=== PATIENT | female | born 1940 | race Caucasian/White ===

== ENCOUNTER → 2016-05-08 | Outpatient (REF) | payer MEDICARE ==
[~2016-05-08] MED LIST: /ESCI20TA PO; /WARF25TA PO; AGGR1CAP PO; AGGRENOX PO; ALBU83IN INH; ALDA50TA2 PO; AMLO5TAB2 PO; ASPI81TA85 PO; ATEN25TA PO; AZEL0.1S3; BENA20TA2 PO; CITA20TA4 PO; CLON-412 PO; EXCETAB80 PO; FISH1000 PO; FISHOIL OR; GEMF600T PO; HYDR-3716 PO; HYDR-4266 PO; HYDR-4267 PO; HYDR25TA PO; INVA1INJ IV; IPRASOL4 INH; LASI20TA PO; LOVA40TA PO; MECL-68 PO; MELA3TAB PO; METO12TA PO; METO25TAB PO; MUCI600T34 PO; PERCOCET PO; POTA10CA PO; PRED10TA PO; SIMV20TA2 PO; SPIR25TA2 PO; TRIPOIN TOP; TUMS500C PO; TYLE325T5 PO; ULTR50TA PO; VITA100066 PO; VITA400C2 PO; VITACAP33 PO; Vitamin D OR; [UNRECOGNIZED DRUG - CODE] PO; aggrenox OR; vitamin B12 OR; vitamin E OR
== END ==
LOC: M LAB REF 13:08
PROVIDERS: ATTEND Internal Medicine Nephrology
DX: N18.5 Chronic kidney disease, stage 5 (principal)

== ENCOUNTER → 2016-07-04 | Day surgery (SDC) | payer MEDICARE ==
[~2016-07-04] VITALS: Ht 156.2 cm; Wt 70.3 kg
[~2016-07-04] MED LIST changes: +ACETAMINOPHEN TAB 650MG DOSE (2X325MG) PO PRN; +D5W/0.2% SODIUM CHLORIDE 1,000 ML IV SCH; +HEPARIN SOD (PORCINE) 5000 UNITS/ML VIAL As Ordered ONE; +LIDOCAINE 1% SDV INJ 30 ML VIAL As Ordered ONE; +LIDOCAINE 2% INJ 100 MG/5 ML SDV (FOR ANES.) As Ordered ONE; +MIDAZOLAM INJ 2 MG/2 ML VIAL (J2250) As Ordered ONE; +NORCO, ANEXSIA 5/325MG TABLET (HYDROcodone/ACETAMINOPHEN) PO PRN; +NS 1,000 ML IV SCH; +ONDANSETRON 4MG/2ML VIAL (J2405) As Ordered ONE; +POTA1TAB14 PO; +PROPOFOL 200 MG/20 ML VIAL As Ordered ONE; +SEVOFLURANE INHAL SOLN 250 ML BTL As Ordered ONE; +fentaNYL 100 MCG/2 ML INJECTION (J3010) As Ordered ONE
[2016-07-04 10:00] VITALS: BP 178/82
--- NOTE | 2016-07-04 12:14 | RO ---
DATE OF PROCEDURE: 07/04/2016 PREOPERATIVE DIAGNOSIS: End stage renal disease. POSTOPERATIVE DIAGNOSIS: End stage renal disease. PROCEDURE PERFORMED: Implantation of permanent continuous ambulatory peritoneal dialysis catheter. SURGEON: Dr. Amol Lopez SHINE WORKER: BUTCH Mora ANESTHESIA: Monitored anesthesia care with local of 1% Xylocaine. INDICATIONS FOR PROCEDURE: Patient is a 75-year-old woman with progressive renal failure at end-stage. She is now for placement of a continuous ambulatory peritoneal dialysis (CAPD) catheter to begin dialysis. OPERATIVE PROCEDURE: The patient was placed supine on the operating table. She received sedation from anesthesia. The abdomen was prepped and draped in a sterile fashion. The site for the catheter placement was marked with a skin marker in the left lower quadrant. Local anesthesia was achieved with 1% Xylocaine. An approximately 3-4 cm longitudinal paramedian incision was made in the left lower quadrant slightly below the level of the umbilicus. The incision was deepened through the subcutaneous tissues. The anterior aspect of the rectus sheath was exposed. A longitudinal incision was made. The muscle fibers were spread. The peritoneum was exposed. A small opening was created through the posterior sheath and the peritoneum. A pursestring suture of #2-0 Vicryl was placed. The double pledgeted Joshua peritoneal dialysis catheter was placed over a stylet and then advanced through the small opening into the abdomen. The patient was placed in a Trendelenburg position for the catheter placement. The catheter was advanced along the anterior aspect of the abdominal wall toward the pelvis and then the catheter was slipped off the insertion stylet. The first pledget was placed just outside the peritoneum and the pursestring suture was tied down and was then tied about the pledget to keep the catheter from pulling back. The rectus muscle fibers were allowed to fall back together about the catheter. The anterior rectus sheath was then closed with a running suture of #0 Vicryl, leaving the catheter exiting superiorly. The catheter was then tunneled through the subcutaneous tissues to exit through a small stab wound in the left lower quadrant. The infusion adapter was attached to the catheter. A liter of normal saline was then infused with the patient in a slight reverse Trendelenburg position. Approximately 900 mL were allowed to infuse before the bag was then dropped and the fluid was allowed to return by gravity siphon. Approximately 700 mL returned. The catheter was then filled with 1 mL of 5000 units/mL heparin and approximately 1.2 mL of sterile injectable saline. While the fluid was infusing and returning, the skin incision was approximated with multiple buried sutures of #3-0 chromic and a running subcuticular suture of #4-0 Vicryl. Steri-Strips were applied. A chlorhexidine gluconate (CHG) OpSite was applied at the catheter exit site. The catheter was then coiled beneath gauze pads and an occlusive bandage of large OpSites was applied. The patient tolerated the procedure well without apparent complication. She was awakened and transported to advanced recovery in stable condition.
== END | disposition home or self-care (01) ==
LOC: M SDC 05:59
PROVIDERS: ATTEND Surgery
DX: N18.6 End stage renal disease (principal); I13.2 Hypertensive heart and chronic kidney disease with heart failure and with stage 5 chronic kidney disease, or end stage renal disease; I50.32 Chronic diastolic (congestive) heart failure; N25.81 Secondary hyperparathyroidism of renal origin; R55 Syncope and collapse; H69.90 Unspecified Eustachian tube disorder, unspecified ear; H65.20 Chronic serous otitis media, unspecified ear; H93.19 Tinnitus, unspecified ear; H90.5 Unspecified sensorineural hearing loss; H61.20 Impacted cerumen, unspecified ear; E78.00 Pure hypercholesterolemia, unspecified; F41.9 Anxiety disorder, unspecified; F32.9 Major depressive disorder, single episode, unspecified; I25.2 Old myocardial infarction; F17.210 Nicotine dependence, cigarettes, uncomplicated; R06.02 Shortness of breath; R06.83 Snoring; Z79.899 Other long term (current) drug therapy; Z85.858 Personal history of malignant neoplasm of other endocrine glands; Z96.1 Presence of intraocular lens; Z90.710 Acquired absence of both cervix and uterus; Z96.653 Presence of artificial knee joint, bilateral; Z91.040 Latex allergy status; Z88.6 Allergy status to analgesic agent; Z91.048 Other nonmedicinal substance allergy status; Z88.8 Allergy status to other drugs, medicaments and biological substances
CPT/HCPCS: 36415; 49421; 84132; J0690; J2250; J2405; J3010

== ENCOUNTER → 2016-09-13 | Outpatient (REF) | payer MEDICARE ==
[~2016-09-13] MED LIST changes: -ACETAMINOPHEN TAB 650MG DOSE (2X325MG) PO PRN; -D5W/0.2% SODIUM CHLORIDE 1,000 ML IV SCH; -HEPARIN SOD (PORCINE) 5000 UNITS/ML VIAL As Ordered ONE; -LIDOCAINE 1% SDV INJ 30 ML VIAL As Ordered ONE; -LIDOCAINE 2% INJ 100 MG/5 ML SDV (FOR ANES.) As Ordered ONE; -MIDAZOLAM INJ 2 MG/2 ML VIAL (J2250) As Ordered ONE; -NORCO, ANEXSIA 5/325MG TABLET (HYDROcodone/ACETAMINOPHEN) PO PRN; -NS 1,000 ML IV SCH; -ONDANSETRON 4MG/2ML VIAL (J2405) As Ordered ONE; -PROPOFOL 200 MG/20 ML VIAL As Ordered ONE; -SEVOFLURANE INHAL SOLN 250 ML BTL As Ordered ONE; -fentaNYL 100 MCG/2 ML INJECTION (J3010) As Ordered ONE
== END ==
LOC: M LAB REF 17:30
PROVIDERS: ATTEND Internal Medicine Nephrology
DX: N39.0 Urinary tract infection, site not specified (principal)

== ENCOUNTER 2016-11-14 14:22 | Inpatient (IN) | payer MEDICARE ==
[~2016-11-14] VITALS: Ht 154.9 cm; Wt 73.6 kg
[~2016-11-14 14:22] MED LIST changes: +HYDR-3910 PO; +HYDR-3911 PO; -HYDR-4266 PO; -HYDR-4267 PO; -METO12TA PO; +METO1TAB87 PO; -MUCI600T34 PO; +MUCI600T37 PO; -PRED10TA PO; +PRED10TA2 PO; -VITA400C2 PO; +VITA400C7 PO
[2016-11-14 18:10] VITALS: BP 168/82
[2016-11-14] MEDS ORDERED: ACETAMINOPHEN TAB 650MG DOSE (2X325MG) PO PRN (18:15)
[2016-11-14] MEDS ORDERED: ONDANSETRON 4MG/2ML VIAL (J2405) IV PRN (18:15)
[2016-11-14] MEDS ORDERED: MORPHINE 2 MG/ML 1ML SYRINGE IV PRN (18:15)
[2016-11-14 18:48] LABS: BASO % 0.2 % (0.0-1.0); EOS # 0.1 K/mm3 (0.0-0.50); EOS % 1.4 % (0.0-3.0); LARGE UNSTAINED CELL # 0.1 K/mm3 (0.0-0.4); LARGE UNSTAINED CELL % 1.8 % (0.0-4.0); LYMPH # 1.5 K/mm3 (1.5-4.5); LYMPH % 23.6 % (24.0-44.0); MEAN CORPUSCULAR HEMOGLOBIN 32.2 pg (27.0-33.0); MEAN CORPUSCULAR HGB CONC 34.7 g/dl (32.0-36.5); MEAN CORPUSCULAR VOLUME 92.7 fl (80.0-96.0); MONO # 0.3 K/mm3 (0.0-0.8); MONO % 5.1 % (0.0-5.0); NEUTROPHILS % 67.9 % (36.0-66.0); PLATELET COUNT, AUTOMATED 229 k/mm3 (150-450); RED CELL DISTRIBUTION WIDTH 13.6 % (11.5-14.5); WHITE BLOOD COUNT 5.8 K/mm3 (4.0-10.0)
[2016-11-14] MEDS: PANTOPRAZOLE 40MG TAB (PROTONIX) PO SCH (19:01)
[2016-11-14 19:29] LABS: ALBUMIN 2.4 GM/DL (3.2-5.2); ALBUMIN/GLOBULIN RATIO 0.75 (1.00-1.93); BILIRUBIN,TOTAL 0.4 MG/DL (0.2-1.0); CALCIUM LEVEL 8.6 MG/DL (8.8-10.2); CREATININE FOR GFR 3.49 MG/DL (0.55-1.02); GLOMERULAR FILTRATION RATE 13.5 (>39); POTASSIUM SERUM 3.3 MEQ/L (3.5-5.1); TOTAL PROTEIN 5.6 GM/DL (6.4-8.2)
[2016-11-14] MEDS ORDERED: ADV250INH INH (20:48)
[2016-11-14] MEDS ORDERED: FURO40TA2 PO (20:48)
[2016-11-14] MEDS ORDERED: LOSA100T36 PO (20:48)
[2016-11-14] MEDS ORDERED: VITA100067 PO (20:48)
[2016-11-14] MEDS ORDERED: CITA20TA4 PO (20:48)
[2016-11-14] MEDS ORDERED: RENATAB5 PO (20:48)
[2016-11-14] MEDS ORDERED: HYDR-3911 PO (20:48)
[2016-11-14] MEDS ORDERED: ZOCO40TA PO (20:48)
[2016-11-14] MEDS ORDERED: CETI10TA PO (20:48)
[2016-11-14] MEDS ORDERED: POTASSIUM CHLORIDE 10 MEQ SR TABLET PO ONE (21:45)
[2016-11-14] MEDS ORDERED: VANCOMYCIN 1000 MG/20 ML VIAL (J3370) IP ONE (21:45)
[2016-11-14] MEDS ORDERED: GENTAMICIN SULF INJ 80MG/2ML VIAL (J1580) IP ONE (21:45)
[2016-11-14] MEDS: cloNIDine 0.1 MG TAB PO SCH (22:23)
[2016-11-14] MEDS: METOPROLOL TART 25 MG TABLET PO SCH (22:24)
[2016-11-14] MEDS: GEMFIBROZIL 600 MG TAB PO SCH (22:24)
[2016-11-14] MEDS: CitaloPRAM (CeleXA) 20 MG TAB PO SCH (22:24)
[2016-11-14 22:59] LABS: RBC PERITONEAL DIALYSATE 69 (<10mm3 cells/uL); TNC PERITONEAL DIALYSATE 8067 cells/uL (0-20)
[2016-11-14 23:00] LABS: BF DIFF IF INDICATED? YES (NO)
[2016-11-15] MEDS ORDERED: COMBIVENT RESPIMAT 100-20MCG INHALER 4GM INH PRN (00:15)
[2016-11-15 00:52] LABS: CC BF DIFF EXAM CYTOCENTRIFUGE
[2016-11-15 02:00] VITALS: BP 128/75
[2016-11-15] MEDS: PERCOCET 5MG/325MG TAB PO PRN ×3 (03:12→17:51)
[2016-11-15 06:00] VITALS: BP 118/69
[2016-11-15 06:39] LABS: MEAN CORPUSCULAR HEMOGLOBIN 32.7 pg (27.0-33.0); MEAN CORPUSCULAR HGB CONC 34.6 g/dl (32.0-36.5); MEAN CORPUSCULAR VOLUME 94.6 fl (80.0-96.0); RED CELL DISTRIBUTION WIDTH 13.3 % (11.5-14.5); WHITE BLOOD COUNT 5.6 K/mm3 (4.0-10.0)
[2016-11-15 06:58] LABS: ALBUMIN 1.9 GM/DL (3.2-5.2); CALCIUM LEVEL 7.7 MG/DL (8.8-10.2); CREATININE FOR GFR 3.47 MG/DL (0.55-1.02); GLOMERULAR FILTRATION RATE 13.6 (>39); PHOSPHORUS LEVEL 3.4 MG/DL (2.5-4.9); POTASSIUM SERUM 3.4 MEQ/L (3.5-5.1)
[2016-11-15] MEDS: OMEGA-3 1050MG CAPSULE PO SCH (10:08)
[2016-11-15] MEDS: POTASSIUM CHLORIDE 10 MEQ SR TABLET PO SCH ×2 (10:08→21:38)
[2016-11-15] MEDS: METOPROLOL TART 25 MG TABLET PO SCH ×2 (10:09→21:40)
[2016-11-15] MEDS: NEPHRO-VIT TAB (NEPHROCAPS) PO SCH (10:09)
[2016-11-15] MEDS: LOSARTAN 50 MG TAB PO SCH (10:10)
[2016-11-15] MEDS: GEMFIBROZIL 600 MG TAB PO SCH ×2 (10:10→21:39)
[2016-11-15] MEDS: PANTOPRAZOLE 40MG TAB (PROTONIX) PO SCH (10:10)
[2016-11-15] MEDS: ENOXAPARIN 30 MG/0.3 ML SYR (J1650) SC SCH (10:11)
[2016-11-15] MEDS: cloNIDine 0.1 MG TAB PO SCH ×3 (10:11→21:39)
[2016-11-15] MEDS: VITAMIN D 1,000 INTERNATIONAL UNITS TABLET PO SCH (10:11)
[2016-11-15] MEDS: ALBUTEROL SULFATE 2.5 MG/0.5 ML INH NEB SOLN NEB PRN (10:34)
[2016-11-15] MEDS ORDERED: HEPARIN SOD (PORCINE) 5000 UNITS/ML VIAL IP ONE (11:30)
--- NOTE | 2016-11-15 12:47 | REP ---
CT of the abdomen and pelvis without IV or bowel contrast: Comparison is 02/04/2016. The previous bilateral pleural effusions have resolved. The visualized lung hollingsworth are unremarkable. There is a large volume of peritoneal fluid surrounding the liver and spleen extending into the colic gutters and pelvis. There is a peritoneal catheter, likely a peritoneal dialysis catheter. This was not present previously. There is no mesenteric adenopathy. There are no loculated mesenteric fluid collections to suggest abscess or hematoma. The unenhanced liver is unremarkable except for occasional calcified granulomas. The gallbladder is distended. This is unchanged. There is no cholelithiasis. The pancreas and spleen are unremarkable except for splenic calcified granulomas. This is unchanged. There is pneumoperitoneum anterior to the transverse colon. The adrenals are unremarkable. The unenhanced kidneys are unremarkable. There is no hydronephrosis. There is an infrarenal abdominal aortic aneurysm measuring up to 3.7 cm, unchanged. Just inferior to the aneurysm there is an unusual calcification pattern in the aorta, as a result of aortic tortuosity, seen to best advantage on the coronal images. This is unchanged. Pelvis: There is sigmoid colon diverticulosis without diverticulitis. This is unchanged. The there is a air in the bladder, likely from catheterization, however fistulization with bowel is also possible. There is a hysterectomy. The vaginal cuff and adnexa are unremarkable. Impression: There is pneumoperitoneum anterior to the transverse colon. Peritoneal catheter and large volume of intraperitoneal fluid. No inflammatory changes in the mesentery. No loculated mesenteric fluid collections to suggest abscess or hematoma. No bowel distension. Sigmoid colon diverticulosis without diverticulitis. Air in the bladder, likely from catheterization although fistulization with bowel cannot be entirely discounted. Infrarenal abdominal aortic aneurysm and tortuosity of the infrarenal abdominal aorta. Results are discussed by phone with the patient's physician, Dr. Evans. Signed by Dejuan Galindo MD 11/15/2016 12:39 P
[2016-11-15] MEDS: KCL 20MEQ IN D5/NS 1000ML 1,000 ML IV SCH (13:04)
--- NOTE | 2016-11-15 18:23 | HPE ---
DATE OF ADMISSION: 11/14/2016 Note: The patient is transferred from [facility] for admission due to severe abdominal pain the last four days in the setting of end-stage renal disease and peritoneal dialysis. CHIEF COMPLAINT: Severe abdominal pain since Sunday. HISTORY OF PRESENT ILLNESS: The patient is a 75-year-old female with known history of hypertension, hyperlipidemia, COPD, end-stage renal disease requiring peritoneal dialysis. She developed abdominal pain on Sunday, however did not call us at all. Today she presented to the emergency room at [facility]. She was seen by a physician's talent acquisition assistant who did not have any experience in the care of peritoneal dialysis patient. The patient did have a CT scan of abdomen and pelvis done which showed free air and ascites. I was called by the physician talent acquisition assistant and case was discussed. I felt that the patient probably has peritonitis, ischemic bowel or diverticulitis. CT scan did not show any significant evidence for diverticulitis. It was decided to transfer the patient to [facility] due to need for dialysis and further workup for diagnosis of her abdominal pain. PAST MEDICAL AND SURGICAL HISTORY: Significant for 1. Hypertension. 2. Hyperlipidemia. 3. Chronic obstructive pulmonary disease (COPD). 4. Depression. 5. End-stage renal disease requiring peritoneal dialysis. 6. History of cerebrovascular accident (CVA) and transient ischemic attack (TIA). 7. History of gastroesophageal reflux disease. 8. Anemia of chronic kidney disease. 9. Vitamin D deficiency. 10. Secondary hyperparathyroidism. PAST SURGICAL HISTORY: Significant for 1. Tonsillectomy. 2. Bilateral knee replacement. 3. Bilateral cataract removal. 4. Partial hysterectomy. 5, Lymph node dissection in left arm. 6. Melanoma removal from left ankle. 7. Peritoneal dialysis catheter placement. MEDICATIONS: Her home medications include - Aggrenox 25/200 mg 1 tablet twice a day. - citalopram 20 mg daily - fish oil 1000 mg daily - gemfibrozil 600 mg twice a day - losartan 100 mg daily - metoprolol 25 mg twice a day - Pastora-Olga 1 tablet daily - simvastatin 40 mg daily - vitamin D 1000 units daily - Zyrtec 10 mg daily - clonidine 0.1 mg three times a day - hydralazine 50 mg three times a day ALLERGIES: The patient has allergy to IBUPROFEN, LATEX, PSEUDOEPHEDRINE AND CARBAMIDE PEROXIDE. REVIEW OF SYSTEMS: The patient denies any fever or chills. She reports abdominal pain for last 4 days. She has been nauseated and not eating well, but denies any vomiting or diarrhea. There is no history of rectal bleeding or black colored stools. Cardiovascular system is negative for dyspnea or chest pain. Respiratory system negative for cough, hemoptysis or pleuritic type of chest pain. Ears, nose and throat are unremarkable. GI system is significant for abdominal pain, which has persisted since Sunday. She denies any rectal bleeding or black colored stools. system is significant for cloudy urine, but denies any dysuria or hematuria. She has history of end-stage renal disease and has been on peritoneal dialysis. Musculoskeletal system is significant for chronic degenerative arthritis. She denies use of NSAID. Psychosocial system is significant for depression. There is no significant anxiety. Neurological system is significant for prior stroke and TIA. She does not have any significant neurological deficit. Endocrine system is negative for diabetes or thyroid problems. She has secondary hyperparathyroidism and vitamin D deficiency. PHYSICAL EXAMINATION: Temperature 98.8 degrees Fahrenheit, heart rate 88 per minute and respiratory rate 18 per minute. Blood pressure 119/69 mmHg and oxygen saturation 90% on room air. Head: Is atraumatic. Neck is supple and without jugular venous distention (JVD) or thyroid enlargement. Pupils are equal and reactive to light and sclera is anicteric. Heart exam reveals a regular S1-S2. There is no pericardial friction rub. Lungs: Sound clear to auscultation bilaterally. Abdomen has generalized tenderness, which is moderate to severe. Ascites is present and peritoneal dialysis catheter is intact. Extremities have no cyanosis or clubbing. Neurologically she is awake, alert and oriented times three. Skin has no rash or ulcers. DIAGNOSTIC STUDIES: The patient had a CT scan of abdomen and pelvis done in [facility], which showed free air and ascites. There was no evidence for any other significant intra-abdominal pathology. Her labs from [facility] were also reviewed. Here she has a white cell count of 5.8, hemoglobin 10.2 and hematocrit 29.2. Platelets 229. Sodium 140 and potassium 3.3. BUN is 39 and creatinine 3.49. AST 10, ALT also 10 and alkaline phosphatase 63. Total protein 5.6 and albumin 2.4. PROBLEM LIST: 1. Severe abdominal pain. The patient has been in pain for last 4 days. However, she kept thinking that she has some kind of stomach bug. She never sought medical care or notified any providers. She came to the emergency room today. Had a strong suspicion for peritonitis. The patient has been transferred to [facility] and we will check her peritoneal fluid for cell count, growing Gram stain and cultures. I have very strong suspicion for peritonitis. In case of cloudy fluid, we will go ahead and treat her with intraperitoneal vancomycin 2 grams and gentamicin 80 mg tonight. She is hemodynamically stable and afebrile at present. We will wait for cell count on her peritoneal dialysis solution and culture results. 2. End-stage renal disease. The patient has been on peritoneal dialysis at home. We will resume and perform four exchanges daily. Tonight, we will perform one exchange and let the fluid with antibiotics dwell for 8 hours. Tomorrow morning will start four exchanges per day. 3. Hypokalemia. This is nutritional and probably caused by poor oral intake. Will replace her potassium with 40 mEq potassium chloride one dose and recheck her electrolytes tomorrow morning. 4. Hypertension. Her blood pressure is stable so far and will need to monitor as she is at risk for hypotension due to ongoing peritonitis. I will hold off on her hydralazine and continue with her losartan 100 mg daily, metoprolol 25 mg twice a day and clonidine 0.1 mg three times a day. I will put hold parameters on clonidine and losartan. We will completely stop her hydralazine for now. 5. Anemia. Her anemia is stable at this point and does not need any intervention. 6. Depression. We will continue her chronic antidepressant medications. 7. Deep venous thrombosis (DVT) prophylaxis. The patient will be started on Lovenox 30 mg subcu daily. 8. DNR status. The patient requested a DNR status. She filled the paperwork and we issued DO NOT RESUSCITATE (DNR) orders.
[2016-11-15 19:25] LABS: PERITONEAL FL COLOR COLORLESS (COLORLESS); RBC PERITONEAL FLUID < 10 (<10mm3 cells/uL); TNC PERITONEAL FLUID 3167 cells/uL (0-20)
[2016-11-15 19:26] LABS: BF DIFF IF INDICATED? YES (NO)
[2016-11-15] MEDS: CitaloPRAM (CeleXA) 20 MG TAB PO SCH (21:00)
[2016-11-15 21:48] LABS: CC BF DIFF EXAM CYTOCENTRIFUGE
[2016-11-15 22:00] VITALS: BP 115/63
[2016-11-15] MEDS ORDERED: GENTAMICIN SULF INJ 80MG/2ML VIAL (J1580) IP ONE (22:00)
[2016-11-16 02:00] VITALS: BP 120/67
[2016-11-16] MEDS: KCL 20MEQ IN D5/NS 1000ML 1,000 ML IV SCH ×2 (03:12→16:49)
[2016-11-16] MEDS: PERCOCET 5MG/325MG TAB PO PRN ×2 (03:36→08:34)
[2016-11-16 06:00] VITALS: BP 105/65
[2016-11-16] MEDS: cefTAZidime 1 GM in D5W MINI-BAG PLUS 100 ML IV SCH ×2 (08:29→20:36)
[2016-11-16] MEDS: GEMFIBROZIL 600 MG TAB PO SCH ×2 (08:33→20:37)
[2016-11-16] MEDS: VITAMIN D 1,000 INTERNATIONAL UNITS TABLET PO SCH (08:33)
[2016-11-16] MEDS: POTASSIUM CHLORIDE 10 MEQ SR TABLET PO SCH ×2 (08:33→20:37)
[2016-11-16] MEDS: NEPHRO-VIT TAB (NEPHROCAPS) PO SCH (08:33)
[2016-11-16] MEDS: ENOXAPARIN 30 MG/0.3 ML SYR (J1650) SC SCH (08:33)
[2016-11-16] MEDS: OMEGA-3 1050MG CAPSULE PO SCH (08:34)
[2016-11-16] MEDS: PANTOPRAZOLE 40MG TAB (PROTONIX) PO SCH (08:34)
[2016-11-16] MEDS: cloNIDine 0.1 MG TAB PO SCH ×3 (08:35→20:38)
[2016-11-16] MEDS: LOSARTAN 50 MG TAB PO SCH (08:35)
[2016-11-16 09:04] LABS: BF DIFF IF INDICATED? YES (NO); PERITONEAL DIALYSATE FL COLOR COLORLESS (COLORLESS); RBC PERITONEAL DIALYSATE < 10 (<10mm3 cells/uL); TNC PERITONEAL DIALYSATE 4048 cells/uL (0-20)
[2016-11-16 09:55] LABS: ALBUMIN 1.8 GM/DL (3.2-5.2); CALCIUM LEVEL 7.5 MG/DL (8.8-10.2); CREATININE FOR GFR 2.98 MG/DL (0.55-1.02); GLOMERULAR FILTRATION RATE 16.2 (>39); PHOSPHORUS LEVEL 2.8 MG/DL (2.5-4.9); POTASSIUM SERUM 3.4 MEQ/L (3.5-5.1)
[2016-11-16 10:00] VITALS: BP 102/59
[2016-11-16 10:01] LABS: MEAN CORPUSCULAR HEMOGLOBIN 32.2 pg (27.0-33.0); MEAN CORPUSCULAR HGB CONC 33.8 g/dl (32.0-36.5); MEAN CORPUSCULAR VOLUME 95.4 fl (80.0-96.0); RED CELL DISTRIBUTION WIDTH 13.3 % (11.5-14.5); WHITE BLOOD COUNT 5.6 K/mm3 (4.0-10.0)
[2016-11-16 10:03] LABS: CC BF DIFF EXAM CYTOCENTRIFUGE
[2016-11-16] MEDS: METOPROLOL TART 25 MG TABLET PO SCH ×2 (10:40→20:38)
[2016-11-16] MEDS ORDERED: HEPARIN SOD (PORCINE) 5000 UNITS/ML VIAL IP ONE (11:00)
[2016-11-16] MEDS: ALBUTEROL SULFATE 2.5 MG/0.5 ML INH NEB SOLN NEB PRN ×2 (11:01→20:34)
[2016-11-16 14:00] VITALS: BP 118/70
[2016-11-16 18:00] VITALS: BP 134/72
[2016-11-16] MEDS: CitaloPRAM (CeleXA) 20 MG TAB PO SCH (20:38)
--- NOTE | 2016-11-16 21:58 | IPN ---
DATE: 11/15/2016 Mrs. Lange is seen this morning on her bedside. She was admitted last evening via transfer from [facility] due to abdominal pain for the last 4-5 days. She was diagnosed with peritonitis related to peritoneal dialysis. Her peritoneal dialysis solution last evening showed more than 8000 total nucleated cells with 91% neutrophils. She was treated with intraperitoneal vancomycin 2 grams, gentamicin 80 mg and one dose of oral Levaquin 500 mg. This morning, the patient feels slightly better. However, abdominal pain and distension persist. Nursing staff reports that peritoneal dialysis solution is still cloudy and she drained less than 1 liter this morning. PHYSICAL EXAMINATION; Temperature is 97.9 degrees Fahrenheit, heart rate 66 per minute and respiratory rate 18 per minute. Blood pressure 118/69 mmHg and oxygen saturation 90% on room air. Her head is atraumatic. Neck is supple and jugular venous distention (JVD) is only mildly elevated. There is no oral thrush or ulcers. Heart: Sounds are regular and lungs clear to auscultation. Abdomen is slightly more distended than last evening and tender. Bowel sounds are hypoactive. Peritoneal dialysis catheter is intact. Extremities have no cyanosis or clubbing. LABORATORY DATA: Her lab data from last evening included peritoneal dialysis fluid cell count, which showed more than 8000 nucleated WBCs with 91% neutrophils. This morning her sodium is 141 and potassium 3.4. BUN is 37 and creatinine 3.47. Albumin is 1.9. Her urinalysis showed too numerous to count WBCs and 47 RBCs with 3+ leukocyte esterase. PROBLEMS: 1. Severe abdominal pain. This is related to peritonitis. I am concerned about worsening abdominal distension and pain. I am going to repeat CT scan of abdomen and pelvis. We will continue with peritoneal dialysis at this point and try to drain her for longer period of time. We will also add heparin 1000 units in order to ensure that there is no fibrin buildup to prevent fluid drainage. 2. Peritonitis. The patient was given 2 grams of vancomycin and 80 mg of gentamicin last evening. We will give her another dose of gentamicin 40 mg tonight. 3. Hypokalemia. This is related to decreased oral intake. The patient will be given potassium chloride 20 mEq twice a day we will monitor her electrolytes. 4. Anemia. Her anemia is slightly worse today and this is most likely related to acute infection and end-stage renal disease. She has no blood loss. I will continue to monitor and recheck her CBC tomorrow. 5. Hypertension. Her blood pressure is reasonably well-controlled. I have cut down her antihypertensive medications slightly. She is doing well. 6. Abdominal distension and pain. I am going to make her n.p.o. for now and we will continue to monitor for next 24 hours. Should her condition not improve then we will consider a surgical consultation. If her abdominal distension is all related to peritonitis then it is likely to improve over next 24 hours.
[2016-11-16 22:00] VITALS: BP 156/72
[2016-11-17] MEDS: PERCOCET 5MG/325MG TAB PO PRN ×2 (01:54→18:12)
[2016-11-17 02:00] VITALS: BP 138/76
[2016-11-17] MEDS: KCL 20MEQ IN D5/NS 1000ML 1,000 ML IV SCH (03:06)
[2016-11-17 06:00] VITALS: BP 134/64
[2016-11-17 06:29] LABS: MEAN CORPUSCULAR HEMOGLOBIN 31.8 pg (27.0-33.0); MEAN CORPUSCULAR HGB CONC 32.8 g/dl (32.0-36.5); RED CELL DISTRIBUTION WIDTH 13.1 % (11.5-14.5); WHITE BLOOD COUNT 6.3 K/mm3 (4.0-10.0)
[2016-11-17 06:44] LABS: ALBUMIN 1.8 GM/DL (3.2-5.2); CALCIUM LEVEL 7.7 MG/DL (8.8-10.2); CREATININE FOR GFR 2.97 MG/DL (0.55-1.02); GLOMERULAR FILTRATION RATE 16.3 (>39); MAGNESIUM LEVEL 1.6 MG/DL (1.8-2.4); PHOSPHORUS LEVEL 2.7 MG/DL (2.5-4.9); POTASSIUM SERUM 4.4 MEQ/L (3.5-5.1)
[2016-11-17 08:06] LABS: RBC PERITONEAL DIALYSATE < 10 (<10mm3 cells/uL); TNC PERITONEAL DIALYSATE 793 cells/uL (0-20)
[2016-11-17 08:07] LABS: PERITONEAL DIALYSATE FL COLOR COLORLESS (COLORLESS)
[2016-11-17 08:08] LABS: BF DIFF IF INDICATED? YES (NO); CC BF DIFF EXAM CYTOCENTRIFUGE
[2016-11-17] MEDS: cefTAZidime 1 GM in D5W MINI-BAG PLUS 100 ML IV SCH ×2 (08:18→21:10)
[2016-11-17] MEDS: cloNIDine 0.1 MG TAB PO SCH ×3 (08:22→21:11)
[2016-11-17] MEDS: GEMFIBROZIL 600 MG TAB PO SCH ×2 (08:22→21:10)
[2016-11-17] MEDS: OMEGA-3 1050MG CAPSULE PO SCH (08:22)
[2016-11-17] MEDS: LOSARTAN 50 MG TAB PO SCH (08:22)
[2016-11-17] MEDS: POTASSIUM CHLORIDE 10 MEQ SR TABLET PO SCH ×2 (08:22→21:11)
[2016-11-17] MEDS: VITAMIN D 1,000 INTERNATIONAL UNITS TABLET PO SCH (08:22)
[2016-11-17] MEDS: METOPROLOL TART 25 MG TABLET PO SCH ×2 (08:23→21:11)
[2016-11-17] MEDS: NEPHRO-VIT TAB (NEPHROCAPS) PO SCH (08:23)
[2016-11-17] MEDS: ENOXAPARIN 30 MG/0.3 ML SYR (J1650) SC SCH (08:23)
[2016-11-17] MEDS: PANTOPRAZOLE 40MG TAB (PROTONIX) PO SCH (08:23)
[2016-11-17 10:00] VITALS: BP 114/59
[2016-11-17] MEDS: ALBUTEROL SULFATE 2.5 MG/0.5 ML INH NEB SOLN NEB PRN ×2 (11:22→18:09)
[2016-11-17 17:00] VITALS: BP 136/78
[2016-11-17 18:20] VITALS: O2SAT 92
[2016-11-17] MEDS: CitaloPRAM (CeleXA) 20 MG TAB PO SCH (21:10)
[2016-11-17 22:00] VITALS: BP 145/70
[2016-11-17] MEDS: GENTAMICIN SULF INJ 80MG/2ML VIAL (J1580) IP ONE ×2 (22:00→22:04)
[2016-11-17] MEDS ORDERED: HEPARIN 1,000 UNITS/ML 10ML VIAL (FOR RADIOLOGY& DIALYSIS ONLY) XX ONE (23:30)
[2016-11-18 02:00] VITALS: BP 141/69
--- NOTE | 2016-11-18 04:44 | IPN ---
DATE OF SERVICE: 11/16/2016 Mrs. Lange is seen this morning on her bedside. She reports feeling better. However, still has some abdominal pain. She denies any vomiting, chest pain, fever or chills. She reports that she did have a loose stool last night. Her peritoneal dialysis has been functioning reasonably well. However, fluid remains cloudy. PHYSICAL EXAMINATION: Temperature 98 degrees Fahrenheit, heart rate 60 per minute and respiratory rate 18 per minute. Blood pressure is down to 102/59 mmHg. Earlier her heart rate was reported at 107 per minute. Her blood pressure has been relatively low since this morning. Her head is atraumatic. Neck is supple and without jugular venous distention (JVD) or thyroid enlargement. There is no oral thrush or ulcers. Pupils equal and reactive to light and sclera is anicteric. Heart sounds are regular and lungs clear to auscultation. Abdomen is still quite tender, distended and bowel sounds are hypoactive now. Extremities have no cyanosis or clubbing. Neurologically, she is awake, alert and oriented times three. Today's labs show a peritoneal dialysis cell count which is up to 4048 while yesterday it was 3167. Her initial cell count on day of admission was 8067. Peritoneal dialysis fluid culture has come back positive Enterobacter. Today's chemistry showed sodium level 143, potassium 3.4, chloride 105, CO2 28, BUN 30, creatinine 2.98, glucose 144, calcium 7.5 and phosphorus 2.8. Serum albumin is 1.8. PROBLEMS: 1. Peritonitis. The patient has Enterobacter peritonitis. She has been treated with intraperitoneal vancomycin and gentamicin so far. I will start her on intravenous ceftazidime 1 gram every 12 hours. We will redose gentamicin 40 mg tonight in last peritoneal dialysis exchange. She was given vancomycin on the day of admission and will be good for at least another 48 hours. At this point, her blood pressure has dropped down to 102 mmHg while yesterday she was in 140s and 160s. All her antihypertensives are being put on hold. I am increasing the intravenous (IV) fluid to 100 mL/h. I am concerned about possibility of a perforated viscus. A surgical consultation is being requested from Dr. Garrido. 2. End-stage renal disease. Peritoneal dialysis has been functioning reasonably well. We will continue with peritoneal dialysis until a decision for surgery is made. 3. Hypokalemia. This is related to dialysis and nutrition. We will make her nothing by mouth at this point. We have added potassium chloride 20 mEq in each liter of IV fluid and will continue with the same. 4. Anemia. This is related to end-stage renal disease and ongoing acute peritonitis. At this point, there is no indication for transfusion and we will continue to monitor closely. 5. Hypotension. Blood pressure is low and most likely this is related to ongoing peritonitis. Antihypertensives are being put on hold and IV fluid D5 normal saline with potassium chloride is being increased to 100 mL/h. 6. Deep venous thrombosis (DVT) prophylaxis. The patient remains on Lovenox 30 mg daily. 7. DO NOT RESUSCITATE status. The patient has signed the DNR as she had a DNR status as an outpatient. DNR orders have been issued.
[2016-11-18 06:00] VITALS: BP 141/69
[2016-11-18 06:38] LABS: MEAN CORPUSCULAR HEMOGLOBIN 32.2 pg (27.0-33.0); MEAN CORPUSCULAR HGB CONC 33.3 g/dl (32.0-36.5); MEAN CORPUSCULAR VOLUME 96.7 fl (80.0-96.0); RED CELL DISTRIBUTION WIDTH 13.1 % (11.5-14.5); WHITE BLOOD COUNT 6.8 K/mm3 (4.0-10.0)
[2016-11-18 06:46] LABS: ALBUMIN 1.9 GM/DL (3.2-5.2); CALCIUM LEVEL 8.2 MG/DL (8.8-10.2); CREATININE FOR GFR 2.64 MG/DL (0.55-1.02); GLOMERULAR FILTRATION RATE 18.7 (>39); MAGNESIUM LEVEL 1.6 MG/DL (1.8-2.4); PHOSPHORUS LEVEL 2.1 MG/DL (2.5-4.9); POTASSIUM SERUM 4.1 MEQ/L (3.5-5.1)
[2016-11-18] MEDS: GEMFIBROZIL 600 MG TAB PO SCH ×2 (09:07→20:26)
[2016-11-18] MEDS: PANTOPRAZOLE 40MG TAB (PROTONIX) PO SCH (09:07)
[2016-11-18] MEDS: OMEGA-3 1050MG CAPSULE PO SCH (09:07)
[2016-11-18] MEDS: NEPHRO-VIT TAB (NEPHROCAPS) PO SCH (09:07)
[2016-11-18] MEDS: cefTAZidime 1 GM in D5W MINI-BAG PLUS 100 ML IV SCH (09:07)
[2016-11-18] MEDS: LOSARTAN 50 MG TAB PO SCH (09:08)
[2016-11-18] MEDS: cloNIDine 0.1 MG TAB PO SCH ×3 (09:08→20:25)
[2016-11-18] MEDS: VITAMIN D 1,000 INTERNATIONAL UNITS TABLET PO SCH (09:09)
[2016-11-18] MEDS: ENOXAPARIN 30 MG/0.3 ML SYR (J1650) SC SCH (09:09)
[2016-11-18] MEDS: METOPROLOL TART 25 MG TABLET PO SCH ×2 (09:09→20:26)
[2016-11-18] MEDS: POTASSIUM CHLORIDE 10 MEQ SR TABLET PO SCH ×2 (09:09→20:26)
[2016-11-18] MEDS: DARBEPOETIN 300 MCG/0.6 ML *NON-DIALYSIS* SYRINGE (J0881) SC SCH (10:27)
[2016-11-18] MEDS: PIPERACILLIN/TAZOBACTAM SOD 2.25 GM in D5W MINI-BAG PLUS 50 ML IV SCH ×2 (10:36→23:29)
[2016-11-18 11:12] LABS: RBC PERITONEAL DIALYSATE < 10 (<10mm3 cells/uL); TNC PERITONEAL DIALYSATE 789 cells/uL (0-20)
[2016-11-18 11:13] LABS: BF DIFF IF INDICATED? YES (NO); PERITONEAL DIALYSATE FL COLOR COLORLESS (COLORLESS)
[2016-11-18 12:07] LABS: GENTAMICIN LEVEL RANDOM 2.2 MCG/ML
[2016-11-18 12:59] LABS: CC BF DIFF EXAM CYTOCENTRIFUGE
--- NOTE | 2016-11-18 13:28 | IPN ---
DATE: 11/18/2016 SUBJECTIVE: Patient was seen and examined at the bedside today morning. Last 24 hour events were noted. The patient was having a lot of fibrin and peritoneal dialysate. Heparin 1000 units were given in the bag. Gentamicin was not given last night. Patient is otherwise hemodynamically stable at this time. She is afebrile. REVIEW OF SYSTEMS: Patient denies any fevers, chills, rigors, headache, nausea, vomiting or chest pain. She reports her pain in the abdomen is significantly getting better. The rest of review of systems is negative. OBJECTIVE: VITAL SIGNS: Temperature is 98.1 degrees Fahrenheit, blood pressure is 178/88, pulse 74, respiratory rate of 16, saturating 98% on room air. INTAKE AND OUTPUT: Patient is 2 liters negative according to peritoneal dialysate intake and output and she is 2.5 liters positive so far. Weight on the bed scale is not available at this time. PHYSICAL EXAMINATION: GENERAL: Patient is awake, alert and oriented times three. Laying in bed. No apparent distress. HEAD/NECK: Extraocular muscles intact. Pupils equally round and reactive to light. Mucous membranes are moist. Neck is supple. There is no jugular venous distention (JVD). CARDIOVASCULAR: S1, S2, regular rate. No murmur, rub or gallop. RESPIRATORY: Chest is clear to auscultation bilaterally. Bilateral equal air entry. No rales or rhonchi. ABDOMEN: Soft. Mildly distended. Very mild tenderness in the left lower quadrant. No rebound tenderness. Positive bowel sounds. Patient has a left lower quadrant peritoneal dialysis catheter with clean exit site, which is covered with a dressing. MUSCULOSKELETAL: No clubbing or cyanosis. Pulses are 2+. DIRECT MARKETING MANAGER: No focal neurological deficit. Power is 5/5 in all extremities. SKIN: No rashes or ulcers. PSYCH: Normal mood and affect. LAB REVIEW: CBC showed a WBC of 6.8, hemoglobin 9.4, platelets 274. Peritoneal fluid total nucleated cell count was 789 today. It was 793 yesterday. BMP today morning showed sodium 141, potassium 4.1, chloride 107, bicarb 27, BUN 20, creatinine 2.6, calcium 8.2, phosphorous 2.1, magnesium 1.6, albumin is 1.9. Random gentamicin level is 2.2. Microbiology: Urine culture is growing ESBL E. Coli, which is resistant to ceftazidime and peritoneal fluid is growing enterobacter cloacae complex, which is sensitive to ceftazidime that the patient is on. CURRENT MEDICATIONS: The patient's medications were all reviewed by me. I have stopped the ceftazidime at this time. I have started the patient on Zosyn 2.25 grams IV every 12 hours to cover the peritonitis and ESBL E. coli UTI at the same time. The patient was also started on daily gentamicin 40 mg intraperitoneal daily. There is no other change in the medications today as compared with yesterday. ASSESSMENT: 75-year-old female with past medical history of end stage renal disease on peritoneal dialysis. This admission with bacterial peritonitis and ESBL E. coli UTI. PLAN: 1. Acute peritonitis. Patient has enterobacter cloacae peritonitis. She is getting intraperitoneal gentamicin. She was getting ceftazidime, however, to cover both peritonitis and E. coli UTI, I have switched the antibiotics to Zosyn 2.25 grams IV every 12 hourly, which is the dose of peritoneal dialysis. Continue the daily cell count, peritoneal fluid cell is slowly coming down. 2. End stage renal disease on peritoneal dialysis. Patient was having a lot of fibrin and there was difficulty with draining the fluid, so 1000 units of heparin were added to the peritoneal fluid yesterday. Continue the current PD regimen four exchanges daily, 2 liters each, all 1.5%. 3. ESBL E. coli UTI. E. coli was not sensitive to ceftazidime. It is sensitive to Zosyn so antibiotic has been changed to Zosyn. First dose was given today morning. This antibiotic should cover both UTI and peritonitis. 4. Hypophosphatemia. Patient was given two packets of Neutra-Phos one dose today. 5. Hypokalemia. Potassium is stable at this time. Continue current dose of potassium chloride 20 mEq by mouth twice a day. 6. Hypertension. Blood pressure is coming up now with improvement of sepsis. Continue current dose of clonidine 0.1 mg by mouth three times a day, losartan 100 mg daily, metoprolol 25 mg by mouth twice a day. 7. Anemia and end stage renal disease. The patient's hemoglobin if 9.4, which is optimal at this time. She was given a dose of Aranesp 300 mcg subcu today morning. DISCHARGE PLANNING: Patient is not ready to be discharged at this time. She still needs IV antibiotics as an inpatient.
--- NOTE | 2016-11-18 13:42 | CR ---
DATE OF CONSULTATION: 11/16/2016 REASON FOR CONSULTATION: Peritonitis. HISTORY OF PRESENT ILLNESS: The patient is a 75-year-old female patient of Dr. Evans's who presents from [facility] with likely peritonitis with bacteria inside of her peritoneal fluid. She is a peritoneal dialysis patient who presented originally [facility] due to severe abdominal pain. This all started last Sunday. It got progressively worse. She went into the hospital this Sunday. After evaluation there she was transferred over here on Sunday for further care with Dr. Evans. Her neutrophil counts have failed to decrease as rapidly as expected for a simple bacterial peritonitis infection. Therefore, Dr. Evans was concerned about other sources, possible perforated viscus. Therefore, he has asked for me to evaluate. She does have no fevers, no leukocytosis and CT scan does not show any signs of inflammation or swelling in any portion of the intestine. She did have severe abdominal pains when she came in. However, she says she feels much improved. She was having some cloudy color to her peritoneal fluid upon drainage Sunday and Sunday this week, but as of yesterday and today it is back to clear. She denies any pain in her abdominal wall currently and most of the pain occurs with drainage of her catheter. When the fluid is placed, she does not have that pain. She also denies any fevers or chills. No nausea or vomiting. No change in bowel movements. No recent travel or trauma to the abdomen. She had a normal colonoscopy about 3 years ago and said she will never have another one again. She did have polyps then and diverticulosis, but she has never had any episodes of diverticulitis previously. She also denies any problems with acid reflux, heartburn or usage of many [id number] medications. PAST MEDICAL HISTORY: 1. Hypertension. 2. Hyperlipidemia. 3. Chronic obstructive pulmonary disease (COPD). 4. Depression. 5. End-stage renal disease, on peritoneal dialysis. 6. History of CVA. 7. Transient ischemic attack (TIA). 8. Gastroesophageal reflux disease (GERD). 9. Anemia of chronic kidney disease. 10. Vitamin D deficiency. 11. Secondary hyperparathyroidism. PAST SURGICAL HISTORY: 1. CAPD catheter placement. 2. Tonsillectomy. 3. Bilateral knee replacement. 4. Bilateral cataracts. 5. Partial hysterectomy. 6. Lymph node dissection. 7. 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 8. Peritoneal dialysis catheter placement. MEDICATIONS: Please see med rec. ALLERGIES: IBUPROFEN, LATEX, SUDAFED, and CARBAMIDE PEROXIDE. FAMILY HISTORY: Noncontributory. REVIEW OF SYSTEMS: Pertinent positives and negatives as stated in history of present illness (HPI). PHYSICAL EXAMINATION: General: Patient alert and oriented times three. No acute distress. Vital signs: Temperature 98.1, pulse 60, respirations 70, blood pressure 102/59, pulse oximetry 91% on room air. HEENT: Pupils equal, round and react to light and accommodation. Heart: S1, S2, regular rate. Lungs: Clear to auscultation bilaterally. Abdomen: Soft. Tender palpation left upper and left lower quadrant. No signs of inflammation or erythema of the abdominal wall. No signs of rebound or guarding or diffuse peritonitis. Extremities: No clubbing, cyanosis or edema. LABORATORY DATA: White count 5.6. Hemoglobin 9.4. Potassium 3.4. Creatinine 2.98. Nucleated cells in her peritoneal dialysate was 4048. IMAGING: CT abdomen and pelvis shows slight pneumoperitoneum anterior to the transverse colon. Peritoneal catheter with large volume of intraperitoneal fluid. No signs of inflammatory changes of the mesentery. No loculated mesentery fluid collections to suggest abscess or hematoma. No signs of bowel distension. There is sigmoid colon diverticulosis without signs of any diverticulitis. ASSESSMENT AND PLAN: The patient is a 75-year-old female with likely bacterial peritonitis from peritoneal dialysis catheter, less likely from perforated viscus. At this time, her abdomen is soft without any signs of peritonitis, no signs of systemic infection. Recommend to continue with current treatment with antibiotics placed intraperitoneally daily. I will continue to follow patient with you during this hospital stay and will continue to monitor to make sure that she does get any worse. If there are signs of peritonitis increasing, then she may benefit from either catheter removal versus diagnostic laparoscopy to evaluate for any signs of perforated viscus. Thank you for the consult. I will continue to follow with you.
[2016-11-18 14:00] VITALS: BP 162/90
[2016-11-18] MEDS ORDERED: NEUTRA-PHOS 1.25 GM PACKET PO ONE (14:00)
[2016-11-18 20:24] VITALS: BP 146/93
[2016-11-18] MEDS: CitaloPRAM (CeleXA) 20 MG TAB PO SCH (20:25)
[2016-11-18] MEDS: GENTAMICIN SULF INJ 80MG/2ML VIAL (J1580) IP SCH (22:27)
[2016-11-18] MEDS: ALBUTEROL SULFATE 2.5 MG/0.5 ML INH NEB SOLN NEB PRN (23:19)
--- NOTE | 2016-11-19 02:59 | IPNPDOC ---
Text Note Date of Service The patient was seen on 11/19/16. NOTE Evening resident and hospitalist were called regarding patient having irregular heart beat and it was not in patient's history. Reviewing patient's previous EKG she did have a previous atrial fibrillation in 2016, unclear reason she doesn't have anticoagulation. EKG was done and showed SR with frequent PVC with none specific ST T wave abnormalities. Cardiac markers has been added for am. Patient has been discussed with Dr. Carney. VS,Anay, I+O VS, Anay, I+O Laboratory Tests 11/18/16 06:15 Red Blood Count 2.90 L, Mean Corpuscular Volume 96.7 H, Mean Corpuscular Hemoglobin 32.2, Mean Corpuscular Hemoglobin Concent 33.3, Red Cell Distribution Width 13.1, Anion Gap 7 L Vital Signs Date Time Temp Pulse Resp B/P (MAP) Pulse Ox O2 Delivery O2 Flow Rate FiO2 11/18/16 20:34 Nasal Cannula 2.0 11/18/16 20:26 100 146/93 11/18/16 20:24 98.6 21 97 I&O- Last 24 Hours up to 6 AM 11/19/16 05:59 Intake Total 6680 ml Output Total 6500 ml Balance 180 ml GME ATTESTATION GME ATTESTATION My preceptor for this patient encounter was physically present in the building during the encounter and was fully available. As needed, all aspects of the patient interview, examination, medical decision making process, and medical care plan development were reviewed and approved by the preceptor. Preceptor is aware and concurs with the plan as stated in the body of this note and will attest to such by his/her cosignature. HUGO SAINZ DO Nov 19, 2016 02:59
[2016-11-19 03:48] VITALS: BP 132/86
[2016-11-19 06:22] LABS: MEAN CORPUSCULAR HEMOGLOBIN 32.5 pg (27.0-33.0); MEAN CORPUSCULAR HGB CONC 33.4 g/dl (32.0-36.5); MEAN CORPUSCULAR VOLUME 97.1 fl (80.0-96.0); RED CELL DISTRIBUTION WIDTH 13.4 % (11.5-14.5); WHITE BLOOD COUNT 7.9 K/mm3 (4.0-10.0)
[2016-11-19] MEDS: ALBUTEROL SULFATE 2.5 MG/0.5 ML INH NEB SOLN NEB PRN (06:29)
[2016-11-19 06:33] LABS: ALBUMIN 1.8 GM/DL (3.2-5.2); CREATININE FOR GFR 2.43 MG/DL (0.55-1.02); GLOMERULAR FILTRATION RATE 20.5 (>39); MAGNESIUM LEVEL 1.7 MG/DL (1.8-2.4); PHOSPHORUS LEVEL 2.7 MG/DL (2.5-4.9); POTASSIUM SERUM 4.5 MEQ/L (3.5-5.1)
[2016-11-19 06:58] VITALS: BP 152/80
[2016-11-19 08:01] LABS: RBC PERITONEAL FLUID < 10 (<10mm3 cells/uL); TNC PERITONEAL FLUID 332 cells/uL (0-20)
[2016-11-19 08:05] LABS: PERITONEAL FL COLOR COLORLESS (COLORLESS)
[2016-11-19 08:06] LABS: BF DIFF IF INDICATED? YES (NO)
[2016-11-19 08:32] LABS: CC BF DIFF EXAM CYTOCENTRIFUGE
[2016-11-19] MEDS: ADVAIR HFA 230/21MCG INHALER INH SCH ×2 (09:00→20:22)
[2016-11-19] MEDS: VITAMIN D 1,000 INTERNATIONAL UNITS TABLET PO SCH (09:05)
[2016-11-19] MEDS: NEPHRO-VIT TAB (NEPHROCAPS) PO SCH (09:05)
[2016-11-19] MEDS: GEMFIBROZIL 600 MG TAB PO SCH ×2 (09:05→20:29)
[2016-11-19] MEDS: POTASSIUM CHLORIDE 10 MEQ SR TABLET PO SCH ×2 (09:05→20:28)
[2016-11-19] MEDS: PANTOPRAZOLE 40MG TAB (PROTONIX) PO SCH (09:05)
[2016-11-19] MEDS: OMEGA-3 1050MG CAPSULE PO SCH (09:05)
[2016-11-19] MEDS: LOSARTAN 50 MG TAB PO SCH (09:06)
[2016-11-19] MEDS: ENOXAPARIN 30 MG/0.3 ML SYR (J1650) SC SCH (09:06)
[2016-11-19] MEDS: cloNIDine 0.1 MG TAB PO SCH ×3 (09:07→20:28)
[2016-11-19] MEDS: METOPROLOL TART 25 MG TABLET PO SCH ×2 (09:07→20:29)
[2016-11-19 10:00] VITALS: BP 158/90
[2016-11-19] MEDS: PIPERACILLIN/TAZOBACTAM SOD 2.25 GM in D5W MINI-BAG PLUS 50 ML IV SCH ×2 (11:16→22:24)
[2016-11-19] MEDS: IPRATROPIUM 0.5MG/ALBUTEROL 2.5MG INH SOL UD 3ML (DUONEB)(J7620) NEB SCH ×3 (12:00→20:00)
[2016-11-19] MEDS ORDERED: MAG SULF 1GM/100ML (MAG RUN) 1 GM in APPROPRIATE DILUENT 1 EA IV ONE (12:00)
--- NOTE | 2016-11-19 12:47 | ECGEPIP ---
Stationary ECG Study [facility] Test Date: 2016-11-19 Pat Name: JHONNY NEELY Department: Room: [place] [address] Gender: F Sports Statistician: : 1940 Requested By: HUGO SAINZ Order Number: [id number] Reading MD: Bill Durand Measurements Intervals Sandy Rate: 81 P: -16 SC: 177 QRS: -4 QRSD: 81 T: 7 QT: 401 QTc: 466 Interpretive Statements SINUS RHYTHM WITH FREQUENT SUPRAVENTRICULAR PREMATURE COMPLEXES SEPTAL MYOCARDIAL INFARCTION, OF INDETERMINATE AGE SINCE 02/14/16 SINUS RHYTHM REPLACED ATRIAL FIBRILLATION AND SEPTAL Q WAVES ARE NEW Electronically Signed On 11-19-2016 12:46:48 EDT by Bill Durand
--- NOTE | 2016-11-19 13:18 | IPN ---
DATE: 11/17/2016 Mrs. Lange is seen this morning on her bedside. She is currently sitting in the chair. She reports improved abdominal pain. Her peritoneal dialysis is functioning. Fluid is still slightly cloudy. The patient was seen by Dr. Garrido from surgery yesterday and he did not feel that the patient is in need for any surgical intervention as her peritonitis is likely to improve with antibiotics. He did not feel that the patient had a perforated viscus. In the meantime, the patient denies any chest pain or dyspnea. She has no fever or chills. She is tolerating her diet reasonably well. PHYSICAL EXAMINATION: Temperature 98.4 degrees Fahrenheit, heart rate 64 per minute and respiratory rate 16 per minute. Blood pressure 114/59 mmHg and oxygen saturation 94% on room air. HEAD: Atraumatic. NECK: Supple and without jugular venous distension (JVD) or thyroid enlargement. There is no oral thrush or ulcers. LUNGS: Have slightly diminished breath sounds at bases. HEART: Sounds are regular. ABDOMEN: Distended with peritoneal dialysis solution. She still has tenderness on the left upper quadrant area. Bowel sounds are hypoactive. EXTREMITIES: Have no cyanosis or clubbing. NEUROLOGICAL: She is at her baseline mentation and without a focal deficit. Today's labs show white blood count (WBC) 6.3, hemoglobin 9.0, hematocrit 27.3. Platelets 252. Sodium 143 and potassium 4.4. BUN 24 and creatinine 2.97. Calcium level is 7.7 and phosphorus 2.7. Magnesium is 1.6. PROBLEMS: 1. End-stage renal disease. The patient remains on peritoneal dialysis and we are performing four exchanges per day. Will continue with the same. 2. Abdominal pain and peritonitis. The patient has Enterobacter positive culture in her peritoneal dialysis solution. She has been on ceftazidime and gentamicin. She gets gentamicin 40 mg every night in her peritoneal dialysis solution. She is getting ceftazidime 1 gram every 12 hours. She did receive vancomycin 2 grams on the . At this point, we will continue with antibiotics and monitor her peritoneal solution for cell count. Today, her cell count is down to 793. I am still concerned about slow improvement in her peritonitis. She will need to be monitored closely for next few days. 3. Anemia. Her anemia is getting worse, probably related to peritonitis in the setting of end-stage renal disease. We will give her a dose of Aranesp and continue to monitor closely. 4. Hypertension. Initially, her antihypertensives are cut down as her blood pressure was low. Now her blood pressure seems to be improved. We will continue with current antihypertensives with hold parameters. 5. Urinary tract infection (UTI). She did have a urinary tract infection also on admission. She will remain on ceftazidime for now. Urine culture is still pending. 6. Deep vein thrombosis (DVT) prophylaxis. The patient remains on Lovenox 30 mg daily. 7. DO NOT RESUSCITATE. The patient has a DO NOT RESUSCITATE status and DNR orders are in place.
[2016-11-19 14:00] VITALS: BP 118/60
--- NOTE | 2016-11-19 14:54 | IPN ---
DATE: 11/19/2016 SUBJECTIVE: Patient was seen and examined at the bedside today morning. Last 24 hour events were noted. Overnight, the resident service was called for irregular heart rate in the patient. EKG was done which showed premature ventricular contractions (PVCs). The patient reports that she usually gets her nebulization and Advair for her chronic obstructive pulmonary disease (COPD) and she is not receiving those medications. She as short of breath and wheezing and she is actually wheezing at this time as well. Otherwise, the patient is afebrile and hemodynamically stable at this time. Peritoneal fluid nucleated cell count is improving. REVIEW OF SYSTEMS: Patient denies any fevers, chills, rigors, headache, nausea, vomiting or chest pain. She is reporting shortness of breath and wheezing. She denies nay pain in the abdomen, constipation or diarrhea or dysuria at this time. The rest of review of systems is negative. OBJECTIVE: VITAL SIGNS: Temperature is 98.5 degrees Fahrenheit, blood pressure is 158/90, pulse 64, saturating 97% on nasal cannula. INTAKE AND OUTPUT: Bed scale weight is not available today. Patient is 770 mL positive so far according to her intake and output overnight. PHYSICAL EXAMINATION: GENERAL: Patient is awake, alert and oriented times three. Laying in bed. No apparent distress. HEAD/NECK EXAM: Extraocular muscles intact. Pupils equally round and reactive to light. Mucous membranes are moist. Neck is supple. There is no jugular venous distention (JVD). CARDIOVASCULAR: S1, S2, regular rate. No murmur, rub or gallop. RESPIRATORY: Patient has mild diffuse expiratory rhonchi all over the lungs. No crepitations. Otherwise, bilateral equal air entry. ABDOMEN: Soft. Mildly distended. No tenderness. Patient has a left lower quadrant peritoneal dialysis catheter with clean exit site. MUSCULOSKELETAL: No clubbing or cyanosis. Pulses are 2+. 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 Power is 5/5 in all extremities. SKIN: No rashes or ulcers. PSYCH: Normal mood and affect. LAB REVIEW: CBC showed a WBC of 7.9, hemoglobin 8.7, platelets 281. Peritoneal fluid total nucleated cell count was 332 this morning and 47% of them were neutrophils. BMP today morning showed sodium 146, potassium 4.5, chloride 111, bicarb 26, BUN 20, creatinine 2.4, GFR is 20.5, calcium 8, phosphorous 2.7, magnesium 1.7, Troponin is 0.02, albumin is 1.8. CURRENT INPATIENT MEDICATIONS: The patient's medications were all reviewed by me. She was given a dose of magnesium sulfate 1 gram IV today morning. She continues to be on IV Zosyn at this time. She has been started on DuoNebs four times a day, and she has been started Advair two puff inhalation twice a day as well. She continues to be on intraperitoneal gentamicin 40 mg daily as well. There is no other change in the medications today as compared with yesterday. ASSESSMENT: 75-year-old female with past medical history of end stage renal disease, COPD, on home peritoneal dialysis. This admission to the hospital with bacterial peritonitis and ESBL E. coli UTI. PLAN: 1. Acute peritonitis. Patient is significantly getting better. Nucleated cell count in the peritoneal fluid is improving. She is afebrile. Culture was growing enterobacter cloacae, which is sensitive to ceftazidime and Zosyn. She was initially on ceftazidime. Antibiotics was switched to Zosyn yesterday to cover E. coli as well. Continue the current dose of Zosyn. Continue intraperitoneal gentamicin 40 mg daily as well. Enterobacter is sensitive to gentamicin as well. Both of the antibiotics will act synergistically. 2. End stage renal disease on peritoneal dialysis. Patient is tolerating the peritoneal dialysis at this time. No acute issues. Continue current PD regimen of four exchanges daily, 2 liters each, all 1.5%. Labs are acceptable at this time. 3. ESBL E. coli UTI. It was sensitive to Zosyn. Current Zosyn dose should cover both the bacteria including ESBL UTI and the peritonitis. 4. Hypernatremia. Sodium is slightly high at 146. I would encourage the oral hydration. No change in the PD at this time. 5. COPD exacerbation. Patient was taking nebulizations at home and Advair at home as well. Somehow during this admission, Advair was stopped. I have restarted the patient's home dose of Advair and I have also ordered around the clock nebulizations for the next 24 hours. 6. Hypomagnesemia. Magnesium level if 1.7. Patient was given a dose of magnesium sulfate 1 gram IV today because she was having arrhythmias last night. 7. Cardiac arrhythmia on the EKG. The patient was having irregular heartbeat overnight. Patient was found to have sinus rhythm with frequent PVCs. No ST/T wave abnormalities were seen. Troponins were ordered, which were negative. Most likely etiology of PVCs at this time is COPD exacerbation. Improvement of her COPD and wheezing should help improve PVCs at this time. 8. Hypertension. Blood pressure is acceptable at this time. Continue current dose of clonidine 0.1 mg by mouth three times a day, losartan 100 mg by mouth daily and metoprolol 25 mg by mouth twice a day. 9. Anemia and end stage renal disease. The patient's hemoglobin is 8.7, which is slightly suboptimal; however, she was already given a dose of Aranesp 300 mcg subcu yesterday. Continue to monitor for improvement of hemoglobin. No need of blood transfusion at this time. DISCHARGE PLANNING: Patient is not ready to be discharged at this time. She still has elevated white cell count in the peritoneal fluid and she has ESBL E. coli urinary tract infection, which is sensitive only to IV antibiotics.
[2016-11-19 18:00] VITALS: BP 150/80
[2016-11-19] MEDS: CitaloPRAM (CeleXA) 20 MG TAB PO SCH (20:28)
[2016-11-19 20:40] VITALS: BP 178/82
[2016-11-19] MEDS: GENTAMICIN SULF INJ 80MG/2ML VIAL (J1580) IP SCH (22:16)
[2016-11-20] MEDS ORDERED: MAALOX 30 ML SUSP *UDC PO PRN (01:00)
[2016-11-20 02:00] VITALS: BP 188/58
[2016-11-20 02:35] VITALS: BP 152/74
[2016-11-20] MEDS: IPRATROPIUM 0.5MG/ALBUTEROL 2.5MG INH SOL UD 3ML (DUONEB)(J7620) NEB SCH ×3 (05:01→11:16)
[2016-11-20 06:00] VITALS: BP 142/78
[2016-11-20 06:29] LABS: MEAN CORPUSCULAR HGB CONC 32.8 g/dl (32.0-36.5); MEAN CORPUSCULAR VOLUME 97.4 fl (80.0-96.0); RED CELL DISTRIBUTION WIDTH 13.4 % (11.5-14.5); WHITE BLOOD COUNT 8.9 K/mm3 (4.0-10.0)
[2016-11-20 07:06] LABS: ALBUMIN 1.8 GM/DL (3.2-5.2); CALCIUM LEVEL 8.1 MG/DL (8.8-10.2); CREATININE FOR GFR 2.44 MG/DL (0.55-1.02); GLOMERULAR FILTRATION RATE 20.4 (>39); MAGNESIUM LEVEL 1.8 MG/DL (1.8-2.4); PHOSPHORUS LEVEL 2.2 MG/DL (2.5-4.9); POTASSIUM SERUM 4.5 MEQ/L (3.5-5.1)
[2016-11-20 07:09] LABS: GENTAMICIN LEVEL RANDOM 1.9 MCG/ML
[2016-11-20 07:32] LABS: PERITONEAL FL COLOR COLORLESS (COLORLESS); RBC PERITONEAL FLUID < 10 (<10mm3 cells/uL); TNC PERITONEAL FLUID 220 cells/uL (0-20)
[2016-11-20 07:33] LABS: BF DIFF IF INDICATED? YES (NO)
[2016-11-20 08:22] LABS: CC BF DIFF EXAM CYTOCENTRIFUGE
[2016-11-20] MEDS: ADVAIR HFA 230/21MCG INHALER INH SCH ×2 (08:40→20:23)
[2016-11-20] MEDS: PANTOPRAZOLE 40MG TAB (PROTONIX) PO SCH (09:11)
[2016-11-20] MEDS: LOSARTAN 50 MG TAB PO SCH (09:11)
[2016-11-20] MEDS: OMEGA-3 1050MG CAPSULE PO SCH (09:11)
[2016-11-20] MEDS: NEPHRO-VIT TAB (NEPHROCAPS) PO SCH (09:11)
[2016-11-20] MEDS: VITAMIN D 1,000 INTERNATIONAL UNITS TABLET PO SCH (09:12)
[2016-11-20] MEDS: METOPROLOL TART 25 MG TABLET PO SCH ×2 (09:12→20:31)
[2016-11-20] MEDS: cloNIDine 0.1 MG TAB PO SCH ×3 (09:12→20:31)
[2016-11-20] MEDS: POTASSIUM CHLORIDE 10 MEQ SR TABLET PO SCH ×2 (09:13→20:31)
[2016-11-20] MEDS: PIPERACILLIN/TAZOBACTAM SOD 2.25 GM in D5W MINI-BAG PLUS 50 ML IV SCH ×2 (10:55→23:28)
[2016-11-20] MEDS: GEMFIBROZIL 600 MG TAB PO SCH (10:56)
[2016-11-20] MEDS: ALBUTEROL SULFATE 2.5 MG/0.5 ML INH NEB SOLN NEB PRN (15:42)
[2016-11-20] MEDS ORDERED: ENOXAPARIN 30 MG/0.3 ML SYR (J1650) SC SCH (18:00)
[2016-11-20] MEDS: CitaloPRAM (CeleXA) 20 MG TAB PO SCH (20:30)
[2016-11-20] MEDS: GENTAMICIN SULF INJ 80MG/2ML VIAL (J1580) IP SCH (20:32)
[2016-11-20 22:00] VITALS: BP 142/64
[2016-11-21] MEDS: ALBUTEROL SULFATE 2.5 MG/0.5 ML INH NEB SOLN NEB PRN ×5 (01:17→23:52)
[2016-11-21 02:00] VITALS: BP 152/58
[2016-11-21] MEDS ORDERED: ALBUTEROL SULFATE 2.5 MG/0.5 ML INH NEB SOLN NEB ONE (02:45)
--- NOTE | 2016-11-21 02:50 | REPUSA ---
CLINICAL HISTORY: Cough. COMMENTS: AP view of chest reveals no evidence of active pleural or pulmonary parenchymal abnormality. The cardiac silhouette is enlarged. The mediastinum and pulmonary vessels appear normal. Aorta is tor tuous. Degenerative changes are noted in the thoracic spine. IMPRESSION: No evidence of acute pulmonary pathology. Enlarged cardiac silhouette. Tortuous aorta. Thank you for your kind referral of this patient.
[2016-11-21 02:55] LABS: ABG BASE EXCESS 2.4 (-2.0-2.0); ABG HCO3 26.9 MEQ/L (22.0-26.0); ABG PARTIAL PRESSURE CO2 41.1 mmHg (35.0-45.0); ABG PARTIAL PRESSURE O2 104.4 mmHg (75.0-100.0); ABG STANDARD HCO3 26.6 MEQ/L (22.0-26.0); ABG TOTAL CO2 28.1 MEQ/L (23.0-31.0); ABG pH (ARTERIAL) 7.433 UNITS (7.350-7.450)
[2016-11-21 06:00] VITALS: BP 132/64
[2016-11-21 07:17] LABS: MEAN CORPUSCULAR HEMOGLOBIN 32.6 pg (27.0-33.0); MEAN CORPUSCULAR HGB CONC 33.4 g/dl (32.0-36.5); MEAN CORPUSCULAR VOLUME 97.5 fl (80.0-96.0); RED CELL DISTRIBUTION WIDTH 13.4 % (11.5-14.5); WHITE BLOOD COUNT 9.2 K/mm3 (4.0-10.0)
[2016-11-21] MEDS: ADVAIR HFA 230/21MCG INHALER INH SCH ×2 (07:36→21:07)
[2016-11-21 07:39] LABS: ALBUMIN 1.8 GM/DL (3.2-5.2); CALCIUM LEVEL 7.7 MG/DL (8.8-10.2); CREATININE FOR GFR 2.61 MG/DL (0.55-1.02); GLOMERULAR FILTRATION RATE 18.9 (>39); MAGNESIUM LEVEL 1.7 MG/DL (1.8-2.4); PHOSPHORUS LEVEL 2.5 MG/DL (2.5-4.9); POTASSIUM SERUM 4.2 MEQ/L (3.5-5.1)
[2016-11-21 07:46] LABS: PERITONEAL FL COLOR COLORLESS (COLORLESS)
[2016-11-21 07:47] LABS: BF DIFF IF INDICATED? YES (NO); RBC PERITONEAL FLUID < 10 (<10mm3 cells/uL); TNC PERITONEAL FLUID 81 cells/uL (0-20)
[2016-11-21 09:41] LABS: CC BF DIFF EXAM CYTOCENTRIFUGE
[2016-11-21] MEDS: OMEGA-3 1050MG CAPSULE PO SCH (09:55)
[2016-11-21] MEDS: POTASSIUM CHLORIDE 10 MEQ SR TABLET PO SCH ×2 (09:55→22:22)
[2016-11-21] MEDS: GEMFIBROZIL 600 MG TAB PO SCH (09:56)
[2016-11-21] MEDS: METOPROLOL TART 25 MG TABLET PO SCH ×2 (09:56→22:23)
[2016-11-21] MEDS: LOSARTAN 50 MG TAB PO SCH (09:56)
[2016-11-21] MEDS: cloNIDine 0.1 MG TAB PO SCH ×3 (09:56→22:22)
[2016-11-21] MEDS: VITAMIN D 1,000 INTERNATIONAL UNITS TABLET PO SCH (09:57)
[2016-11-21] MEDS: NEPHRO-VIT TAB (NEPHROCAPS) PO SCH (09:57)
[2016-11-21] MEDS: PANTOPRAZOLE 40MG TAB (PROTONIX) PO SCH (09:57)
[2016-11-21 10:00] VITALS: BP 144/79
[2016-11-21] MEDS: PIPERACILLIN/TAZOBACTAM SOD 2.25 GM in D5W MINI-BAG PLUS 50 ML IV SCH ×2 (11:57→22:24)
[2016-11-21] MEDS ORDERED: FUROSEMIDE 100 MG/10 ML VIAL (J1940) IV ONE (13:00)
--- NOTE | 2016-11-21 13:39 | IPN ---
DATE OF SERVICE: 11/20/2016 SUBJECTIVE: The patient is seen today at the bedside. She has no complaints. She had an uneventful course overnight. She continues to receive gentamicin 40 mg intraperitoneally and Zosyn intravenous (IV) every 12 hours. She states she is tolerating her diet well and has no complaints with her peritoneal dialysis prescription, fluid dwell, or drainage of fluid. REVIEW OF SYSTEMS: The patient denies headache, chest pain, shortness of breath. Denies nausea, vomiting, diarrhea, abdominal pain, constipation. Denies any issues with her peritoneal dialysis (PD) catheter exit site. She continues to make urine and has no complaints of dysuria. Remainder review of systems is negative VITAL SIGNS: Afebrile, temperature 99.4, pulse 72, blood pressure 142/78, saturating 94% on 1 liter nasal cannula. INTAKE AND OUTPUT: Intake: Her oral intake is 900 mL. She is in positive balance from her peritoneal dialysate with a retention of 475 mL. Her urine output was 1125 mL. She has been in net positive fluid balance. PHYSICAL EXAMINATION: GENERAL: The patient is awake, alert, oriented times three, lying in bed with one pillow, no apparent distress. HEAD AND NECK: Extraocular muscles are intact. Mucous membranes are moist. The neck is supple. There is no jugular venous distention. CARDIOVASCULAR: S1, S2. Regular rate with no murmur, rub, or gallop. RESPIRATORY: Her expiratory wheezes are much improved since yesterday. No crepitations. Bilateral equal and symmetric air entry. ABDOMEN: Soft. Nontender. Fluid in place. The patient has a left lower quadrant PD catheter with a clean exit site. MUSCULOSKELETAL: No clubbing or cyanosis. 1+ edema is present in the lower extremities. CENTRAL NERVOUS SYSTEM (ORACLE DATABASE ADMINISTRATOR): No focal neurologic deficits. Power is 5/5 in all extremities. SKIN: No rashes or ulcers. PSYCHIATRIC: Normal mood and affect. LABORATORY REVIEW: Her white count is 8.9, hemoglobin 8.9, platelet count 308. The total nucleated cell count in the peritoneal dialysate fluid continues to decrease now 220 cells. Sodium 142, potassium 4.5, bicarbonate 27, corrected calcium 9.7, phosphorus 2.2 , magnesium 1.8. MICROBIOLOGY: A repeat fluid culture of the dialysis fluid is pending. ASSESSMENT AND PLAN: A 76-year-old female with past medical history of end- stage renal disease with residual renal function on home peritoneal dialysis since August 2016. Also, with a history of chronic obstructive pulmonary disease (COPD), hypertension, and anemia of end-stage renal disease. Admitted to the hospital with bacterial peritonitis and extended-spectrum beta-lactamase (ESBL) Escherichia (E.) coli urinary tract infection (UTI). 1. Acute peritonitis. Clinically, the patient continues to improve. She has no more abdominal complaints. Her nucleated cell count in the peritoneal fluid continues to decrease. This morning 220 cells. She remains afebrile. We have sent off repeat cultures of the peritoneal dialysate fluid. She remains on intraperitoneal gentamicin 40 mg daily. This is her first episode of peritonitis. She will continue with antibiotic course for 2 weeks of total therapy. 2. Extended-spectrum beta-lactamase Escherichia coli urinary tract infection. The patient remains on Zosyn 2.25 grams every 12 hours. The gentamicin and the Zosyn are both working synergistically for her Enterobacter peritonitis, as well. 3. End-stage renal disease, on peritoneal dialysis. The patient is tolerating her peritoneal dialysis prescription at this time. Her current PD regimen is four exchanges daily, 2 liters each, all .5%. I will alternate her 1.5% with 2.5% for better ultrafiltration - that is her home regimen. Her laboratories are acceptable at this time on K supplementation. 4. Hypernatremia, improved with oral hydration. Serum sodium now 142. 5. Chronic obstructive pulmonary disease (COPD) exacerbation. The patient was resumed on her home Advair and nebulization treatments. Her wheezing has improved. She remains on nasal cannula. 6. Hypertension. Her systolic has been elevated overnight. I see readings of 150s and 188. We will increase her ultrafiltration with 1.5% alternating with 2.5% Dianeal exchanges. She also remains on clonidine 0.1 three times a day, losartan 100 mg daily, metoprolol 25 mg twice a day. 7. Anemia of end-stage renal disease. Hemoglobin remains low but stable, 8.9 today. She is receiving once-a-week Aranesp subcutaneously. DISCHARGE PLANNING: The patient was started on gentamicin on 11/18/2016 and has received two doses intraperitoneally thus far. She was also started on Zosyn on 11/18/2016. She will need to complete 2 weeks of treatment for her peritonitis, and I would like to see her total nucleated cell count fall below 100 in the peritoneal fluid. For her ESBL E. coli UTI, she should complete 1 week of IV Zosyn. After that, she can be switched to oral antibiotics for discharge planning. MTDD
[2016-11-21] MEDS: HEPARIN SOD (PORCINE) 5000 UNITS/ML VIAL SQ SCH ×2 (13:50→22:23)
[2016-11-21 14:00] VITALS: BP 166/80
[2016-11-21] MEDS ORDERED: HEPARIN SOD (PORCINE) 5000 UNITS/ML VIAL IP SCH (16:00)
[2016-11-21 18:00] VITALS: BP 158/72
[2016-11-21 22:00] VITALS: BP 130/70
[2016-11-21] MEDS: GENTAMICIN SULF INJ 80MG/2ML VIAL (J1580) IP SCH (22:21)
[2016-11-21] MEDS: CitaloPRAM (CeleXA) 20 MG TAB PO SCH (22:23)
--- NOTE | 2016-11-21 23:41 | IPN ---
DATE: 11/21/2016 SUBJECTIVE: The patient is seen today at the bedside. She is out of bed to the chair. She had an eventful night last night and I was called for her - the patient had significant shortness of breath and wheezing. She received multiple DuoNeb treatments. She had a chest x-ray done overnight, which did not show any acute pulmonary pathology, but did have some increased interstitial markings. She also had an arterial blood gas (ABG) done as well, with a pO2 of 104. She feels more comfortable this morning, but remains on 2 liters nasal cannula and continues to note dyspnea on exertion. INTAKE AND OUTPUT: The patient remains on four exchanges of PD 2000 mL with each dwell and she is noted to have poor ultrafiltration with a net retention of fluid. Her urine output was 1150 and she is in positive fluid balance of 1670 mL. Her daily weights in the bed scale fluctuate by quite a bit and are likely not reliable. VITAL SIGNS: Afebrile, temperature 98.2, pulse 71, respiratory rate 20, blood pressure 144/79, saturating 95% on 2 liters nasal cannula. PHYSICAL EXAMINATION: The patient is awake, alert and oriented times three. She is out of bed and sitting upright in the chair. She is in no apparent distress. HEAD: Extraocular muscles are intact. Mucous membranes are moist. NECK: The neck is supple. There are no prominent neck veins. CARDIOVASCULAR: S1, S2. Regular rate. No murmur. RESPIRATORY: The patient continues to have mild, diffuse expiratory wheeze bilaterally. There are no crepitations, no rales at the bases. ABDOMEN: Soft. It is distended. She has fluid in place. Patient has a left lower quadrant peritoneal dialysis catheter with a clean exit site. MUSCULOSKELETAL: No clubbing or cyanosis. She has 1-2+ edema in the lower extremities. CENTRAL NERVOUS SYSTEM: No focal deficits. Power is 5/5 in all extremities. SKIN: No rashes or ulcers. PSYCHIATRIC: Normal mood and affect. REVIEW OF SYSTEMS: Patient denies any fevers, chills, headache, nausea, vomiting, or chest pain. She continues to report shortness of breath with exertion and wheeze. She denies any pain in the abdomen. No constipation. No diarrhea. No dysuria. The remainder of the review of systems is negative. LABORATORY REVIEW: Hemoglobin 9.4, white count 9.2, platelets 333. Total nucleated cell count continues to drop. Today 81. Her ABG overnight: pH 7.4, pCO2 41, pO2 104. Sodium 144, potassium 4.2, bicarbonate 26, magnesium 1.7, phosphorus 2.5. MICROBIOLOGY: A repeat culture of her peritoneal dialysis (PD) fluid is received and pending. IMAGING: Chest x-ray from overnight shows increased interstitial markings. INPATIENT MEDICATIONS: The patient remains on: - IV Zosyn - intraperitoneal gentamicin; this is day four of both antibiotics. - She remains on Aranesp once a week, 300 mcg subcutaneously. - She is on Advair and albuterol. - She remains on a potassium supplement. - losartan 100 mg by mouth daily - metoprolol 25 mg by mouth twice a day - Her Lovenox was stopped today by myself, as it accumulates in dialysis and renal failure. ASSESSMENT AND PLAN: A 76-year-old female with a past medical history of end-stage renal disease, chronic obstructive pulmonary disease (COPD), on home peritoneal dialysis, this admission to the hospital with Enterobacter bacterial peritonitis and extended-spectrum beta-lactamases (ESBL) Escherichia (E) coli urinary tract infection (UTI), now with chronic obstructive pulmonary disease (COPD) exacerbation and volume overload. 1. Acute peritonitis. The patient's nucleated cell count continues to drop today. It is less than 100. She remains afebrile and her abdominal symptoms have resolved. She remains on IV Zosyn and intraperitoneal gentamicin, which are working synergistically for her Enterobacter cloacae peritonitis. I would like her to complete one week of the IV Zosyn, at which point she can then be switched over to oral antibiotics to complete a total two week course of therapy. Her ultrafiltration via peritoneal dialysis does seem to be affected by the active peritonitis. She is having significant retention of fluid, with the 1.5% Dianeal. 2. End-stage renal disease on peritoneal dialysis. Decreased ultrafiltration in the setting of peritonitis. On her 6:00 a.m. drain today the dwell was 2000 mL and the patient drained only 1700, which was a 2.5% exchange. She has new lower extremity edema and also increased interstitial markings on chest x-ray and complaint of shortness of breath. I will continue her on four exchanges daily, 2 liters each, but we will make them all 2.5% in an effort to help with ultrafiltration. 3. Shortness of breath. The patient has a known history of chronic obstructive pulmonary disease (COPD). She was off of Advair for some time when admitted and it was resumed on Sunday. She has had increased wheezing for the past few days and there is also a component of volume overload. We will continue the Advair and the albuterol. She also has residual renal function and I will treat her with Lasix for diuresis. We will change her Dianeal exchanges from 1.5 to 2.5% in an attempt to help with ultrafiltration; however, she is likely having some failure of ultrafiltration due to the active peritonitis. She remains on oxygen via nasal cannula. Her ABG did not show significant retention of CO2. 4. Hypokalemia. The patient remains on a potassium supplement. She is also on an angiotensin receptor andre (ARB). We will watch her potassium closely, as she will also be receiving IV Lasix. 5. Hypertension. Blood pressure is acceptable at this time. The patient continues on clonidine 0.1 mg by mouth three times a day and losartan 100 mg daily and metoprolol 25 mg by mouth twice a day. 6. Anemia of end-stage renal disease. The patient remains on Aranesp 300 mcg subcutaneously weekly. 7. Deep venous thrombosis (DVT) prophylaxis. I will stop her Lovenox and place her on heparin subcutaneously instead. The plan of care was discussed with the patient and with the nurse at the bedside. SHERRELL
[2016-11-22 02:00] VITALS: BP 140/72
[2016-11-22] MEDS: ALBUTEROL SULFATE 2.5 MG/0.5 ML INH NEB SOLN NEB PRN ×5 (02:49→23:41)
[2016-11-22 06:00] VITALS: BP 135/70
[2016-11-22 06:05] LABS: MEAN CORPUSCULAR HEMOGLOBIN 32.5 pg (27.0-33.0); MEAN CORPUSCULAR HGB CONC 33.5 g/dl (32.0-36.5); RED CELL DISTRIBUTION WIDTH 13.8 % (11.5-14.5); WHITE BLOOD COUNT 8.2 K/mm3 (4.0-10.0)
[2016-11-22 06:14] LABS: ALBUMIN 1.9 GM/DL (3.2-5.2); CALCIUM LEVEL 8.1 MG/DL (8.8-10.2); CREATININE FOR GFR 2.56 MG/DL (0.55-1.02); GLOMERULAR FILTRATION RATE 19.3 (>39); MAGNESIUM LEVEL 1.7 MG/DL (1.8-2.4); PHOSPHORUS LEVEL 2.5 MG/DL (2.5-4.9); POTASSIUM SERUM 4.5 MEQ/L (3.5-5.1)
[2016-11-22] MEDS: HEPARIN SOD (PORCINE) 5000 UNITS/ML VIAL SQ SCH ×3 (06:23→22:13)
[2016-11-22] MEDS: ADVAIR HFA 230/21MCG INHALER INH SCH ×2 (06:27→20:22)
[2016-11-22] MEDS: OMEGA-3 1050MG CAPSULE PO SCH (09:08)
[2016-11-22] MEDS: NEPHRO-VIT TAB (NEPHROCAPS) PO SCH (09:08)
[2016-11-22] MEDS: PANTOPRAZOLE 40MG TAB (PROTONIX) PO SCH (09:08)
[2016-11-22] MEDS: GEMFIBROZIL 600 MG TAB PO SCH (09:08)
[2016-11-22] MEDS: LOSARTAN 50 MG TAB PO SCH (09:09)
[2016-11-22] MEDS: POTASSIUM CHLORIDE 10 MEQ SR TABLET PO SCH ×2 (09:09→22:15)
[2016-11-22] MEDS: VITAMIN D 1,000 INTERNATIONAL UNITS TABLET PO SCH (09:09)
[2016-11-22] MEDS: cloNIDine 0.1 MG TAB PO SCH ×3 (09:10→22:14)
[2016-11-22] MEDS: METOPROLOL TART 25 MG TABLET PO SCH ×2 (09:10→22:14)
[2016-11-22 10:00] VITALS: BP 152/76
[2016-11-22] MEDS: PIPERACILLIN/TAZOBACTAM SOD 2.25 GM in D5W MINI-BAG PLUS 50 ML IV SCH ×2 (11:44→22:15)
[2016-11-22] MEDS ORDERED: FUROSEMIDE 100 MG/10 ML VIAL (J1940) IV ONE (12:00)
[2016-11-22 12:09] LABS: PERITONEAL FL COLOR COLORLESS (COLORLESS); TNC PERITONEAL FLUID 72 cells/uL (0-20)
[2016-11-22 12:10] LABS: BF DIFF IF INDICATED? YES (NO); RBC PERITONEAL FLUID < 10 (<10mm3 cells/uL)
[2016-11-22 12:14] LABS: CC BF DIFF EXAM CYTOCENTRIFUGE
[2016-11-22] MEDS: predniSONE 20 MG TAB PO SCH (12:32)
[2016-11-22 14:00] VITALS: BP 130/70
[2016-11-22 18:00] VITALS: BP 160/80
[2016-11-22 22:00] VITALS: BP 162/70
[2016-11-22] MEDS: GENTAMICIN SULF INJ 80MG/2ML VIAL (J1580) IP SCH (22:13)
[2016-11-22] MEDS: CitaloPRAM (CeleXA) 20 MG TAB PO SCH (22:15)
[2016-11-23 02:00] VITALS: BP 158/80
[2016-11-23] MEDS: ALBUTEROL SULFATE 2.5 MG/0.5 ML INH NEB SOLN NEB PRN ×2 (02:56→15:10)
[2016-11-23 06:00] VITALS: BP 160/72
--- NOTE | 2016-11-23 06:33 | IPN ---
DATE: 11/22/2016 SUBJECTIVE: The patient is seen today at the bedside. She is out of bed to the chair. She states her breathing was much better last night. She is receiving a DuoNeb treatment currently. She continues to have wheezing. REVIEW OF SYSTEMS: Negative for headache, lightheadedness, chest pain, palpitations. Positive for dyspnea on exertion and wheeze. Negative for nausea, vomiting, diarrhea, abdominal pain. Positive for improving edema in the lower extremities. Remainder of review of systems is negative. VITAL SIGNS: Temperature 97.8, pulse 79, respiratory rate 18, blood pressure 152/76, pulse oximetry 99% on two liters nasal cannula. INTAKE AND OUTPUT: The patient's Dianeal exchanges were all increased to 2.5%, and she now has improved ultrafiltration on peritoneal dialysis. Net negative 700 mL from peritoneal dialysis (PD), plus additional urine output of 1700 mL after receiving a one-time dose of Lasix. She is in net-negative fluid balance 1570 mL. Her daily weight today in the bed scale is 76 kg, which is improved from yesterday. PHYSICAL EXAMINATION: GENERAL: Awake, alert, and oriented times three, out of bed to the chair. In no acute distress. HEENT: Moist mucous membranes. Extraocular muscles intact. No conjunctival pallor. NECK: Supple. No jugular venous distention. LUNGS: Bilateral diffuse expiratory wheeze. No tachypnea. Remains on nasal cannula. No crackle at base. CHEST: S1, S2. Regular rate. ABDOMEN: Soft, distended with fluid in place. Left lower quadrant PD catheter exit site clean and intact. EXTREMITIES: Lower extremities with decreased edema as compared to yesterday, trace to 1+. Psychiatric: appropriate mood and affect Neurologic: no focal deficit LABORATORY DATA: Her total nucleated cell count from the PD fluid is pending for today. White count is 8.2, hemoglobin 9.2, platelets 326. Sodium 145, potassium 4.5, bicarbonate 27, corrected calcium 9.7, magnesium 1.7. MICROBIOLOGY: Repeat peritoneal dialysis fluid culture from 11/20 shows no growth. INPATIENT MEDICATIONS: The patient remains on IV Zosyn. Today is day five. She remains on intraperitoneal gentamicin. She has received four doses thus far. She continues on: - clonidine 0.1 three times a day - losartan 100 mg daily - metoprolol 25 mg by mouth twice a day - yesterday she received a one-time dose Lasix 60 mg IV - she remains on Aranesp 300 mcg once weekly - she remains on Advair and albuterol treatments Remainder of medications are unchanged compared to yesterday. ASSESSMENT AND PLAN: A 76-year-old female with past medical history of end-stage renal disease on home peritoneal dialysis and chronic obstructive pulmonary disease (COPD), this admission with enterobacter peritonitis and extended-spectrum beta-lactamase (ESBL) Escherichia (E.) coli urinary tract infection (UTI), now with COPD exacerbation and volume overload secondary to failure of ultrafiltration. 1. Acute peritonitis. The patient's nucleated cell count from today is pending; however, it has been below 100. Her repeat peritoneal dialysis cultures from 11/20 now show no growth. She remains afebrile with resolution of her abdominal symptoms. She is on day five of IV Zosyn and has received four doses of intraperitoneal gentamicin. I would like her to complete one week of IV Zosyn, at which point she can be switched to oral Levaquin to complete a total two-week course of therapy. This is her first episode of peritonitis. At this time, there is no need to remove her PD catheter. 2. End-stage renal disease on peritoneal dialysis. Her ultrafiltration has significantly improved with 2.5% Dianeal exchanges. I will maintain her on that for another day. She likely has a change in transport across her peritoneal membrane due to the peritonitis, which was previously resulting in net fluid retention while she was on the 1.5% exchanges. 3. Shortness of breath secondary to chronic obstructive pulmonary disease (COPD) exacerbation and volume overload. The patient's volume status has improved with the 2.5% exchanges. She also had significant residual renal function and received a one-time dose of Lasix with increased urine output. Her lower extremity edema is improved, and she has no crackles on auscultation of her lungs. She does have diffuse expiratory wheeze. I will start her on prednisone. She continues on Advair and DuoNeb. She is currently requiring two liters nasal cannula and has dyspnea on exertion. 4. Hypertension. Blood pressure is well controlled at this time on her home regimen. 5. Anemia of end-stage renal disease. The patient remains on Aranesp 300 mcg subcutaneously weekly. Her hemoglobin is stable at 9.2. DISCHARGE PLANNING: Likely discharge by Sunday or Sunday, at which point she will have received one week of IV antibiotics. She will require close followup in the peritoneal dialysis clinic to monitor for any refractory or relapsing peritonitis. Plan of care was discussed with the patient and the nurse. SHERRELL
[2016-11-23] MEDS: HEPARIN SOD (PORCINE) 5000 UNITS/ML VIAL SQ SCH ×3 (06:48→22:50)
[2016-11-23 06:55] LABS: MEAN CORPUSCULAR HEMOGLOBIN 32.2 pg (27.0-33.0); MEAN CORPUSCULAR HGB CONC 33.3 g/dl (32.0-36.5); MEAN CORPUSCULAR VOLUME 96.6 fl (80.0-96.0); RED CELL DISTRIBUTION WIDTH 14.2 % (11.5-14.5); WHITE BLOOD COUNT 13.4 K/mm3 (4.0-10.0)
[2016-11-23] MEDS: ADVAIR HFA 230/21MCG INHALER INH SCH ×2 (07:10→22:16)
[2016-11-23 07:21] LABS: CREATININE FOR GFR 2.89 MG/DL (0.55-1.02); GLOMERULAR FILTRATION RATE 16.8 (>39); MAGNESIUM LEVEL 1.7 MG/DL (1.8-2.4); PHOSPHORUS LEVEL 2.1 MG/DL (2.5-4.9); POTASSIUM SERUM 4.6 MEQ/L (3.5-5.1)
[2016-11-23 07:52] LABS: PERITONEAL FL COLOR COLORLESS (COLORLESS); RBC PERITONEAL FLUID < 10 (<10mm3 cells/uL); TNC PERITONEAL FLUID 26 cells/uL (0-20)
[2016-11-23 07:54] LABS: BF DIFF IF INDICATED? YES (NO)
[2016-11-23 08:40] LABS: CC BF DIFF EXAM CYTOCENTRIFUGE
[2016-11-23] MEDS: OMEGA-3 1050MG CAPSULE PO SCH (09:23)
[2016-11-23] MEDS: VITAMIN D 1,000 INTERNATIONAL UNITS TABLET PO SCH (09:23)
[2016-11-23] MEDS: PANTOPRAZOLE 40MG TAB (PROTONIX) PO SCH (09:23)
[2016-11-23] MEDS: GEMFIBROZIL 600 MG TAB PO SCH (09:23)
[2016-11-23] MEDS: LOSARTAN 50 MG TAB PO SCH (09:24)
[2016-11-23] MEDS: POTASSIUM CHLORIDE 10 MEQ SR TABLET PO SCH ×2 (09:24→22:49)
[2016-11-23] MEDS: predniSONE 20 MG TAB PO SCH (09:24)
[2016-11-23] MEDS: METOPROLOL TART 25 MG TABLET PO SCH ×2 (09:25→22:50)
[2016-11-23] MEDS: cloNIDine 0.1 MG TAB PO SCH ×3 (09:29→22:49)
[2016-11-23 10:00] VITALS: BP 135/70
[2016-11-23] MEDS: PIPERACILLIN/TAZOBACTAM SOD 2.25 GM in D5W MINI-BAG PLUS 50 ML IV SCH ×2 (11:21→22:50)
[2016-11-23] MEDS: NEPHRO-VIT TAB (NEPHROCAPS) PO SCH (14:11)
[2016-11-23] MEDS: MAGNESIUM OXIDE 400 MG TAB (MAG-OX) PO SCH (14:13)
[2016-11-23 22:00] VITALS: BP 156/82
[2016-11-23] MEDS: CitaloPRAM (CeleXA) 20 MG TAB PO SCH (22:50)
[2016-11-23] MEDS: GENTAMICIN SULF INJ 80MG/2ML VIAL (J1580) IP SCH (22:50)
[2016-11-24 02:00] VITALS: BP 162/84
[2016-11-24 06:00] VITALS: BP 164/80
[2016-11-24] MEDS: HEPARIN SOD (PORCINE) 5000 UNITS/ML VIAL SQ SCH ×3 (06:18→20:57)
[2016-11-24 06:23] LABS: GENTAMICIN LEVEL RANDOM 2.4 MCG/ML
[2016-11-24] MEDS: ADVAIR HFA 230/21MCG INHALER INH SCH ×2 (07:33→21:03)
[2016-11-24 07:43] LABS: BF DIFF IF INDICATED? YES (NO); PERITONEAL FL COLOR COLORLESS (COLORLESS); RBC PERITONEAL FLUID < 10 (<10mm3 cells/uL); TNC PERITONEAL FLUID 40 cells/uL (0-20)
[2016-11-24 08:56] LABS: CC BF DIFF EXAM CYTOCENTRIFUGE
[2016-11-24] MEDS: NEPHRO-VIT TAB (NEPHROCAPS) PO SCH (09:00)
[2016-11-24] MEDS: POTASSIUM CHLORIDE 10 MEQ SR TABLET PO SCH ×2 (09:27→20:53)
[2016-11-24] MEDS: LOSARTAN 50 MG TAB PO SCH (09:27)
[2016-11-24] MEDS: predniSONE 20 MG TAB PO SCH (09:28)
[2016-11-24] MEDS: METOPROLOL TART 25 MG TABLET PO SCH ×2 (09:28→20:52)
[2016-11-24] MEDS: VITAMIN D 1,000 INTERNATIONAL UNITS TABLET PO SCH (09:28)
[2016-11-24] MEDS: PANTOPRAZOLE 40MG TAB (PROTONIX) PO SCH (09:28)
[2016-11-24] MEDS: GEMFIBROZIL 600 MG TAB PO SCH (09:28)
[2016-11-24] MEDS: MAGNESIUM OXIDE 400 MG TAB (MAG-OX) PO SCH (09:28)
[2016-11-24] MEDS: OMEGA-3 1050MG CAPSULE PO SCH (09:28)
[2016-11-24] MEDS: cloNIDine 0.1 MG TAB PO SCH ×3 (09:28→20:52)
[2016-11-24 09:32] LABS: ALBUMIN 2.1 GM/DL (3.2-5.2); ALBUMIN/GLOBULIN RATIO 0.66 (1.00-1.93); BILIRUBIN,TOTAL 0.2 MG/DL (0.2-1.0); CREATININE FOR GFR 3.02 MG/DL (0.55-1.02); GLOMERULAR FILTRATION RATE 15.9 (>39); POTASSIUM SERUM 4.8 MEQ/L (3.5-5.1); TOTAL PROTEIN 5.3 GM/DL (6.4-8.2)
[2016-11-24 10:00] VITALS: BP 158/80
--- NOTE | 2016-11-24 10:51 | IPN ---
DATE OF SERVICE: 11/23/2016 SUBJECTIVE: The patient is seen today at the bedside. She reports she feels well with no active complaints. Her wheezing has improved with oral prednisone. She does still have dyspnea on exertion when she ambulates to the bathroom. REVIEW OF SYSTEMS: Negative for headache, dizziness, chest pain. Positive for dyspnea on exertion. Negative for shortness of breath at rest. Negative for palpitations. Negative for nausea, vomiting, diarrhea. Negative for decreased drainage from peritoneal dialysis (PD) catheter. Patient reports improving lower extremity edema. Remainder of review of systems is negative. VITAL SIGNS: Temperature afebrile, 97.0, pulse 87, respiratory rate 18, blood pressure 135/70, saturating 98% on 2-liter nasal cannula. INTAKE AND OUTPUT: Intake 9070 mL, output 9450 mL of which 1350 was urine and she had a net ultrafiltration of just 100 mL from PD. Net negative fluid balance 380 mL. Weight on the bed scale 75.7 kg, decreased from 76 kg yesterday and 78.9 kg the day prior. PHYSICAL EXAMINATION: GENERAL: The patient is awake, alert, oriented times three sitting upright in bed in no acute distress. HEENT: Moist mucous membranes. Extraocular muscles intact. No conjunctival pallor. NECK: Supple. No prominent neck veins. LUNGS: Improvement in end expiratory wheeze as compared to yesterday. No tachypnea. Remains on nasal cannula. No crackles or rhonchi. CHEST: S1, S2, regular rate, 2+ radial pulse, improved edema on lower extremities on serial exam, today trace. ABDOMEN: Soft, distended with fluid, left lower quadrant PD catheter exit site clean and intact. EXTREMITIES: Lower extremities with decreased edema as compared to yesterday. NEUROLOGIC: no focal deficits Psychiatric: appropriate mood and affect LABORATORY DATA: White count 13.4 increased from 8.2 yesterday, however, the patient was started on oral prednisone, hemoglobin 9.6, platelet count 350. Peritoneal total nucleated cell count 26. Sodium 143, potassium 4.6, bicarbonate 26, BUN 28, glucose 110, corrected calcium 9.6, magnesium 1.7. Random gentamicin pending. Microbiology: PD dialysis fluid culture on 11/20 with no growth. INPATIENT MEDICATIONS: Patient remains on Zosyn 2.25 every 12. Today is day six. She is also on intraperitoneal gentamicin. She has received five doses so far. She was started on magnesium oxide 400 mg by mouth daily today by myself for hypomagnesemia. The rest of her medications are unchanged in the previous 24 hours. ASSESSMENT AND PLAN: 1. Enterobacter peritonitis. The patient's nucleated cell count has responded nicely to synergistic Zosyn and intraperitoneal gentamicin and is well below 100. Her repeat blood cultures from 11/20 are without growth. On discharge, she will be switched to oral Levaquin 250 mg by mouth every 48 hours for three doses. She would followup in the peritoneal dialysis clinic within 1 week to repeat a cell count. 2. End-stage renal disease on peritoneal dialysis. Patient had been ultrafiltrating very poorly with net retention of fluid on 1.5% Dianeal exchanges. This has improved somewhat with 2.5% Dianeal exchanges. I will increase her from four to five exchanges a day for further ultrafiltration. She likely has had a change in transport across her peritoneal membrane due to the peritonitis and further prescription changes in her peritoneal dialysis (PD) regimen will be based upon adequacy and net ultrafiltration as an outpatient. 3. Shortness of breath secondary to chronic obstructive pulmonary disease (COPD ) exacerbation and volume overload. The patient's volume status continues to improve. She received Lasix 60 mg intravenous (IV) one time dose on the and on the 22 of November. I will hold off on further Lasix. She will receive five exchanges of 2.5% to aid with further ultrafiltration. Her peripheral edema has improved. She remains on Advair and DuoNeb for her COPD exacerbation. Her expiratory wheeze has improved in the previous 24 hours with oral prednisone. She remains on 2-liter nasal cannula and is saturating well; however, does note dyspnea on exertion. 4. Hypomagnesemia. Will start oral magnesium supplement. 5. Anemia of chronic disease. Patient remains on Aranesp 300 mcg weekly. MTDD
[2016-11-24] MEDS: PIPERACILLIN/TAZOBACTAM SOD 2.25 GM in D5W MINI-BAG PLUS 50 ML IV SCH ×2 (11:00→22:46)
[2016-11-24 14:00] VITALS: BP 148/72
[2016-11-24 18:00] VITALS: BP 130/70
[2016-11-24] MEDS: CitaloPRAM (CeleXA) 20 MG TAB PO SCH (20:51)
[2016-11-24] MEDS: GENTAMICIN SULF INJ 80MG/2ML VIAL (J1580) IP SCH (21:23)
[2016-11-24 22:00] VITALS: BP 152/80
[2016-11-25] VITALS (7 sets, daily range): BP systolic 119–190; BP diastolic 57–102
--- NOTE | 2016-11-25 01:03 | IPN ---
DATE OF SERVICE: 11/24/2016 SUBJECTIVE: The patient is seen today at the bedside. She is off of nasal cannula. She states that she ambulated in the room without nasal cannula and denied any shortness of breath or dyspnea on exertion. REVIEW OF SYSTEMS: Negative for headache, lightheadedness, chest pain, palpitations, shortness of breath at rest. Negative for nausea, vomiting, diarrhea. Negative for cloudy peritoneal dialysis (PD) fluid. Other review of systems negative. VITAL SIGNS: Afebrile, 96.1, pulse 74, respiratory rate 18, blood pressure 158/80, 94% on room air. INTAKE AND OUTPUT: Her net ultrafiltration on five exchanges of 2.5% Dianeal was 500. Her urine output was 900. Her oral intake was 710. The patient is a net negative fluid balance of 690 mL. She has been a net negative fluid balance the past 3 days. Her weight on the bed scale continues to downtrend, today 74.5 kg, decreased from yesterday 75.7 kg. PHYSICAL EXAMINATION: GENERAL: Awake, alert, oriented in bed in no acute distress. HEENT: EOMI, MMM NECK: Supple, no jvd CHEST: S1, S2, regular rate, 2+ radial pulse, trace pitting edema in the lower extremities. RESPIRATORY: Appreciable end expiratory wheeze. Otherwise, no rhonchi. Patient seen on room air. ABDOMEN: Soft, distended with fluid in place, left quadrant PD catheter exit site clean, dry and intact. GENITOURINARY: No Rodríguez catheter present. NEUROLOGICAL: Alert, oriented, appropriately interactive, conversational. No focal deficit. PSYCHIATRIC: Appropriate mood and affect. LABORATORIES: Sodium 143, potassium 4.8, bicarbonate 28, BUN 33, creatinine 3.0. Corrected calcium 9.7. Peritoneal total nucleated cells 40. Microbiology: PD fluid 11/14/2016: Enterobacter cloacae. PD fluid 11/20/2016: No growth. Urine 11/14/2016: Escherichia (E) coli extended-spectrum beta-lactamase (ESBL). INPATIENT MEDICATIONS: Reviewed by myself. Patient remains on intravenous (IV) Zosyn. Today is day six. She remains on intraperitoneal gentamicin and has received six doses. She was started yesterday on magnesium oxide for hypomagnesemia. The remainder of her medications are unchanged from prior. ASSESSMENT AND PLAN: 1. Enterobacter peritonitis. The patient's total nucleated cell count remains below 100; however, did dip up slightly from 22 to 40 today. Repeat cultures on the are without growth. Tonight she will receive her seventh dose of intraperitoneal gentamicin with concomitant IV synergistic Zosyn. On discharge, she will be switched to oral Levaquin 250 mg by mouth every 48 hours for three doses. I have discussed with the patient that she needs to be seen in PD clinic one week after discharge to repeat a cell count. 2. End-stage renal disease on peritoneal dialysis. The patient had a failure of ultrafiltration on 1.5% Dianeal in the setting of active peritonitis. She was fairly fluid equivalent on 2.5% Dianeal exchanges. She is currently on 2.5% with five exchanges. She does have residual renal function and received two doses of Lasix with increased urine output. She has been net negative daily for the past 3 days with improvement in volume status, shortness of breath and lower extremity edema. She will be discharged to continue on 2.5% Dianeal exchanges for the following week and further prescription changes in her PD regimen will be based upon her next outpatient visit. 3. Shortness of breath secondary to chronic obstructive pulmonary disease (COPD ) exacerbation and volume overload. Patient's volume status continues to improve. She has been daily net negative for the past 3 days. Her PD prescription has been adjusted to five exchanges of 2.5%. She remains on Advair and DuoNeb for her COPD exacerbation and oral prednisone as well for 5 days. Today she is comfortable on room air. 4. Hypomagnesemia on oral magnesium supplement. 5. Anemia of chronic renal disease. Patient remains on Aranesp 300 mcg weekly. Target hemoglobin is 10-11. DISCHARGE PLANNING: The patient will complete a 7-day course of IV Zosyn tomorrow along with 7 days of intraperitoneal gentamicin. She will then be discharged on oral Levaquin 250 mg by mouth every 48 hours for three doses. She is for likely discharge tomorrow, 11/25. I would like to see one more downtrending total nucleated cell count on her. MTDD
[2016-11-25] MEDS: cloNIDine 0.1 MG TAB PO SCH (02:42)
[2016-11-25] MEDS ORDERED: amLODIPine 5 MG TAB PO ONE (04:15)
[2016-11-25] MEDS: HEPARIN SOD (PORCINE) 5000 UNITS/ML VIAL SQ SCH ×2 (07:06→14:00)
[2016-11-25] MEDS ORDERED: LABETALOL 200 MG TAB PO ONE (07:15)
[2016-11-25] MEDS: ADVAIR HFA 230/21MCG INHALER INH SCH (08:33)
[2016-11-25] MEDS ORDERED: FUROSEMIDE 100 MG/10 ML VIAL (J1940) IV ONE (09:30)
[2016-11-25] MEDS: NEPHRO-VIT TAB (NEPHROCAPS) PO SCH (10:15)
[2016-11-25] MEDS: predniSONE 20 MG TAB PO SCH (10:15)
[2016-11-25] MEDS: PANTOPRAZOLE 40MG TAB (PROTONIX) PO SCH (10:15)
[2016-11-25] MEDS: GEMFIBROZIL 600 MG TAB PO SCH (10:15)
[2016-11-25] MEDS: OMEGA-3 1050MG CAPSULE PO SCH (10:15)
[2016-11-25] MEDS: MAGNESIUM OXIDE 400 MG TAB (MAG-OX) PO SCH (10:15)
[2016-11-25] MEDS: POTASSIUM CHLORIDE 10 MEQ SR TABLET PO SCH (10:16)
[2016-11-25] MEDS: VITAMIN D 1,000 INTERNATIONAL UNITS TABLET PO SCH (10:16)
[2016-11-25] MEDS: METOPROLOL TART 25 MG TABLET PO SCH (10:17)
[2016-11-25] MEDS: LOSARTAN 50 MG TAB PO SCH (10:18)
[2016-11-25 10:40] LABS: ALBUMIN 2.1 GM/DL (3.2-5.2); CALCIUM LEVEL 8.1 MG/DL (8.8-10.2); CREATININE FOR GFR 3.14 MG/DL (0.55-1.02); GLOMERULAR FILTRATION RATE 15.2 (>39); PHOSPHORUS LEVEL 1.9 MG/DL (2.5-4.9); POTASSIUM SERUM 4.1 MEQ/L (3.5-5.1)
[2016-11-25 10:48] LABS: BASO # 0.1 K/mm3 (0.0-0.2); BASO % 0.8 % (0.0-1.0); EOS % 0.2 % (0.0-3.0); LARGE UNSTAINED CELL # 0.1 K/mm3 (0.0-0.4); LYMPH # 2.6 K/mm3 (1.5-4.5); LYMPH % 19.4 % (24.0-44.0); MEAN CORPUSCULAR HEMOGLOBIN 32.6 pg (27.0-33.0); MEAN CORPUSCULAR HGB CONC 33.3 g/dl (32.0-36.5); MEAN CORPUSCULAR VOLUME 97.7 fl (80.0-96.0); MONO # 0.5 K/mm3 (0.0-0.8); MONO % 3.5 % (0.0-5.0); NEUTROPHILS # 10.2 K/mm3 (1.8-7.7); PLATELET COUNT, AUTOMATED 422 k/mm3 (150-450); RED CELL DISTRIBUTION WIDTH 15.1 % (11.5-14.5); WHITE BLOOD COUNT 13.6 K/mm3 (4.0-10.0)
[2016-11-25] MEDS ORDERED: LEVA1TAB PO (12:04)
[2016-11-25] MEDS ORDERED: POTA10CA PO ×2 (12:04→12:12)
[2016-11-25 12:06] LABS: RBC PERITONEAL FLUID < 10 (<10mm3 cells/uL); TNC PERITONEAL FLUID 32 cells/uL (0-20)
[2016-11-25 12:07] LABS: BF DIFF IF INDICATED? YES (NO); PERITONEAL FL COLOR COLORLESS (COLORLESS)
[2016-11-25 13:57] LABS: CC BF DIFF EXAM CYTOCENTRIFUGE
[2016-11-25] MEDS: DARBEPOETIN 300 MCG/0.6 ML *NON-DIALYSIS* SYRINGE (J0881) SC SCH (14:38)
--- NOTE | 2016-11-26 05:41 | DSES ---
DATE OF ADMISSION: 11/15/2016 DATE OF DISCHARGE: 11/25/2016 ATTENDING PHYSICIAN: Nephrology service, Dr. Jennifer Evans. DICTATING PHYSICIAN: Dr. Mcguire. FINAL DIAGNOSES: 1. Acute peritonitis secondary to Enterobacter cloacae complex. 2. Extended-spectrum beta-lactamase (ESBL) Escherichia (E) coli urinary tract infection. 3. Chronic obstructive pulmonary disease (COPD) exacerbation. 4. End-stage renal disease on peritoneal dialysis. 5. Anemia in end-stage renal disease. 6. Hypertension. PROCEDURES PERFORMED DURING THIS HOSPITALIZATION: Patient got daily manual peritoneal dialysis done throughout the admission. IMAGING DONE DURING THIS ADMISSION: CAT scan of the abdomen and pelvis on 11/15/2016 and chest x-ray on 11/21/2016. HISTORY OF PRESENT ILLNESS: Yuki Lange is a 76-year-old female with past medical history of end-stage renal disease on peritoneal dialysis, history of hypertension, hyperlipidemia, COPD. She initially presented to [facility] with pain abdomen and cloudy fluid in the peritoneal dialysate. The case was discussed with the [facility] and she was transferred to [facility] on 11/14/2016. Initial evaluation showed that she had 8000 nucleated cells in the peritoneal fluid. She was empirically started on intravenous (IV) antibiotics. Later on cultures also showed that she had ESBL E. coli urinary tract infection (UTI) as well, so patient was admitted to medicine/surgery for further treatment of acute peritonitis and urinary tract infection. LABORATORY DATA: The pertinent labs include a peritoneal fluid culture which showed Enterobacter cloacae complex on 11/14/2016. Repeat culture on 11/20/2016 is negative. There was a urine culture done on 11/14/2016 which grew ESBL E. coli, which was sensitive only to Zosyn, ertapenem and tigecycline. HOSPITAL COURSE: Patient was admitted on 11/14/2016. 1. For acute peritonitis, patient initially got ceftazidime and intraperitoneal gentamicin, but later on because of the culture sensitivity report, antibiotic was changed to intravenous (IV) Zosyn which covered both peritonitis and UTI. Patient's white cell count continued to improve and on the morning of 11/25/2016, her total nucleated cells in the peritoneal dialysate were 32. Her pain has improved and she is tolerating the peritoneal dialysis at this time. 2. For ESBL E. coli UTI, patient was given IV Zosyn, which was started on 11/18/2016 and she completed a 7-day course on 11/25/2016. 3. End-stage renal disease, peritoneal dialysis. Patient was initially getting manual exchanges 1.5%, but she was retaining fluid and was getting edema, so peritoneal exchanges were all changed to 2.5% five exchanges and patient was asked to continue with 2.5 exchanges when she goes home as well. 4. Hypertension. Patient was hypertensive this morning. She needed an additional dose of labetalol 200 mg by mouth. She would continue the home dose of losartan 100 mg daily, metoprolol 25 mg by mouth twice a day, clonidine 0.1 mg by mouth three times a day. Blood pressure is acceptable at this time. 5. COPD exacerbation. Patient had COPD exacerbation during this admission. She was wheezing. She was not initially able to take her home medications for COPD; however, later on she was started on nebulizations and she was started on prednisone 40 mg by mouth daily, which she got for 4 days. Her wheezing is significantly better. She was asked to continue her home nebulizations when she goes home. 6. Edema and fluid overload. Patient was given IV Lasix 60 mg daily for about 3 days. She was asked to continue Lasix 80 mg by mouth twice a day when she goes home. 7. Anemia in end-stage renal disease. Patient was given a dose of Aranesp 300 mcg subcutaneously each Sunday. Hemoglobin is improved to 10.4, which is optimal for her age and end-stage renal disease (ESRD). 8. Hypokalemia. Patient was hypokalemic because of peritoneal dialysis. She was started on potassium chloride 20 mEq by mouth twice a day. She will continue this dose when she goes home. CONDITION ON DISCHARGE: Patient was sent home in stable and improved condition. PHYSICAL EXAMINATION: On the day of discharge: General: Patient was awake, alert, oriented times three sitting in sofa. Head and neck exam: Extraocular muscles intact. Pupils equally round and reactive to light. Mucous membranes are moist. Neck is supple. There is no jugular venous distention (JVD). Cardiovascular: S1, S2, regular rate. No murmur, rub or gallop. Respiratory: Patient has mild expiratory rhonchi at the bases. Bilateral equal air entry. Abdomen: Soft, positive bowel sounds, nontender. No ascites. Left lower quadrant abdominal peritoneal dialysis catheter. Musculoskeletal: Patient has 1+ edema of the bilateral lower extremities. No clubbing or cyanosis. Central nervous system: No focal neurological deficit. Power is 5/5 in all extremities. LABORATORY REVIEW: On the day of discharge: CBC showed a WBC of 13.6, hemoglobin 10.4, platelets are 422. BMP showed sodium 146, potassium 4.1, chloride 108, bicarbonate 26, BUN 38, creatinine 3.1, calcium 8.1, phosphorus 1.9, albumin 2.1. DISCHARGE MEDICATIONS: Patient was discharged home on: - albuterol as needed - Celexa 20 mg by mouth daily - clonidine 0.1 mg by mouth three times a day - Lasix 80 mg by mouth twice a day - gemfibrozil 600 mg by mouth daily - losartan 100 mg by mouth daily - magnesium oxide 400 mg by mouth daily - metoprolol 25 mg by mouth twice a day - Protonix 40 mg by mouth daily - potassium chloride 20 mEq by mouth twice a day - prednisone was discontinued - vitamin D 1000 units by mouth daily - Levaquin 500 mg on day one and 250 mg by mouth every 48 hours for 1 week - hydralazine 50 mg by mouth three times a day DISCHARGE INSTRUCTIONS: Diet: Renal diet. Fluid restriction 1500 mL by mouth daily. Activity as tolerated. Discharged to home with home health aide. Peritoneal dialysis: Continue the current volume and frequency of exchanges, but change fluid to 2.5% all exchanges. FOLLOWUP: Patient is supposed to followup with peritoneal dialysis (PD) clinic 1 week after discharge from the hospital. I spent more than 40 minutes in coordinating the discharge of this patient on the day of discharge.
== END 2016-11-25 16:10 | disposition home or self-care (01) | DRG 867 ==
LOC: M MSPAV 18:09 → PREINTOOBSV 18:23 → OBSVTOIN 11-15 11:04
PROVIDERS: ADMIT Internal Medicine Nephrology; ATTEND Internal Medicine Nephrology
PROC: 5A1D60Z (ICD-10-PCS; principal; 2016-11-15)
DX: T80.29XA Infection following other infusion, transfusion and therapeutic injection, initial encounter (principal); N18.6 End stage renal disease; K65.0 Generalized (acute) peritonitis; I12.0 Hypertensive chronic kidney disease with stage 5 chronic kidney disease or end stage renal disease; N25.81 Secondary hyperparathyroidism of renal origin; N39.0 Urinary tract infection, site not specified; J44.9 Chronic obstructive pulmonary disease, unspecified; Z66 Do not resuscitate; F32.9 Major depressive disorder, single episode, unspecified; K21.9 Gastro-esophageal reflux disease without esophagitis; D63.1 Anemia in chronic kidney disease; E55.9 Vitamin D deficiency, unspecified; B96.20 Unspecified Escherichia coli [E. coli] as the cause of diseases classified elsewhere; Y84.1 Kidney dialysis as the cause of abnormal reaction of the patient, or of later complication, without mention of misadventure at the time of the procedure; B96.89 Other specified bacterial agents as the cause of diseases classified elsewhere; Z96.653 Presence of artificial knee joint, bilateral; Z99.2 Dependence on renal dialysis; Z86.73 Personal history of transient ischemic attack (TIA), and cerebral infarction without residual deficits; Z79.899 Other long term (current) drug therapy; Z85.820 Personal history of malignant melanoma of skin; Z91.040 Latex allergy status; Z88.8 Allergy status to other drugs, medicaments and biological substances; Z88.6 Allergy status to analgesic agent

== ENCOUNTER 2016-11-27 17:32 | Inpatient (IN) | payer MEDICARE ==
[~2016-11-27 17:32] MED LIST changes: +ADV250INH INH; +CETI10TA PO; +FURO40TA2 PO; +LEVA1TAB PO; +LOSA100T36 PO; +RENATAB5 PO; +VITA100067 PO; +ZOCO40TA PO
[2016-11-27 21:45] VITALS: BP 170/74
[2016-11-27] MEDS ORDERED: CALCIUM CARBONATE 500 MG CHEW U/D PO STA (22:31)
[2016-11-27] MEDS ORDERED: LevoFLOXacin 250 MG TABLET PO ONE (22:45)
[2016-11-27 23:00] LABS: MEAN CORPUSCULAR HEMOGLOBIN 32.8 pg (27.0-33.0); MEAN CORPUSCULAR HGB CONC 32.5 g/dl (32.0-36.5); WHITE BLOOD COUNT 11.2 K/mm3 (4.0-10.0)
[2016-11-27 23:08] LABS: INR 1.03
[2016-11-27] MEDS: HEPARIN SOD (PORCINE) 5000 UNITS/ML VIAL SC SCH (23:12)
[2016-11-27 23:23] LABS: ALBUMIN 2.5 GM/DL (3.2-5.2); ALBUMIN/GLOBULIN RATIO 0.76 (1.00-1.93); ALKALINE PHOSPHATASE 63 U/L (45-117); ALT/SGPT 18 U/L (12-78); ANION GAP 12 MEQ/L (8-16); AST/SGOT 17 U/L (15-37); BILIRUBIN,TOTAL 0.4 MG/DL (0.2-1.0); BLOOD UREA NITROGEN 53 MG/DL (7-18); CALCIUM LEVEL 8.6 MG/DL (8.8-10.2); CARBON DIOXIDE LEVEL 27 MEQ/L (21-32); CHLORIDE LEVEL 105 MEQ/L (98-107); CREATININE FOR GFR 4.21 MG/DL (0.55-1.02); GLOMERULAR FILTRATION RATE 10.9 (>39); GLUCOSE, FASTING 100 MG/DL (83-110); POTASSIUM SERUM 4.5 MEQ/L (3.5-5.1); SODIUM LEVEL 144 MEQ/L (136-145); TOTAL PROTEIN 5.8 GM/DL (6.4-8.2)
[2016-11-27] MEDS ORDERED: POTA10CA PO (23:34)
[2016-11-27] MEDS ORDERED: LEVA1TAB PO (23:34)
[2016-11-27] MEDS ORDERED: AYR0.65S (23:34)
[2016-11-28] VITALS (9 sets, daily range): BP systolic 118–210; BP diastolic 63–100
[2016-11-28] MEDS ORDERED: ALBUTEROL SULFATE 2.5 MG/0.5 ML INH NEB SOLN INH PRN (03:00)
[2016-11-28] MEDS ORDERED: AZELASTINE 137MCG NASAL SPY 30 ML (ASTELIN) PRN (03:00)
[2016-11-28] MEDS ORDERED: IPRATROPIUM 0.5MG/ALBUTEROL 2.5MG INH SOL UD 3ML (DUONEB)(J7620) INH PRN (03:00)
[2016-11-28] MEDS ORDERED: SODIUM CHLORIDE NASAL 0.65% SPRAY BTL (OCEAN) PRN (03:00)
[2016-11-28] MEDS: ONDANSETRON 4MG/2ML VIAL (J2405) IV PRN (05:10)
[2016-11-28 05:14] LABS: WHITE BLOOD COUNT 9.3 K/mm3 (4.0-10.0)
[2016-11-28 05:15] LABS: MEAN CORPUSCULAR HEMOGLOBIN 32.3 pg (27.0-33.0); MEAN CORPUSCULAR HGB CONC 32.6 g/dl (32.0-36.5); RED CELL DISTRIBUTION WIDTH 17.4 % (11.5-14.5)
[2016-11-28 05:45] LABS: CALCIUM LEVEL 8.6 MG/DL (8.8-10.2); CREATININE FOR GFR 4.18 MG/DL (0.55-1.02); POTASSIUM SERUM 4.3 MEQ/L (3.5-5.1)
--- NOTE | 2016-11-28 07:11 | REP ---
Clinical: Dyspnea. Comparison: 02/19/2016. Findings: Mediastinum and cardiac silhouette are within normal limits and stable. Chronic interstitial changes remain stable. No obvious acute consolidation, effusion, or pneumothorax. Skeletal structures demonstrate age-related changes. Impression: Chronic stable changes. No obvious acute cardiopulmonary process. Signed by Yaya Garzon MD 11/28/2016 07:02 A
[2016-11-28 07:12] LABS: PERITONEAL DIALYSATE FL COLOR COLORLESS (COLORLESS)
[2016-11-28 07:13] LABS: BF DIFF IF INDICATED? NO (NO); RBC PERITONEAL DIALYSATE < 10 (<10mm3 cells/uL); TNC PERITONEAL DIALYSATE < 20 cells/uL (0-20)
--- NOTE | 2016-11-28 07:33 | HPE ---
DATE OF ADMISSION: 11/27/2016 PRIMARY CARE PHYSICIAN: Dr. Calderón BED BUG EXTERMINATOR: Dr. Evans QUANTITATIVE ASSOCIATE: Dr. Machuca CHIEF COMPLIANT: Patient was transferred from [facility] for shortness of breath. HISTORY OF PRESENT ILLNESS: The patient is an end-stage renal disease patient new to peritoneal dialysis. She was most recently admitted 11/14/2016 - 11/25/2016. She was on the nephrology service at that time. She was believed to have peritonitis as well as treated for an extended-spectrum beta-lactamases (ESBL) urinary tract infection (UTI). She completed a course of antibiotics while in the hospital. Symptoms resolved and she was discharged home. She has been completing peritoneal dialysis. She presented to [facility] hypertensive and short of breath. There was concern that she appeared to be quite fluid overloaded. Dr. Mcguire was contacted by [facility] and thought the patient would benefit from transfer to [facility] for inpatient peritoneal dialysis. At this time, patient tells me that she is not feeling short of breath while she is wearing the oxygen; however, she does feel as though her abdomen is distended and she informs me that she has put on weight in the last few days and noticed that her legs have been getting progressively swollen. She also tells me that she has developed some nausea while coming to the hospital. Denies lightheadedness, dizziness, fevers or chills. PAST MEDICAL HISTORY: 1. End-stage renal disease on peritoneal dialysis. 2. Extended-spectrum beta-lactamase (ESBL) urinary tract infection (UTI). 3. Diastolic congestive heart failure. 4. Atrial fibrillation. 5. Transient ischemic attack (TIA). 6. Hypertension. 7. Gastroesophageal reflux disease. 8. Chronic obstructive pulmonary disease (COPD). 9. Depression. 10. Abdominal aortic aneurysm (AAA). 11. Anemia of end-stage renal disease. HOME MEDICATIONS: - levofloxacin 250 mg every 48 hours. - albuterol nebulizers 2.5 mg every 6 hours as needed for shortness of breath - albuterol/ipratropium nebulizers every 6 hours as needed for shortness of breath - azelastine 127 mcg spray to the nares two sprays daily - calcium carbonate 500 mg every 4 hours as needed for heartburn or indigestion - cetirizine 10 mg daily - citalopram 20 mg at bedtime - clonidine 0.1 mg by mouth three times a day - Aggrenox 25/200 by mouth twice a day - fish oil 1 gram daily - Lasix 80 mg by mouth twice a day - gemfibrozil 600 mg by mouth twice a day - hydralazine 50 mg by mouth three times a day - losartan 100 mg daily - metoprolol tartrate 25 mg by mouth twice a day - potassium chloride 20 mEq twice a day - Advair Diskus 250/50 one puff twice a day - simvastatin 40 mg daily - vitamin D 1000 units daily - vitamin E 400 units as per the patient daily - Pastora-Olga one tablet daily ALLERGIES: CARBAMIDE, PEROXIDE, IBUPROFEN, PSEUDOEPHEDRINE. SOCIAL HISTORY: The patient is a current smoker. She is a DO NOT RESUSCITATE/ DO NOT INTUBATE. She denies alcohol or illicit drug use. SURGICAL HISTORY: 1. Tonsillectomy. 2. Lymph node biopsy. 3. Partial hysterectomy. 4. Bilateral cataract extraction. 5. Bilateral total knee replacement. 6. Melanoma of the left ankle excision. FAMILY HISTORY: Noncontributory. REVIEW OF SYSTEMS: A 10-point review of systems completed and was negative except what is indicated in the history of present illness (HPI). PHYSICAL EXAMINATION: Temperature 97, pulse 76, respiratory rate 22, blood pressure 170/74, oxygen saturation 96% on 3 liters. GENERAL: She is a pale, elderly female laying in bed at a 60 degree angle. She appears comfortable, in no acute distress. She is not using accessory muscles. She is able to speak in complete sentences. HEENT: She appears pale. She has moist mucous membranes. I do appreciate elevation of central venous pressure. CARDIOVASCULAR: S1, S2. Regular. No additional heart sounds appreciated. RESPIRATORY EXAM: She has bibasilar rales. ABDOMINAL EXAM: She does appear to be distended. EXTREMITIES: There is 1+ to 2+ edema bilaterally. LABORATORY STUDIES: Are from 11/25/2016. Repeat labs are currently pending. No current imaging available at our facility. ASSESSMENT AND PLAN: This is a 76-year-old female transferred for decompensated congestive heart failure related to initiation of new peritoneal dialysis. PROBLEMS: 1. Decompensated congestive heart failure. I have contacted Dr. Mcguire, who has graciously placed orders for continuous ambulatory peritoneal dialysis (CAPD ) exchange. She will continue her Lasix and antihypertensives. She does appear comfortable right now. Should she decompensate, will consider bilevel positive airway pressure (BiPAP); however, at this time, there is no need for it. Her symptoms seem to be controlled with 2 liters and keeping the head of her bed elevated. 2. End-stage renal disease on peritoneal dialysis. As outlined above. 3. Hypertension. Continue with clonidine, losartan, metoprolol, hydralazine. 4. Chronic obstructive pulmonary disease (COPD). Tobacco cessation and counseling are offered. Continue with albuterol, DuoNebs, Advair. 5. Dyslipidemia. Continue with gemfibrozil. 6. Atrial fibrillation. She is not on anticoagulation. She is rate-controlled with metoprolol. 7. Transient ischemic attack (TIA). She is on Aggrenox, gemfibrozil. She is not on a statin. Will defer to her outpatient provider. 8. Gastroesophageal reflux disease. Continue with Protonix and Tums. 9. Abdominal aortic aneurysm (AAA). Outpatient followup. 10. Depression. Continue with Celexa. 11. Anemia of end-stage renal disease. Aranesp as per nephrology. 12. Abdominal pain. Likely related to new peritoneal dialysis. Will check cell counts and continue with levofloxacin, which was on for peritonitis every 48 hours, renally dosed. She will receive a dose today. She cannot remember if she took one yesterday. Also, given that she is in dialysis, the patient is having shortness of breath. We will check an EKG, cardiac enzymes, a brain natriuretic peptide (BNP) and a chest x-ray. 13. Deep venous thrombosis (DVT) prophylaxis. Heparin twice a day. DISPOSITION: The patient is admitted to progressive care unit (PCU) to Dr. Suazo's service. He will be following the patient at 7:00 a.m. SHERRELL
[2016-11-28] MEDS: ADVAIR HFA 115/21MCG INHALER INH SCH ×2 (09:00→20:07)
[2016-11-28] MEDS: LOSARTAN 50 MG TAB PO SCH (09:36)
[2016-11-28] MEDS: GEMFIBROZIL 600 MG TAB PO SCH ×2 (09:36→20:43)
[2016-11-28] MEDS: OMEGA-3 1050MG CAPSULE PO SCH (09:36)
[2016-11-28] MEDS: VITAMIN E 400 INTERNATIONAL UNITS CAP PO SCH (09:36)
[2016-11-28] MEDS: CETIRIZINE (ZyrTEC) 10 MG TAB PO SCH (09:36)
[2016-11-28] MEDS: DIPYRIDAMOLE/ASA (AGGRENOX) 200MG/25MG CAPCR PO SCH ×2 (09:36→20:44)
[2016-11-28] MEDS: VITAMIN D 1,000 INTERNATIONAL UNITS TABLET PO SCH (09:36)
[2016-11-28] MEDS: POTASSIUM CHLORIDE 10 MEQ SR TABLET PO SCH ×2 (09:36→20:43)
[2016-11-28] MEDS: cloNIDine 0.1 MG TAB PO SCH ×3 (09:37→20:44)
[2016-11-28] MEDS: FUROSEMIDE 40 MG TAB PO SCH ×2 (09:37→16:02)
[2016-11-28] MEDS: **hydrALAZINE** 50 MG TAB PO SCH ×3 (09:37→20:44)
[2016-11-28] MEDS: HEPARIN SOD (PORCINE) 5000 UNITS/ML VIAL SC SCH ×2 (09:38→20:45)
--- NOTE | 2016-11-28 16:48 | IPNPDOC ---
Date Seen The patient was seen on 11/28/16. Progress Note Hospitalist Progress Note Subjective: Patient states that she feels better, and her breathing has improved Objective: Physical Exam: Vitals: Vital Sign - Last 24 Hours 11/27/16 11/28/16 11/28/16 11/28/16 21:45 00:00 03:08 05:00 Temp 97.0 97.3 Pulse 76 69 Resp 22 22 B/P (MAP) 170/74 (106) 160/70 (100) Pulse Ox 96 97 O2 Delivery Nasal Cannula Nasal Cannula Nasal Cannula Nasal Cannula O2 Flow Rate 3.0 2.0 2.0 2.0 11/28/16 11/28/16 11/28/16 11/28/16 05:04 05:15 05:20 07:48 Temp 98.0 Pulse 96 Resp 22 B/P (MAP) 210/100 (136) 170/88 (115) 160/86 (110) Pulse Ox 98 O2 Delivery Nasal Cannula Nasal Cannula O2 Flow Rate 2.0 2.0 11/28/16 11/28/16 11/28/16 11/28/16 07:55 09:36 09:37 11:46 Temp 97.2 97.0 Pulse 76 70 Resp 18 18 B/P (MAP) 162/72 (102) 162/72 162/72 172/82 (112) Pulse Ox 97 97 11/28/16 11/28/16 11/28/16 11/28/16 12:30 15:49 16:02 16:02 Temp 96.9 Pulse 87 Resp 18 B/P (MAP) 158/68 (98) 158/68 158/68 Pulse Ox 97 O2 Delivery Nasal Cannula Room Air O2 Flow Rate 2.0 General: Awake, alert, no acute distress HEENT: Moist mucous membranes CV: Regular rate and rhythm Lungs: Clear to auscultation bilaterally Abd: Soft, nontender, nondistended Extremities: No edema Neuro: Alert and oriented 3, normal speech Psych: And normal mood and affect Labs and Imaging: Laboratory Tests 11/27/16 22:46 Red Blood Count 3.46 L, Mean Corpuscular Volume 101.0 H, Mean Corpuscular Hemoglobin 32.8, Mean Corpuscular Hemoglobin Concent 32.5, Red Cell Distribution Width 18.0 H, Calcium Level 8.6 L, Aspartate Amino Transf (AST/SGOT ) 17, Alanine Aminotransferase (ALT/SGPT) 18, Total Creatine Kinase 30, Alkaline Phosphatase 63, Total Bilirubin 0.4, Total Protein 5.8 L, Albumin 2.5 L 11/28/16 05:02 Red Blood Count 3.49 L, Mean Corpuscular Volume 99.0 H, Mean Corpuscular Hemoglobin 32.3, Mean Corpuscular Hemoglobin Concent 32.6, Red Cell Distribution Width 17.4 H, Calcium Level 8.6 L, Total Creatine Kinase 37 Assessment and Plan: 76-year-old female with end-stage renal disease recently started on peritoneal dialysis, recent peritonitis and ESBL UTI, diastolic CHF, A. fib, history of TIA , hypertension, GERD, COPD, depression, abdominal aortic aneurysm, anemia of chronic disease who was transferred from [facility] for shortness of breath and admitted with acute on chronic diastolic CHF. 1. Acute on chronic diastolic CHF: Management with dialysis as per nephrology. Continue home Lasix. 2. End-stage renal disease recently started on PD: Management as per nephrology. 3. Recent peritonitis and ESBL UTI: Continue Levaquin. Currently afebrile. White count upon arrival was 11.2, but has now normalized. Blood culture, urine culture, and peritoneal fluid cultures are pending. 4. History of TIA: Continue blood pressure control. Continue omega-3 and Lopid. Continue home Aggrenox. 5. Hypertension: Continue home clonidine, hydralazine, ARB. 6. COPD: Continue home nebs and Advair and Zyrtec. 7. Depression: Continue home Celexa. 8. A. fib: Continue home beta andre. The patient is not on full anticoagulation. DVT prophylaxis: Heparin Dispo: pending clearance by nephrology VS, I&O, 24H, [facility] Vital Signs/I&O Vital Signs Date Time Temp Pulse Resp B/P (MAP) Pulse Ox O2 Delivery O2 Flow Rate FiO2 11/28/16 16:02 158/68 11/28/16 15:49 96.9 87 18 97 Room Air 11/28/16 12:30 2.0 I&O- Last 24 Hours up to 6 AM 11/28/16 05:59 Intake Total 4000 ml Output Total 5380 ml Balance -1380 ml Laboratory Data 24H LABS Laboratory Tests 2 11/27/16 22:46: Prothrombin Time 13.6, Prothromb Time International Ratio 1.03, Anion Gap 12, Glomerular Filtration Rate 10.9L, Lactic Acid Level 1.2, Blood Urea Nitrogen 53H , Creatinine 4.21H, Sodium Level 144, Potassium Level 4.5, Chloride Level 105, Carbon Dioxide Level 27, Calcium Level 8.6L, Aspartate Amino Transf (AST/SGOT) 17, Alanine Aminotransferase (ALT/SGPT) 18, Total Creatine Kinase 30, Alkaline Phosphatase 63, Total Bilirubin 0.4, Total Protein 5.8L, Albumin 2.5L, Creatine Kinase MB 1.0, Creatine Kinase MB Relative Index 3.33, Troponin I < 0.02, B- Type Natriuretic Peptide 749H, Albumin/Globulin Ratio 0.76L 11/28/16 00:53: Body Fluid Source PERITONEAL DIALYSATE, Peritoneal Fluid Color COLORLESS, Peritoneal Fluid Appearance CLEAR, Peritoneal Fluid RBC (Auto) < 10, Dialysate Total Nucleated Cells < 20 11/28/16 01:58: Urine Appearance HAZY, Urine Color YELLOW, Urine pH 7.0, Urine Specific [place] 1.009, Urine Protein 2+H, Urine Glucose (UA) 1+H, Urine Ketones NEGATIVE, Urine Urobilinogen 0.2, Urine Bilirubin NEGATIVE, Urine Leukocyte Esterase 1+H, Urine Blood NEGATIVE, Urine Nitrite NEGATIVE, Urine WBC (Auto) 6H, Urine RBC (Auto) 1 , Urine Hyaline Casts (Auto) 1, Urine Bacteria (Auto) NEGATIVE, Urine Squamous Epithelial Cells 2, Urine Sperm (Auto) 11/28/16 05:02: Anion Gap 11, Glomerular Filtration Rate 11.0L, Blood Urea Nitrogen 49H, Creatinine 4.18H, Sodium Level 143, Potassium Level 4.3, Chloride Level 107, Carbon Dioxide Level 25, Calcium Level 8.6L, Total Creatine Kinase 37, Creatine Kinase MB 1.0, Creatine Kinase MB Relative Index 2.70 CBC/BMP Laboratory Tests 11/27/16 22:46 Red Blood Count 3.46 L, Mean Corpuscular Volume 101.0 H, Mean Corpuscular Hemoglobin 32.8, Mean Corpuscular Hemoglobin Concent 32.5, Red Cell Distribution Width 18.0 H, Calcium Level 8.6 L, Aspartate Amino Transf (AST/SGOT ) 17, Alanine Aminotransferase (ALT/SGPT) 18, Total Creatine Kinase 30, Alkaline Phosphatase 63, Total Bilirubin 0.4, Total Protein 5.8 L, Albumin 2.5 L 11/28/16 05:02 Red Blood Count 3.49 L, Mean Corpuscular Volume 99.0 H, Mean Corpuscular Hemoglobin 32.3, Mean Corpuscular Hemoglobin Concent 32.6, Red Cell Distribution Width 17.4 H, Calcium Level 8.6 L, Total Creatine Kinase 37 Microbiology Microbiology 11/27/16 Blood Culture, Received Pending 11/27/16 Blood Culture, Received Pending 11/28/16 Gram Stain - Final, Resulted 11/28/16 Body Fluid Culture, Resulted Pending 11/28/16 Urine Culture, Received Pending VALERIANO COX Nov 28, 2016 16:48
[2016-11-28] MEDS: CitaloPRAM (CeleXA) 20 MG TAB PO SCH (20:43)
[2016-11-28] MEDS: SIMVASTATIN 40 MG TAB PO SCH (20:44)
[2016-11-29 06:16] LABS: MEAN CORPUSCULAR HEMOGLOBIN 33.5 pg (27.0-33.0); MEAN CORPUSCULAR HGB CONC 33.2 g/dl (32.0-36.5); MEAN CORPUSCULAR VOLUME 101.1 fl (80.0-96.0); WHITE BLOOD COUNT 6.2 K/mm3 (4.0-10.0)
[2016-11-29 06:33] VITALS: BP 128/61
[2016-11-29 07:18] LABS: CALCIUM LEVEL 8.3 MG/DL (8.8-10.2); CREATININE FOR GFR 5.01 MG/DL (0.55-1.02); GLOMERULAR FILTRATION RATE 8.9 (>39); MAGNESIUM LEVEL 1.9 MG/DL (1.8-2.4); POTASSIUM SERUM 4.3 MEQ/L (3.5-5.1)
[2016-11-29] MEDS: ADVAIR HFA 115/21MCG INHALER INH SCH ×2 (07:47→21:19)
[2016-11-29 08:18] LABS: PERITONEAL DIALYSATE FL COLOR COLORLESS (COLORLESS); TNC PERITONEAL DIALYSATE 23 cells/uL (0-20)
[2016-11-29 08:19] LABS: BF DIFF IF INDICATED? NO (NO); RBC PERITONEAL DIALYSATE < 10 (<10mm3 cells/uL)
[2016-11-29] MEDS: HEPARIN SOD (PORCINE) 5000 UNITS/ML VIAL SC SCH ×2 (08:31→20:16)
[2016-11-29] MEDS: CETIRIZINE (ZyrTEC) 10 MG TAB PO SCH (08:32)
[2016-11-29] MEDS: VITAMIN D 1,000 INTERNATIONAL UNITS TABLET PO SCH (08:32)
[2016-11-29] MEDS: VITAMIN E 400 INTERNATIONAL UNITS CAP PO SCH (08:32)
[2016-11-29] MEDS: DIPYRIDAMOLE/ASA (AGGRENOX) 200MG/25MG CAPCR PO SCH ×2 (08:32→20:16)
[2016-11-29] MEDS: OMEGA-3 1050MG CAPSULE PO SCH (08:32)
[2016-11-29] MEDS: FUROSEMIDE 40 MG TAB PO SCH ×2 (08:33→16:38)
[2016-11-29] MEDS: LOSARTAN 50 MG TAB PO SCH (08:33)
[2016-11-29] MEDS: GEMFIBROZIL 600 MG TAB PO SCH ×2 (08:33→20:17)
[2016-11-29] MEDS: POTASSIUM CHLORIDE 10 MEQ SR TABLET PO SCH ×2 (08:33→20:17)
[2016-11-29] MEDS: **hydrALAZINE** 50 MG TAB PO SCH ×3 (08:34→19:59)
[2016-11-29] MEDS: cloNIDine 0.1 MG TAB PO SCH ×3 (08:34→20:00)
[2016-11-29] MEDS ORDERED: PREVNAR 13 VACCINE SYRINGE (CPT CODE:90670) IM ONE (09:00)
--- NOTE | 2016-11-29 09:47 | CR ---
DATE OF CONSULTATION: 11/28/2016 REQUESTING PHYSICIAN: Dr. Radha Suazo CONSULTED PHYSICIAN: Dr. Mcguire REASON FOR CONSULTATION: Management of end-stage renal disease, peritoneal dialysis, and fluid overload. CHIEF COMPLAINT: Patient presented to the [facility] yesterday with lower extremity edema and shortness of breath. HISTORY OF PRESENT ILLNESS: Yuki Lange is a 76-year-old female with past medical history of end-stage renal disease, on peritoneal dialysis, who was recently admitted to [facility] from 11/14/2016 to 11/25/2016, and during that admission she was treated for Enterobacter peritonitis extended-spectrum beta lactamase (ESBL) Escherichia (E) coli urinary tract infection (UTI), chronic obstructive pulmonary disease (COPD), and edema. Patient was successfully treated initially with intravenous (IV) Zosyn, and she was sent home on by mouth Levaquin. On discharge day she was asymptomatic with no shortness of breath. She was sent home on November 25, in which she presented to [facility] on 11/27/2016 with worsening lower extremity edema, fluid overload, and shortness of breath. Patient was given IV Lasix while there at the hospital, and they got in touch with me, since that hospital is not equipped with nursing staff to do the peritoneal dialysis, so patient was transferred overnight so [facility] for further management. I started the patient on peritoneal dialysis with alternating concentration of 4.25% and 2.5%, and that has significantly helped the patient. She was also started on home dose of Lasix. When I saw the patient today morning, she reports that she is significantly getting better. Her shortness of breath is improving at this time. Repeat cell count sent on arrival yesterday shows no evidence of peritonitis. Rest of the cultures are pending. PAST MEDICAL HISTORY: 1. End-stage renal disease, on peritoneal dialysis. 2. Recent ESBL E. coli UTI. 3. Enterobacter peritonitis two weeks ago. 4. History of diastolic congestive heart failure. 5. Atrial flutter. 6. COPD. 7. Hypertension. 8. Transient ischemic attack (TIA) in the past. 9. Depression. 10. History of abdominal aortic aneurysm. 11. Anemia secondary to end-stage renal disease. PAST SURGICAL HISTORY: 1. Patient has history of tonsillectomy in the past. 2. History of partial hysterectomy. 3. Bilateral cataract surgery. 4. Bilateral total knee replacement. 5. Melanoma of the left ankle excision. 6. History of peritoneal dialysis catheter placement. ALLERGIES: Patient is allergic to CARBAMIDE , IBUPROFEN, LATEX. FAMILY HISTORY: No significant family history of end-stage renal disease requiring hemodialysis. SOCIAL HISTORY: Patient is an active smoker. She denies any illicit drug abuse or alcohol abuse. Patient has made herself DO NOT RESUSCITATE (DNR). CURRENT INPATIENT MEDICATIONS: Patient's medications were all reviewed by me. She is currently on: - albuterol as needed - Astelin two sprays for nasal congestion - Tums 500 mg one dose and 500 mg every 4 hours as needed for heartburn - Zyrtec 10 mg daily - Celexa 20 mg at bedtime - clonidine 0.1 mg by mouth three times a day - Aggrenox one tablet by mouth twice a day - Lasix 80 mg by mouth twice a day - gemfibrozil 600 mg by mouth twice a day - hydralazine 50 mg by mouth three times a day - Levaquin 250 mg by mouth every 48 hours - losartan 100 mg by mouth daily - fish oil one tablet daily - Zofran as needed - potassium chloride 20 mEq by mouth twice a day - Zocor 40 mg at bedtime - vitamin D 1000 units daily - vitamin E 400 units by mouth daily REVIEW OF SYSTEMS: CONSTITUTIONAL: She denies fever, chills, or rigors. EYES: She denies any blurry vision, double vision. ENT: She denies any dysphagia, odynophagia, ear discharge. CARDIOVASCULAR: She denies any chest pain or palpitations, but she does report lower extremity edema. RESPIRATORY: She reports shortness of breath and orthopnea, which is improving now. GASTROINTESTINAL: She denies any nausea, vomiting, or pain in abdomen. GENITOURINARY: She denies any dysuria or hematuria. MUSCULOSKELETAL: She denies any muscle aches or pains, but she does report lower extremity edema. CENTRAL NERVOUS SYSTEM: She denies any weakness. She does report history of TIA in the past. PSYCHIATRIC: She reports history of depression, but she is not depressed at this time. ENDOCRINE: Patient denies history of diabetes in the past. HEMATOLOGIC/ONCOLOGIC: Patient denies any easy bruising or bleeding tendency. Rest of review of systems is negative. OBJECTIVE: PHYSICAL EXAMINATION: GENERAL: Patient is awake, alert, oriented times three, sitting in bed. No apparent distress. VITAL SIGNS: Temperature is 96.9 degrees Fahrenheit, blood pressure is 158/68, pulse is 87, respiratory rate of 18, saturating 97% on room air. Intake and output: Urine output recorded is 350 mL so far today since overnight. She is 300 mL negative yesterday and 2.5 liters negative so far today since yesterday with the current peritoneal dialysis (PD) regimen. HEAD AND NECK: Extraocular muscles intact. Pupils equally round and reactive to light. Mucous membranes are moist. Neck is supple. There is no jugular venous distention (JVD). CARDIOVASCULAR: S1, S2, irregular rate. No murmur, rub, or gallop. RESPIRATORY: Patient has mild inspiratory crackles at the bases, otherwise no rales or rhonchi. Bilateral equal air entry. ABDOMEN: Abdomen is soft. Positive bowel sounds. Nontender. Left lower quadrant peritoneal dialysis catheter with no discharge. Clean exit site. MUSCULOSKELETAL: No clubbing or cyanosis. Pulses are 2+. She has 1+ edema on the bilateral lower extremities. PSYCHIATRIC: Normal mood and affect. CENTRAL NERVOUS SYSTEM: No focal neurological deficit. Power is 5/5 in all extremities. SKIN: No rashes or ulcers. LABORATORY REVIEW: CBC showed a WBC of 9.3, hemoglobin 11.3, platelets are 410. Urinalysis showed 2 + protein, negative nitrite, 1+ leukocyte esterase, 6 WBC. BMP showed sodium 143, potassium 4.3, chloride 107, bicarbonate 25, BUN 49, creatinine is 1.1, calcium is 8.6. Peritoneal fluid nucleated cell count is less than 20. Microbiology: Gram stain of the body fluid is negative. Culture including blood culture and urine culture are pending. IMAGING: Chest x-ray done last night showed chronic stable changes. No acute cardiopulmonary process. ASSESSMENT: A 76-year-old female with past medical history of end-stage renal disease, on peritoneal dialysis, chronic obstructive pulmonary disease (COPD), recently treated for peritonitis and urinary tract infection (UTI), history of rate-controlled atrial fibrillation, admitted at this time with decompensated congestive heart failure and fluid overload. PLAN: 1. Decompensated congestive heart failure and fluid overload. I already started the patient on peritoneal dialysis with five exchanges, alternating 4.25% and 2.5%. Patient is in negative fluid balance. Continue the home dose of Lasix 20 mg by mouth twice a day as well. Volume status is getting better, and she is oxygenating well. 2. End-stage renal disease, on peritoneal dialysis. Patient was getting peritoneal dialysis with 2.5% dialysate; at least that is what was advised to her; however, because of fluid overload, now I have changed the prescription to five exchange, or 2 liters, alternate with 4.25% and 2.5%. Final regimen on discharge will depend upon the patient's fluid status now. 3. Hypertension. Patient was hypertensive on arrival at [facility]; however, with further diuresis and ultrafiltration on peritoneal dialysis, blood pressure is getting better. Continue current dose of clonidine, losartan, metoprolol, hydralazine. 4. COPD. Patient is active smoker. Continue current nebulizers, DuoNeb and Advair. She was recently given steroids as well during previous hospitalization 1 week ago for COPD exacerbation. 5. Atrial fibrillation. It is rate controlled at this time. Continue metoprolol. Patient is not anticoagulated at this time. 6. Recent Enterobacter peritonitis. Continue the home dose of Levaquin 250 mg by mouth every 48 hours. Thank you for involving us in the care of this patient. We shall be happy to follow the patient along with you tomorrow morning. Plan of care was discussed with the patient and with the patient's RN at the bedside. Peritoneal orders were already placed by me last night. MTDD
[2016-11-29 14:00] VITALS: BP 116/58
--- NOTE | 2016-11-29 14:01 | IPNPDOC ---
Date Seen The patient was seen on 11/29/16. Progress Note Hospitalist Progress Note Subjective: Patient states that she feels better, and her breathing has improved but that she is very weak Objective: Physical Exam: Vitals: Vital Sign - Last 24 Hours 11/28/16 11/28/16 11/28/16 11/28/16 15:49 16:02 16:02 19:40 Temp 96.9 99.4 Pulse 87 84 Resp 18 20 B/P (MAP) 158/68 (98) 158/68 158/68 130/63 (85) Pulse Ox 97 96 O2 Delivery Room Air Nasal Cannula O2 Flow Rate 2.0 11/28/16 11/28/16 11/28/16 11/28/16 20:00 20:44 20:44 22:31 Temp 97.9 Pulse 77 Resp 19 B/P (MAP) 130/63 130/63 118/66 (83) Pulse Ox 96 O2 Delivery Nasal Cannula Nasal Cannula O2 Flow Rate 2.0 2.0 11/28/16 11/29/16 11/29/16 11/29/16 22:40 06:33 08:33 12:20 Temp 98.2 Pulse 89 Resp 19 B/P (MAP) 128/61 (83) 125/63 Pulse Ox 91 93 O2 Delivery Nasal Cannula Nasal Cannula Room Air O2 Flow Rate 2.0 2.0 0.0 11/29/16 12:44 O2 Delivery Room Air O2 Flow Rate 0.0 General: Awake, alert, no acute distress HEENT: Moist mucous membranes CV: Regular rate and rhythm Lungs: Clear to auscultation bilaterally Abd: Soft, nontender, nondistended Extremities: No edema Neuro: Alert and oriented 3, normal speech Psych: normal mood and affect Labs and Imaging: Laboratory Tests 11/29/16 05:38 Red Blood Count 3.64 L, Mean Corpuscular Volume 101.1 H, Mean Corpuscular Hemoglobin 33.5 H, Mean Corpuscular Hemoglobin Concent 33.2, Red Cell Distribution Width 19.0 H 11/29/16 06:15 Calcium Level 8.3 L Assessment and Plan: 76-year-old female with end-stage renal disease recently started on peritoneal dialysis, recent peritonitis and ESBL UTI, diastolic CHF, A. fib, history of TIA , hypertension, GERD, COPD, depression, abdominal aortic aneurysm, anemia of chronic disease who was transferred from [facility] for shortness of breath and admitted with acute on chronic diastolic CHF. 1. Acute on chronic diastolic CHF: Management with dialysis as per nephrology. Continue home Lasix. 2. End-stage renal disease recently started on PD: Management as per nephrology. 3. Recent peritonitis and ESBL UTI: Continue Levaquin. Currently afebrile. White count upon arrival was 11.2, but has now normalized. Blood culture, urine culture, and peritoneal fluid cultures are pending. 4. History of TIA: Continue blood pressure control. Continue omega-3 and Lopid. Continue home Aggrenox. 5. Hypertension: Continue home meds. 6. COPD: Continue home nebs and Advair and Zyrtec. 7. Depression: Continue home Celexa. 8. A. fib: Continue home beta andre. The patient is not on full anticoagulation. DVT prophylaxis: Heparin Dispo: patient was cleared by nephrology but needs to stop by the PD center on her way home; her ride today cannot come until 5:30pm, at which time the PD center will be closed; patient also endorses a lot of weakness, so will hold until tomorrow and get PT to evaluate VS, I&O, 24H, Fishbone Vital Signs/I&O Vital Signs Date Time Temp Pulse Resp B/P (MAP) Pulse Ox O2 Delivery O2 Flow Rate FiO2 11/29/16 12:44 Room Air 0.0 11/29/16 12:20 93 11/29/16 08:33 125/63 11/29/16 06:33 98.2 89 19 I&O- Last 24 Hours up to 6 AM 11/29/16 06:00 Intake Total 90917 ml Output Total 20246 ml Balance -1200 ml Laboratory Data 24H LABS Laboratory Tests 2 11/29/16 06:15: Anion Gap 11, Glomerular Filtration Rate 8.9L, Blood Urea Nitrogen 48H, Creatinine 5.01H, Sodium Level 144, Potassium Level 4.3, Chloride Level 106, Carbon Dioxide Level 27, Calcium Level 8.3L, Magnesium Level 1.9 11/29/16 06:40: Body Fluid Source PERITONEAL DIALYSATE, Peritoneal Fluid Color COLORLESS, Peritoneal Fluid Appearance CLEAR, Peritoneal Fluid RBC (Auto) < 10, Dialysate Total Nucleated Cells 23H CBC/BMP Laboratory Tests 11/29/16 05:38 Red Blood Count 3.64 L, Mean Corpuscular Volume 101.1 H, Mean Corpuscular Hemoglobin 33.5 H, Mean Corpuscular Hemoglobin Concent 33.2, Red Cell Distribution Width 19.0 H 11/29/16 06:15 Calcium Level 8.3 L Microbiology Microbiology 11/27/16 Blood Culture - Preliminary, Resulted No growth after 24 hours . All specim... 11/27/16 Blood Culture - Preliminary, Resulted No growth after 24 hours . All specim... 11/28/16 Gram Stain - Final, Resulted 11/28/16 Body Fluid Culture, Resulted Pending 11/28/16 Urine Culture, Received Pending VALERIANO COX Nov 29, 2016 14:01
[2016-11-29 17:50] LABS: PHOSPHORUS LEVEL 4.4 MG/DL (2.5-4.9)
[2016-11-29] MEDS ORDERED: LevoFLOXacin 250 MG TABLET PO SCH (18:00)
--- NOTE | 2016-11-29 18:14 | IPN ---
DATE: 11/28/2016 SUBJECTIVE: Patient was seen and examined at the bedside today morning. There are no issues with the peritoneal dialysis. She is in negative fluid balance with the current regimen of peritoneal dialysis (PD). Shortness of breath and edema has significantly improved; however, patient is reporting that she is feeling weak and tired. REVIEW OF SYSTEMS: Patient denies any fevers, chills, rigors, headache, nausea, vomiting, chest pain, shortness of breath, abdominal pain, constipation or diarrhea. She does report weakness and difficulty to ambulate. The rest of review of systems is negative. OBJECTIVE: VITAL SIGNS: Temperature is 97.1 degrees Fahrenheit, blood pressure 116/58, pulse 94, respiratory rate 18, saturating 94% on room air. INTAKE AND OUTPUT: Patient is 2300 mL negative yesterday. She is 170 mL negative so far today. Weight in the bed scale is 70.5 kg. PHYSICAL EXAMINATION: GENERAL: Patient is awake, alert, oriented times three. Sitting in the bed, no apparent distress. HEAD AND NECK EXAM: Extraocular muscles intact. Pupils equally round and reactive to light. Mucous membranes are moist. Neck is supple. There is no jugular venous distention (JVD). CARDIOVASCULAR: S1, S2. Regular heart rate. No murmurs, rubs or gallops. RESPIRATORY: Clear to auscultation bilaterally. Bilaterally clear air entry. No rales or rhonchi. ABDOMEN: Soft. Positive bowel sounds. Nontender. Left lower quadrant peritoneal dialysis catheter with no discharge. Clean exit site. MUSCULOSKELETAL: No clubbing or cyanosis. Pulses are 2+. There is no edema of the bilateral lower extremities. PSYCHIATRIC: Normal mood and affect. CENTRAL NERVOUS SYSTEM: No focal neurological deficits. Power is 5/5 in all extremities. LABORATORY REVIEW: Complete blood count (CBC) showed WBC 6.2, hemoglobin 12.2, platelets 275. Body fluid cell count was 23. Basic metabolic panel (BMP) done today showed sodium 144, potassium 4.3, chloride 106, bicarbonate 27, BUN 48, creatinine 5, calcium 8.3, magnesium 1.8. MICROBIOLOGY: Blood cultures are negative. Urine culture is pending. CURRENT INPATIENT MEDICATIONS: Patient's medications are all reviewed by me. There is no change in the medications today as compared with yesterday. ASSESSMENT: A 76-year-old female with past medical history of end-stage renal disease on peritoneal dialysis, chronic obstructive pulmonary disease (COPD), recently treated inpatient for peritonitis and urinary tract infection. She has history of rate-controlled atrial fibrillation. She was admitted this time because of decompensated congestive heart failure (CHF) and fluid overload. PLAN: 1. Decompensated congestive heart failure (CHF) and fluid overload. Patient's volume status has been optimized. She was being treated with peritoneal dialysis (PD) exchanges alternating with 4.25% and 2.5%. I do not see any evidence of edema or fluid overload at this time. Peritoneal dialysis (PD) prescription has been changed to all exchanges of 2.5%. Continue current dose of Lasix 80 mg by mouth twice a day. 2. End-stage renal disease on peritoneal dialysis. Continue five exchanges of 2.5 liters each, but I am changing all the fluids to 2.5% and I will see how she responds to all 2.5% exchanges. 3. Hypertension. Blood pressure is acceptable at this time. Volume status is optimized. Continue current dose of clonidine 0.1 mg by mouth three times a day, hydralazine 50 mg by mouth three times a day, losartan 100 mg by mouth daily. 4. Recent Enterobacter peritonitis. Patient continues to be on home dose of Levaquin 250 mg by mouth every 48 hours. She has to finish a one week course of antibiotics. 5. Complaint of weakness. I will check patient's phosphorous level to make sure she did not become hypophosphatemic because of extensive peritoneal dialysis, and I am also decreasing the peritoneal dialysis (PD) prescription today, because of possibility of volume depletion with aggressive peritoneal dialysis regimen. DISCHARGE PLANNING: It is okay to discharge the patient from a nephrology standpoint whenever she is cleared by physical therapy. The plan of care was discussed with the hospitalist, Dr. Radha Suazo.
[2016-11-29] MEDS: CALCIUM CARBONATE 500 MG CHEW U/D PO PRN ×2 (18:56→23:09)
[2016-11-29] MEDS: CitaloPRAM (CeleXA) 20 MG TAB PO SCH (20:17)
[2016-11-29] MEDS: SIMVASTATIN 40 MG TAB PO SCH (20:17)
[2016-11-29 22:00] VITALS: BP 107/54
[2016-11-30 06:00] VITALS: BP 142/81
[2016-11-30 06:00] LABS: MEAN CORPUSCULAR HGB CONC 33.1 g/dl (32.0-36.5); MEAN CORPUSCULAR VOLUME 99.6 fl (80.0-96.0); RED CELL DISTRIBUTION WIDTH 19.9 % (11.5-14.5); WHITE BLOOD COUNT 11.6 K/mm3 (4.0-10.0)
[2016-11-30 06:20] LABS: CALCIUM LEVEL 8.8 MG/DL (8.8-10.2); CREATININE FOR GFR 5.31 MG/DL (0.55-1.02); GLOMERULAR FILTRATION RATE 8.3 (>39); MAGNESIUM LEVEL 1.7 MG/DL (1.8-2.4); POTASSIUM SERUM 4.1 MEQ/L (3.5-5.1)
[2016-11-30] MEDS: ADVAIR HFA 115/21MCG INHALER INH SCH ×2 (08:17→20:06)
--- NOTE | 2016-11-30 08:17 | REP ---
KUB: Single view. HISTORY: Abdominal pain and diarrhea. FINDINGS: A peritoneal dialysis catheter is seen overlying and within the pelvis. There is a levoconvex curve in the lumbar spine with degenerative disc disease. Vascular calcification is observed and there appears to be aneurysmal dilation of the abdominal aorta at the level of the L3 vertebral body. This is seen on recent CT study of the abdomen November 15, 2016 and was measured at 3.7 cm. The bowel gas pattern is unremarkable. There are phleboliths in the pelvis. No other significant finding. IMPRESSION: Normal bowel gas pattern. Peritoneal dialysis catheter in place. Known abdominal aortic aneurysm seen. Signed by Leon Payton MD 11/30/2016 02:30 P
[2016-11-30] MEDS: CETIRIZINE (ZyrTEC) 10 MG TAB PO SCH (09:31)
[2016-11-30] MEDS: FUROSEMIDE 40 MG TAB PO SCH ×2 (09:31→17:00)
[2016-11-30] MEDS: GEMFIBROZIL 600 MG TAB PO SCH ×2 (09:32→21:25)
[2016-11-30] MEDS: DIPYRIDAMOLE/ASA (AGGRENOX) 200MG/25MG CAPCR PO SCH ×2 (09:32→21:25)
[2016-11-30] MEDS: **hydrALAZINE** 50 MG TAB PO SCH ×3 (09:33→21:25)
[2016-11-30] MEDS: cloNIDine 0.1 MG TAB PO SCH ×3 (09:33→21:26)
[2016-11-30] MEDS: POTASSIUM CHLORIDE 10 MEQ SR TABLET PO SCH ×2 (09:33→21:26)
[2016-11-30] MEDS: VITAMIN D 1,000 INTERNATIONAL UNITS TABLET PO SCH (09:33)
[2016-11-30] MEDS: OMEGA-3 1050MG CAPSULE PO SCH (09:33)
[2016-11-30] MEDS: VITAMIN E 400 INTERNATIONAL UNITS CAP PO SCH (09:33)
[2016-11-30] MEDS: HEPARIN SOD (PORCINE) 5000 UNITS/ML VIAL SC SCH ×2 (09:34→21:26)
[2016-11-30] MEDS: LOSARTAN 50 MG TAB PO SCH (09:34)
[2016-11-30] MEDS ORDERED: GENTAMICIN SULF INJ 80MG/2ML VIAL (J1580) IP ONE (12:00)
[2016-11-30 12:26] LABS: RBC PERITONEAL DIALYSATE < 10 (<10mm3 cells/uL); TNC PERITONEAL DIALYSATE 238 cells/uL (0-20)
[2016-11-30 12:31] LABS: PERITONEAL DIALYSATE FL COLOR COLORLESS (COLORLESS)
[2016-11-30 12:32] LABS: BF DIFF IF INDICATED? YES (NO)
[2016-11-30 14:00] VITALS: BP 139/66
[2016-11-30] MEDS: FLUCONAZOLE 200 MG in APPROPRIATE DILUENT 1 EA IV SCH (15:30)
--- NOTE | 2016-11-30 19:20 | IPNPDOC ---
Date Seen The patient was seen on 11/30/16. Progress Note Hospitalist Progress Note Subjective: Patient had diarrhea overnight, states she feels a little better this morning though Objective: Physical Exam: Vitals: Vital Sign - Last 24 Hours 11/29/16 11/29/16 11/30/16 11/30/16 22:00 22:00 06:00 09:33 Temp 97.3 97.7 Pulse 88 101 Resp 20 20 B/P (MAP) 107/54 (71) 142/81 (101) 140/84 Pulse Ox 93 95 O2 Delivery Room Air Nasal Cannula O2 Flow Rate 1.0 11/30/16 11/30/16 11/30/16 11/30/16 09:33 13:16 14:00 15:34 Temp 98.2 Pulse 96 Resp 19 B/P (MAP) 140/84 139/66 (90) 122/64 Pulse Ox 93 O2 Delivery Room Air Nasal Cannula O2 Flow Rate 1.0 General: Awake, alert, no acute distress HEENT: Moist mucous membranes CV: Regular rate and rhythm Lungs: Clear to auscultation bilaterally Abd: Soft, TTP in left quadrants, nondistended Extremities: No edema Neuro: Alert and oriented 3, normal speech Psych: normal mood and affect Labs and Imaging: Laboratory Tests 11/30/16 05:39 Red Blood Count 3.65 L, Mean Corpuscular Volume 99.6 H, Mean Corpuscular Hemoglobin 33.0, Mean Corpuscular Hemoglobin Concent 33.1, Red Cell Distribution Width 19.9 H, Calcium Level 8.8 Assessment and Plan: 76-year-old female with end-stage renal disease recently started on peritoneal dialysis, recent peritonitis and ESBL UTI, diastolic CHF, A. fib, history of TIA , hypertension, GERD, COPD, depression, abdominal aortic aneurysm, anemia of chronic disease who was transferred from [facility] for shortness of breath and admitted with acute on chronic diastolic CHF. 1. Acute on chronic diastolic CHF: Management with dialysis as per nephrology. Continue home Lasix. 2. End-stage renal disease recently started on PD: Management as per nephrology. 3. Recent peritonitis and ESBL UTI, now with concern for recurrent peritonitis: Currently afebrile. White count upon arrival was 11.2, normalized, but is now back up again. Peritoneal fluid today with elevated WBC; antibiotics as per nephrology. Blood culture, urine culture, and peritoneal fluid cultures are pending. 4. History of TIA: Continue blood pressure control. Continue omega-3 and Lopid. Continue home Aggrenox. 5. Hypertension: Continue home meds. 6. COPD: Continue home nebs and Advair and Zyrtec. 7. Depression: Continue home Celexa. 8. A. fib: Continue home beta andre. The patient is not on full anticoagulation. DVT prophylaxis: Heparin Dispo: pending resolution of recurrent peritonitis VS, I&O, 24H, Fishbone Vital Signs/I&O Vital Signs Date Time Temp Pulse Resp B/P (MAP) Pulse Ox O2 Delivery O2 Flow Rate FiO2 11/30/16 15:34 122/64 11/30/16 14:00 98.2 96 19 93 Nasal Cannula 1.0 I&O- Last 24 Hours up to 6 AM 11/30/16 06:00 Intake Total 81049 ml Output Total 9200 ml Balance 1340 ml Laboratory Data 24H LABS Laboratory Tests 2 11/29/16 19:20: Total Creatine Kinase 24L, Creatine Kinase MB 1.0, Creatine Kinase MB Relative Index 4.16H, Troponin I 0.02 11/30/16 05:39: Anion Gap 13, Glomerular Filtration Rate 8.3L, Blood Urea Nitrogen 43H, Creatinine 5.31H, Sodium Level 141, Potassium Level 4.1, Chloride Level 103, Carbon Dioxide Level 25, Calcium Level 8.8, Magnesium Level 1.7L 11/30/16 11:02: Body Fluid Source PERITONEAL DIALYSATE, Peritoneal Fluid Color COLORLESS, Peritoneal Fluid Appearance CLEAR, Peritoneal Fluid RBC (Auto) < 10, Dialysate Total Nucleated Cells 238H CBC/BMP Laboratory Tests 11/30/16 05:39 Red Blood Count 3.65 L, Mean Corpuscular Volume 99.6 H, Mean Corpuscular Hemoglobin 33.0, Mean Corpuscular Hemoglobin Concent 33.1, Red Cell Distribution Width 19.9 H, Calcium Level 8.8 Microbiology Microbiology 11/27/16 Blood Culture - Preliminary, Resulted No Growth after 48 hours. All Specime... 11/27/16 Blood Culture - Preliminary, Resulted No Growth after 48 hours. All Specime... 11/30/16 Body Fluid Culture, Received Pending 11/28/16 Fungal Smear, Received Pending 11/28/16 Fungal Culture, Received Pending 11/28/16 Gram Stain - Final, Complete 11/28/16 Body Fluid Culture - Final, Complete 11/30/16 Gastrointestinal Tract Panel (PCR) - Final, Complete 11/28/16 Urine Culture, Received Pending VALERIANO COX Nov 30, 2016 19:20
[2016-11-30 20:10] VITALS: O2SAT 91
--- NOTE | 2016-11-30 20:49 | ECGEPIP ---
Stationary ECG Study [facility] Test Date: 2016-11-29 Pat Name: JHONNY NEELY Department: Room: [place] [address] Gender: F Train Dispatcher: JL BLOOM : 1940 Requested By: VALERIANO Copeland Order Number: [id number] Reading MD: Sarath Carranza Measurements Intervals [place] Rate: 84 P: 68 NM: 145 QRS: 35 QRSD: 93 T: 46 QT: 411 QTc: 488 Interpretive Statements SINUS RHYTHM WITH ONE VENTRICULAR PREMATURE COMPLEX NONSPECIFIC ST & T-WAVE ABNORMALITY Electronically Signed On 11-30-2016 20:48:34 EDT by Sarath Carranza
[2016-11-30 21:08] LABS: CC BF DIFF EXAM CYTOCENTRIFUGE
[2016-11-30] MEDS: CitaloPRAM (CeleXA) 20 MG TAB PO SCH (21:25)
[2016-11-30] MEDS: SIMVASTATIN 40 MG TAB PO SCH (21:25)
[2016-11-30 22:00] VITALS: BP 140/57
[2016-12-01] MEDS: ACETAMINOPHEN TAB 650MG DOSE (2X325MG) PO PRN ×2 (01:01→23:05)
[2016-12-01 06:00] VITALS: BP 107/56
[2016-12-01] MEDS: ADVAIR HFA 115/21MCG INHALER INH SCH ×2 (08:04→21:48)
[2016-12-01 08:08] LABS: MEAN CORPUSCULAR HEMOGLOBIN 34.4 pg (27.0-33.0); MEAN CORPUSCULAR HGB CONC 33.9 g/dl (32.0-36.5); MEAN CORPUSCULAR VOLUME 101.7 fl (80.0-96.0); RED CELL DISTRIBUTION WIDTH 20.8 % (11.5-14.5); WHITE BLOOD COUNT 8.3 K/mm3 (4.0-10.0)
[2016-12-01 08:20] LABS: PERITONEAL DIALYSATE FL COLOR COLORLESS (COLORLESS); RBC PERITONEAL DIALYSATE < 10 (<10mm3 cells/uL); TNC PERITONEAL DIALYSATE 155 cells/uL (0-20)
[2016-12-01 08:21] LABS: BF DIFF IF INDICATED? YES (NO)
[2016-12-01 08:25] LABS: CALCIUM LEVEL 7.9 MG/DL (8.8-10.2); CREATININE FOR GFR 5.76 MG/DL (0.55-1.02); GLOMERULAR FILTRATION RATE 7.6 (>39); MAGNESIUM LEVEL 1.6 MG/DL (1.8-2.4); POTASSIUM SERUM 4.2 MEQ/L (3.5-5.1)
[2016-12-01] MEDS: VITAMIN D 1,000 INTERNATIONAL UNITS TABLET PO SCH (08:56)
[2016-12-01] MEDS: VITAMIN E 400 INTERNATIONAL UNITS CAP PO SCH (08:56)
[2016-12-01] MEDS: LOSARTAN 50 MG TAB PO SCH (08:57)
[2016-12-01] MEDS: **hydrALAZINE** 50 MG TAB PO SCH ×3 (08:57→20:31)
[2016-12-01] MEDS: POTASSIUM CHLORIDE 10 MEQ SR TABLET PO SCH ×2 (08:57→20:31)
[2016-12-01] MEDS: DIPYRIDAMOLE/ASA (AGGRENOX) 200MG/25MG CAPCR PO SCH ×2 (08:57→20:42)
[2016-12-01] MEDS: CETIRIZINE (ZyrTEC) 10 MG TAB PO SCH (08:58)
[2016-12-01] MEDS: GEMFIBROZIL 600 MG TAB PO SCH ×2 (08:58→20:31)
[2016-12-01] MEDS: HEPARIN SOD (PORCINE) 5000 UNITS/ML VIAL SC SCH ×2 (08:58→20:30)
[2016-12-01] MEDS: cloNIDine 0.1 MG TAB PO SCH ×3 (08:58→20:33)
[2016-12-01] MEDS: OMEGA-3 1050MG CAPSULE PO SCH (08:58)
[2016-12-01] MEDS: FUROSEMIDE 40 MG TAB PO SCH ×2 (08:58→16:51)
--- NOTE | 2016-12-01 11:03 | IPNPDOC ---
Subjective Date Seen The patient was seen on 12/01/16. Subjective Chief Complaint/HPI The patient is a 76-year-old female admitted with a reason for visit of Chf Exacerbation. Events since last encounter feeling better today , slept well, no fever or chills, mild abdominal pain but better , no chest pain , no sob , no cough . Objective Physical Examination General Exam: Positive: Alert, Cooperative, No Acute Distress Eye Exam: Positive: PERRLA, Conjunctiva & lids normal, EOMI, Negative: Sclera icteric ENT Exam: Positive: Atraumatic, Mucous membr. moist/pink, Pharynx Normal Neck Exam: Positive: Supple, Negative: JVD, thyromegaly Chest Exam: Positive: Clear to auscultation, Normal air movement Heart Exam: Positive: Rate Normal, Regular Rhythm, Normal S1, Normal S2, Negative: Murmurs, Rubs Abdomen Exam: Positive: Normal bowel sounds, Soft, Tenderness Extremity Exam: Positive: Normal pulses, Negative: Clubbing, Cyanosis, Edema Skin Exam: Positive: Nl turgor and temperature, Negative: Rash, Breakdown Assessment /Plan Problems (1) Peritonitis associated with peritoneal dialysis Problem Text: recurrent episode of PD peritonitis. WBC count in the PD fluid improving. on fluconazole iv and gentamycin IP (2) CHF exacerbation Status: Resolved Problem Text: acute on chronic exacerbation of diastolic chf. now improved with adjustment of PD exchanges (3) ESRD on peritoneal dialysis Status: Chronic Problem Text: nephrology following. (4) COPD (chronic obstructive pulmonary disease) Status: Chronic Problem Text: continue nebulizers and copd. (5) HTN (hypertension) Status: Chronic Problem Text: continue losartan hydralazine lasix clonidine (6) HLD (hyperlipidemia) Status: Chronic Problem Text: continue statin and gemfibrosil (7) Depression Status: Chronic Problem Text: continue citalopram (8) History of TIA (transient ischemic attack) Status: Chronic Problem Text: on Aggrenox. (9) A-fib Status: Chronic Problem Text: on Aggrenox (10) Abnormal urinalysis Status: Acute Problem Text: Does not make much urine has ESBL in urine with only 25 thousand colony count , possibly colonizer Plan/VTE VTE Prophylaxis Ordered?: Yes VS, I&O, 24H, Fishbone Vital Signs/I&O Vital Signs Date Time Temp Pulse Resp B/P (MAP) Pulse Ox O2 Delivery O2 Flow Rate FiO2 12/01/16 08:57 129/68 12/01/16 06:00 98.0 79 18 93 11/30/16 22:30 Room Air 11/30/16 14:00 1.0 I&O- Last 24 Hours up to 6 AM 12/01/16 06:00 Intake Total 8840 ml Output Total 7550 ml Balance 1290 ml Laboratory Data 24H LABS Laboratory Tests 2 11/30/16 11:02: Body Fluid Source PERITONEAL DIALYSATE, Body Fluid Neutrophils 87, Body Fluid Lymphocytes 2, Body Fluid Monocytes/Macrophages 11, Peritoneal Fluid Color COLORLESS, Peritoneal Fluid Appearance CLEAR, Peritoneal Fluid RBC (Auto) < 10, Dialysate Total Nucleated Cells 238H 12/01/16 06:27: Body Fluid Source PERITONEAL DIALYSATE, Body Fluid Neutrophils 20, Body Fluid Lymphocytes 13, Body Fluid Monocytes/Macrophages 67, Peritoneal Fluid Color COLORLESS, Peritoneal Fluid Appearance CLEAR, Peritoneal Fluid RBC (Auto) < 10, Dialysate Total Nucleated Cells 155H 12/01/16 07:54: Anion Gap 13, Glomerular Filtration Rate 7.6L, Blood Urea Nitrogen 38H, Creatinine 5.76H, Sodium Level 141, Potassium Level 4.2, Chloride Level 102, Carbon Dioxide Level 26, Calcium Level 7.9L, Magnesium Level 1.6L CBC/BMP Laboratory Tests 12/01/16 07:54 Red Blood Count 3.52 L, Mean Corpuscular Volume 101.7 H, Mean Corpuscular Hemoglobin 34.4 H, Mean Corpuscular Hemoglobin Concent 33.9, Red Cell Distribution Width 20.8 H, Calcium Level 7.9 L Microbiology Microbiology 11/27/16 Blood Culture - Preliminary, Resulted No Growth after 48 hours. All Specime... 11/27/16 Blood Culture - Preliminary, Resulted No Growth after 48 hours. All Specime... 11/30/16 Body Fluid Culture, Received Pending 11/28/16 Fungal Smear, Received Pending 11/28/16 Fungal Culture, Received Pending 11/28/16 Gram Stain - Final, Complete 11/28/16 Body Fluid Culture - Final, Complete 11/30/16 Gastrointestinal Tract Panel (PCR) - Final, Complete 11/28/16 Urine Culture - Final, Complete E.coli Esbl HERMAN WELCH MD Dec 01, 2016 11:03
[2016-12-01] MEDS: MAG SULF 1GM/100ML (MAG RUN) 1 GM in APPROPRIATE DILUENT 1 EA IV SCH ×2 (12:00→13:06)
[2016-12-01 14:00] VITALS: BP 108/58
[2016-12-01] MEDS: FLUCONAZOLE 200 MG in APPROPRIATE DILUENT 1 EA IV SCH (14:23)
[2016-12-01] MEDS: GENTAMICIN SULF INJ 80MG/2ML VIAL (J1580) IP SCH (14:23)
[2016-12-01] MEDS: LevoFLOXacin 250 MG TABLET PO SCH (18:00)
--- NOTE | 2016-12-01 19:23 | IPN ---
DATE: 12/01/2016 SUBJECTIVE: The patient was seen and examined at the bedside today, morning. The last 24-hour events were noted. The patient reported that her abdominal cramps were better, and she reports abdominal pain is getting better and she had a good night last night. Peritoneal fluid total nucleated cell count is also coming down. The patient was started on intraperitoneal gentamicin and intravenous (IV) fluconazole yesterday. REVIEW OF SYSTEMS: The patient denies any fever, chills, rigors, headache, nausea, vomiting, chest pain. She denies any abdominal cramps, but she reports that she still has a sore abdomen. She denies any dysuria or hematuria. The rest of the review of systems is negative. OBJECTIVE: VITAL SIGNS: Temperature is 97.3 degrees Fahrenheit, blood pressure is 108/58, pulse is 97, respiratory rate of 20, saturating 92% on room air. INTAKE/OUTPUT: Urine output since overnight is not recorded. She is 560 mL positive so far sine overnight with peritoneal dialysis. Weight on the bed scale is 70.3 kg. PHYSICAL EXAMINATION: GENERAL: The patient is awake, alert, oriented times three, laying in bed, in no apparent distress. HEAD AND NECK EXAM: Extraocular muscles intact. Pupils equally round and reactive to light. Mucous membranes are moist. Neck is supple. There is no jugular venous distention (JVD). CARDIOVASCULAR: S1, S2, regular rate. No murmur, rub or gallop. RESPIRATORY: Chest is clear to auscultation bilaterally. Bilateral equal air entry. No rales or rhonchi. ABDOMEN: Abdomen is soft. Positive bowel sounds. The patient has rebound tenderness all over the abdomen,. She has a left lower quadrant peritoneal dialysis catheter with no discharge. MUSCULOSKELETAL: No clubbing or cyanosis. Pulses are 2+. There is no edema of the extremities. PSYCHIATRIC: Normal mood and affect. CENTRAL NERVOUS SYSTEM: No focal deficit. Power is 5/5 in all extremities. LAB REVIEW: CBC showed a WBC of 8.3, hemoglobin is 12.1, platelets are 376. BMP showed sodium 141, potassium 4.2, chloride 102, bicarbonate 26, BUN 38, creatinine is 5.7, calcium 7.9, magnesium is 1.6. Peritoneal fluid cell count is 155 with 20% neutrophils. Microbiology: Urine culture is growing 25,000 ESBL E coli. Peritoneal fluid, fungal culture and microbial culture is pending so far. CURRENT INPATIENT MEDICATIONS: The patient's medications were all reviewed by me. She was given a dose of magnesium sulfate 1 gram IV times one dose. I have restarted the patient on Levaquin 250 mg by mouth every 48 hours, and she was started on gentamicin 40 mg intraperitoneally daily. There is no other change in the medications today as compared with yesterday. ASSESSMENT: A 76-year-old female with a past medical history of end-stage renal disease, on peritoneal dialysis, chronic obstructive pulmonary disease (COPD), recently treated inpatient for peritoneal catheter associated peritonitis and urinary tract infection secondary to extended-spectrum beta lactamase (ESBL) Escherichia (E) coli. She was readmitted this time because of decompensated congestive heart failure (CHF) and fluid overload and now the patient has developed peritonitis again. PLAN: 1. Congestive heart failure. The patient's volume status is optimized. Weight is stable. Continue Lasix 50 mg by mouth twice a day. Continue current prescription of peritoneal dialysis (PD) regimen of a mix of 4.25% and 2.5%. 2. Peritoneal dialysis catheter associated peritonitis. The patient was restarted on intraperitoneal gentamicin yesterday. She was also started on IV fluconazole for risk of fungal peritonitis. She does report symptomatic improvement. Peritoneal fluid cell count is coming down. Cultures are still pending. I will continue the empiric coverage with gentamicin and fluconazole, and I have restarted the patient on Levaquin 250 mg by mouth every 48 hours, last dose will be on 12/07/2016. 3. End-stage renal disease, on peritoneal dialysis. Continue current regimen of peritoneal dialysis, five exchanges of 2 liters each, three exchanges of 2.5% and two exchanges of 4.25%. 4. Positive urine cultures for ESBL E coli. Cultures only showed 25,000 colonies. She was recently treated with IV Zosyn inpatient about 2 weeks ago. The patient is probably colonized. She is asymptomatic. No need of treatment at this time. 5. Hypertension. Blood pressure is acceptable at this time. Continue current dose of clonidine 0.1 mg three times a day, hydralazine 50 mg every 8 hours and losartan 100 mg daily. 6. Hypomagnesemia. Primary team has already ordered a dose of magnesium sulfate 1 gram IV, which is adequate.
[2016-12-01] MEDS: CitaloPRAM (CeleXA) 20 MG TAB PO SCH (20:30)
[2016-12-01] MEDS: SIMVASTATIN 40 MG TAB PO SCH (20:31)
[2016-12-01] MEDS: CALCIUM CARBONATE 500 MG CHEW U/D PO PRN (20:46)
[2016-12-01 22:00] VITALS: BP 127/69
[2016-12-01 22:29] LABS: CC BF DIFF EXAM CYTOCENTRIFUGE
[2016-12-02] MEDS: CALCIUM CARBONATE 500 MG CHEW U/D PO PRN ×3 (02:00→20:28)
[2016-12-02] MEDS: ONDANSETRON 4MG/2ML VIAL (J2405) IV PRN ×3 (02:01→16:29)
[2016-12-02] MEDS: PREPARATION H OINTMENT (HEMORRHOID) TOP PRN ×2 (02:07→12:44)
[2016-12-02 06:00] VITALS: BP 119/71
[2016-12-02 06:19] LABS: MEAN CORPUSCULAR HEMOGLOBIN 33.5 pg (27.0-33.0); MEAN CORPUSCULAR HGB CONC 33.4 g/dl (32.0-36.5); MEAN CORPUSCULAR VOLUME 100.3 fl (80.0-96.0); RED CELL DISTRIBUTION WIDTH 21.2 % (11.5-14.5); WHITE BLOOD COUNT 10.9 K/mm3 (4.0-10.0)
[2016-12-02 06:50] LABS: CALCIUM LEVEL 9.1 MG/DL (8.8-10.2); CREATININE FOR GFR 5.81 MG/DL (0.55-1.02); GLOMERULAR FILTRATION RATE 7.5 (>39); MAGNESIUM LEVEL 2.2 MG/DL (1.8-2.4); POTASSIUM SERUM 4.7 MEQ/L (3.5-5.1)
[2016-12-02] MEDS: ADVAIR HFA 115/21MCG INHALER INH SCH ×2 (09:09→20:17)
[2016-12-02] MEDS: cloNIDine 0.1 MG TAB PO SCH ×3 (10:00→21:00)
[2016-12-02] MEDS: OMEGA-3 1050MG CAPSULE PO SCH (10:21)
[2016-12-02] MEDS: HEPARIN SOD (PORCINE) 5000 UNITS/ML VIAL SC SCH ×2 (10:21→20:28)
[2016-12-02] MEDS: VITAMIN D 1,000 INTERNATIONAL UNITS TABLET PO SCH (10:22)
[2016-12-02] MEDS: POTASSIUM CHLORIDE 10 MEQ SR TABLET PO SCH ×2 (10:22→20:29)
[2016-12-02] MEDS: VITAMIN E 400 INTERNATIONAL UNITS CAP PO SCH (10:22)
[2016-12-02] MEDS: CETIRIZINE (ZyrTEC) 10 MG TAB PO SCH (10:23)
[2016-12-02] MEDS: DIPYRIDAMOLE/ASA (AGGRENOX) 200MG/25MG CAPCR PO SCH ×2 (10:24→20:28)
[2016-12-02] MEDS: GEMFIBROZIL 600 MG TAB PO SCH ×2 (10:25→20:29)
[2016-12-02] MEDS: LOSARTAN 50 MG TAB PO SCH (10:27)
[2016-12-02] MEDS: FUROSEMIDE 40 MG TAB PO SCH ×2 (10:27→16:27)
[2016-12-02] MEDS: **hydrALAZINE** 50 MG TAB PO SCH ×3 (10:28→21:00)
[2016-12-02] MEDS ORDERED: NYSTATIN 100,000 UNITS/GM TOPICAL PWD 15 GM TOP PRN (11:00)
--- NOTE | 2016-12-02 12:38 | IPNPDOC ---
Subjective Date Seen The patient was seen on 12/02/16. Subjective Chief Complaint/HPI The patient is a 76-year-old female admitted with a reason for visit of Chf Exacerbation. Events since last encounter Had diarrhea 3 times yesterday , continues to have some abdominal discomfort. no fevers or chills, no chest pain or sob , no cough or phlegm. Objective Physical Examination General Exam: Positive: Alert, Cooperative, No Acute Distress Eye Exam: Positive: PERRLA, Conjunctiva & lids normal, EOMI, Negative: Sclera icteric ENT Exam: Positive: Atraumatic, Mucous membr. moist/pink, Pharynx Normal Neck Exam: Positive: Supple, Negative: JVD, thyromegaly Chest Exam: Positive: Clear to auscultation, Normal air movement Heart Exam: Positive: Rate Normal, Regular Rhythm, Normal S1, Normal S2, Negative: Murmurs, Rubs Abdomen Exam: Positive: Normal bowel sounds, Soft, Tenderness Extremity Exam: Positive: Normal pulses, Negative: Clubbing, Cyanosis, Edema Skin Exam: Positive: Nl turgor and temperature, Negative: Rash, Breakdown Assessment /Plan Problems (1) Peritonitis associated with peritoneal dialysis Problem Text: recurrent episode of PD peritonitis. WBC count in the PD fluid improving. on fluconazole iv and gentamycin IP and levofloxaxin. pd fluid fungal stain and culture pending , aerobic culture of pd fluid is negative. (2) CHF exacerbation Status: Resolved Problem Text: acute on chronic exacerbation of diastolic chf. now improved with adjustment of PD exchanges (3) ESRD on peritoneal dialysis Status: Chronic Problem Text: nephrology following. (4) COPD (chronic obstructive pulmonary disease) Status: Chronic Problem Text: continue nebulizers and copd. (5) HTN (hypertension) Status: Chronic Problem Text: continue losartan hydralazine lasix clonidine (6) HLD (hyperlipidemia) Status: Chronic Problem Text: continue statin and gemfibrosil (7) Depression Status: Chronic Problem Text: continue citalopram (8) History of TIA (transient ischemic attack) Status: Chronic Problem Text: on Aggrenox. (9) A-fib Status: Chronic Problem Text: on Aggrenox (10) Abnormal urinalysis Status: Acute Problem Text: Does not make much urine has ESBL in urine with only 25 thousand colony count , possibly colonizer Plan/VTE VTE Prophylaxis Ordered?: Yes VS, I&O, 24H, Fishbone Vital Signs/I&O Vital Signs Date Time Temp Pulse Resp B/P (MAP) Pulse Ox O2 Delivery O2 Flow Rate FiO2 12/02/16 10:28 150/77 12/02/16 06:00 98.0 98 19 93 Nasal Cannula 2.0 I&O- Last 24 Hours up to 6 AM 12/02/16 06:00 Intake Total 8700 ml Output Total 7600 ml Balance 1100 ml Laboratory Data 24H LABS Laboratory Tests 2 12/02/16 05:47: Anion Gap 13, Glomerular Filtration Rate 7.5L, Blood Urea Nitrogen 33H, Creatinine 5.81H, Sodium Level 138, Potassium Level 4.7, Chloride Level 101, Carbon Dioxide Level 24, Calcium Level 9.1#, Magnesium Level 2.2 12/02/16 11:53: CBC/BMP Laboratory Tests 12/02/16 05:47 Red Blood Count 3.58 L, Mean Corpuscular Volume 100.3 H, Mean Corpuscular Hemoglobin 33.5 H, Mean Corpuscular Hemoglobin Concent 33.4, Red Cell Distribution Width 21.2 H, Calcium Level 9.1 # Microbiology Microbiology 11/27/16 Blood Culture - Preliminary, Resulted No Growth after 48 hours. All Specime... 11/27/16 Blood Culture - Preliminary, Resulted No Growth after 48 hours. All Specime... 11/30/16 Body Fluid Culture - Final, Complete 11/28/16 Fungal Smear, Received Pending 11/28/16 Fungal Culture, Received Pending 11/28/16 Gram Stain - Final, Complete 11/28/16 Body Fluid Culture - Final, Complete 11/30/16 Gastrointestinal Tract Panel (PCR) - Final, Complete 11/28/16 Urine Culture - Final, Complete E.coli Esbl HERMAN WELCH MD Dec 02, 2016 12:38
[2016-12-02 12:59] LABS: RBC PERITONEAL DIALYSATE < 10 (<10mm3 cells/uL); TNC PERITONEAL DIALYSATE 43 cells/uL (0-20)
[2016-12-02 13:04] LABS: BF DIFF IF INDICATED? YES (NO); PERITONEAL DIALYSATE FL COLOR COLORLESS (COLORLESS)
[2016-12-02 13:09] LABS: CC BF DIFF EXAM CYTOCENTRIFUGE
[2016-12-02 14:00] VITALS: BP 110/53
[2016-12-02] MEDS: GENTAMICIN SULF INJ 80MG/2ML VIAL (J1580) IP SCH (14:57)
[2016-12-02] MEDS: FLUCONAZOLE 200 MG in APPROPRIATE DILUENT 1 EA IV SCH (14:58)
[2016-12-02] MEDS: MORPHINE 2 MG/ML 1ML SYRINGE IV PRN (16:29)
--- NOTE | 2016-12-02 19:50 | IPN ---
DATE: 12/02/2016 SUBJECTIVE: Patient was seen and examined at the bedside today morning. She reports that she is feeling okay. She still reports mild abdominal pain. Otherwise, she denies any abdominal cramps or nausea or vomiting. She denies any chills or rigors. Abdominal fluid cell count is going down now. REVIEW OF SYSTEMS: Patient denies any fever or chills, rigors, headache, nausea, vomiting, chest pain, shortness of breath. She does reports dull abdominal pain. The rest of the review of systems is negative. OBJECTIVE: VITAL SIGNS: Temperature 98 degrees Fahrenheit, blood pressure 110/53, pulse 88, respiratory rate of 20, saturating 92% on nasal cannula at 2 liters. INTAKE AND OUTPUT: Urine output is not recorded. According to intake and output (I and O), she was 1 liter positive yesterday, 135 mL positive so far today since overnight. Weight in the bed scale is 67.2 kg. PHYSICAL EXAMINATION: GENERAL: Patient is awake, alert, oriented times three. Sitting in the bed in no apparent distress. HEAD AND NECK EXAM: Extraocular muscles intact. Pupils equally round and reactive to light. Mucous membranes are moist. Neck is supple. There is no jugular venous distention (JVD). CARDIOVASCULAR: S1, S2. Regular rate. No murmurs, rubs or gallops. RESPIRATORY: Clear to auscultation bilaterally. Bilaterally equal air entry. No rales or rhonchi. ABDOMEN: Soft, positive bowel sounds. Patient has mild rebound tenderness all over the abdomen. She has a left lower quadrant peritoneal dialysis catheter with no discharge. MUSCULOSKELETAL: No clubbing or cyanosis. Pulses at 2+. There is no edema of the extremities. PSYCHIATRIC: Normal mood and affect. CENTRAL NERVOUS SYSTEM: No focal deficit. Power is 5/5 in all extremities. LABORATORY REVIEW: Complete blood count (CBC) showed WBC 10.9, hemoglobin 12, platelets 361. Peritoneal fluid cell count is 43 and 47% lymphocytes. Basic metabolic profile (BMP) showed sodium 138, potassium 12.7, chloride 101, bicarbonate 24, BUN 33, creatinine 5.8, calcium 9.1, magnesium 2.2. Microbiology: Peritoneal fluid culture is negative. State of polymerase chain reaction (PCR) done today morning is negative. Fungal culture is still pending. CURRENT INPATIENT MEDICATIONS: Patient's medications are all reviewed by me. She continues to be on intravenous (IV) fluconazole. She continues to be on IV intraperitoneal gentamicin and she is currently on Levaquin 250 mg by mouth every 48 hours. There is no other change in the medications today as compared with yesterday. ASSESSMENT: A 76-year-old female with past medical history of end-stage renal disease on peritoneal dialysis, chronic obstructive pulmonary disease (COPD), recently treated for peritoneal dialysis catheter-associated peritonitis secondary to Enterobacter and extended-spectrum beta-lactamases (ESBL) Escherichia (E) coli. Patient was re-admitted because of decompensated congestive heart failure and fluid overload. Now, during this hospitalization, she has developed peritonitis again. PLAN: 1. Peritoneal dialysis catheter-associated peritonitis. Patient was initially growing Enterobacter about two weeks ago. She is empirically getting by mouth Levaquin and intraperitoneal gentamicin; however, because of the rising cell count again, she was started on IV fluconazole. Cell count is going down now. Continue the current regimen. Repeat cultures are negative. Fungal cultures are still pending. If patient grows fungus in the peritoneal fluid culture, her antibiotics will be stopped. She will need to continue the antifungal and peritoneal dialysis catheter would need to be removed. 2. Congestive heart failure. Patient's volume status was optimized with 4.25% exchanges; however, with the current combination, she is retaining fluid again. I have changed the peritoneal dialysis (PD) prescription to three exchanges of 4.25% and two exchanges of 2.5%. 3. End-stage renal disease. Patient is currently on peritoneal dialysis. Continue current administration of five exchanges of 2 liters each. However, if peritoneal dialysate grows fungal culture, then patient will need to switch to hemodialysis and peritoneal dialysis catheter will be removed. 4. Hypertension. Blood pressure is acceptable at this time. He is currently on clonidine, hydralazine and losartan with holding parameters. Plan of care was discussed with the [facility] hospitalist team, Dr. Shaylee Bernardo.
[2016-12-02] MEDS: CitaloPRAM (CeleXA) 20 MG TAB PO SCH (20:28)
[2016-12-02] MEDS: SIMVASTATIN 40 MG TAB PO SCH (20:28)
[2016-12-02 22:00] VITALS: BP 110/60
[2016-12-03] MEDS: ACETAMINOPHEN TAB 650MG DOSE (2X325MG) PO PRN ×2 (01:01→03:53)
[2016-12-03] MEDS: MORPHINE 2 MG/ML 1ML SYRINGE IV PRN ×2 (01:05→13:31)
[2016-12-03 06:00] VITALS: BP 130/60
[2016-12-03 06:35] LABS: MEAN CORPUSCULAR HEMOGLOBIN 34.2 pg (27.0-33.0); MEAN CORPUSCULAR HGB CONC 33.1 g/dl (32.0-36.5); MEAN CORPUSCULAR VOLUME 103.4 fl (80.0-96.0); RED CELL DISTRIBUTION WIDTH 20.7 % (11.5-14.5); WHITE BLOOD COUNT 7.8 K/mm3 (4.0-10.0)
[2016-12-03 06:47] LABS: CALCIUM LEVEL 9.4 MG/DL (8.8-10.2); CREATININE FOR GFR 6.27 MG/DL (0.55-1.02); GLOMERULAR FILTRATION RATE 6.9 (>39); MAGNESIUM LEVEL 2.3 MG/DL (1.8-2.4); POTASSIUM SERUM 4.6 MEQ/L (3.5-5.1)
[2016-12-03 07:40] LABS: BF DIFF IF INDICATED? NO (NO); PERITONEAL DIALYSATE FL COLOR COLORLESS (COLORLESS); RBC PERITONEAL DIALYSATE < 10 (<10mm3 cells/uL); TNC PERITONEAL DIALYSATE < 20 cells/uL (0-20)
[2016-12-03] MEDS ORDERED: ACETAMINOPHEN 500 MG TAB PO PRN (08:00)
[2016-12-03] MEDS: ADVAIR HFA 115/21MCG INHALER INH SCH ×2 (08:04→19:52)
[2016-12-03] MEDS: OMEGA-3 1050MG CAPSULE PO SCH (08:28)
[2016-12-03] MEDS: HEPARIN SOD (PORCINE) 5000 UNITS/ML VIAL SC SCH ×2 (08:28→20:45)
[2016-12-03] MEDS: VITAMIN E 400 INTERNATIONAL UNITS CAP PO SCH (08:29)
[2016-12-03] MEDS: POTASSIUM CHLORIDE 10 MEQ SR TABLET PO SCH ×2 (08:29→20:44)
[2016-12-03] MEDS: CETIRIZINE (ZyrTEC) 10 MG TAB PO SCH (08:29)
[2016-12-03] MEDS: DIPYRIDAMOLE/ASA (AGGRENOX) 200MG/25MG CAPCR PO SCH ×2 (08:29→20:54)
[2016-12-03] MEDS: VITAMIN D 1,000 INTERNATIONAL UNITS TABLET PO SCH (08:29)
[2016-12-03] MEDS: GEMFIBROZIL 600 MG TAB PO SCH ×2 (08:29→20:44)
[2016-12-03] MEDS: FUROSEMIDE 40 MG TAB PO SCH (08:29)
[2016-12-03] MEDS: cloNIDine 0.1 MG TAB PO SCH ×3 (08:32→20:46)
[2016-12-03] MEDS: LOSARTAN 50 MG TAB PO SCH (08:32)
[2016-12-03] MEDS: **hydrALAZINE** 50 MG TAB PO SCH ×3 (08:32→20:46)
[2016-12-03] MEDS: ONDANSETRON 4MG/2ML VIAL (J2405) IV PRN (08:40)
--- NOTE | 2016-12-03 09:35 | IPNPDOC ---
Subjective Date Seen The patient was seen on 12/03/16. Subjective Chief Complaint/HPI The patient is a 76-year-old female admitted with a reason for visit of Chf Exacerbation. Events since last encounter patient complaining of left leg pain and cramp this morning after getting up. No further diarrhea overnight , denied any abdominal pain or cramps, no fever or chills, had good negative balance with new PD regimen. No cough or sob , no chest pain. Objective Physical Examination General Exam: Positive: Alert, Cooperative, No Acute Distress Eye Exam: Positive: PERRLA, Conjunctiva & lids normal, EOMI, Negative: Sclera icteric ENT Exam: Positive: Atraumatic, Mucous membr. moist/pink, Pharynx Normal Neck Exam: Positive: Supple, Negative: JVD, thyromegaly Chest Exam: Positive: Clear to auscultation, Normal air movement Heart Exam: Positive: Rate Normal, Regular Rhythm, Normal S1, Normal S2, Negative: Murmurs, Rubs Abdomen Exam: Positive: Normal bowel sounds, Soft, Tenderness Extremity Exam: Positive: Normal pulses, Negative: Clubbing, Cyanosis, Edema Skin Exam: Positive: Nl turgor and temperature, Negative: Rash, Breakdown Assessment /Plan Problems (1) Peritonitis associated with peritoneal dialysis Problem Text: recurrent episode of PD peritonitis Recent PD peritonitis with enterococcus on oral levofloxacin for that now again recurrent peritonitis so started on fluconazole and gentamicin WBC count in the PD fluid improving. on fluconazole iv and gentamycin IP and levofloxaxin. pd fluid fungal stain and culture pending , aerobic culture of pd fluid is negative. Appreciate nephrology input. (2) CHF exacerbation Status: Resolved Problem Text: acute on chronic exacerbation of diastolic chf. now improved with adjustment of PD exchanges (3) ESRD on peritoneal dialysis Status: Chronic Problem Text: nephrology following. (4) COPD (chronic obstructive pulmonary disease) Status: Chronic Problem Text: continue nebulizers and copd. (5) HTN (hypertension) Status: Chronic Problem Text: continue losartan hydralazine lasix clonidine (6) HLD (hyperlipidemia) Status: Chronic Problem Text: continue statin and gemfibrosil (7) Depression Status: Chronic Problem Text: continue citalopram (8) History of TIA (transient ischemic attack) Status: Chronic Problem Text: on Aggrenox. (9) A-fib Status: Chronic Problem Text: on Aggrenox (10) Abnormal urinalysis Status: Acute Problem Text: Does not make much urine has ESBL in urine with only 25 thousand colony count , possibly colonizer Plan/VTE VTE Prophylaxis Ordered?: Yes VS, I&O, 24H, Fishbone Vital Signs/I&O Vital Signs Date Time Temp Pulse Resp B/P (MAP) Pulse Ox O2 Delivery O2 Flow Rate FiO2 12/03/16 08:32 132/66 12/03/16 06:00 97.6 96 18 90 Nasal Cannula 2.0 I&O- Last 24 Hours up to 6 AM 12/03/16 06:00 Intake Total 52531 ml Output Total 62138 ml Balance -1090 ml Laboratory Data 24H LABS Laboratory Tests 2 12/02/16 11:53: Body Fluid Source PERITONEAL DIALYSATE, Body Fluid Lymphocytes 47, Body Fluid Monocytes/Macrophages 53, Peritoneal Fluid Color COLORLESS, Peritoneal Fluid Appearance CLEAR, Peritoneal Fluid RBC (Auto) < 10, Dialysate Total Nucleated Cells 43H 12/03/16 06:01: Body Fluid Source PERITONEAL DIALYSATE, Peritoneal Fluid Color COLORLESS, Peritoneal Fluid Appearance CLEAR, Peritoneal Fluid RBC (Auto) < 10, Dialysate Total Nucleated Cells < 20 12/03/16 06:13: Anion Gap 9, Glomerular Filtration Rate 6.9L, Blood Urea Nitrogen 30H, Creatinine 6.27H, Sodium Level 135L, Potassium Level 4.6, Chloride Level 99, Carbon Dioxide Level 27, Calcium Level 9.4, Magnesium Level 2.3 CBC/BMP Laboratory Tests 12/03/16 06:13 Red Blood Count 3.90 L, Mean Corpuscular Volume 103.4 H, Mean Corpuscular Hemoglobin 34.2 H, Mean Corpuscular Hemoglobin Concent 33.1, Red Cell Distribution Width 20.7 H, Calcium Level 9.4 Microbiology Microbiology 11/27/16 Blood Culture - Final, Complete NO GROWTH AFTER 5 DAYS 11/27/16 Blood Culture - Final, Complete NO GROWTH AFTER 5 DAYS 11/30/16 Body Fluid Culture - Final, Complete 11/28/16 Fungal Smear, Received Pending 11/28/16 Fungal Culture, Received Pending 11/28/16 Gram Stain - Final, Complete 11/28/16 Body Fluid Culture - Final, Complete 12/02/16 Clostridium difficile (PCR) - Final, Complete 11/30/16 Gastrointestinal Tract Panel (PCR) - Final, Complete 11/28/16 Urine Culture - Final, Complete E.coli Esbl HERMAN WELCH MD Dec 03, 2016 09:35
[2016-12-03] MEDS ORDERED: NS 250 ML IV ONE (13:00)
[2016-12-03] MEDS: PREPARATION H OINTMENT (HEMORRHOID) TOP PRN (13:24)
[2016-12-03] MEDS: FLUCONAZOLE 100 MG TAB PO SCH (13:31)
[2016-12-03 14:00] VITALS: BP 112/61
[2016-12-03] MEDS ORDERED: NS 500 ML IV ONE (14:00)
[2016-12-03] MEDS: GENTAMICIN SULF INJ 80MG/2ML VIAL (J1580) IP SCH (14:14)
[2016-12-03 15:36] VITALS: BP 98/60
[2016-12-03 16:03] LABS: PHOSPHORUS LEVEL 5.7 MG/DL (2.5-4.9)
[2016-12-03] MEDS ORDERED: SODIUM CHLORIDE 0.9% 1000 ML IV ONE (16:15)
[2016-12-03] MEDS: LevoFLOXacin 250 MG TABLET PO SCH (17:29)
--- NOTE | 2016-12-03 18:00 | IPN ---
DATE: 12/03/2016 SUBJECTIVE: The patient is seen and examined at the bedside today morning. The patient is afebrile and hemodynamically stable at this time. Peritoneal fluid cell count is down to normal; however, the patient reports she is feeling very weak and tired and fatigued, and she also complained of abdominal cramps and leg cramps. REVIEW OF SYSTEMS: The patient denies any fevers, chills, rigors, headaches, chest pain, shortness of breath. She does report abdominal cramps. She denies any dysuria. She reports leg cramps as well, and patient reports generalized weakness and fatigue. Rest of review of systems is negative. OBJECTIVE: VITAL SIGNS: Temperature is 97.4 degrees Fahrenheit, blood pressure is 112/61, pulse is 94, respiratory rate of 18, saturation 93% on nasal cannula. INTAKE AND OUTPUT: Urine output recorded as 225 mL yesterday. There is no urine output recorded today. The patient was 970 mL negative with peritoneal dialysis since yesterday. Weight in the bed scale is 65.7 kg. PHYSICAL EXAMINATION: GENERAL: The patient is awake, alert, and oriented times three, sitting in bed, feeling weak and tired. HEAD/NECK: Extraocular muscles intact. Pupils equal, round, and reactive to light. Mucous membranes are moist. Neck is supple. There is no jugular venous distention (JVD). CARDIOVASCULAR: S1, S2. Regular rate. No murmur, rub, or gallop. RESPIRATORY: Chest is clear to auscultation bilaterally, bilateral equal air entry. No rales or rhonchi. ABDOMEN: Soft. There is positive mild rebound tenderness all over the abdomen. The patient has a left lower quadrant peritoneal dialysis catheter. MUSCULOSKELETAL: No clubbing or cyanosis. Pulses are 2+. There is absolutely no edema of the bilateral lower extremities. PSYCHIATRIC: Normal mood and affect. CENTRAL NERVOUS SYSTEM (BOW STRING MAKER): No focal neurological deficit. Power is 5/5 in all extremities. LABORATORY DATA: CBC showed a WBC of 7.8, hemoglobin 13, platelets are 400. Peritoneal fluid cell count less than 20. BMP showed sodium 135, potassium 4.6, chloride 99, bicarbonate 27, BUN 30, creatinine 6.2, calcium 9.4, phosphorus 5.7, magnesium 2.3. MICROBIOLOGY: GI panel is negative, C. difficile is negative. CURRENT INPATIENT MEDICATIONS: The patient's medications are all reviewed by me. I changed the fluconazole to 200 mg by mouth daily. The patient was given normal saline boluses because of dehydration and leg cramps. Lasix dose has been decreased to 80 mg by mouth daily. ASSESSMENT: A 76-year-old female with past medical history of end-stage renal disease on peritoneal dialysis, chronic obstructive pulmonary disease (COPD), recently treated for peritoneal dialysis catheter-associated peritonitis secondary to Enterobacter and extended-spectrum beta-lactamase (ESBL) Escherichia (E.) coli urinary tract infection (UTI). The patient was readmitted because of decompensated congestive heart failure and fluid overload. The patient developed peritonitis again during this admission which is under control. PLAN: 1. Peritoneal dialysis catheter-associated peritonitis: The patient's white cell count is significantly better. Continue oral fluconazole, intraperitoneal gentamicin, and oral Levaquin. Last dose of Levaquin will be on 12/07/2016. Last dose of gentamicin will be 12/08/2016, and fluconazole last dose will be 12/10/2016. 2. Congestive heart failure: The patient's volume status is well optimized. The patient is actually dry today. She is having leg cramps. Lasix dose has been decreased to 80 mg daily. The patient needed one liter of intravenous (IV) fluid bolus because of leg cramps and abdominal cramps, and feeling weak and tired. 3. End-stage renal disease on peritoneal dialysis: The patient's peritoneal dialysis regimen is being changed. Three exchanges of 1.5% and two exchanges of 2.5% because patient is clinically volume depleted at this time. All exchanges volume will be two liters. 4. Hypertension. Blood pressure is acceptable at this time and some of the antihypertensive medications are being held according to the holding parameters. The patient is on clonidine, hydralazine, and losartan. The plan of care was discussed with the patient's RN at the bedside.
[2016-12-03] MEDS: CitaloPRAM (CeleXA) 20 MG TAB PO SCH (20:44)
[2016-12-03] MEDS: SIMVASTATIN 40 MG TAB PO SCH (20:45)
[2016-12-03 22:00] VITALS: BP 112/67
[2016-12-04] MEDS: MORPHINE 2 MG/ML 1ML SYRINGE IV PRN ×2 (00:31→11:22)
[2016-12-04 06:00] VITALS: BP 135/62
[2016-12-04] MEDS: ONDANSETRON 4MG/2ML VIAL (J2405) IV PRN (06:21)
[2016-12-04 06:28] LABS: MEAN CORPUSCULAR HEMOGLOBIN 33.9 pg (27.0-33.0); MEAN CORPUSCULAR VOLUME 102.9 fl (80.0-96.0); RED CELL DISTRIBUTION WIDTH 20.8 % (11.5-14.5); WHITE BLOOD COUNT 10.7 K/mm3 (4.0-10.0)
[2016-12-04 06:53] LABS: CALCIUM LEVEL 8.4 MG/DL (8.8-10.2); CREATININE FOR GFR 6.59 MG/DL (0.55-1.02); GLOMERULAR FILTRATION RATE 6.5 (>39)
[2016-12-04 06:54] LABS: POTASSIUM SERUM 5.6 MEQ/L (3.5-5.1)
[2016-12-04] MEDS: ADVAIR HFA 115/21MCG INHALER INH SCH ×2 (07:43→20:48)
[2016-12-04 07:55] LABS: RBC PERITONEAL DIALYSATE < 10 (<10mm3 cells/uL)
[2016-12-04 07:58] LABS: BF DIFF IF INDICATED? YES (NO); PERITONEAL DIALYSATE FL COLOR COLORLESS (COLORLESS); TNC PERITONEAL DIALYSATE 21 cells/uL (0-20)
[2016-12-04] MEDS: cloNIDine 0.1 MG TAB PO SCH ×3 (09:00→20:21)
[2016-12-04] MEDS ORDERED: FUROSEMIDE 80 MG TAB PO SCH (09:00)
[2016-12-04] MEDS: LOSARTAN 50 MG TAB PO SCH (09:00)
[2016-12-04] MEDS: **hydrALAZINE** 50 MG TAB PO SCH ×3 (09:00→20:21)
[2016-12-04] MEDS: POTASSIUM CHLORIDE 10 MEQ SR TABLET PO SCH (09:00)
[2016-12-04 09:24] LABS: CC BF DIFF EXAM CYTOCENTRIFUGE
[2016-12-04] MEDS: HEPARIN SOD (PORCINE) 5000 UNITS/ML VIAL SC SCH ×2 (09:26→20:21)
[2016-12-04] MEDS: OMEGA-3 1050MG CAPSULE PO SCH (09:26)
[2016-12-04] MEDS: VITAMIN D 1,000 INTERNATIONAL UNITS TABLET PO SCH (09:26)
[2016-12-04] MEDS: GEMFIBROZIL 600 MG TAB PO SCH ×2 (09:28→20:20)
[2016-12-04] MEDS: VITAMIN E 400 INTERNATIONAL UNITS CAP PO SCH (09:28)
[2016-12-04] MEDS: DIPYRIDAMOLE/ASA (AGGRENOX) 200MG/25MG CAPCR PO SCH ×2 (09:28→20:20)
[2016-12-04] MEDS: FLUCONAZOLE 100 MG TAB PO SCH (09:28)
[2016-12-04] MEDS: CETIRIZINE (ZyrTEC) 10 MG TAB PO SCH (09:29)
[2016-12-04] MEDS: CALCIUM CARBONATE 500 MG CHEW U/D PO PRN (11:21)
--- NOTE | 2016-12-04 13:14 | IPNPDOC ---
Subjective Date Seen The patient was seen on 12/04/16. Subjective Chief Complaint/HPI The patient is a 76-year-old female admitted with a reason for visit of Chf Exacerbation. Events since last encounter feeling tired this am , says has abdominal pain and cramps when PD fluid is being exchanged . no diarrhea, no nausea or vomiting , still on oxygen . will try to wean off oxygen. no chest pain or sob. Objective Physical Examination General Exam: Positive: Alert, Cooperative, No Acute Distress Eye Exam: Positive: PERRLA, Conjunctiva & lids normal, EOMI, Negative: Sclera icteric ENT Exam: Positive: Atraumatic, Mucous membr. moist/pink, Pharynx Normal Neck Exam: Positive: Supple, Negative: JVD, thyromegaly Chest Exam: Positive: Clear to auscultation, Normal air movement Heart Exam: Positive: Rate Normal, Regular Rhythm, Normal S1, Normal S2, Negative: Murmurs, Rubs Abdomen Exam: Positive: Normal bowel sounds, Soft, Tenderness Extremity Exam: Positive: Normal pulses, Negative: Clubbing, Cyanosis, Edema Skin Exam: Positive: Nl turgor and temperature, Negative: Rash, Breakdown Assessment /Plan Problems (1) Peritonitis associated with peritoneal dialysis Problem Text: recurrent episode of PD peritonitis Recent PD peritonitis with enterococcus on oral levofloxacin for that now again recurrent peritonitis so started on fluconazole and gentamicin WBC count in the PD fluid has improved. on fluconazole iv and gentamycin IP and levofloxaxin. pd fluid fungal stain and culture pending , aerobic culture of pd fluid is negative. Appreciate nephrology input. (2) CHF exacerbation Status: Resolved Problem Text: acute on chronic exacerbation of diastolic chf. now improved with adjustment of PD exchanges (3) ESRD on peritoneal dialysis Status: Chronic Problem Text: nephrology following. (4) COPD (chronic obstructive pulmonary disease) Status: Chronic Problem Text: continue nebulizers and copd. (5) HTN (hypertension) Status: Chronic Problem Text: continue losartan hydralazine lasix clonidine (6) HLD (hyperlipidemia) Status: Chronic Problem Text: continue statin and gemfibrosil (7) Depression Status: Chronic Problem Text: continue citalopram (8) History of TIA (transient ischemic attack) Status: Chronic Problem Text: on Aggrenox. (9) A-fib Status: Chronic Problem Text: on Aggrenox (10) Abnormal urinalysis Status: Acute Problem Text: Does not make much urine has ESBL in urine with only 25 thousand colony count , possibly colonizer Plan/VTE VTE Prophylaxis Ordered?: Yes VS, I&O, 24H, Fishbone Vital Signs/I&O Vital Signs Date Time Temp Pulse Resp B/P (MAP) Pulse Ox O2 Delivery O2 Flow Rate FiO2 12/04/16 11:32 20 Nasal Cannula 1.0 12/04/16 11:22 93 91 12/04/16 09:00 118/60 12/04/16 06:00 97.8 I&O- Last 24 Hours up to 6 AM 12/04/16 06:00 Intake Total 45773 ml Output Total 05175 ml Balance 1215 ml Laboratory Data 24H LABS Laboratory Tests 2 12/04/16 05:40: Anion Gap 12, Glomerular Filtration Rate 6.5L, Blood Urea Nitrogen 32H, Creatinine 6.59H, Sodium Level 139, Potassium Level 5.6H, Chloride Level 102, Carbon Dioxide Level 25, Calcium Level 8.4L, Magnesium Level 2.0 12/04/16 06:55: Body Fluid Source PERITONEAL DIALYSATE, Body Fluid Neutrophils 4, Body Fluid Lymphocytes 44, Body Fluid Eosinophils 1, Body Fluid Monocytes/Macrophages 51, Peritoneal Fluid Color COLORLESS, Peritoneal Fluid Appearance HAZY, Peritoneal Fluid RBC (Auto) < 10, Dialysate Total Nucleated Cells 21H CBC/BMP Laboratory Tests 12/04/16 05:40 Red Blood Count 3.60 L, Mean Corpuscular Volume 102.9 H, Mean Corpuscular Hemoglobin 33.9 H, Mean Corpuscular Hemoglobin Concent 33.0, Red Cell Distribution Width 20.8 H, Calcium Level 8.4 L Microbiology Microbiology 11/27/16 Blood Culture - Final, Complete NO GROWTH AFTER 5 DAYS 11/27/16 Blood Culture - Final, Complete NO GROWTH AFTER 5 DAYS 11/30/16 Body Fluid Culture - Final, Complete 11/28/16 Fungal Smear, Received Pending 11/28/16 Fungal Culture, Received Pending 11/28/16 Gram Stain - Final, Complete 11/28/16 Body Fluid Culture - Final, Complete 12/02/16 Clostridium difficile (PCR) - Final, Complete 12/02/16 Gastrointestinal Tract Panel (PCR) - Final, Complete 11/30/16 Gastrointestinal Tract Panel (PCR) - Final, Complete 11/28/16 Urine Culture - Final, Complete E.coli Esbl HERMAN WELCH MD Dec 04, 2016 13:14
[2016-12-04 14:00] VITALS: BP 117/71
[2016-12-04] MEDS: GENTAMICIN SULF INJ 80MG/2ML VIAL (J1580) IP SCH (14:08)
[2016-12-04] MEDS: CitaloPRAM (CeleXA) 20 MG TAB PO SCH (20:20)
[2016-12-04] MEDS: SIMVASTATIN 40 MG TAB PO SCH (20:20)
[2016-12-04 22:00] VITALS: BP 103/68
[2016-12-05 06:00] VITALS: BP 115/69
[2016-12-05 06:20] LABS: MEAN CORPUSCULAR HEMOGLOBIN 33.6 pg (27.0-33.0); RED CELL DISTRIBUTION WIDTH 20.3 % (11.5-14.5); WHITE BLOOD COUNT 11.5 K/mm3 (4.0-10.0)
[2016-12-05 06:36] LABS: CALCIUM LEVEL 8.9 MG/DL (8.8-10.2); CREATININE FOR GFR 6.99 MG/DL (0.55-1.02); GLOMERULAR FILTRATION RATE 6.1 (>39); MAGNESIUM LEVEL 2.1 MG/DL (1.8-2.4); POTASSIUM SERUM 5.1 MEQ/L (3.5-5.1)
--- NOTE | 2016-12-05 07:18 | IPN ---
DATE OF SERVICE: 12/04/2016 SUBJECTIVE: The patient is seen today at the bedside. She is sitting out of bed to chair. She complains of ongoing cramps in her legs and in the pelvic region. She continues on five exchanges with alternation of 1.5% and 2.5% Dianeal. She has been in positive fluid balance for the past two days. She notes poor appetite and nausea. She denies vomiting or diarrhea. The patient notes lessened urine output over the past two days as well. REVIEW OF SYSTEMS: Negative for fevers, chills, headaches, chest pain, palpitations. Positive for abdominal cramps localized to the lower quadrants and pelvic area and leg cramps. Positive for generalized weakness and fatigue. Positive for mild dyspnea on exertion. Positive for decreased urine output over the past two days. Remainder of review of systems is negative. VITAL SIGNS: Afebrile, 97.8, pulse 99, respiratory rate 18, blood pressure 118/60, saturating 92% on 2 liters nasal cannula. INTAKE AND OUTPUT: Her net ultrafiltration on PD recorded as 300 mL in the previous 24 hours. The patient yesterday did receive 1 liter of IV fluids. She is in positive fluid balance for 1025 mL. Two bowel movements recorded and no urinary voids recorded. Weight on the bed scale 65.5 kg, essentially unchanged from yesterday of 65.3 kg. PHYSICAL EXAMINATION: GENERAL: The patient is awake, alert, and oriented times three. She is sitting out of bed to a chair. She looks fatigued. HEAD/NECK: Extraocular muscles are intact. Her tongue is moist. The neck veins are not prominent. CARDIOVASCULAR: S1, S2, regular rate. There is no edema in the lower extremities or in the dependent area. 2+ radial pulse. RESPIRATORY: Chest is clear to auscultation with symmetric air entry. ABDOMEN: Distended with fluid in place, left quadrant PD catheter exit site clean, dry and intact. When asked where her abdominal cramping is, the patient points to the lower quadrants and pelvic area. MUSCULOSKELETAL: No clubbing or cyanosis. No edema in the lower extremities or dependent areas. PSYCHIATRIC: Normal mood and affect. NEUROLOGIC: No focal deficits. Appropriately interactive and conversational. LABORATORIES: White count 10.7, hemoglobin 12.2, platelets 353, sodium 139, potassium 5.6, bicarbonate 25, magnesium 2.0, total nucleated cell count in PD fluid 21. Microbiology: Fungal culture from 11/28 fungal smear pending. PD aerobic culture 11/30 with no growth. Urine culture 11/28 25,000 colonies of extended-spectrum beta-lactamase (ESBL) E. coli. INPATIENT MEDICATIONS: Reviewed by myself, notable for p.o. Diflucan 200 mg daily, Lasix 80 mg by mouth daily, intraperitoneal gentamicin four doses given thus far, 40 mg daily. Remainder of her medications are unchanged from prior. ASSESSMENT AND PLAN: 1. Recent PD peritonitis with Enterococcus cloacae. Patient completed two weeks of antibiotic course. She subsequently had recurrent peritonitis with elevated total nucleated cell count. She now continues on IV gentamicin, has received four doses thus far and was started on empiric fluconazole for concern of fungal peritonitis. The fungal culture continues to be pending. The WBC count in the PD fluid is appropriately low and improved from prior. We will continue oral fluconazole, oral Levaquin and intraperitoneal gentamicin for now. 2. Hyperkalemia. The patient's potassium supplement is discontinued and her losartan is held. She is on a renal diet. 3. Congestive heart failure (CHF). The patient was clinically volume depleted yesterday with cramping. She received a total of 1 liter of IV fluids. She continues on three exchanges of 1.5% alternating with two exchanges of 2.5%. She has made minimal urine for the past two days despite Lasix, presumably because of relative intravascular volume depletion, as well as she has been receiving aminoglycosides for about 2-3 weeks now. We will continue to titrate her PD prescription depending upon her volume status. 4. Reduced urine output. The patient does have residual renal function. She has been on peritoneal dialysis for about the past 2-3 months. At this time, her reduced urine output is likely due to intravascular volume contraction with concomitant, roughly 2-3 week history of gentamicin. Now I will get a bladder scan to rule out any retention as she does complain of pelvic cramps and we will hold Lasix for the time being. 5. Hypertension. Blood pressure is well controlled. Losartan is held due to hyperkalemia. She otherwise continues on clonidine and hydralazine. 6. Chronic obstructive pulmonary disease (COPD). Patient continues on Advair and DuoNebs. At this time, she is requiring nasal cannula. Plan of care discussed with the nurse and Dr. Klein.
[2016-12-05] MEDS: ADVAIR HFA 115/21MCG INHALER INH SCH ×2 (07:34→20:47)
[2016-12-05] MEDS: cloNIDine 0.1 MG TAB PO SCH ×3 (09:00→21:00)
[2016-12-05] MEDS: **hydrALAZINE** 50 MG TAB PO SCH ×3 (09:00→21:00)
[2016-12-05] MEDS: GEMFIBROZIL 600 MG TAB PO SCH ×2 (09:50→21:11)
[2016-12-05] MEDS: DIPYRIDAMOLE/ASA (AGGRENOX) 200MG/25MG CAPCR PO SCH ×2 (09:50→21:10)
[2016-12-05] MEDS: CETIRIZINE (ZyrTEC) 10 MG TAB PO SCH (09:51)
[2016-12-05] MEDS: FLUCONAZOLE 100 MG TAB PO SCH (09:51)
[2016-12-05] MEDS: LOSARTAN 50 MG TAB PO SCH (09:51)
[2016-12-05] MEDS: VITAMIN E 400 INTERNATIONAL UNITS CAP PO SCH (09:51)
[2016-12-05] MEDS: VITAMIN D 1,000 INTERNATIONAL UNITS TABLET PO SCH (09:51)
[2016-12-05] MEDS: OMEGA-3 1050MG CAPSULE PO SCH (09:52)
[2016-12-05] MEDS: HEPARIN SOD (PORCINE) 5000 UNITS/ML VIAL SC SCH ×2 (09:52→21:10)
--- NOTE | 2016-12-05 10:25 | IPNPDOC ---
Subjective Date Seen The patient was seen on 12/05/16. Subjective Chief Complaint/HPI The patient is a 76-year-old female admitted with a reason for visit of Chf Exacerbation. Events since last encounter feeling a little better compared to yesterday still very tired and weak , still complains of abdominal cramps especially during the exchanges, also some leg cramps. not much urine output last 2 to 3 days so lasix had been held since yesterday. Objective Physical Examination General Exam: Positive: Alert, Cooperative, No Acute Distress Eye Exam: Positive: PERRLA, Conjunctiva & lids normal, EOMI, Negative: Sclera icteric ENT Exam: Positive: Atraumatic, Mucous membr. moist/pink, Pharynx Normal Neck Exam: Positive: Supple, Negative: JVD, thyromegaly Chest Exam: Positive: Clear to auscultation, Normal air movement Heart Exam: Positive: Rate Normal, Regular Rhythm, Normal S1, Normal S2, Negative: Murmurs, Rubs Abdomen Exam: Positive: Normal bowel sounds, Soft, Tenderness Extremity Exam: Positive: Normal pulses, Negative: Clubbing, Cyanosis, Edema Skin Exam: Positive: Nl turgor and temperature, Negative: Rash, Breakdown Assessment /Plan Problems (1) Peritonitis associated with peritoneal dialysis Problem Text: recurrent episode of PD peritonitis Recent PD peritonitis with enterococcus on oral levofloxacin for that now again recurrent peritonitis so started on fluconazole and gentamicin WBC count in the PD fluid has improved. on fluconazole and gentamycin IP and levofloxaxin. pd fluid fungal stain and culture pending , aerobic culture of pd fluid is negative. Appreciate nephrology input. (2) CHF exacerbation Status: Resolved Problem Text: acute on chronic exacerbation of diastolic chf. now improved with adjustment of PD exchanges and lasix now seems a little dehydrated so lasix has been stopped. (3) ESRD on peritoneal dialysis Status: Chronic Problem Text: started on PD abouts 3 months ago. nephrology following. (4) COPD (chronic obstructive pulmonary disease) Status: Chronic Problem Text: continue nebulizers and copd. (5) HTN (hypertension) Status: Chronic Problem Text: continue losartan hydralazine clonidine (6) HLD (hyperlipidemia) Status: Chronic Problem Text: continue statin and gemfibrosil (7) Depression Status: Chronic Problem Text: continue citalopram (8) History of TIA (transient ischemic attack) Status: Chronic Problem Text: on Aggrenox. (9) A-fib Status: Chronic Problem Text: on Aggrenox (10) Abnormal urinalysis Status: Acute Problem Text: Does not make much urine has ESBL in urine with only 25 thousand colony count , possibly colonizer Plan/VTE VTE Prophylaxis Ordered?: Yes VS, I&O, 24H, Fishbone Vital Signs/I&O Vital Signs Date Time Temp Pulse Resp B/P (MAP) Pulse Ox O2 Delivery O2 Flow Rate FiO2 12/05/16 09:51 135/75 12/05/16 06:00 97.2 100 18 92 12/04/16 22:00 Room Air 12/04/16 21:15 1.0 I&O- Last 24 Hours up to 6 AM 12/05/16 05:59 Intake Total 9950 ml Output Total 8800 ml Balance 1150 ml Laboratory Data 24H LABS Laboratory Tests 2 12/05/16 05:45: Anion Gap 12, Glomerular Filtration Rate 6.1L, Blood Urea Nitrogen 33H, Creatinine 6.99H, Sodium Level 138, Potassium Level 5.1, Chloride Level 99, Carbon Dioxide Level 27, Calcium Level 8.9, Magnesium Level 2.1 CBC/BMP Laboratory Tests 12/05/16 05:45 Red Blood Count 3.83 L, Mean Corpuscular Volume 102.0 H, Mean Corpuscular Hemoglobin 33.6 H, Mean Corpuscular Hemoglobin Concent 33.0, Red Cell Distribution Width 20.3 H, Calcium Level 8.9 Microbiology Microbiology 11/27/16 Blood Culture - Final, Complete NO GROWTH AFTER 5 DAYS 11/27/16 Blood Culture - Final, Complete NO GROWTH AFTER 5 DAYS 11/30/16 Body Fluid Culture - Final, Complete 11/28/16 Fungal Smear, Received Pending 11/28/16 Fungal Culture, Received Pending 11/28/16 Gram Stain - Final, Complete 11/28/16 Body Fluid Culture - Final, Complete 12/02/16 Clostridium difficile (PCR) - Final, Complete 12/02/16 Gastrointestinal Tract Panel (PCR) - Final, Complete 11/30/16 Gastrointestinal Tract Panel (PCR) - Final, Complete 11/28/16 Urine Culture - Final, Complete E.coli Esbl HERMAN WELCH MD Dec 05, 2016 10:25
[2016-12-05 14:00] VITALS: BP 103/62
[2016-12-05] MEDS: GENTAMICIN SULF INJ 80MG/2ML VIAL (J1580) IP SCH (14:54)
--- NOTE | 2016-12-05 16:21 | REP ---
Clinical: Shortness of breath. Comparison: 11/27/2016. Findings: Mediastinum and cardiac silhouette are normal. Trace left basilar atelectasis cannot be excluded. No consolidation, obvious effusion or pneumothorax. Skeletal structures are intact. Impression: Cannot exclude trace left basilar atelectasis. Signed by Yaya Garzon MD 12/05/2016 04:13 P
--- NOTE | 2016-12-05 16:25 | IPN ---
DATE: 12/05/2016 The patient is seen today at the bedside. She states she is feeling improved today as compared to yesterday. She has been ambulating and walking to the bathroom. Her abdominal and lower extremity cramps have improved as well. She had a bladder scan done yesterday as she has not had much urine output for the past 3 days. The bladder scan was negative for significant retention. Her potassium has improved since her KCl supplement was held. She remains in positive fluid balance but without any signs of volume overload. REVIEW OF SYSTEMS: Positive for fatigue, abdominal cramping, lower extremity cramping, improved from prior. The patient states her appetite is so-so, notable for reduced urine output. Remainder of review of systems is negative. No fevers, no chills, no headache, no lightheadedness, no chest pain, no palpitations, no swelling in the legs. VITAL SIGNS: Afebrile. Temperature 97.2, pulse 100, respiratory rate 18, blood pressure 115/69, pulse oximetry 92% on 1 liter nasal cannula. INTAKE AND OUTPUT: She has a positive fluid balance of 1.1 liters in the past 24 hours. Her oral intake has not been recorded. She has a net retention from peritoneal dialysis. Her weight on the bed scale is decreased from prior, 65.3 kg today. PHYSICAL EXAMINATION: The patient is awake, alert, oriented times three. She is seen lying in bed, in no acute distress. HEAD AND NECK: Extraocular muscles are intact. Tongue is moist. Neck veins are not prominent. CARDIOVASCULAR: S1, S2. Regular rate. There is no edema in the lower extremities or presacral. 2+ radial pulse present. RESPIRATORY: Chest is clear to auscultation with bilateral air entry. ABDOMEN: Left quadrant peritoneal dialysis (PD) catheter exit site is clean, dry and intact. MUSCULOSKELETAL: Full range of motion in all four extremities. No edema in the legs. PSYCHIATRIC: Normal mood and affect. NEUROLOGIC: No focal deficits. Appropriately interactive and conversational. LABORATORY: White count 11.5, hemoglobin 12.9, platelets 354. Sodium 138, potassium 5.1, improved from 5.6 yesterday, bicarbonate 27, magnesium 2.1. PD fluid cell count pending. Microbiology: Fungal culture of PD fluid pending. Inpatient medications reviewed by myself. Her Lasix is on hold since yesterday. I have stopped her Levaquin by mouth. The remainder of her medications are unchanged from prior. PROBLEMS: 1. Peritonitis with recurrent episode. The patient's first positive PD fluid culture was on 11/14/2016, and she has been on antibiotics since that time, now at the 3-week kwadwo. She required extended therapy after her cell count, which had previously been less than 20, increased to 238 at the end of October. She continued on intraperitoneal gentamicin and on empiric oral fluconazole for concern of fungal peritonitis. The fungal culture continues to be pending. I will stop her oral Levaquin at this time. Her last dose of intraperitoneal gentamicin will be on 12/08/2016. We will plan for discharge likely in the next 24 hours with close followup in the outpatient PD clinic. 2. Heart failure. The patient was admitted with an exacerbation of diastolic heart failure. She had aggressive ultrafiltration with PD and with Lasix. She is now fairly euvolemic on exam. She is on her home regimen of PD with alternating 1.5 and 2.5% exchanges and will continue to hold her Lasix at this time. 3. Hyperkalemia. The patient's potassium improved after her potassium supplement was discontinued, and her losartan was held. She continues on a renal diet. 4. Reduced urine output. Lasix is currently on hold. The patient does have residual renal function. She has had reduced urine output for the past 3 days, likely due to intravascular volume contraction with roughly 2-3 week history of gentamicin. She had a bladder scan yesterday, which did not show any retention. 5. Hypertension. Blood pressure is well controlled at this time. 6. Chronic obstructive pulmonary disease (COPD). The patient continues on Advair and DuoNebs. As we have allowed her to be in positive fluid balance, especially due to the abdominal and lower extremity cramping she was experiencing, I will check a chest x-ray.
[2016-12-05 16:50] LABS: BF DIFF IF INDICATED? NO (NO); PERITONEAL FL COLOR COLORLESS (COLORLESS); RBC PERITONEAL FLUID < 10 (<10mm3 cells/uL); TNC PERITONEAL FLUID < 20 cells/uL (0-20)
[2016-12-05] MEDS: ONDANSETRON 4MG/2ML VIAL (J2405) IV PRN (18:42)
[2016-12-05] MEDS: CALCIUM CARBONATE 500 MG CHEW U/D PO PRN (19:03)
[2016-12-05] MEDS ORDERED: CLOTRIMAZOLE 1% VAG CR 45 GM PV SCH (21:00)
[2016-12-05] MEDS: SIMVASTATIN 40 MG TAB PO SCH (21:11)
[2016-12-05] MEDS: CitaloPRAM (CeleXA) 20 MG TAB PO SCH (21:12)
[2016-12-05 22:00] VITALS: BP 126/60
[2016-12-06 06:00] VITALS: BP 112/63
[2016-12-06] MEDS: ADVAIR HFA 115/21MCG INHALER INH SCH (07:25)
[2016-12-06 07:37] LABS: MEAN CORPUSCULAR HEMOGLOBIN 33.4 pg (27.0-33.0); MEAN CORPUSCULAR VOLUME 101.1 fl (80.0-96.0); RED CELL DISTRIBUTION WIDTH 19.2 % (11.5-14.5); WHITE BLOOD COUNT 12.4 K/mm3 (4.0-10.0)
[2016-12-06 08:00] LABS: CALCIUM LEVEL 9.2 MG/DL (8.8-10.2); CREATININE FOR GFR 7.28 MG/DL (0.55-1.02); GLOMERULAR FILTRATION RATE 5.8 (>39); POTASSIUM SERUM 4.6 MEQ/L (3.5-5.1)
[2016-12-06 08:50] VITALS: BP 124/72
[2016-12-06] MEDS: cloNIDine 0.1 MG TAB PO SCH ×2 (09:00→15:47)
[2016-12-06] MEDS: **hydrALAZINE** 50 MG TAB PO SCH ×2 (09:00→15:46)
[2016-12-06 09:06] LABS: RBC PERITONEAL FLUID < 10 (<10mm3 cells/uL); TNC PERITONEAL FLUID < 20 cells/uL (0-20)
[2016-12-06 09:07] LABS: BF DIFF IF INDICATED? NO (NO); PERITONEAL FL COLOR COLORLESS (COLORLESS)
[2016-12-06] MEDS: OMEGA-3 1050MG CAPSULE PO SCH (10:26)
[2016-12-06] MEDS: VITAMIN E 400 INTERNATIONAL UNITS CAP PO SCH (10:26)
[2016-12-06] MEDS: LOSARTAN 50 MG TAB PO SCH (10:26)
[2016-12-06] MEDS: VITAMIN D 1,000 INTERNATIONAL UNITS TABLET PO SCH (10:27)
[2016-12-06] MEDS: GEMFIBROZIL 600 MG TAB PO SCH (10:27)
[2016-12-06] MEDS: CETIRIZINE (ZyrTEC) 10 MG TAB PO SCH (10:27)
[2016-12-06] MEDS: FLUCONAZOLE 100 MG TAB PO SCH (10:27)
[2016-12-06] MEDS: HEPARIN SOD (PORCINE) 5000 UNITS/ML VIAL SC SCH (10:29)
[2016-12-06] MEDS: DIPYRIDAMOLE/ASA (AGGRENOX) 200MG/25MG CAPCR PO SCH (12:07)
[2016-12-06] MEDS ORDERED: FLUC10TA PO (12:29)
[2016-12-06] MEDS ORDERED: NYST10PW TOP (12:29)
[2016-12-06 14:10] VITALS: BP 118/76
[2016-12-06] MEDS: GENTAMICIN SULF INJ 80MG/2ML VIAL (J1580) IP SCH (14:56)
[2016-12-06 15:37] VITALS: BP 128/72
[2016-12-06 15:47] VITALS: BP 128/72
--- NOTE | 2016-12-06 16:58 | IPN ---
DATE: 12/06/2016 SUBJECTIVE: The patient is seen this morning at the bedside. She reports she is feeling much better today as compared to prior. Her lower extremity cramping and abdominal cramping have subsided. She has been ambulating without issue. She reports good oral intake. REVIEW OF SYSTEMS: Negative for fever, chills, headache, chest pain, palpitations, shortness of breath at rest, nausea, vomiting, diarrhea. Noted to be started on vaginal clotrimazole for reported yeast infection. Remainder of review of systems is negative. OBJECTIVE: Temperature 97.7, pulse 102, respiratory rate 18, blood pressure 126/60, saturating at 94% on one liter nasal cannula. Intake and output: In positive fluid balance, 1.8 liters, minimal recorded urine output. Weight in the bed scale today 61.8 kg, significantly decreased from prior despite positive fluid balance, likely inaccurate. PHYSICAL EXAMINATION: Patient is seen lying in bed, awake, alert, oriented times three, in no acute distress. HEENT: Extraocular muscles are intact. Mucous membranes are moist. CHEST: S1, S2, regular rate and rhythm. No edema in the lower extremities or dependent area. LUNGS: Bilateral symmetric air entry without rales or rhonchi. ABDOMEN: Soft, nontender. Left lower quadrant peritoneal catheter not examined today. No appreciable suprapubic fullness. NEUROLOGIC: Alert, oriented, no focal deficit, appropriately interactive and conversational. PSYCHIATRIC: Appropriate mood and affect. IMAGING: Chest x-ray 12/05/2016, no consolidation or effusion. Possible trace left basilar atelectasis. LABORATORY DATA: White count 12.4, increased from prior, hemoglobin 12.6, platelets 355. Peritoneal total nucleated cell count less than 20. Sodium 137, potassium 4.6, bicarbonate 27. Inpatient medications reviewed by myself, noted started on clotrimazole vaginally for reported vaginal yeast. Remainder of medications are unchanged from prior. ASSESSMENT AND PLAN: 1. Peritonitis with recurrent episode. The patient's peritoneal dialysis (PD) cell count remains less than 20. She has been on antibiotics for about 3 weeks now. She is receiving a prolonged course as her cell count did uptrend at the end of October. She is due to complete her course of intraperitoneal gentamicin on 12/08/2016. Her fungal cultures are still pending at this time and will be followed up outpatient. I will discuss with the primary team regarding discharge plan and outpatient followup. 2. Leukocytosis. The patient's white count has increased in the past 3 days from 7.8 to 12. She has been afebrile. She is not on any steroids or other medications that could cause leukocytosis. I do not see other sources of infection. She has had negative blood cultures. She did have extended-spectrum beta lactamase (ESBL) Escherichia (E) coli on a urine culture, however it was 25,000 colonies and possibly a colonizer. 3. Heart failure. The patient was admitted with exacerbation of heart failure. She had aggressive ultrafiltration with peritoneal dialysis (PD) and Lasix. She is now fairly euvolemic on exam. Chest x-ray did not show any fluid overload. She is on her home regimen of peritoneal dialysis (PD) with alternating 1.5% and 2.5% exchanges and she can continue with the same. 4. Chronic obstructive pulmonary disease (COPD). Patient continues on her Advair and DuoNeb treatments. 5. Hypertension. Well controlled at this time on clonidine 0.1 mg by mouth three times a day, hydralazine 50 mg by mouth three times a day, losartan 100 mg by mouth daily. 6. Discharge planning. The patient is amenable for discharge today. She was seen by the peritoneal dialysis nurse, Ajith, this morning. I will discuss the discharge plan with Dr. Klein. Patient will continue on intraperitoneal gentamicin until 12/08/2016. She does have the antibiotic at home. She will also continue on oral fluconazole and we will followup the fungal cultures as an outpatient. Would continue to hold Lasix at this time.
[2016-12-06] MEDS ORDERED: INFLUENZA VIRUS VACCINE HIGH DOSE 0.5 ML SYRINGE (90662) IM ONE (17:00)
--- NOTE | 2016-12-11 13:45 | IPN ---
DATE: 11/30/2016 SUBJECTIVE: The patient was seen and examined at the bedside today morning. Last 24-hour events were noted. Patient was having pain in abdomen during PD exchanges overnight, and patient is also in positive fluid balance. She was not draining well with 2.5% dialysate. Patient reports that she is feeling weak and tired, and today morning peritoneal fluid cell count is also high today. REVIEW OF SYSTEMS: Patient denies any fever, chills, rigors, headache, nausea, vomiting, chest pain, shortness of breath. She reports pain in abdomen with the PD exchanges overnight, and she reports feeling weak and tired. She denies any dysuria or hematuria. Rest of review of systems is negative. OBJECTIVE: Vital signs: Temperature is 98.2 degrees Fahrenheit, blood pressure is 140/57, pulse is 96, respirations rate of 19, saturating 93% on nasal cannula. Intake and output:: Patient is 430 mL positive yesterday, 1710 mL positive so far today, according to peritoneal dialysis intake and output. Weight in the bed scale is 69.5 kg. PHYSICAL EXAMINATION: GENERAL: Patient is awake, alert, oriented times three, sitting in bed in no apparent distress. HEAD AND NECK: Extraocular muscles intact. Pupils equally round and reactive to light. Mucous membranes are moist. Neck is supple. There is no jugular venous distention (JVD). CARDIOVASCULAR: S1, S2, regular rate. No murmur, rub, or gallop. RESPIRATORY: Chest is clear to auscultation bilaterally. Bilateral equal air entry. No rales or rhonchi. ABDOMEN: Soft, mildy tender to deep palpation, and she has rebound tenderness as well. Patient has left lower quadrant peritoneal dialysis catheter with no discharge. MUSCULOSKELETAL: No clubbing or cyanosis. Pulses are 2+. No edema of the bilateral lower extremities. PSYCHIATRIC: Normal mood and affect. CENTRAL NERVOUS SYSTEM: No focal neurologic deficit. Power is 5/5 in all extremities. LABORATORY REVIEW: CBC showed a WBC of 11.6, hemoglobin 12.1, platelets are 404. Peritoneal fluid cell count showed total nucleated cells were 238. 87% of them were neutrophils. BMP today morning showed sodium 141, potassium 4.1, chloride 103, bicarbonate is 25, BUN 43, creatinine is 5.3, magnesium is 1.7. Microbiology: Body fluid culture and fungal culture are pending. Gastrointestinal (GI) panel done today morning was negative. CURRENT INPATIENT MEDICATIONS: Patient's medications were all reviewed by me. She was started on Diflucan 200 mg IV daily, and I also gave her a dose of intraperitoneal gentamicin 80 mg times omeprazole dose today. Patient's last dose of Levaquin was yesterday. I have held the Levaquin at this time until we get the fungal cultures back. ASSESSMENT: A 76-year-old female with past medical history of end-stage renal disease, on peritoneal dialysis, chronic obstructive pulmonary disease (COPD), recently treated inpatient for peritonitis and urinary tract infection. She was sent home, but she came back because of fluid overload and shortness of breath. Hospital course is complicated now again with recurrence of peritonitis. RECOMMENDATIONS AND PLAN: 1. Recurrent peritonitis. Patient's total nucleated cells in the peritoneal fluid are 238 at this time. Patient was already on Levaquin coverage, and this recurrence of white cell count is worrisome for involvement of fungal peritonitis; however, since we do not have the cultures back yet, I have empirically covered her with intraperitoneal gentamicin 80 mg. I have stopped her Levaquin for now. Last dose was yesterday. She is not due until tomorrow anyway. I have started the patient on fluconazole 200 mg IV daily, and as soon as I have the culture report from the fluid today, I shall tailor the antibiotic or antifungal according to that. 2. Decompensated congestive heart failure (CHF) and fluid overload. Patient was being dialyzed with a mixture of 4.25%/2.5% initially. Volume status is optimized; however, yesterday she was changed to all 2.5%, but she did not respond well to that. She is retaining fluid with all 2.5%. I have restarted the patient on a mixture of three exchanges of 2.5% and two exchanges of 4.25%. Continue to monitor Intake and output and continue Lasix 80 mg by mouth twice a day as well. 3. End-stage renal disease, on peritoneal dialysis. Continue the current regimen of 2 liters fill volume, five exchanges, three exchanges of 2.5% and two exchanges of 4.25%. 4. Hypertension. Blood pressure is acceptable at this time. Continue current dose of clonidine 0.1 mg three times daily, hydralazine 50 three times daily, and losartan 100 mg daily. DISCHARGE PLANNING: Patient is not ready to be discharged at this time because of recurrence of peritonitis. The plan of care was discussed with the hospitalist, Dr. Radha Suazo. SHERRELL
--- NOTE | 2016-12-11 16:04 | DSES ---
DATE OF ADMISSION: 11/27/2016 DATE OF DISCHARGE: 12/06/2016 LACING CUTTER: Dr. Evans PRIMARY CARE PROVIDER: Dr. Calderón ELECTRICIAN THIRD: Dr. Machuca DISCHARGE DIAGNOSES: 1. Acute on chronic diastolic congestive heart failure. 2. Recurrent peritoneal dialysis (PD) peritonitis. 3. End-stage renal disease on peritoneal dialysis. 4. Chronic obstructive pulmonary disease (COPD). 5. Asymptomatic bacteruria or colonizer by extended-spectrum beta-lactamase (ESBL) in urine. 6. Hypertension. 7. Hyperlipidemia. 8. Depression. 9. Atrial fibrillation. 10. History of transient ischemic attack (TIA). 11. Hyperkalemia. 12. Reduced urine output. DISCHARGE MEDICATIONS: - fluconazole 200 mg by mouth daily - Nystatin powder topically twice a day - albuterol sulfate nebulizer solution every six hours as needed for shortness of breath - ipratropium nebulizer solution every six hours as needed for shortness of breath - azelastine nasal spray two sprays in both nostrils daily as needed for nasal congestion - calcium carbonate 500 mg by mouth every four hours as needed for heartburn or indigestion - cetirizine 10 mg by mouth daily - citalopram 20 mg at bedtime - clonidine 0.1 mg by mouth three times a day - Aggrenox one tablet by mouth twice a day - fish oil 1000 mg by mouth daily - gemfibrozil 600 mg by mouth twice a day - hydralazine 50 mg by mouth three times a day - losartan potassium 100 mg by mouth daily - metoprolol 25 mg by mouth twice a day - Pastora-Olga one tablet by mouth daily - salmeterol fluticasone 250/50 one puff inhalation twice a day - simvastatin 40 mg by mouth at bedtime - vitamin D 1000 units by mouth daily - vitamin E 400 units by mouth daily HOSPITAL COURSE: This is a 76-year-old female with end-stage renal disease, recently started on peritoneal dialysis in August of 2016, who was admitted in our hospital from 11/14/2016 to 11/25/2016 for peritoneal dialysis (PD) peritonitis with extended-spectrum beta-lactamase (ESBL) and ESBL urinary tract infection. The patient was treated and discharged home and the patient went back to the emergency room of [facility] on 11/27/2016 with shortness of breath which has been increasing since her discharge requiring oxygen. She also complained of increased weight and increased swelling which has been getting progressively for the past few days. The patient was diagnosed with congestive heart failure. The patient had an echocardiogram done which showed that the patient had diastolic dysfunction so it was felt that the patient had acute on chronic exacerbation of diastolic congestive heart failure. The patient was started on aggressive fluid removal by adjustment of her PD fluid solutions with adequate amount of negative balance and improvement in her shortness of breath and leg swelling. She felt well for two or three days. However, after that, she again started complaining of abdominal pain, weakness, tiredness, and overall feeling unwell. The patient's peritoneal fluid was again sent for evaluation and was found to have elevated cell counts of 238 and was diagnosed with recurrent peritonitis. The patient's antibiotic was changed from levofloxacin which she was taking for her previous peritonitis with ESBL and she was started on gentamicin intraperitoneally as well as started on fluconazole for possible fungal peritonitis. The patient responded well to treatment with resolution of her abdominal pain and normalization of her PD fluid cell count. However, the patient was noted to have decreased urine output and overall feeling very weak and tired. The patient, at that point, was felt to have volume depletion from her aggressive dialysis, so her Lasix was stopped and her PD fluid exchanges were again adjusted. Subsequently, the patient started feeling better. On the day of discharge, the patient did not have any complaints. Vital signs are stable and functionally she was close to her baseline. PHYSICAL EXAMINATION: VITAL SIGNS: Temperature 97.6, pulse 102, blood pressure 122/72, pulse oximetry 88% on room air. GENERAL: The patient is awake, alert and oriented times three, sitting up in chair, in no acute distress. HEENT: Normocephalic, atraumatic. Moist mucous membranes. Anicteric eyes. CHEST: Clear to auscultation. CARDIOVASCULAR: S1, S2, irregular, mild tachycardia. No rub or gallop. ABDOMEN: Soft, nontender. Bowel sounds present. EXTREMITIES: No edema. LABORATORY DATA: WBC 12.4, hemoglobin 12.6, platelets 355. Sodium 137, potassium 4.6, chloride 95, bicarbonate 27, BUN 37, creatinine 7.2, glucose 89, calcium 9.2. Clostridium difficile from PCR and gastrointestinal panel negative. Peritoneal fluid culture no growth aerobically. Peritoneal fluid fungal smear negative. Fungal culture is pending. Blood cultures negative. Urine culture: ESBL Escherichia coli, 25,000 colony-forming unit. DISPOSITION: The patient is discharged home in a stable condition. DISCHARGE INSTRUCTIONS: The patient is to followup with primary care provider in two weeks. The patient is to followup with nephrology in one week. Diet as tolerated. Activity as tolerated.
== END 2016-12-06 18:21 | disposition home or self-care (01) | DRG 919 ==
LOC: M PCU 17:32 → M MSPAV 11-28 22:32
PROVIDERS: ADMIT Hospitalist; ATTEND Internal Medicine Nephrology
DX: T85.71XA Infection and inflammatory reaction due to peritoneal dialysis catheter, initial encounter (principal); N18.6 End stage renal disease; K65.9 Peritonitis, unspecified; I50.33 Acute on chronic diastolic (congestive) heart failure; I13.2 Hypertensive heart and chronic kidney disease with heart failure and with stage 5 chronic kidney disease, or end stage renal disease; Z66 Do not resuscitate; E78.5 Hyperlipidemia, unspecified; F32.9 Major depressive disorder, single episode, unspecified; I48.91 Unspecified atrial fibrillation; E87.5 Hyperkalemia; K21.9 Gastro-esophageal reflux disease without esophagitis; D63.1 Anemia in chronic kidney disease; J44.9 Chronic obstructive pulmonary disease, unspecified; Z79.899 Other long term (current) drug therapy; Z99.2 Dependence on renal dialysis; Z86.73 Personal history of transient ischemic attack (TIA), and cerebral infarction without residual deficits; Z88.8 Allergy status to other drugs, medicaments and biological substances; Z88.6 Allergy status to analgesic agent; Z90.711 Acquired absence of uterus with remaining cervical stump; Z96.653 Presence of artificial knee joint, bilateral; Z98.41 Cataract extraction status, right eye; Z98.42 Cataract extraction status, left eye; Y82.9 Unspecified medical devices associated with adverse incidents

== ENCOUNTER 2017-08-24 08:19 | Day surgery (SDC) | payer MEDICARE ==
[2017-08-24] MEDS ORDERED: LIDOCAINE 1% MDV 20ML VIAL SQ (08:30)
[2017-08-24] MEDS ORDERED: D5W/0.2% SODIUM CHLORIDE 1,000 ML IV (08:30)
[2017-08-24 09:48] LABS: POTASSIUM SERUM 4.3 MEQ/L (3.5-5.1)
[2017-08-24] MEDS ORDERED: PROPOFOL 500 MG/50 ML VIAL As Ordered (09:53)
[2017-08-24] MEDS: BUPIVACAINE HCL 0.25% 30 ML VIAL As Ordered (10:00)
[2017-08-24] MEDS ORDERED: MIDAZOLAM INJ 2 MG/2 ML VIAL (J2250) As Ordered (10:29)
[2017-08-24] MEDS: HEPARIN SOD (PORCINE) 5000 UNITS/ML VIAL As Ordered (10:45)
[2017-08-24] MEDS ORDERED: NORCO, ANEXSIA 5/325MG TABLET (HYDROcodone/ACETAMINOPHEN) PO (11:30)
[2017-08-24] MEDS ORDERED: ACETAMINOPHEN TAB 650MG DOSE (2X325MG) PO (11:30)
[2017-08-24] MEDS ORDERED: ONDANSETRON 4MG/2ML VIAL (J2405) IV (11:30)
== END 2017-08-24 12:04 | disposition home or self-care (01) ==
LOC: M SDC 08:19
DX: N18.6 End stage renal disease (principal); E78.00 Pure hypercholesterolemia, unspecified; J44.9 Chronic obstructive pulmonary disease, unspecified; I25.2 Old myocardial infarction; Z79.899 Other long term (current) drug therapy; Z91.040 Latex allergy status
CPT/HCPCS: 49421

== ENCOUNTER → 2017-10-22 | Outpatient (CLI) | payer MEDICARE ==
[~2017-10-22] MED LIST changes: -/ESCI20TA PO; -/WARF25TA PO; -ADV250INH INH; -AGGR1CAP PO; -AGGRENOX PO; -ALBU83IN INH; -ALDA50TA2 PO; -AMLO5TAB2 PO; -ASPI81TA85 PO; -ATEN25TA PO; -AZEL0.1S3; -BENA20TA2 PO; -CETI10TA PO; -CITA20TA4 PO; -CLON-412 PO; -EXCETAB80 PO; -FISH1000 PO; -FISHOIL OR; -FURO40TA2 PO; -GEMF600T PO; -HYDR-3716 PO; -HYDR-3910 PO; -HYDR-3911 PO; -HYDR25TA PO; -INVA1INJ IV; -IPRASOL4 INH; -LASI20TA PO; -LEVA1TAB PO; +LIDOCAINE 2% MDV 20 ML VIAL As Ordered; -LOSA100T36 PO; -LOVA40TA PO; -MECL-68 PO; -MELA3TAB PO; -METO1TAB87 PO; -METO25TAB PO; -MUCI600T37 PO; -PERCOCET PO; -POTA10CA PO; -POTA1TAB14 PO; -PRED10TA2 PO; -RENATAB5 PO; -SIMV20TA2 PO; -SPIR25TA2 PO; -TRIPOIN TOP; -TUMS500C PO; -TYLE325T5 PO; -ULTR50TA PO; -VITA100066 PO; -VITA100067 PO; -VITA400C7 PO; -VITACAP33 PO; -Vitamin D OR; -ZOCO40TA PO; -[UNRECOGNIZED DRUG - CODE] PO; -aggrenox OR; -vitamin B12 OR; -vitamin E OR
== END | disposition home or self-care (01) ==
LOC: M IRPRO 09:12
DX: Z45.2 Encounter for adjustment and management of vascular access device (principal); N18.6 End stage renal disease; Z99.2 Dependence on renal dialysis
CPT/HCPCS: 36589

== ENCOUNTER → 2018-09-09 | Outpatient (CLI) | payer MEDICARE ==
[~2018-09-09] MED LIST changes: +ADV250INH INH; +AGGR1CAP PO; +AGGRENOX PO; +ALBU83IN INH; +ALDA50TA2 PO; +AMLO5TAB2 PO; +AMLO5TAB6 PO; +ASPI81TA85 PO; +ATEN25TA PO; +AYR0.65S; +AZEL0.1S3; +BENA20TA2 PO; +CETI10TA PO; +CITA20TA6 PO; +CLON-412 PO; +COUM1TAB18 PO; +EXCETAB80 PO; +FISH1000 PO; +FISHOIL OR; +FLUC10TA PO; +FURO40TA2 PO; +FURO80TA2 PO; +GEMF600T PO; +GEMF600T5 PO; +HYDR-3716 PO; +HYDR-3910 PO; +HYDR-3911 PO; +HYDR25TA PO; +INVA1INJ IV; +IPRA0.00 INH; +K-TA10TA2 PO; +KLOR10TA76 PO; +LASI20TA3 PO; +LEVA250T13 PO; +LEXA1TAB2 PO; -LIDOCAINE 2% MDV 20 ML VIAL As Ordered; +LOSA100T50 PO; +LOVA40TA PO; +MECL-68 PO; +MELA3TAB PO; +METO1TAB63 PO; +METO1TAB87 PO; +MUCI600T37 PO; +NYST-15 TOP; +OXYC1TAB23 PO; +POTA1TAB14 PO; +PRED10TA2 PO; +RENATAB5 PO; +SIMV20TA2 PO; +SPIR-10 PO; +TRIPOIN5 TOP; +TUMS500C PO; +TYLE325T5 PO; +ULTR50TA PO; +VITA100066 PO; +VITA100067 PO; +VITA400C7 PO; +VITACAP33 PO; +Vitamin D OR; +ZOCO40TA PO; +[UNRECOGNIZED DRUG - CODE] PO; +[UNRECOGNIZED DRUG - CODE] PO; +aggrenox OR; +vitamin B12 OR; +vitamin E OR
--- NOTE | 2018-09-09 14:34 | REP ---
Bilateral lower extremity Doppler ultrasound: History: Atherosclerosis of the wainwright arteries. Intermittent claudication bilateral legs. Doppler sonographic findings: Mild to moderate multifocal plaquing is seen bilaterally. Mild bilateral superficial femoral artery stenosis is suspected. The ankle brachial indices are 0.92 on the right and 0.88 on the left. Velocity chart right lower extremity: CF A 176 cm/S Profunda 112 Proximal SFA 181 Mid SFA 82 Distal SFA 103 Popliteal 103 Proximal AT A 45 Tibioperoneal trunk 55 Proximal EMBEDDED SOFTWARE MANAGER 55 Distal EMBEDDED SOFTWARE MANAGER 67 Distal AT A 26 Velocity chart left lower extremities: CF A 166 cm/S Profunda 114 Proximal SFA 105 Mid SFA 114 Distal SFA 198 Popliteal 52 Proximal AT A 45 Tibioperoneal trunk 69 Optimal EMBEDDED SOFTWARE MANAGER 39 Distal EMBEDDED SOFTWARE MANAGER 57 Distal AT A 23 Electronically Signed by Leon Payton MD 09/09/2018 02:26 P
== END ==
LOC: M RAD 11:59
PROVIDERS: ATTEND Surgery Vascular Surgery
DX: I70.213 Atherosclerosis of native arteries of extremities with intermittent claudication, bilateral legs (principal)

== ENCOUNTER → 2018-09-24 | Outpatient (CLI) | payer MEDICARE ==
[~2018-09-24] MED LIST changes: +BUPIVACAINE HCL 0.5% 10 ML VIAL As Ordered ONE; +HEPARIN 1,000 UNITS/ML 10ML VIAL (FOR RADIOLOGY& DIALYSIS ONLY) As Ordered ONE; +ISOVUE-300 61% 50ML VIAL (Q9967) As Ordered ONE; +LIDOCAINE 2% MDV 20 ML VIAL As Ordered ONE; +MIDAZOLAM INJ 2 MG/2 ML VIAL (J2250) As Ordered ONE; +diphenhydrAMINE INJ 50MG/ML VIAL (J1200) As Ordered ONE; +fentaNYL 100 MCG/2 ML INJECTION (J3010) As Ordered ONE
--- NOTE | 2018-09-24 12:37 | REP ---
Clinical: History of abdominal aortic aneurysm. Technique: Axial noncontrast images from the lung bases to the pubic symphysis with coronal and sagittal re-formations. Comparison: 11/15/2016. Findings: Aorta demonstrates extensive atherosclerotic changes. The visualized distal descending thoracic aorta just above the diaphragmatic hiatus measures 4.2 cm maximal diameter. The infrarenal abdominal aorta demonstrates fusiform aneurysmal dilatation to 3.6 cm maximal diameter measuring approximately 3.9 cm craniocaudal length terminating above the level of the bifurcation. Findings are essentially unchanged when compared to 11/15/2016. Liver and spleen demonstrate parenchymal calcifications suggesting prior granulomatous disease. Pancreas, gallbladder, and bilateral adrenal glands are normal. The kidneys demonstrate chronic atrophic changes and mild chronic perinephric stranding along with renovascular calcifications. The enteric system is without obstruction or acute inflammatory process. Colonic diverticula noted without acute diverticulitis. Pelvis demonstrates relatively normal bladder and evidence of prior hysterectomy. No significant adenopathy. Pneumoperitoneum and small amount of free fluid likely related to peritoneal dialysis as a a peritoneal dialysis catheter is identified extending into the pelvis. Findings less likely represent bowel perforation. Lung bases demonstrate moderate right pleural effusion with right basilar atelectasis. Small hiatal hernia identified at the gastroesophageal junction. Visualized heart and pericardium grossly normal. Impression: 1. Atherosclerotic changes to the aorta with aneurysmal dilatation as described above stable compared to 11/15/2016. 2. Small amount of ascites and free air likely related to peritoneal dialysis and less likely bowel perforation. 3. Colonic diverticulosis without acute diverticulitis. 4. Further chronic changes as described above. 5. Small hiatal hernia. 6. Small to moderate right pleural effusion and basilar atelectasis. Electronically Signed by Yaya Garzon MD 09/24/2018 12:28 P
--- NOTE | 2018-10-09 08:00 | REPIR ---
DATE OF PROCEDURE: 09/24/2018 ATTENDING SURGEON: Dr. Rachel Gibson IS CONSULTANT: Stu Wells and Vernell Cheng PREOPERATIVE DIAGNOSES: End-stage renal disease, bilateral foot discoloration and pain. POSTOPERATIVE DIAGNOSES: End-stage renal disease, bilateral foot discoloration and pain. PROCEDURE: Aortogram, iliofemoral angiogram, bilateral lower extremity angiography, Mynx closure of the right common femoral arteriotomy. INDICATION: The patient is a 77-year-old female with discoloration and pain in her feet with nonpalpable pulses. The patient will undergo an angiogram with possible angioplasty stent and/or atherectomy. Risks, benefits, and alternative options were discussed with the patient. ANESTHESIA: Local with 10 mL of 2% lidocaine mixed with 0.5% Marcaine. FLUORO TIME: 2.0 minutes. CONTRAST: 15 mL of Isovue-300. HEPARIN: None. COMPLICATIONS: None. DRAINS: None. SPECIMENS: None. IMPLANTS: None. PROCEDURE: The patient was taken to the angiography suite, placed supine on the angiography room table and then prepped and draped in a standard surgical fashion. The right common femoral artery was cannulated. The catheter was placed in the aorta and aortogram and iliofemoral angiogram were performed, as well as bilateral lower extremity angiography. Catheter was removed and a Mynx closure device was used close the arteriotomy in the right common femoral artery with an additional 10 minutes adjunctive pressure applied for hemostasis. Dressings were then applied. The patient tolerated procedure well. All instrument, sponge and needle counts were correct at the end the case. There were no complications. Dr. Gibson was present for and directed the entire case. The patient was transferred to the holding area and subsequently discharged in stable condition.
== END | disposition home or self-care (01) ==
LOC: M IRPRO 08:37
PROVIDERS: ATTEND Surgery Vascular Surgery
DX: I71.4 Abdominal aortic aneurysm, without rupture (principal); I70.0 Atherosclerosis of aorta; R18.8 Other ascites; K57.30 Diverticulosis of large intestine without perforation or abscess without bleeding; K44.9 Diaphragmatic hernia without obstruction or gangrene; J90 Pleural effusion, not elsewhere classified; J98.11 Atelectasis
CPT/HCPCS: 36246; 74176; 76000; C1760; C1769; C1887; C1894; Q9967

== ENCOUNTER 2018-12-21 14:22 | Inpatient (IN) | payer MEDICARE ==
[2018-12-21] VITALS (9 sets, daily range): BP systolic 94–135; BP diastolic 52–61
[~2018-12-21] VITALS: Ht 172.7 cm; Wt 84.1 kg
[~2018-12-21 14:22] MED LIST changes: -BUPIVACAINE HCL 0.5% 10 ML VIAL As Ordered ONE; -HEPARIN 1,000 UNITS/ML 10ML VIAL (FOR RADIOLOGY& DIALYSIS ONLY) As Ordered ONE; -ISOVUE-300 61% 50ML VIAL (Q9967) As Ordered ONE; -LIDOCAINE 2% MDV 20 ML VIAL As Ordered ONE; -MELA3TAB PO; +MELA3TAB63 PO; -MIDAZOLAM INJ 2 MG/2 ML VIAL (J2250) As Ordered ONE; -diphenhydrAMINE INJ 50MG/ML VIAL (J1200) As Ordered ONE; -fentaNYL 100 MCG/2 ML INJECTION (J3010) As Ordered ONE
[2018-12-21] MEDS ORDERED: NS 2,300 ML in IV 1 EA IV ONE (14:45)
[2018-12-21] MEDS ORDERED: cefTRIAXone SOD 2 GM in D5W MINI-BAG PLUS 50 ML IV ONE (15:00)
[2018-12-21 15:18] LABS: BASO % 0.4 % (0.0-1.0); EOS # 0.2 10^3/uL (0.0-0.5); HEMATOCRIT 34.4 % (36.0-47.0); HEMOGLOBIN 10.8 g/dl (12.0-15.5); LYMPH # 1.6 10^3/uL (1.5-5.0); LYMPH % 14.2 % (24.0-44.0); MEAN CORPUSCULAR HEMOGLOBIN 32.5 pg (27.0-33.0); MEAN CORPUSCULAR HGB CONC 31.4 g/dl (32.0-36.5); MEAN CORPUSCULAR VOLUME 103.6 fl (80.0-96.0); MONO # 0.5 10^3/uL (0.0-0.8); MONO % 4.5 % (0.0-5.0); NEUTROPHILS # 8.7 10^3/uL (1.5-8.5); NEUTROPHILS % 77.9 % (36.0-66.0); PLATELET COUNT, AUTOMATED 254 10^3/uL (150-450); RED BLOOD COUNT 3.32 10^6/uL (4.00-5.40); WHITE BLOOD COUNT 11.2 10^3/uL (4.0-10.0)
--- NOTE | 2018-12-21 15:29 | REP ---
Portable chest, 03:13 p.m., single AP view with the the patient sitting: Comparison is the portable chest of 12/05/2016. There are bilateral pleural effusions as an interval change. The lung hollingsworth are otherwise clear. Cardiac size cannot be determined as the cardiac margins are obscured by the pleural effusions. The dimitrios, mediastinum, skeletal structures are unremarkable. Impression: Bilateral pleural effusions. Electronically Signed by Dejuan Galindo MD 12/21/2018 03:19 P
[2018-12-21 15:30] LABS: INR 1.1; PROTHROMBIN TIME 13.9 SECONDS (11.8-14.0)
[2018-12-21 15:31] LABS: PARTIAL THROMBOPLASTIN TIME 26.4 SECONDS (25.0-38.4)
[2018-12-21 15:44] LABS: ALBUMIN 2.3 GM/DL (3.2-5.2); ALT/SGPT 18 U/L (12-78); AMYLASE 79 U/L (25-115); BILIRUBIN,DIRECT < 0.1 MG/DL (0.0-0.2); BILIRUBIN,TOTAL 0.2 MG/DL (0.2-1.0); BLOOD UREA NITROGEN 45 MG/DL (7-18); C REACTIVE PROTEIN QUANTITATIV 1.65 MG/DL (0.00-0.30); CALCIUM LEVEL 7.9 MG/DL (8.8-10.2); CARBON DIOXIDE LEVEL 28 MEQ/L (21-32); CHLORIDE LEVEL 102 MEQ/L (98-107); CK-MB VALUE MASS 2.2 NG/ML (<3.6); CPK CREATINE PHOSPHOKINASE 60 U/L (26-192); CREATININE FOR GFR 6.51 MG/DL (0.55-1.30); GLOMERULAR FILTRATION RATE 6.5 (>32); GLUCOSE, FASTING 112 MG/DL (70-100); MB/CK RELATIVE INDEX 3.67 (< OR =4); POTASSIUM SERUM 3.8 MEQ/L (3.5-5.1); SODIUM LEVEL 141 MEQ/L (136-145); TOTAL PROTEIN 5.5 GM/DL (6.4-8.2); TROPONIN I 0.02 NG/ML (< 0.10)
[2018-12-21 15:48] LABS: INFLUENZA A AMPLIFICATION NEGATIVE (NEGATIVE); INFLUENZA B AMPLIFICATION NEGATIVE (NEGATIVE)
[2018-12-21] MEDS ORDERED: metroNIDAZOLE 500 MG in IV 1 EA IV ONE (16:30)
[2018-12-21] MEDS ORDERED: GABA-1171 PO (16:31)
[2018-12-21] MEDS ORDERED: POTA1TAB23 PO (16:31)
[2018-12-21] MEDS ORDERED: TRAM50TA2 PO (16:31)
[2018-12-21] MEDS ORDERED: CHLO25TA PO (16:31)
[2018-12-21] MEDS ORDERED: PANT40TA3 PO (16:31)
[2018-12-21] MEDS ORDERED: ZOFR4TAB16 PO (16:31)
[2018-12-21] MEDS ORDERED: CLON-412 PO (16:31)
--- NOTE | 2018-12-21 17:02 | REP ---
CT of the chest without IV contrast: Study is correlated with the portable plain film study performed earlier today as well as the visualized lower lung hollingsworth and the abdomen/pelvis CT dated 09/24/2018. There are no comparison chest CTs. Impression: There is a moderate right pleural effusion that has increased in size from the comparison CT but is similar appearance to the plain film study earlier today. There is no left pleural effusion. However, there are confluent patchy infiltrates in the left lower lobe to account for the left lower lobe density on the portable plain film study earlier today. This was not present on the comparison abdomen CT. Additionally, there are patchy ground-glass densities in the left upper lobe. These are obscured by the superimposed heart and the portable plain film study earlier today. The right lung is clear except for compression atelectasis by the right pleural effusion. There is cardiomegaly, unchanged. There is no pericardial effusion. The thoracic aorta is unremarkable except for calcified atheroma. There is coronary artery calcified atheroma. Impression: Moderate right pleural effusion that has increased in size from 09/24/2018. There is no left pleural effusion. There is a left lower lobe infiltrate. There are patchy ground-glass infiltrates throughout the left upper lobe. Electronically Signed by Dejuan Galindo MD 12/21/2018 04:53 P
[2018-12-21] MEDS ORDERED: ALBUTEROL SULFATE 2.5 MG/0.5 ML INH NEB SOLN NEB ONE (17:15)
--- NOTE | 2018-12-21 17:19 | REP ---
CT of the abdomen and pelvis without IV contrast: The studies performed. Contiguous with the chest CT this same date. Comparison is the abdomen/pelvis CT dated 09/24/2018. There is a right pleural effusion that has increased in size from the comparison abdomen CT. There are infiltrates in the left lower lobe that were present on the comparison abdomen CT. There is ectasia of the distal thoracic aorta measuring 3.7 x 4.2 cm in diameter. This is unchanged. There is an aneurysm of the infrarenal abdominal aorta above the bifurcation measuring up to 3.6 cm in diameter. This is unchanged. There is no periaortic hematoma. There are calcified granulomas in the liver and spleen. This is unchanged. Liver spleen otherwise unremarkable. The pancreas, gallbladder, adrenals and kidneys are unremarkable except for renal cortical atrophy bilaterally. This is unchanged. The bowel and mesentery are unremarkable except for diverticulosis. There is no diverticulitis. Pelvis: There is a hysterectomy. There is free fluid in the pelvis, similar in volume to the prior study. Impression: No significant interval change. There is no bowel distension or obstruction. There is a small volume of free fluid in the pelvis, similar to the prior study. There is an abdominal aortic aneurysm as described. Hysterectomy. Diverticulosis without diverticulitis. Calcified granulomas in the liver and spleen. Electronically Signed by Dejuan Galindo MD 12/21/2018 05:10 P
[2018-12-21] MEDS ORDERED: PROPOFOL 200 MG/20 ML VIAL As Ordered ONE (17:27)
[2018-12-21] MEDS ORDERED: LIDOCAINE 2% INJ 100 MG/5 ML SDV (FOR ANES.) As Ordered ONE (17:27)
[2018-12-21] MEDS ORDERED: VITA-245 PO (17:29)
[2018-12-21] MEDS ORDERED: SEVE800T3 PO (17:29)
[2018-12-21] MEDS ORDERED: SUCCINYLCHOLINE 100 MG/5 ML SYRINGE (J0330) As Ordered ONE (17:29)
[2018-12-21] MEDS ORDERED: CHOL100029 PO (17:29)
[2018-12-21] MEDS ORDERED: IRBE300T10 PO (17:29)
[2018-12-21] MEDS ORDERED: TERA1CAP3 PO (17:29)
[2018-12-21] MEDS ORDERED: PATIENT COMMENT (17:37)
[2018-12-21] MEDS ORDERED: ACETAMINOPHEN TAB 650MG DOSE (2X325MG) PO PRN (17:45)
[2018-12-21] MEDS ORDERED: ROCURONIUM BROMIDE 50 MG/5 ML VIAL As Ordered ONE (18:10)
[2018-12-21] MEDS ORDERED: ONDANSETRON 4 MG TAB (S0181) PO PRN (18:15)
[2018-12-21] MEDS ORDERED: traMADol 50 MG TAB PO PRN (18:15)
[2018-12-21] MEDS ORDERED: ETOMIDATE INJ 20MG/10ML VIAL As Ordered ONE (18:16)
[2018-12-21] MEDS ORDERED: metroNIDAZOLE/NACL 500MG(5MG/ML)100 ML BAG (S0030) As Ordered ONE (18:30)
[2018-12-21] MEDS ORDERED: MIDAZOLAM INJ 2 MG/2 ML VIAL (J2250) As Ordered ONE ×2 (18:52→19:42)
--- NOTE | 2018-12-21 18:59 | ROOR ---
Patient Name: Yuki Lange Procedure Date: 12/21/2018 5:38 PM Date of : 1940 Age: 78 Gender: Female Note Status: Finalized Procedure: Upper GI endoscopy + Foreign Body Removal Indications: Foreign body in the esophagus Providers: Bertram Muñoz MD Referring MD: Jennifer Evans MD, Dereje Lozada DO Requesting Provider: Medicines: General Anesthesia Complications: No immediate complications. Procedure: Pre-Anesthesia Assessment: - The heart rate, respiratory rate, oxygen saturations, blood pressure, adequacy of pulmonary ventilation, and response to care were monitored throughout the procedure. The Endoscope was introduced through the mouth, and advanced to the second part of duodenum. Findings: Food was found in the entire esophagus. Removal of food was accomplished. One cratered esophageal ulcer with no bleeding and no stigmata of recent bleeding was found 40 cm from the incisors. No other significant abnormalities were identified in a careful examination of the stomach. The exam of the duodenum was otherwise normal. Impression: - Food in the esophagus. Removal was successful. - Non-bleeding esophageal ulcer. - The examination was otherwise normal. Recommendation: - Patient has a contact number available for emergencies. The signs and symptoms of potential delayed complications were discussed with the patient. Return to normal activities tomorrow. Written discharge instructions were provided to the patient. - Return patient to ICU for ongoing care. - Continue present medications. - The findings and recommendations were discussed with the referring physician. Bertram Muñoz MD Bertram Muñoz MD 12/21/2018 6:58:28 PM Electronically signed by Bertram Muñoz MD Number of Addenda: 0 Note Initiated On: 12/21/2018 5:38 PM Estimated Blood Loss: Estimated blood loss: none.
[2018-12-21] MEDS ORDERED: MIDAZOLAM INJ 2 MG/2 ML VIAL (J2250) IV PRN ×2 (19:00→19:15)
[2018-12-21] MEDS ORDERED: NS 1,000 ML IV SCH (19:15)
[2018-12-21] MEDS ORDERED: PROPOFOL 1,000 MG/100 ML VIAL As Ordered ONE (19:56)
[2018-12-21] MEDS ORDERED: ADVAIR HFA 115/21MCG INHALER INH SCH (20:00)
[2018-12-21] MEDS ORDERED: MIDAZOLAM INJ 2 MG/2 ML VIAL (J2250) IV STA (20:04)
[2018-12-21 20:10] LABS: ABG BASE EXCESS -0.5 (-2.0-2.0); ABG HCO3 25.2 MEQ/L (22.0-26.0); ABG PARTIAL PRESSURE O2 74.6 mmHg (75.0-100.0); ABG TOTAL CO2 26.6 MEQ/L (23.0-31.0); ABG pH (ARTERIAL) 7.357 UNITS (7.350-7.450)
--- NOTE | 2018-12-21 20:40 | HPEPDOC ---
[facility] Medical History & Physical Date of Admission Dec 21, 2018 Date of Service: Dec 21, 2018 History and Physical CHIEF COMPLAINT: [SOB AND DIFFICULTY SWALLOWING ] HISTORY OF PRESENT ILLNESS: [Patient is an 78 yo female with pmhx hx of copd and ?esophageal stricture who presented to the ed for shortness or breath and food regurgitation for the past few days. Patient denied fever, chills, chest pain or headache. Patient was too short of breath to give much hx. Some of the hx was taken from medical records.] PAST MEDICAL HISTORY: copd on 2L nc esrd on peritoneal HD abdominal aortic aneurysm afib HTN HLD PAST SURGICAL HISTORY: total knee replacement SOCIAL HISTORY: current smoker FAMILY HISTORY: unknown ALLERGIES: Please see below. HOME MEDICATIONS: Please see below. LABORATORY DATA: See below. IMAGING: MICROBIOLOGY: Please see below. ROS - all 10 point review of system is negative except for whats listed in HPI Physical exam Gen: resp distress , healthy appearing , HEENT: normocephalic, atraumatic, no discharge from ears or nose, no oropharyngeal erythema or exudate, neck is supple, no lymphadenopathy, trachea midline CVS: RRR, normal S1n S2, no murmur, rubs, or gallops, no edema, no jvd Resp: severe audible wheezes and stridor, no rhonchi, or crackles Abd : soft nontender, normal bowel sounds, no rebound tenderness or guarding MSK: mottled LE, no swelling, full range of motion, strength 5/5 Neuro: AOAx3, no confusion, no focal deficit Psych: normal mood and affect, good judgment Assessment and plan Food impaction -Patient was intubated and taken to the OR -s/p esophageal food disimpaction in OR by Dr. Muñoz -nonbleeding ulcer also noted -post -OR management will be taken over by Dr. Lozada injection specialist Vital Signs Vital Signs Date Time Temp Pulse Resp B/P (MAP) Pulse Ox O2 Delivery O2 Flow Rate FiO2 12/21/18 17:45 115/58 (77) 12/21/18 17:37 73 24 94 12/21/18 15:25 Nasal Cannula 12/21/18 14:41 97.9 Laboratory Data Labs 24H Laboratory Tests 2 12/21/18 14:58: Immature Granulocyte % (Auto) 1.0, White Blood Count 11.2H, Red Blood Count 3.32L, Hemoglobin 10.8L, Hematocrit 34.4L, Mean Corpuscular Volume 103.6H, Mean Corpuscular Hemoglobin 32.5, Mean Corpuscular Hemoglobin Concent 31.4L, Red Cell Distribution Width 13.4, Platelet Count 254, Neutrophils (%) (Auto) 77.9H, Lymphocytes (%) (Auto) 14.2L, Monocytes (%) (Auto) 4.5, Eosinophils (%) (Auto) 2.0, Basophils (%) (Auto) 0.4, Neutrophils # (Auto) 8.7H, Lymphocytes # (Auto) 1.6, Monocytes # (Auto) 0.5, Eosinophils # (Auto) 0.2, Basophils # (Auto) 0.0, Nucleated Red Blood Cells % (auto) 0.0, Prothrombin Time 13.9, Prothromb Time International Ratio 1.10, Activated Partial Thromboplast Time 26.4, Anion Gap 11, Glomerular Filtration Rate 6.5L, Lactic Acid Level 1.6, Calcium Level 7.9L, Aspartate Amino Transf (AST/SGOT) 13, Alanine Aminotransferase (ALT/SGPT) 18, Alkaline Phosphatase 63, Total Bilirubin 0.2, Direct Bilirubin < 0.1, Total Creatine Kinase 60, Creatine Kinase MB 2.2, Creatine Kinase MB Relative Index 3.67, Troponin I 0.02, C-Reactive Protein, Quantitative 1.65H, Total Protein 5.5L, Albumin 2.3L, Albumin/Globulin Ratio 0.72L, Amylase Level 79, Influenza Type A (RT-PCR) NEGATIVE, Influenza Type B (RT-PCR) NEGATIVE 12/21/18 15:03: POC pH (Misc Panel) 7.359, POC Base Excess (Misc Panel) 0.0, POC Saturated Percent O2 (Misc) 91L, POC pO2 (Misc Panel) 64.0L, POC pCO2 (Misc Panel) 45.8H, POC HCO3 (Misc Panel) 25.8, POC Total CO2 (Misc Panel) 27.0 CBC/BMP Laboratory Tests 12/21/18 14:58 Red Blood Count 3.32 L, Mean Corpuscular Volume 103.6 H, Mean Corpuscular Hemoglobin 32.5, Mean Corpuscular Hemoglobin Concent 31.4 L, Red Cell Distribution Width 13.4, Neutrophils (%) (Auto) 77.9 H, Lymphocytes (%) (Auto) 14.2 L, Monocytes (%) (Auto) 4.5, Eosinophils (%) (Auto) 2.0, Basophils (%) (Auto) 0.4, Neutrophils # (Auto) 8.7 H, Lymphocytes # (Auto) 1.6, Monocytes # (Auto) 0.5, Eosinophils # (Auto) 0.2, Basophils # (Auto) 0.0 Microbiology Microbiology 12/21/18 Blood Culture, Received Pending 12/21/18 Blood Culture, Received Pending Home Medications Scheduled Aspirin/Dipyridamole (Aggrenox 25 mg-200 mg Capsule) 1 Ea Capcr, 1 CAP PO BID Cetirizine HCl (Cetirizine HCl) 10 Mg Tab, 10 MG PO QHS Chlorthalidone (Chlorthalidone) 25 Mg Tablet, 25 MG PO DAILY Citalopram Hydrobromide (Citalopram HBr) 20 Mg Tab, 20 MG PO QHS Clonidine HCl (Clonidine HCl) 0.1 Mg Tablet, 0.1 MG PO BID Folic Acid/Vit B Complex and C (Pastora-Olga Tablet) 1 Tab Tab, 1 TAB PO DAILY Irbesartan (Irbesartan) 300 Mg Tablet, 300 MG PO DAILY Metoprolol Tartrate (Metoprolol Tartrate) 25 Mg Tab, 25 MG PO BID Multivit-Mins No.11/Folic Acid (Dialyvite 5000 Tablet) 1 Tab Tab, 1 TAB PO DAILY Pantoprazole Sodium (Pantoprazole Sodium) 40 Mg Tablet.dr, 40 MG PO DAILY Potassium Chloride (Potassium Chloride) 10 Meq Tablet.er, 20 MEQ PO DAILY Salmeterol/Fluticasone (Advair 250-50 Diskus) 14 Puff/Inhaler Aerp, 1 PUFF INH BID Sevelamer Carbonate (Sevelamer Carbonate) 800 Mg Tablet, 1,600 MG PO WM Simvastatin (Zocor) 40 Mg Tab, 40 MG PO QHS Terazosin HCl (Terazosin HCl) 1 Mg Capsule, 1 MG PO QHS Vitamin D (Vitamin D3) 1,000 Unit Tablet, 1,000 UNITS PO DAILY Vitamin E (Vitamin E) 400 Unit Capsule, 400 UNIT PO DAILY Scheduled PRN Albuterol Sulf (Albuterol Sulfate) 2.5 Mg/3 Ml Nebu, 2.5 MG INH Q6H PRN for SHORTNESS OF BREATH Calcium Carbonate (Tums) 500 Mg Chw, 500 MG PO Q4H PRN for HEARTBURN/INDIGESTION Gabapentin (Gabapentin) 100 Mg Capsule, 100 MG PO QHS PRN for RESTLESSNESS Ipratropium/Albuterol Sulfate (Iprat-Albut 0.5-3(2.5) mg/3 ml) 1 Jennie Jennie, 1 JENNEI INH Q6H PRN for SHORTNESS OF BREATH Ondansetron HCl (Zofran) 4 Mg Tablet, 4 MG PO Q6H PRN for NAUSEA Sodium Chloride (Eugene Saline) 0.65 % Spr, 1 SPRAY NA QID PRN for NASAL DRYNESS Tramadol HCl (Tramadol HCl) 50 Mg Tablet, 50 MG PO TID PRN for PAIN Miscellaneous Medications [Patient Comment] PATIENT BROUGHT IN MEDICATION LIST FROM [facility]. THERE ARE MANY DISCREPENCIES BETWEEN THAT MED LIST AND HER EXTERNAL MED HISTORY. UNABLE TO VERIFY MEDICATIONS WITH PHARMACY. MEDICATION LIST WAS OBTAINED FROM EXTERNAL MED HISTORY Allergies Coded Allergies: latex (Verified Allergy, Intermediate, RASH, 12/21/18) pseudoephedrine (Verified Allergy, Intermediate, RASH, 12/21/18) carbamide peroxide (Verified Allergy, Unknown, 12/21/18) ibuprofen (Verified Adverse Reaction, Intermediate, BLOODY STOOLS, 12/21/18) A-FIB/CHADSVASC A-FIB History Current/History of A-Fib/PAF?: Yes Current PO Anticoag Therapy: No Age/Risk Factor Scoring CHADSVASC: CHADSVASC Response (Comments) Value Age Risk Factor Age >/= 75 years old 2 Gender Risk Factor Female 1 Hx of CHF No 0 Hx of HTN Yes 1 Hx of Stroke/TIA/or VTE No 0 Hx of Diabetes No 0 Hx of Vascular Disease No 0 Total 4 Treatment Treatment ordered: NONE Reason Anticoagulant not given: Recent/upcomin procedure NATHAN SILVERMAN MD Dec 21, 2018 17:52
[2018-12-21] MEDS ORDERED: CETIRIZINE (ZyrTEC) 10 MG TAB PO SCH (21:00)
[2018-12-21] MEDS ORDERED: GABAPENTIN 100 MG CAP PO PRN (21:00)
[2018-12-21] MEDS ORDERED: DOCUSATE SODIUM 100 MG CAP PO SCH (21:00)
[2018-12-21] MEDS ORDERED: SIMVASTATIN 40 MG TAB PO SCH (21:00)
[2018-12-21] MEDS ORDERED: CitaloPRAM (CeleXA) 20 MG TAB PO SCH (21:00)
[2018-12-21] MEDS: IPRATROPIUM 0.5MG/ALBUTEROL 2.5MG INH SOL UD 3ML (DUONEB)(J7620) NEB SCH (21:10)
[2018-12-21] MEDS: PANTOPRAZOLE SODIUM 40 MG in D5W MINI-BAG PLUS 50 ML IV SCH (21:25)
[2018-12-21] MEDS: PROPOFOL 1,000 MG in IV 1 EA IV SCH (21:28)
[2018-12-21] MEDS: HEPARIN SOD (PORCINE) 5000 UNITS/ML VIAL SC SCH (21:30)
[2018-12-21] MEDS: CHLORHEXIDINE GLUCONATE 0.12 % 15ML UDC (PERIDEX ORAL RINSE) MT SCH (21:30)
[2018-12-21 21:35] LABS: APPEARANCE, URINE CLOUDY (CLEAR); BACTERIA, URINE AUTO 3+ (NEGATIVE); BILIRUBIN, URINE AUTO NEGATIVE (NEGATIVE); BLOOD, URINE BLOOD 1+ (NEGATIVE); COLOR, URINE YELLOW (YELLOW); GLUCOSE, URINE (UA) AUTO NEGATIVE (NEGATIVE); KETONE, URINE AUTO TRACE mg/dL (NEGATIVE); LEUKOCYTE ESTERASE, URINE AUTO 2+ (NEGATIVE); MUCUS, URINE SMALL (NEGATIVE); NITRITE, URINE AUTO NEGATIVE (NEGATIVE); PROTEIN, URINE AUTO 2+ mg/dL (NEGATIVE); RBC, URINE AUTO 19 /HPF (0-3); SPECIFIC GRAVITY URINE AUTO 1.015 (1.002-1.035); SQUAMOUS EPITHELIAL CELL UR AU 3 /HPF (0-6); UROBILINOGEN, URINE AUTO 0.2 mg/dL (0.0-2.0); WBC, URINE AUTO 20 /HPF (0-3)
[2018-12-21] MEDS: MORPHINE 4 MG/ML 1ML VIAL/SYRINGE (J2270) IV PRN (23:06)
[2018-12-22] VITALS (23 sets, daily range): BP systolic 89–132; BP diastolic 42–61
[2018-12-22] MEDS: PANTOPRAZOLE SODIUM 40 MG in D5W MINI-BAG PLUS 50 ML IV SCH ×4 (00:10→15:28)
[2018-12-22] MEDS: MORPHINE 4 MG/ML 1ML VIAL/SYRINGE (J2270) IV PRN ×2 (01:34→05:55)
[2018-12-22 04:59] LABS: HEMATOCRIT 30.6 % (36.0-47.0); HEMOGLOBIN 9.5 g/dl (12.0-15.5); MEAN CORPUSCULAR HEMOGLOBIN 32.3 pg (27.0-33.0); MEAN CORPUSCULAR VOLUME 104.1 fl (80.0-96.0); PLATELET COUNT, AUTOMATED 203 10^3/uL (150-450); RED BLOOD COUNT 2.94 10^6/uL (4.00-5.40); WHITE BLOOD COUNT 11.2 10^3/uL (4.0-10.0)
[2018-12-22 05:24] LABS: ALBUMIN 1.9 GM/DL (3.2-5.2); BILIRUBIN,TOTAL 0.2 MG/DL (0.2-1.0); CALCIUM LEVEL 7.8 MG/DL (8.8-10.2); CREATININE FOR GFR 7.17 MG/DL (0.55-1.30); GLOMERULAR FILTRATION RATE 5.8 (>32); MAGNESIUM LEVEL 1.7 MG/DL (1.8-2.4); TOTAL PROTEIN 5.3 GM/DL (6.4-8.2)
[2018-12-22] MEDS: PROPOFOL 1,000 MG in IV 1 EA IV SCH ×4 (05:34→23:54)
[2018-12-22] MEDS: HEPARIN SOD (PORCINE) 5000 UNITS/ML VIAL SC SCH ×3 (05:36→22:31)
[2018-12-22 06:13] LABS: ABG BASE EXCESS -0.9 (-2.0-2.0); ABG HCO3 24.6 MEQ/L (22.0-26.0); ABG O2 SATURATION 93.9 % (95.0-99.0); ABG PARTIAL PRESSURE CO2 44.7 mmHg (35.0-45.0); ABG PARTIAL PRESSURE O2 73.2 mmHg (75.0-100.0); ABG STANDARD HCO3 23.6 MEQ/L (22.0-26.0); ABG pH (ARTERIAL) 7.359 UNITS (7.350-7.450)
[2018-12-22] MEDS ORDERED: (RENVELA) SEVELAMER **CARBONate** 800 MG TAB PO SCH (08:00)
--- NOTE | 2018-12-22 08:06 | CCN ---
DATE OF SERVICE: 12/21/2018 I was called postoperatively for Yuki who is now intubated after presenting with esophageal impaction with severe respiratory distress. Apparently in the emergency room she presented with hypoxia 70% on room air. On 6 liters of oxygen she had improvement of her oxygen saturation. She reportedly had rhonchorous wheezing and tachypnea and was using accessory muscles. She has had 5 days of difficulty swallowing. She was actually admitted to another hospital and signed out against medical advice (AMA) and then decided to come here today to our emergency room. Unfortunately she has no family with her. She was dropped off by a friend. She has known chronic obstructive pulmonary disease, emphysema and has end-stage renal disease on peritoneal dialysis. During the procedure there was impacted food, pieces of chicken and a fairly large ulceration in the esophagus. The patient postoperatively is hypoxic. She awakes at times and has appropriate movements but remains intubated with significant hypoxia. On 60% FiO2 oxygen saturation of low 90s. Temperature is 98.0, pulse is 66, respiratory rate is 14, blood pressure is 130/59. The patient initially had some hypotension in the emergency room, was given a total of 650 mL. General: Sedated on mechanical ventilation, received 2 mg of Versed postoperatively. HEENT: Sclerae are clear. Pupils are reactive but small, approximately 5 mm. Nasal mucosa pink and moist without lesions. Tongue is midline. Endotracheal tube is in place. Neck is supple. No tracheal deviation. There is elevated jugular venous pulse (JVP). Pulmonary: Decreased breath sounds bilaterally at the bases, however now clear to auscultation without rales, rhonchi or wheezes. There is dullness to percussion at the right base. No accessory muscle use. Of note, there is prolonged expiratory phase on mechanical ventilation and current vent settings are volume control tidal volume of 420, respiratory rate of 14, PEEP of 8, FiO2 of 0.60. No significant peripheral edema. Cardiac: Distant S1, S2 without audible murmur, rub or gallop. Abdomen: Soft, nontender, nondistended. There is a peritoneal dialysis catheter in the left mid upper quadrant without surrounding erythema or exudate. Minimal abdominal wall swelling without significant anasarca. No hepatosplenomegaly. I do not find a fluid wave. Extremities: There is obvious prior well-healed surgical incisions from bilateral knee replacement, very minimal systemic edema. No mottling. Skin is pale without rash, jaundice or bruising. Laboratory evaluation shows a white blood cell count of 11.2, hemoglobin 10.8, hematocrit 34.4 with a platelet count of 104. Sodium is 141, potassium 3.8, chloride 102, bicarbonate of 28, BUN of 45, creatinine of 6.5, with a glucose 112, lactate is 1.6, albumin is 2.3. Arterial blood gas shows a pH of 7.36, pCO2 of 46, pAO2 of 64. This was done preoperatively at the point of care testing in the emergency room. Chest CT shows some new left upper lobe infiltrate. Also infiltrate in the lingula left lower lobe. There is a chronic right pleural effusion that appears slightly larger than in August. It is difficult to tell but there are actually may be some material in the takeoff of the left upper lobe. I suspect aspiration. There is emphysematous changes on both lung [place]. 1. Respiratory distress, acute hypoxic respiratory failure likely from aspiration pneumonia. Will place on antibiotics. I will perform bronchoscopy to remove any foreign bodies. This will be done at bedside. The patient did give permission for critical care but does not want resuscitation. She previously expressed that she is willing to accept intubation and procedures to remove foreign bodies from airway in esophagus according to what she had told the staff in the emergency room. However, now she is intubated and no family is present. She will remain on mechanical ventilation until oxygenation is improved. 2. Esophageal impaction with esophageal ulcer. Placed on Protonix drip. Avoiding orogastric (OG), nasogastric (NG) tube based on gastrointestinal (GI) recommendations as much as possible unless there is a urgent need for decompression of the abdomen. 3. Emphysema. Apparently the patient is chronically on oxygen. She has nebulized therapy, now will place on long-acting inhaled therapy when the patient is off mechanical ventilation. 4. End-stage renal disease on peritoneal dialysis. No indication for intervention at this point in time. Will consult nephrology for ongoing management while the patient is there. 5. Hypoalbuminemia likely chronic in nature with recent decreased oral intake. 6. Advanced directives as mentioned above. 7. I will attempt to get a hold of the daughter. I have a number to speak with the daughter but I have not been able to get a hold of her of a Marta Yoon, phone number [phone]. No other physician has contacted the daughter that I am aware of before my arrival. Critical care time was 1 hour and 15 minutes. This excludes all procedures. SHERRELL
[2018-12-22] MEDS: IPRATROPIUM 0.5MG/ALBUTEROL 2.5MG INH SOL UD 3ML (DUONEB)(J7620) NEB SCH ×4 (08:11→19:12)
--- NOTE | 2018-12-22 08:44 | RO ---
DATE OF PROCEDURE: 12/21/2018 PREPROCEDURE DIAGNOSIS: Aspiration with recent esophageal impaction, abnormal chest x-ray, hypoxia. POSTPROCEDURE DIAGNOSIS: Same as above PROCEDURE: Bronchoscopy. SURGEON: Dereje Lozada DO ASSISTANTS: No assistants. ANESTHESIA: The patient was already on propofol for intubation. No further additional anesthesia was required. CONSENT: Verbal consent was given by her daughter over the phone. DESCRIPTION OF PROCEDURE: The patient was placed in the supine position. Cetacaine spray was used to anesthetize the airway and provide lubrication for the direct vision bronchoscope. After a time-out confirming correct site, correct procedure, the bronchoscope was inserted into the airway. All airways were suctioned. The claudia was sharp. Right and left mainstem were normal. There were no endobronchial lesions. There was thick amounts of mucus on the left. There was minimal white material that looked like macerated material, but mostly thick yellow to green mucus. I washed the airways with saline and then obtained a bronchoalveolar wash. After samples were taken all airways were cleared. The bronchoscope was removed. There were no observed complications. SHERRELL
[2018-12-22] MEDS ORDERED: PANTOPRAZOLE 40MG TAB (PROTONIX) PO SCH (09:00)
[2018-12-22] MEDS ORDERED: POTASSIUM CHLORIDE 10 MEQ SR TABLET PO SCH (09:00)
--- NOTE | 2018-12-22 09:20 | REP ---
CHEST, SINGLE VIEW: Single view of the chest is performed and compared to prior study of 12/21/2018. Right pleural effusion is unchanged. Bilateral infiltrates are unchanged. Heart and mediastinum are unchanged. There is an endotracheal tube with the tip approximately 3 cm above the claudia. Electronically Signed by Dejuan Farris MD 12/22/2018 05:57 P
--- NOTE | 2018-12-22 09:22 | REP ---
CHEST, SINGLE VIEW: Single view of the chest is performed and compared to prior exam of the same day. Right effusion appears essentially unchanged. Right base infiltrate may be slightly increased and left upper and lower lung infiltrates may also be slightly increased. Heart is enlarged. There is calcification of the thoracic aorta. There is an endotracheal tube with the tip approximately 3 cm above the claudia. Electronically Signed by Dejuan Farris MD 12/22/2018 05:57 P
[2018-12-22] MEDS: CHLORHEXIDINE GLUCONATE 0.12 % 15ML UDC (PERIDEX ORAL RINSE) MT SCH ×2 (10:27→20:18)
--- NOTE | 2018-12-22 10:43 | CR ---
DATE OF CONSULTATION: 12/21/2018 This is on a 78-year-old white female who was admitted to [facility] for an esophageal food impaction for least 5 days with associated pleural effusion and probable aspiration pneumonia. The patient has not been able to eat and has had violent episodes of vomiting for the last 5 days. She has multiple medical problems including end-stage renal disease and is on peritoneal dialysis. She is being followed by Dr. Evans. Again, she is being seen by GI for the esophageal food impaction. PAST MEDICAL HISTORY: 1. End-stage renal disease on peritoneal dialysis. 2. Diastolic congestive heart failure. 3. Atrial fibrillation. 4. History of TIA. 5. Hypertension. 6. Reflux. 7. Chronic obstructive pulmonary disease (COPD) . 8. Depression. 9. Abdominal aortic aneurysm. 10. Anemia secondary to end-stage renal disease. MEDICATIONS: Will be dictated by the hospitalist. ALLERGIES: 1. CARBAMIDE PEROXIDE. 2. IBUPROFEN. 3. PSEUDOEPHEDRINE. SOCIAL HISTORY: The patient is a current smoker. She is a DO NOT RESUSCITATE, DO NOT INTUBATE. SURGICAL HISTORY: Tonsillectomy. Lymph node biopsy. Partial hysterectomy. Bilateral cataracts. Bilateral total knee replacement. FAMILY HISTORY: Noncontributory. REVIEW OF SYSTEMS: Noncontributory. PHYSICAL EXAMINATION: Obese white female in acute respiratory distress. The patient is being seen immediately prior upper endoscopy on an urgent basis due to her respiratory distress. Chest is showing diffuse wheezing. Cardiac examination shows an irregular rhythm, 2/6 systolic ejection murmur left lower sternal border. Abdomen soft, globose, nontender. No masses, guarding, rebound or hepatosplenomegaly have been noted. Laboratory studies on this admission includes a CBC showing a white count 11,200, hemoglobin and hematocrit of 10.8 and 34.4. Platelets were 254,000. Chemistries showed normal liver functions. The patient has a creatinine 6.51, BUN is 45, INR 1.110. IMAGING STUDIES The patient had a CT of the abdomen and pelvis which is showing impression of no bowel obstruction or distension. The patient has a triple A and has hysterectomy in the past. Diverticulosis. So, no acute pathology was seen on CT. Chest x-ray has been read out as moderate right pleural effusion, increased from an x-ray of 09/24/2018. No left with effusion. Patchy ground glass infiltrates throughout the left upper lobe. ANALYSIS: Esophageal food impaction at the present time. PLAN: Plan will be to have the patient intubated and will attempt to clear the esophagus of the food impaction which has probably contributed to the patient having some aspiration. The patient will be maintained with intubation due to her lung status. At this time the DNR/DNI have been rescinded per the patient's agreement. The patient has given oral consent.
--- NOTE | 2018-12-22 11:02 | CCN ---
DATE OF SERVICE: 12/22/2018 HISTORY: The patient had been on mechanical ventilation overnight. Whenever she has some more wakefulness she will desaturate with minimal movement. Currently her FiO2 is down to 0.50 FiO2. She is on mechanical ventilation. No nasogastric (NG) or orogastric (OG) tube due to the fact that she has a large esophageal ulcer. She is on a Protonix drip. No significant arrhythmias overnight were reported. Her blood pressure is a little soft, this morning. However, I did switch her from Versed to propofol in attempts to decrease the amount of sedative effect as she is an end-stage renal disease patient. I discussed with nephrology the need for usual peritoneal dialysis. I believe that will start today. She has had no fevers. Sputum cultures on gram-stain there are moderate gram-negative rods and many gram-positive rods. Minimal urine output overnight. Temperature is 98.0, pulse is 71, respiratory rate is 14, blood pressure is 107/53, oxygen saturation is 90% on 0.50 FiO2 on volume control with a tidal volume 420, respiratory rate of 14. Prolonged expiratory phase on mechanical ventilation. PEEP is set at 8. General: The patient is calm on mechanical ventilation. Opens eyes spontaneously on occasion. Moves extremities appropriately. Not communicative at this point in time. Has not yet had her complete sedation vacation. HEENT: Sclerae are clear and anicteric. Pupils are 5 mm and equal. Endotracheal tube is in place. Tongue is midline. Mucous membranes are moist. Neck is supple. No tracheal deviation or mass. Minimal elevated jugular venous pulse (JVP). Lymph: No cervical, supraclavicular or axillary adenopathy. Cardiac: Regular, S1, S2, without audible murmur, rub or gallop. No significant systemic edema. Pulmonary: Anteriorly clear, posteriorly decreased breath sounds at the bases. There is a slight prolongation of the expiratory phase without expiratory wheeze. There is no accessory muscle use. Abdomen: Soft, nontender, nondistended. Peritoneal dialysis catheter in the left lower quadrant without significant erythema. No evidence of fluctuance. Extremities: No significant dependent edema. No cyanosis or clubbing, osteoarthritic changes. Neurologic: As mentioned above, pupil reactivity and moving all extremities spontaneously. No evidence of seizure activity. No tremor. There is no evidence of myoclonus on exam. Deep tendon reflexes (DTRs) are normal reflexes at patella and brachioradialis. Skin: No new rash, jaundice or bruising. Laboratory evaluation shows sodium 142, potassium 4.0, chloride of 105, bicarbonate is down 25, BUN of 48, creatinine of 7.17, magnesium 1.7, calcium of 7.8, albumin is down to 1.9. Arterial blood gas this morning shows a pH of 7.36, pCO2 of 45, pO2 of 73. Chest x-ray this morning shows continued left upper lobe infiltrate and the known chronic right lower lobe pleural effusion is present. There does appear to be some increased vascular congestion compared to yesterday. IMPRESSION: 1. Acute hypoxic respiratory failure from aspiration pneumonia and esophageal impaction. Impaction relieved yesterday. Bronchoscopy revealed what appeared to be more pneumonia than a recent aspiration. The patient is on ceftriaxone. Sputum gram stain in line with probable aspiration. At this point in time, the patient is too hypoxic to extubate, however, after dialysis will reassess for the earliest possible extubation as at this point in time cannot place OG tube for nutrition due to her esophageal ulcer. Patient on Protonix drip. Will convert this to regular IV over the next 24 hours. 2. End-stage renal disease on dialysis. Appreciate nephrology input and management. 3. Emphysema. No evidence of exacerbation. Reportedly has chronic hypoxia as evidence of emphysema on chest imaging. Is on nebulized therapy for mucociliary clearance. 4. Esophageal impaction. As mentioned above, unfortunately nothing by mouth at this point in time with chronic protein malnourishment. Attempt to extubate as soon as possible to attempt po feeds with having to place ogt. 5. The patient is DO NOT RESUSCITATE but rescinded DO NOT INTUBATE in this acute episode. She had maintained that she would not want cardiac resuscitation in any form whether it be defibrillation or chest compressions. Critical care time was 1 hour; this excludes all procedures. SHERRELL
--- NOTE | 2018-12-22 13:27 | ECGEPIP ---
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
[2018-12-22] MEDS ORDERED: HEPARIN SOD (PORCINE) 5000 UNITS/ML VIAL IP ONE (14:15)
[2018-12-22] MEDS ORDERED: cefTRIAXone SOD 2 GM in D5W MINI-BAG PLUS 50 ML IV SCH (15:00)
[2018-12-22] MEDS ORDERED: METOPROLOL 5 MG/5 ML VIAL IV STA (18:31)
[2018-12-22] MEDS: diltiaZEM 125 MG in NS 100 ML IV SCH (20:13)
[2018-12-22] MEDS: PANTOPRAZOLE 40MG INJ (PROTONIX) (C9113) IV SCH (20:18)
--- NOTE | 2018-12-22 23:57 | ECGEPIP ---
[facility] Test Date: 2018-12-22 Pat Name: JHONNY NEELY Department: Room: A8085-91 Gender: Female [employer] Operator: : [id number] Requested By: BRIDGETT Delgado Order Number: [id number] Reading MD: Sarath Love Measurements Intervals [place] Rate: 105 P: NC: 0 QRS: 1 QRSD: 88 T: 60 QT: 349 QTc: 462 Interpretive Statements ATRIAL FIBRILLATION WITH RAPID VENTRICULAR RESPONSE Delayed anterior R wave progression Nonspecific ST-T wave abnormalities Last tracing done 12-21-18 was sinus, but previous tracing done 02-14-16 showed atrial fibrillation Electronically Signed on 12-22-2018 23:56:56 EDT by Sarath Love
[2018-12-23] VITALS (22 sets, daily range): BP systolic 86–116; BP diastolic 47–61
[2018-12-23] MEDS: diltiaZEM 125 MG in NS 100 ML IV SCH ×3 (05:42→20:27)
[2018-12-23 05:46] LABS: ALBUMIN 1.7 GM/DL (3.2-5.2); BILIRUBIN,TOTAL 0.2 MG/DL (0.2-1.0); CALCIUM LEVEL 7.9 MG/DL (8.8-10.2); CREATININE FOR GFR 7.42 MG/DL (0.55-1.30); GLOMERULAR FILTRATION RATE 5.6 (>32); POTASSIUM SERUM 3.7 MEQ/L (3.5-5.1); TOTAL PROTEIN 5.4 GM/DL (6.4-8.2)
[2018-12-23 06:25] LABS: ABG BASE EXCESS -0.6 (-2.0-2.0); ABG HCO3 24.5 MEQ/L (22.0-26.0); ABG O2 SATURATION 94.5 % (95.0-99.0); ABG PARTIAL PRESSURE O2 74.2 mmHg (75.0-100.0); ABG TOTAL CO2 25.8 MEQ/L (23.0-31.0); ABG pH (ARTERIAL) 7.384 UNITS (7.350-7.450)
[2018-12-23] MEDS: HEPARIN SOD (PORCINE) 5000 UNITS/ML VIAL SC SCH ×3 (06:45→22:53)
--- NOTE | 2018-12-23 08:03 | REP ---
Portable chest, 06:57 a.m., single AP view with the patient semi upright: Comparison is 12/22/2018. The bibasilar infiltrates and bibasilar pleural effusions are unchanged. The upper lung zones are clear and unchanged. Cardiac size is mildly enlarged, unchanged. There is an endotracheal tube with the tip at the level of the aortic arch in satisfactory location, unchanged. There are surgical clips in the left axilla, unchanged. Impression: There is no interval change. Electronically Signed by Dejuan Galindo MD 12/23/2018 07:55 A
[2018-12-23] MEDS: IPRATROPIUM 0.5MG/ALBUTEROL 2.5MG INH SOL UD 3ML (DUONEB)(J7620) NEB SCH ×4 (08:30→19:26)
--- NOTE | 2018-12-23 08:47 | CCN ---
DATE: 12/23/2018 CRITICAL CARE TIME: 1 hour this excludes all procedures. Yuki had an episode of atrial fibrillation with RVR last evening. I did give IV metoprolol initially however patient is unable to tolerate by mouth and will need snf coverage until she is able to tolerate by mouth, therefore I have initiated Diltiazem drip. Currently she is on 10 mg. She does not have known systolic dysfunction. This morning remains hypoxic still and the FIO2 of 0.50 with an oxygen saturation ranging 89-90. Unfortunately, unable to have an OG tube due to esophageal ulceration and the reason why she actually presented to the emergency room with esophageal impaction. Cultures came back with ESBL E-coli antibiotics were adjusted this morning. Discussed with pharmacy imipenem dosing. The patient still has some urine output despite being asked to dialysis. On sedation vacation this morning the patient awakes and shakes her head yes or no to questions. She shakes her head no to the question are you in pain. She appears to be quite comfortable on mechanical ventilation at this point in time. PHYSICAL EXAMINATION: Temperature is 79.9, pulse is 88, irregular regular with a respiratory rate of 18, blood pressure ranging high 90s to low 100 on propofol drip oxygen saturation is 90% on 0.50 FIO2. General: Awake, on mechanical ventilation. Responds appropriately to questions. HEENT: Sclerae clear and anicteric. Pupils equal and reactive to light. Mucous membranes are moist without lesions. Tongue is midline. She is edentulous. Endotracheal tube is in place. No OG or NG. Neck is supple with no tracheal deviation. There is elevated jugular venous pulse. Neck: No mass or thyromegaly. Lymph no cervical, supraclavicular axillary adenopathy. Irregular regular S1-S2 without audible murmur rub or gallop. Minimal systemic edema. There is decreased perfusion with slow capillary refill but dorsalis pedis are present and palpable. Pulmonary: Decreased breath sounds bilaterally dullness to percussion bilaterally. No accessory muscle use. Abdomen: Soft, nontender, nondistended with dialysis catheter in the left lower quadrant without surrounding erythema. Extremities: As mentioned above with poor capillary refill some minimal peripheral cyanosis, no significant clubbing. Minimal edema. LABORATORY EVALUATION. CBC was not performed today. Will order one on morning rounds. Sodium is 136, potassium 3.7, chloride 104, bicarb 21, BUN of 54, creatinine 7.42 with a calcium is 7.9. Albumin is down to 1.7. Arterial blood gas shows a pH of 738, pCO2 42, pO2 of 74. Chest x-ray shows bilateral pleural effusions, possibly some minimal improvement on the left upper lobe infiltrate. Endotracheal tube is in good position. Orogastric tube is in good position. 1. Respiratory failure with hypoxia, so requiring too much of oxygen to consider extubation at this point in time. Hopefully with additional dialysis will be able to perform extubation tomorrow. However, given the patient's hypoalbuminemia this is making him more difficult with her volume status. If unable to extubate by tomorrow will consider TPN. 2. E-coli ASBL pneumonia on culture is with multiple resistance placed on imipenem discussed with pharmacy the dosing. 3. A fib with RVR on diltiazem drip. Will obtain echocardiogram. 4. End-stage renal disease on peritoneal dialysis management. Appreciate nephrology management. 5. Anemia. Will recheck CBC this morning. 6. Severe protein malnourishment unable to take p.o. at this point in time because she is unable to tolerate an OG tube because of the large esophageal ulceration and that caused recent food impaction. 6. The patient remains DNR but is willing to accept temporary intubation. Critical care time was 1 hour excludes all procedure.
[2018-12-23] MEDS: PANTOPRAZOLE 40MG INJ (PROTONIX) (C9113) IV SCH ×2 (08:49→20:45)
[2018-12-23] MEDS: IMIPENEM/CILASTATIN 500 MG in D5W MINI-BAG PLUS 100 ML IV SCH ×3 (08:49→20:46)
[2018-12-23] MEDS: PROPOFOL 1,000 MG in IV 1 EA IV SCH ×2 (08:49→16:07)
[2018-12-23] MEDS: CHLORHEXIDINE GLUCONATE 0.12 % 15ML UDC (PERIDEX ORAL RINSE) MT SCH ×2 (08:49→20:45)
[2018-12-23] MEDS: MORPHINE 4 MG/ML 1ML VIAL/SYRINGE (J2270) IV PRN (08:53)
[2018-12-23 08:54] LABS: BASO % 0.3 % (0.0-1.0); EOS # 0.2 10^3/uL (0.0-0.5); EOS % 1.4 % (0.0-3.0); HEMATOCRIT 29.9 % (36.0-47.0); HEMOGLOBIN 9.6 g/dl (12.0-15.5); LYMPH # 1.3 10^3/uL (1.5-5.0); LYMPH % 11.2 % (24.0-44.0); MEAN CORPUSCULAR HEMOGLOBIN 33.1 pg (27.0-33.0); MEAN CORPUSCULAR HGB CONC 32.1 g/dl (32.0-36.5); MEAN CORPUSCULAR VOLUME 103.1 fl (80.0-96.0); MONO # 0.4 10^3/uL (0.0-0.8); MONO % 3.8 % (0.0-5.0); NEUTROPHILS # 9.2 10^3/uL (1.5-8.5); NEUTROPHILS % 81.9 % (36.0-66.0); PLATELET COUNT, AUTOMATED 217 10^3/uL (150-450); WHITE BLOOD COUNT 11.3 10^3/uL (4.0-10.0)
--- NOTE | 2018-12-23 20:05 | CR ---
DATE OF CONSULTATION: 12/22/2018 CONSULTATION REPORT FOR: Dereje Lozada DO REASON FOR CONSULTATION: Is to assist in the management of end-stage renal disease. HISTORY OF PRESENT ILLNESS: Mrs. Lange is an 78-year-old female very well-known to me. She has known history of longstanding type 2 diabetes, hypertension, end-stage renal disease currently on peritoneal dialysis, history of atrial fibrillation, hyperlipidemia and COPD. She presented with recurrent vomiting and shortness of breath to emergency room. A CT scan of chest done in the emergency room raised suspicion for possible esophageal obstruction. The patient was also quite hypoxic and required 6 liters of oxygen. She required an urgent upper endoscopy due to food impaction in her esophagus and required an intubation for upper endoscopy. After endoscopy, now she is admitted to intensive care unit. I did come to see her in the emergency room, however the patient had already gone to operating room at that time last evening and I could not see her at that time. Dr. Lozada had talked to me over the phone and did not feel that there was any emergent need for a nephrology consultation last evening, so the patient is seen this morning. PAST MEDICAL AND SURGICAL HISTORY: 1. Longstanding history of hypertension. 2. Type 2 diabetes. 3. End-stage renal disease, on peritoneal dialysis. 4. History of recurrent E. coli UTIs. 5. History of peritonitis in the past. 6. History of diastolic congestive heart failure. 7. History of atrial fibrillation and flutter. 8. COPD. 9. History of TIA in the past. 10. History of depression. 11. History of abdominal aortic aneurysm without rupture. 12. History of anemia of end-stage renal disease. Past surgical history is significant for tonsillectomy in childhood, partial hysterectomy, bilateral cataract surgery, bilateral total knee replacement, melanoma of left ankle and peritoneal dialysis catheter placement. ALLERGIES: The patient has allergy to IBUPROFEN, LATEX and CARBAMIDE. PERSONAL AND SOCIAL HISTORY: The patient is an active smoker. Denies any illicit drug use or alcohol use. FAMILY HISTORY: Is negative for end-stage renal disease. MEDICATIONS: Her home medications include: - Zyrtec 10 mg daily - Tums 500 mg every 4 hours as needed for heartburn - Celexa 20 mg daily - clonidine 0.1 mg three times a day - Aggrenox one tablet twice a day - Lasix 80 mg twice a day - gemfibrozil 600 mg twice a day - hydralazine 50 mg three times a day - losartan 100 mg daily - fish oil one tablet daily - Zofran as needed for nausea - potassium chloride 20 mEq twice a day - Zocor 40 mg at bedtime - vitamin D 1000 units daily - vitamin E 400 units daily REVIEW OF SYSTEMS: At present the patient is intubated and sedated. She is not able to provide much information. Apparently, she has been vomiting for last 4-5 days and presented to the emergency room just yesterday. She was found to have pneumonia due to aspiration and esophageal obstruction. She is now intubated after upper endoscopy. She was hypotensive yesterday on arrival and received some IV fluid in the emergency room. She was also hypoxic at that time. No other pertinent information is available at present. She did have upper endoscopy and was noticed to have esophageal ulcer and obstruction with food impaction which was relieved. She also had bronchoscopy for possible aspiration. PHYSICAL EXAMINATION: Elderly lady laying in the bed with eyes closed but she does respond to verbal commands and answers questions by nodding her head. Temperature is 98.7 degrees Fahrenheit, heart rate 103 per minute and respiratory rate 18 per minute. Blood pressure 103/52 mmHg and oxygen saturation is about 90%. Endotracheal tube is in place. Head is atraumatic. Neck is supple and JVD not abnormally elevated. Heart sounds are tachycardiac and lungs have good bilateral air entry. Abdomen soft and nontender and bowel sounds are normal. Peritoneal dialysis catheter is intact. Extremities have no cyanosis or clubbing. Neurologically she is awake and moves all limbs. She is able to answer simple questions by nodding her head. LABORATORY DATA: On admission, WBC count 11.2, hemoglobin 10.8 and hematocrit 34.4. Platelets 254. Today, WBC count is 11.2, hemoglobin 9.5 and hematocrit 30.6. Platelets are 203. Blood gas this morning showed a pH of 7.35, pCO2 44.7, pO2 73 and bicarbonate 23. Urinalysis showed 20 WBCs and 19 RBCs with 3+ bacteria. INR is 1.1. Chest x-ray done this morning showed right pleural effusion which is unchanged. Bilateral pulmonary infiltrates are also unchanged. Endotracheal tube with tip 3 cm from the claudia. PROBLEMS: 1. End-stage renal disease. The patient has been on peritoneal dialysis and was performing her peritoneal dialysis regularly up until yesterday. Her electrolytes are within normal range and she does not have any metabolic acidosis at present. We will resume her peritoneal dialysis with five exchanges per day using 1.5 liters fluid. We will add heparin 1000 units to one exchange of today to ensure adequate drainage and no buildup of fibrin. 2. Hypotension. Most likely this is related to pneumonia and she is currently not on any pressors. We will use only 1.5% dialysis solution today in order to prevent further worsening of her hypotension. 3. Respiratory failure and pneumonia. The patient is being managed by Dr. Lozada and remains on the ventilator. She is receiving appropriate antibiotics and is currently afebrile. 4. Vomiting with esophageal obstruction. She had upper endoscopy and esophageal obstruction was corrected. She is being treated with intravenous pantoprazole due to esophageal ulcer. Plan per GI recommendations. 5. Anemia. Her anemia is stable and does not need any emergent intervention. Thank you for involving me in the care of Mrs. Lange. I will follow her along with you.
[2018-12-24] VITALS (22 sets, daily range): BP systolic 110–146; BP diastolic 53–90
[2018-12-24] MEDS: IMIPENEM/CILASTATIN 500 MG in D5W MINI-BAG PLUS 100 ML IV SCH ×4 (02:24→20:08)
[2018-12-24] MEDS: HEPARIN SOD (PORCINE) 5000 UNITS/ML VIAL SC SCH ×3 (05:47→21:12)
[2018-12-24] MEDS: PROPOFOL 1,000 MG in IV 1 EA IV SCH (05:48)
[2018-12-24 05:55] LABS: ABG BASE EXCESS -0.8 (-2.0-2.0); ABG HCO3 23.9 MEQ/L (22.0-26.0); ABG O2 SATURATION 90.6 % (95.0-99.0); ABG PARTIAL PRESSURE CO2 39.7 mmHg (35.0-45.0); ABG PARTIAL PRESSURE O2 61.9 mmHg (75.0-100.0); ABG STANDARD HCO3 23.7 MEQ/L (22.0-26.0); ABG TOTAL CO2 25.1 MEQ/L (23.0-31.0); ABG pH (ARTERIAL) 7.398 UNITS (7.350-7.450)
--- NOTE | 2018-12-24 06:42 | IPN ---
DATE OF VISIT: 12/23/2018 Ms. Lange is seen this morning on her bedside. She remains intubated and sedated. She is currently on low dose Cardizem drip due to her atrial fibrillation. Her peritoneal dialysis is in progress and is working very well. Peritoneal fluid return has been clear. At present, she is not receiving any nutrition and she is not suitable for a nasogastric tube placement due to a large esophageal ulcer. She is now being treated with Primaxin and ceftriaxone for her pneumonia. On physical examination, temperature 97.9 degrees Fahrenheit, heart rate 105 per minute and respiratory rate 18 per minute. Blood pressure 105/60 mmHg and oxygen saturation 88% on 50% oxygen. Head is atraumatic. Endotracheal tube is in place. Neck veins are not abnormally distended. Heart sounds are tachycardiac and lungs have diminished breath sounds at dependent parts. Abdomen: Soft and nontender. Peritoneal dialysis catheter is intact. Bowel sounds are present. Extremities have no cyanosis or clubbing. Today's labs show WBC count 11.3, hemoglobin 9.6 and hematocrit 29.9. Platelets 217. Sodium 136, potassium 3.7, chloride 104, CO2 21, BUN 54 and creatinine 7.42. Glucose 86 and calcium 7.9. Total protein is 5.4 and albumin 1.7. PROBLEMS: 1. Acute respiratory failure related to pneumonia. The patient remains on antibiotics and is being managed by Dr. Lozada. She is still requiring 50% oxygen. Her volume status seems reasonably well-compensated, however, she does have pleural effusion. I will defer to Dr. Lozada to decide if she needs to have a thoracentesis. 2. End-stage renal disease. The patient is receiving peritoneal dialysis which is working well. At present, we will continue with current prescription. 3. Anemia. Her anemia is mild and stable and we will continue to monitor closely. No urgent intervention is indicated. 4. Nutrition. The patient is currently not receiving any nutrition. Dr. Lozada has a plan to start total parenteral nutrition (TPN) at some point. I would recommend to start TPN sooner than later as the patient is receiving peritoneal dialysis and likely to develop worsening hypoalbuminemia. We can also manage her electrolytes easily with TPN. 5. Hypotension and atrial fibrillation. At present, her blood pressure is reasonably well-controlled and heart rate is moderately well-controlled with low dose Cardizem drip.
[2018-12-24 07:38] LABS: HEMATOCRIT 30.3 % (36.0-47.0); HEMOGLOBIN 9.8 g/dl (12.0-15.5); MEAN CORPUSCULAR HGB CONC 32.3 g/dl (32.0-36.5); PLATELET COUNT, AUTOMATED 214 10^3/uL (150-450); RED BLOOD COUNT 2.97 10^6/uL (4.00-5.40); WHITE BLOOD COUNT 11.6 10^3/uL (4.0-10.0)
[2018-12-24] MEDS: IPRATROPIUM 0.5MG/ALBUTEROL 2.5MG INH SOL UD 3ML (DUONEB)(J7620) NEB SCH ×4 (07:50→19:36)
--- NOTE | 2018-12-24 08:05 | REP ---
Portable chest, 12/24/2018, 06:51 a.m., single AP view with the patient semi upright: Comparison is 12/23/2018. The the bibasilar infiltrates and bilateral pleural effusions are unchanged. The upper lung zones remain clear and unchanged. The endotracheal tube tip is at the level of the aortic arch in satisfactory location, unchanged. Cardiac size is enlarged, unchanged. Impression: No interval change. Electronically Signed by Dejuan Galindo MD 12/24/2018 07:56 A
[2018-12-24 08:06] LABS: ALBUMIN 1.7 GM/DL (3.2-5.2); BILIRUBIN,TOTAL 0.3 MG/DL (0.2-1.0); CALCIUM LEVEL 8.4 MG/DL (8.8-10.2); CREATININE FOR GFR 6.99 MG/DL (0.55-1.30); POTASSIUM SERUM 3.2 MEQ/L (3.5-5.1); TOTAL PROTEIN 5.7 GM/DL (6.4-8.2)
[2018-12-24] MEDS: diltiaZEM 125 MG in NS 100 ML IV SCH (08:57)
[2018-12-24] MEDS: PANTOPRAZOLE 40MG INJ (PROTONIX) (C9113) IV SCH ×2 (09:19→21:12)
[2018-12-24] MEDS ORDERED: FUROSEMIDE 40 MG/4 ML VIAL (J1940) IV ONE (10:00)
[2018-12-24] MEDS ORDERED: IPRATROPIUM 0.5MG/ALBUTEROL 2.5MG INH SOL UD 3ML (DUONEB)(J7620) NEB PRN (10:00)
[2018-12-24] MEDS: METOPROLOL SUCC *XL* 25MG TAB (TopROL *XL*) PO SCH (10:04)
--- NOTE | 2018-12-24 10:06 | IPNPDOC ---
Subjective Date Seen The patient was seen on 12/24/18. Subjective Chief Complaint/HPI 78 years old ESRD patient being treated for respiratory failure due to ESBL E. coli. S/p Extubation this morning. Pt appears o be doing well, alert, not in distress, responds to command and answers question. O2 sat on low side, requiring 505 Ventimask. Vitals are good. Objective Physical Examination General Exam: Positive: Alert, Cooperative, No Acute Distress Eye Exam: Positive: PERRLA, Conjunctiva & lids normal ENT Exam: Positive: Atraumatic Neck Exam: Positive: Supple; Negative: JVD Chest Exam: Positive: Other (b/l bronchial sounds) Heart Exam: Positive: Rate Normal, Irregular Rhythm Abdomen Exam: Positive: Normal bowel sounds, Soft; Negative: Tenderness Extremity Exam: Positive: Edema (mild edema b/l) Skin Exam: Positive: Nl turgor and temperature; Negative: Rash Neuro Exam: Positive: Normal Speech, Normal Tone Psych Exam: Positive: Mental status NL, Mood NL; Negative: Anxiety Assessment /Plan Assessment Acute Hypoxic Respiratory Failure due to ESBL E. coli ESRD on Peritoneal Dialysis -Continue Current ABX; advance diet as tolerated; titrate down O2 as tolerated - Pulmonary following on Resp issues - Nephrology following on renal issues - PT/OT when more stable Plan/VTE VTE Prophylaxis Ordered?: Yes VS, I&O, 24H, Fishbone Vital Signs/I&O Vital Signs Date Time Temp Pulse Resp B/P (MAP) Pulse Ox O2 Delivery O2 Flow Rate FiO2 12/24/18 08:00 45 12/24/18 08:00 97.7 94 18 146/66 (92) 89 12/21/18 15:25 Nasal Cannula I&O- Last 24 Hours up to 6 AM 12/24/18 05:59 Intake Total 9179.0 ml Output Total 8060 ml Balance 1119.0 ml Laboratory Data 24H LABS Laboratory Tests 2 12/24/18 05:32: Blood Gas Bicarbonate Standard 23.7, Arterial Blood pH 7.398, Arterial Blood Partial Pressure CO2 39.7, Arterial Blood Partial Pressure O2 61.9L, Arterial Blood Total CO2 25.1, Arterial Blood HCO3 23.9, Arterial Blood Base Excess -0.8, Arterial Blood Oxygen Saturation 90.6L 12/24/18 07:27: Nucleated Red Blood Cells % (auto) 0.3H, Anion Gap 13, Glomerular Filtration Rat e 6.0L, Blood Urea Nitrogen 50H, Creatinine 6.99H, Sodium Level 135L, Potassium Level 3.2L, Chloride Level 99, Carbon Dioxide Level 23, Calcium Level 8.4L, Aspartate Amino Transf (AST/SGOT) 63H, Alanine Aminotransferase (ALT/SGPT) 29, Alkaline Phosphatase 68, Total Bilirubin 0.3, Total Protein 5.7L, Albumin 1.7L, Albumin/Globulin Ratio 0.43L CBC/BMP Laboratory Tests 12/24/18 07:27 Red Blood Count 2.97 L, Mean Corpuscular Volume 102.0 H, Mean Corpuscular Hemoglobin 33.0, Mean Corpuscular Hemoglobin Concent 32.3, Red Cell Distribution Width 14.0, Calcium Level 8.4 L, Aspartate Amino Transf (AST/SGOT) 63 H, Alanine Aminotransferase (ALT/SGPT) 29, Alkaline Phosphatase 68, Total Bilirubin 0.3, Total Protein 5.7 L, Albumin 1.7 L Microbiology Microbiology 12/21/18 Blood Culture - Preliminary, Resulted No Growth after 48 hours. All Specime... 12/21/18 Blood Culture - Preliminary, Resulted No Growth after 48 hours. All Specime... 12/21/18 Gram Stain - Final, Complete 12/21/18 Sputum Culture - Final, Complete E.coli Esbl 12/21/18 Urine Culture - Preliminary, Resulted E.coli Esbl JUAN DAVID MCDERMOTT MD Dec 24, 2018 10:06
--- NOTE | 2018-12-24 10:12 | CCN ---
DATE: . Ms. Lange is seen in the intensive care unit (ICU). She is currently intubated but plans are for extubation today. The patient is awake and alert. She has been afebrile. She is currently in sinus rhythm but has been intermittently in atrial fibrillation. She has a diltiazem drip that has been turned off since 3:00 a.m. and her rate is generally in the 90s to low 100s. She is did initially get a dose of IV metoprolol and has not been able to get anything by mouth because of the intubation. Her hypoxia had improved and she is currently saturating at 92%. She did have an esophageal impaction with esophageal ulceration and therefore orogastric (OG) tube was not placed. She is being treated for E-coli extended spectrum beta-lactamase (ESBL) with IV imipenem. She does follow with Dr. Evans for peritoneal dialysis for end-stage renal disease. PHYSICAL EXAMINATION: VITALS: Temperature is 98.2, pulse 81, respiratory rate 16, blood pressure is 120/58, pulse ox 91%. Pulse ox did drop to 86 after extubation. GENERAL: She is alert. She is not talking due to extubation but is able to nod yes or no and states she is not in any pain. HEENT: Sclerae is clear and anicteric. Pupils equal and reactive to light. Mucous membranes are moist. Tongue is midline. Endotracheal tube is initially in place. The patient was extubated successfully. NECK: Neck is supple with no cervical lymphadenopathy. No tracheal deviation. No obvious jugular venous distention (JVD). HEART: Regular rate and rhythm. S1, S2 with no murmur. PULMONARY: The patient initially had some scattered rhonchi. Breath sounds were clear after extubation. No accessory muscle use. ABDOMEN: Positive bowel sounds, soft, nontender. EXTREMITIES: No edema. LABORATORY DATA: WBC 11.6, hemoglobin 9.8, hematocrit 30.3, platelets 214. pH 7.398, pCO2 of 39.7, pO2 61.9. Sodium 135, potassium 3.2, chloride 99, carbon dioxide 23, BUN 50, creatinine 6.99, glucose 112, calcium 8.4, total bili 0.3, AST 63, ALT 29, alk phos 68, total protein 5.7, albumin 1.7. Sputum culture positive for E coli ESBL . Urine culture positive for E-coli ESBL. Blood cultures are no growth after 48 hours times two. Chest x-ray from 12/24/2018 shows bilateral pleural effusions. Increased vascular markings bilaterally. Endotracheal tube is in good position. ASSESSMENT/PLAN: 1. Respiratory failure with hypoxia: The patient was extubated this morning. She did desaturate temporarily to the mid 80s. Will monitor her closely. Would consider a trial of bilevel therapy if her hypoxia worsens. She is getting peritoneal dialysis and does still with a little fluid overloaded on imaging. Hopefully with the additional dialysis we will see her hypoxia improved. Dr. Evans is also following and considering total parenteral nutrition( TPN). Now that she is extubated, we will increase her diet to full liquids. The patient does look volume overloaded. We will give her a dose of IV Lasix 40 mg times once. Will continue to monitor closely. Will add Advair and will add acapella. 2. E-coli ESBL pneumonia: She is on imipenem. 3. Atrial fibrillation: She had been on diltiazem drip but this has been off since 3:00 a.m. She is not currently on anything for rate control. We will start her on metoprolol succinate 25 mg daily. Monitor closely. 4. End-stage renal disease on peritoneal dialysis management. Nephrology is following the patient managing peritoneal dialysis. 5. Severe protein malnourishment: The patient was extubated this morning and we will give her a diet with full liquids. 6. Esophageal obstruction/esophageal ulcer: We will start on full liquids but go cautiously because of the esophageal ulcer. For now she will be just started on oral metoprolol succinate. Will consider adding additional oral medications if she tolerates. We will change attending to hospitalist. I did speak to Dr. Mckeon who will be taking the patient. We will continue to follow along. I will also speak to Dr. Evans who was following from a nephrology standpoint. SHERRELL
[2018-12-24] MEDS ORDERED: KCL 10MEQ/100ML SWI (KRUN) 10 MEQ in IV 2 EA IV ONE (11:00)
[2018-12-24] MEDS: ONDANSETRON 4MG/2ML VIAL (J2405) IV PRN (11:35)
[2018-12-24] MEDS: MORPHINE 4 MG/ML 1ML VIAL/SYRINGE (J2270) IV PRN (11:35)
--- NOTE | 2018-12-24 11:40 | RO ---
DATE OF PROCEDURE: 12/24/2018 PREOPERATIVE DIAGNOSIS: Right pleural effusion. POSTOPERATIVE DIAGNOSIS: Right pleural effusion. PROCEDURE: Right ultrasound guided thoracentesis. SURGEON: Dr. Dereje Lozada OBSERVATION NURSE: Yaya Noyola ANESTHESIA: 10 mL of 1% lidocaine. CONSENT: Written consent was obtained and placed in the chart. DESCRIPTION OF PROCEDURE: After informed consent was reviewed with the patient, she was placed in a sitting position. The largest fluid collection was marked under ultrasound. A time out was performed with two patient identifiers, identifying correct site and correct procedure. The skin was prepped with chlorhexidine and full barrier precaution. 1% lidocaine was then instilled subcutaneously down to the level of the pleura. Upon entering the pleura, there was return of yellow fluid. The needle was then removed. A romaine in the skin was made and the Arrow trocar was advanced into the pleural space with return of clear yellow fluid. A total of 830 mL was drawn. The procedure was stopped due to decreased fluid return. The catheter was removed under exhalation and a Band-Aid was placed over the site. There were no observed complications. Fluid will be sent for cytology, infectious workup, protein analysis, LDH. Most likely, this is secondary to her volume status.
[2018-12-24 11:47] LABS: PH BODY FLUID 7.457 UNITS (NOT ESTABLISHED); SOURCE, BODY FLUID pH PLEURAL
[2018-12-24] MEDS: ADVAIR HFA 230/21MCG INHALER INH SCH ×2 (12:06→19:36)
[2018-12-24 12:34] LABS: AMYLASE, BODY FLUID 29 U/L (NOT ESTABLISHED); CHOLESTEROL, BODY FLUID 64 MG/DL (NOT ESTABLISHED); LDH, BODY FLUID 90 U/L (NOT ESTABLISHED); SOURCE, BODY FLUID ALBUMIN PLEURAL; SOURCE, BODY FLUID AMYLASE PLEURAL; SOURCE, BODY FLUID CHOL PLEURAL; SOURCE, BODY FLUID GLUCOSE PLEURAL; SOURCE, BODY FLUID LDH PLEURAL; SOURCE, BODY FLUID TOT PROTEIN PLEURAL; SOURCE, BODY FLUID TRIG PLEURAL; TOTAL PROTEIN, BODY FLUID 2.8 G/DL (NOT ESTABLISHED); TRIGLYCERIDE, BODY FLUID 38 MG/DL (NOT ESTABLISHED)
[2018-12-24 12:45] LABS: APPEARANCE, BODY FLUID CLEAR (CLEAR); PLEURAL FL COLOR YELLOW (COLORLESS); SOURCE, BODY FLUID PLEURAL
[2018-12-24 15:43] LABS: CALCIUM LEVEL 8.6 MG/DL (8.8-10.2); CREATININE FOR GFR 6.57 MG/DL (0.55-1.30); GLOMERULAR FILTRATION RATE 6.5 (>32); POTASSIUM SERUM 3.3 MEQ/L (3.5-5.1)
--- NOTE | 2018-12-24 21:35 | IPN ---
DATE: 12/24/2018 Mrs. Lange is seen this morning on her bedside in intensive care unit. She has been extubated this morning and is currently on oxygen via facemask. She is awake and responds appropriately. Peritoneal dialysis exchange is in progress. She has been retaining about 100 mL from each exchange. PHYSICAL EXAMINATION: Temperature 97.7 degrees Fahrenheit, heart rate 90 per minute and respiratory rate 22 per minute. Blood pressure 119/54 mmHg and oxygen saturation 90%. Her head is atraumatic. Neck is supple and jugular venous distention (JVD) difficult to be assessed. Lungs have diminished breath sounds at the bases and mild expiratory wheezing. Heart sounds are regular. Abdomen is soft and nontender and bowel sounds are normal. Peritoneal dialysis catheter is intact. Extremities have no cyanosis or clubbing. Neurologically, she is awake and responds appropriately. LABORATORY DATA: Today's laboratories show WBC count 11.6, hemoglobin 9.8 and hematocrit 30. Platelets 214. Sodium 135, potassium 3.2, CO2 23, BUN 50 and creatinine 6.99. Calcium 8.4. Total protein 5.7 and albumin 1.7. Her urine and sputum culture have both shown E-coli with ESBL. PROBLEMS: 1. End-stage renal disease. The patient has been on peritoneal dialysis and we will continue with the same. She is currently receiving five exchanges per day. 2. Respiratory failure and pleural effusion. I have requested Dr. Lozada for right thoracentesis. We are going to switch her peritoneal dialysis to 2.5% fluid. 3. Hypokalemia. This is nutritional and chronic. She has not been eating well for several days and now she has been nothing by mouth since admission. We will give her potassium supplement with potassium 10 mEq times two and also start some oral nutrition with Ensure. 4. Atrial fibrillation and hypotension. Her ventricular rate is reasonably well-controlled and blood pressure is improved. She remains on calcium channel andre. 5. Pneumonia. The patient has been successfully extubated and remains on antibiotics with imipenem. She is still being followed by Dr. Lozada. SHERRELL
--- NOTE | 2018-12-24 21:46 | ECHO ---
DATE OF PROCEDURE: 12/23/2018 DATE OF : 1940 AGE: 78 GENDER: Gender HEIGHT: 68 inches WEIGHT: 169 pounds BODY SURFACE AREA: 1.91 meters squared INPATIENT: Intensive care unit (ICU), room 3201 REFERRING PHYSICIAN: Dr. Dereje Lozada INDICATION: Abnormal EKG. MEASUREMENTS: 2D Measurements: RV: 4.2 cm LV: 4.2 cm Septum: 1.2 cm Posterior wall: 1.2 cm Aortic root: 3.0 cm LA: 3.8 cm LVEF: 65-70% DOPPLER MEASUREMENTS: AV: 1.1 meters per second LVOT: 0.8 meters per second LVOT diameter: 2.0 cm MV-E: 91, A: 39, EA ratio: 2.3 Early mitral deceleration time: 137 ms E prime: 6.7, A prime: 6, E/E prime ratio: 13.6 Pulmonary capillary wedge pressure: 17.3 mmHg PV: 0.8 meters per second Pulmonary artery acceleration time: 116 milliseconds RVSP: 40-45 mmHg IVC: 2.0 cm COMMENTS: Underlying multifocal atrial rhythm - multifocal atrial tachycardia with rate averaging 90-100 bpm. No intraventricular conduction disturbance. Technically challenging study in light of the patient's body habitus but diagnostically useful information was still obtained. M-mode and two-dimensional echocardiography was performed with pulsed, continuous wave, color flow and tissue Doppler studies. Borderline concentric left ventricular hypertrophy with localized septal wall motion abnormality (RV pressure overload?) but other left ventricular wall segments were hyperkinetic. Mildly dilated left atrium with impairment of left ventricular (LV) diastolic function and current estimated mean left atrial pressure was mildly elevated. Mildly dilated right heart chambers with adequate free wall motion and Doppler evidence of at least moderate pulmonary hypertension. Inferior vena cava (IVC) size upper limits of normal with reduced respiratory collapse in keeping with an elevated central venous pressure. Moderate aortic valvular sclerosis without functional valvular abnormality. Normal aortic root size. Moderate mitral annular calcification without LV inflow tract obstruction and only very mild insufficiency. Normal appearing tricuspid valve with mild insufficiency. No apparent intracardiac mass but small anterior and posterior echo-free spaces, but no sign of cardiac chamber compression. Comparing today's study with February 14, 2016, the size of the pericardial effusion has increased. That study was considerably easier to read, but again showed significant pulmonary hypertension and cor pulmonale.
[2018-12-25] VITALS (9 sets, daily range): BP systolic 122–150; BP diastolic 58–75; O2SAT 92
[2018-12-25] MEDS: IMIPENEM/CILASTATIN 500 MG in D5W MINI-BAG PLUS 100 ML IV SCH ×4 (02:00→21:01)
[2018-12-25] MEDS: ONDANSETRON 4MG/2ML VIAL (J2405) IV PRN (03:52)
[2018-12-25 05:36] LABS: HEMATOCRIT 34.4 % (36.0-47.0); HEMOGLOBIN 10.9 g/dl (12.0-15.5); MEAN CORPUSCULAR HEMOGLOBIN 31.7 pg (27.0-33.0); MEAN CORPUSCULAR HGB CONC 31.7 g/dl (32.0-36.5); PLATELET COUNT, AUTOMATED 222 10^3/uL (150-450); RED BLOOD COUNT 3.44 10^6/uL (4.00-5.40); WHITE BLOOD COUNT 9.8 10^3/uL (4.0-10.0)
[2018-12-25 05:57] LABS: ALBUMIN 1.7 GM/DL (3.2-5.2); BILIRUBIN,TOTAL 0.4 MG/DL (0.2-1.0); CALCIUM LEVEL 8.7 MG/DL (8.8-10.2); CREATININE FOR GFR 6.18 MG/DL (0.55-1.30); GLOMERULAR FILTRATION RATE 6.9 (>32); POTASSIUM SERUM 3.2 MEQ/L (3.5-5.1)
[2018-12-25 05:58] LABS: ABG BASE EXCESS 0.3 (-2.0-2.0); ABG HCO3 26.2 MEQ/L (22.0-26.0); ABG O2 SATURATION 88.3 % (95.0-99.0); ABG PARTIAL PRESSURE CO2 47.7 mmHg (35.0-45.0); ABG PARTIAL PRESSURE O2 57.9 mmHg (75.0-100.0); ABG STANDARD HCO3 24.6 MEQ/L (22.0-26.0); ABG TOTAL CO2 27.7 MEQ/L (23.0-31.0); ABG pH (ARTERIAL) 7.358 UNITS (7.350-7.450)
[2018-12-25] MEDS: HEPARIN SOD (PORCINE) 5000 UNITS/ML VIAL SC SCH ×3 (06:03→22:22)
[2018-12-25] MEDS: KCL 10MEQ/100ML SWI (KRUN) 10 MEQ in IV 1 EA IV ONE ×2 (07:00→08:07)
[2018-12-25] MEDS: ADVAIR HFA 230/21MCG INHALER INH SCH ×2 (07:46→20:28)
[2018-12-25] MEDS: IPRATROPIUM 0.5MG/ALBUTEROL 2.5MG INH SOL UD 3ML (DUONEB)(J7620) NEB SCH ×4 (07:46→20:00)
--- NOTE | 2018-12-25 08:05 | REP ---
Portable chest, 06:53 a.m., single AP view with the patient semi upright: Comparison is 12/24/2018. The endotracheal tube has been removed. The right pleural effusion appears to have decreased in size. The left pleural effusion is unchanged. The bibasilar infiltrates are unchanged. The upper lung zones remain clear. Electronically Signed by Dejuan Galindo MD 12/25/2018 07:56 A
[2018-12-25] MEDS: METOPROLOL SUCC *XL* 25MG TAB (TopROL *XL*) PO SCH (08:06)
[2018-12-25] MEDS: PANTOPRAZOLE 40MG INJ (PROTONIX) (C9113) IV SCH ×2 (08:07→21:01)
--- NOTE | 2018-12-25 08:29 | CCN ---
DATE OF SERVICE: 12/25/2018 Ms. Lange is seen in the intensive care unit (ICU). She was extubated yesterday. She remains on 2 liters by nasal cannula and is saturating in the low 90s. She reportedly had a relatively uneventful night but did complain of some abdominal pain and some nausea. Did have some vomiting. Did get Zofran and reports that she is doing better this morning with no nausea or abdominal pain. She is afebrile. She is being followed by nephrology for peritoneal dialysis. She has been off the diltiazem drip since early yesterday morning/nighttime and is currently on metoprolol succinate 25 mg daily and is rate controlled. She has been out of atrial fibrillation. She is continuing to be treated for Escherichia (E) coli extended spectrum beta-lactamase (ESBL) pneumonia with intravenous (IV) imipenem. PHYSICAL EXAMINATION: Vital signs: Temperature is 96.9, pulse 85, respiratory rate 19, blood pressure 141/67, pulse oximetry 92% on 2 liters. General: The patient is alert. She is sleeping but wakes to voice and is able to speak in relatively complete sentences, but is still pretty sleepy this morning. HEENT: Head is normocephalic, atraumatic. Moist mucous membranes. Tongue is midline. Neck: Neck is supple. No cervical lymphadenopathy. No jugular venous distention (JVD). No tracheal deviation. Heart: Regular rate and rhythm. S1, S2. No murmurs. Pulmonary: Clear to auscultation bilaterally. No wheezes, rales, rhonchi or crackles. Abdomen: Positive bowel sounds. Soft. Nontender. No obvious organomegaly. Extremities: No edema. LABORATORY DATA: WBC 9.8, hemoglobin 10.9, hematocrit 34.4, platelets 222. Sodium 132, potassium 3.2, chloride 98, carbon dioxide 23, BUN 46, creatinine 6.18, glucose 91, calcium 8.7, total bilirubin 0.4, AST is 68, ALT is 34, alkaline phosphatase is 80, total protein 6.0, albumin 1.7. ABG: pH 7.358, pCO2 is 47.7, pO2 is 57.9. Mycoplasma culture pending. AFB culture pending. Fungal culture pending. Sputum culture grew E-coli ESBL. Urine culture grew E-coli ESBL. Blood cultures showed no growth after 72 hours times two. Chest x-ray done today on 12/25/2018 shows a definite improvement to the right base with improved and diminished right-sided pleural effusion with small right-sided pleural effusion remaining. There does remain a left pleural effusion. ASSESSMENT AND PLAN: 1. Pulmonary edema with pleural effusion. The patient did undergo a right-sided thoracentesis yesterday, and significant amount of fluid was removed. The patient's oxygen saturations have improved, but she is still requiring oxygen by nasal cannula at 2 liters. 2. E-coli ESBL pneumonia. She remains on IV imipenem. 3. Atrial fibrillation. The diltiazem drip has been held since at least very early yesterday morning. We will completely discontinue this. She is on metoprolol succinate 25 mg daily. She has been in sinus rhythm all night. Continue to monitor closely. 4. Esophageal obstruction/esophageal ulcer. She is on full liquids. Continue to monitor closely. Pulmonary team will sign off for now, will be available if needed.
[2018-12-25] MEDS ORDERED: KCL 10MEQ/100ML SWI (KRUN) 10 MEQ in IV 1 EA IV ONE (09:00)
[2018-12-25] MEDS ORDERED: POTASSIUM CHLORIDE 10% LIQ 20 MEQ/15 ML UDC PO ONE (10:00)
--- NOTE | 2018-12-25 12:41 | IPNPDOC ---
Text Note Date of Service The patient was seen on 12/25/18. NOTE Subjective and interim updates: -Sleepy feels tired this morning, but says she feels better -No chest pain, no shortness of breath, was extubated yesterday and now back on home 2L NC -Afebrile, hemodynamically stable, and this morning was tolerating liquids but placed back on NPO until official swallow eval given the presentation with esophageal food impaction -Sputum and urine growing ESBL, however blood cultures were negative Objective: Vitals: see below Physical Examination General Exam: Alert, no acute distress, nasal canula in place, cooperative Eye Exam: PERRLA, EOMI, anicteric ENT Exam: Atraumatic, MMM Neck Exam: Supple Chest Exam: clear to auscultation this morning, moving air well, no wheezing or margarita crackles Heart Exam: RRR, no murmurs, rubs or gallops Abdomen Exam: Normoactive bowel sounds, soft, nontender on deep palpation Extremity Exam: No LE edema, warm well perfused Neuro Exam: Sleepy, awake and alert on voice, normal speech, AOx3 Assessment: 78 yo woman with copd on home 2L NC, ESRD on PD, Afib, HTN, AAA, HLD and ?esophageal stricture who presented to the ED with shortness or breath and food regurgitation and went into hypoxemic respiratory failure requiring intubation, now found to have ESBL PNA and UTI, doing well, s/p extubation on imipenem back on her home 2L NC, hemodynamically stable and afebrile, now being transferred to the floor from the ICU. Plan: Hypoxemic respiratory failure: In the setting of 1. likely aspiration given the history of esophageal stricture with food regurgitation, 2. ESBL E.coli pneumonia 3. right sided pleural effusion now s/p thoracentesis. -Initially required intubation, s/p extubation on 12/24 -s/p thoracentesis 12/24 -continuing imipenem for ESBL PNA (day #3) -now back on home 2L nasal canula -Home advair -duoneb q6H and q2 PRN for wheezing -f/u AFB smear and culture, fungal cultures and pleural fluid analysis and cytology E-coli ESBL pneumonia and cystitis: She remains on IV imipenem, day #3 Atrial fibrillation: Was initially placed on a diltiazem drip, now rate contr olled on metoprolol succinate 25 mg daily. -Continue metoprolol succinate 25 QD -Telemetry --> is currently in NSR Esophageal obstruction/stenosis: -Swallow eval, and place on appropriate diet -Aspiration precations DVT prophylaxis: heparin 5000 Q8H Diet: pending swallow evaluation Dispo: pending clinical improvement, being transferred to med/surg given improvement. VS,Fishbone, I+O VS, Fishbone, I+O Laboratory Tests 12/24/18 15:12 Calcium Level 8.6 L 12/25/18 04:56 Calcium Level 8.7 L, Red Blood Count 3.44 L, Mean Corpuscular Volume 100.0 H, Mean Corpuscular Hemoglobin 31.7, Mean Corpuscular Hemoglobin Concent 31.7 L, Red Cell Distribution Width 13.5, Aspartate Amino Transf (AST/SGOT) 68 H, Alanine Aminotransferase (ALT/SGPT) 34, Alkaline Phosphatase 80, Total Bilirubin 0.4, Total Protein 6.0 L, Albumin 1.7 L Vital Signs Date Time Temp Pulse Resp B/P (MAP) Pulse Ox O2 Delivery O2 Flow Rate FiO2 12/25/18 08:06 83 144/66 12/25/18 08:00 97.5 15 90 2.0 12/25/18 07:46 Nasal Cannula 12/24/18 17:00 40 I&O- Last 24 Hours up to 6 AM 12/25/18 06:00 Intake Total 9280 ml Output Total 9430 ml Balance -150 ml RONAL MEMBRENO MD Dec 25, 2018 12:41
--- NOTE | 2018-12-25 18:11 | IPN ---
DATE: 12/25/2018 Mrs. Lange is seen this morning on her bedside in intensive care unit. Her peritoneal dialysis exchange is in progress. She is very weak and reports loss of appetite. Nursing staff reports that she has not been eating or drinking much. She is able to swallow at least liquids without much difficulty. She had a right thoracentesis done yesterday by Dr. Lozada, and about 800 mL fluid was removed. Her dyspnea has improved significantly. PHYSICAL EXAMINATION: Temperature 97.5 degrees Fahrenheit, heart rate 83 per minute, respiratory rate 15 per minute, blood pressure 144/66 mm of mercury, and oxygen saturation 90% on 2 liters oxygen. She is somewhat lethargic but easily arousable. Head is atraumatic. Neck is supple and without jugular venous distention (JVD) or thyroid enlargement. Heart sounds are regular, and lungs with slightly diminished breath sounds at bases. Abdomen soft and nontender. Bowel sounds are normal. Extremities without any cyanosis or clubbing. Neurologically, she is awake and able to answer questions without any problem. Today's labs show WBC count 9.8, hemoglobin 10.9, hematocrit 34.4. Sodium 132, potassium 3.2, BUN 46, creatinine 6.18, glucose 91, and calcium 8.7. PROBLEMS: 1. End-stage renal disease. The patient remains on peritoneal dialysis, and we will continue with five exchanges per day. 2. Congestive heart failure and hypervolemia. She had a pleural effusion drained yesterday, and we are using 2.5% fluid. Her volume status seems reasonably well compensated now. 3. Hypokalemia. This is chronic and partly related to poor oral intake and partly related to dialysis. She will be given potassium supplement by mouth now, as she was unable to tolerate intravenous potassium run. She is still not eating much, so it will be difficult to improve her potassium level without significant supplement. 4. Hyponatremia. Her sodium level is also gradually declining due to poor oral intake of diet. We will continue to monitor closely. 5. Protein calorie malnutrition. The patient is not eating much and has not been eating much for almost a week. We are trying and encouraging her to take Ensure, which will help hopefully. We are trying to avoid total parenteral nutrition (TPN) due to risk of more complications. 6. Anemia. Her anemia is stable at this point and does not need any urgent intervention.
[2018-12-26] MEDS: IMIPENEM/CILASTATIN 500 MG in D5W MINI-BAG PLUS 100 ML IV SCH ×4 (02:15→20:19)
[2018-12-26] MEDS: ONDANSETRON 4MG/2ML VIAL (J2405) IV PRN ×3 (03:44→23:09)
[2018-12-26 05:28] LABS: HEMATOCRIT 31.1 % (36.0-47.0); HEMOGLOBIN 10.3 g/dl (12.0-15.5); MEAN CORPUSCULAR HEMOGLOBIN 32.3 pg (27.0-33.0); MEAN CORPUSCULAR HGB CONC 33.1 g/dl (32.0-36.5); MEAN CORPUSCULAR VOLUME 97.5 fl (80.0-96.0); PLATELET COUNT, AUTOMATED 234 10^3/uL (150-450); RED BLOOD COUNT 3.19 10^6/uL (4.00-5.40); WHITE BLOOD COUNT 9.1 10^3/uL (4.0-10.0)
[2018-12-26 05:58] LABS: ALBUMIN 1.6 GM/DL (3.2-5.2); BILIRUBIN,TOTAL 0.4 MG/DL (0.2-1.0); CALCIUM LEVEL 8.3 MG/DL (8.8-10.2); CREATININE FOR GFR 5.69 MG/DL (0.55-1.30); GLOMERULAR FILTRATION RATE 7.6 (>32); TOTAL PROTEIN 5.5 GM/DL (6.4-8.2)
[2018-12-26 06:00] VITALS: BP 106/70
[2018-12-26] MEDS: HEPARIN SOD (PORCINE) 5000 UNITS/ML VIAL SC SCH ×3 (06:17→21:58)
[2018-12-26 06:21] LABS: ABG BASE EXCESS 2.4 (-2.0-2.0); ABG HCO3 27.4 MEQ/L (22.0-26.0); ABG PARTIAL PRESSURE CO2 44.5 mmHg (35.0-45.0); ABG PARTIAL PRESSURE O2 61.2 mmHg (75.0-100.0); ABG STANDARD HCO3 26.5 MEQ/L (22.0-26.0); ABG TOTAL CO2 28.8 MEQ/L (23.0-31.0); ABG pH (ARTERIAL) 7.408 UNITS (7.350-7.450)
[2018-12-26] MEDS ORDERED: POTASSIUM CHLORIDE 10% LIQ 20 MEQ/15 ML UDC PO ONE (07:15)
--- NOTE | 2018-12-26 07:21 | IPNPDOC ---
Text Note Date of Service The patient was seen on 12/26/18. NOTE Subjective: -Sleepy, tired, but no complaints this morning -Not taking much by mouth but will try the ensure supplements -No chest pain, no shortness of breath, was extubated yesterday and now back on home 2L NC Objective: Vitals: see below Physical Examination General Exam: Alert, no acute distress, nasal canula in place, cooperative Eye Exam: PERRLA, EOMI, anicteric ENT Exam: Atraumatic, MMM Neck Exam: Supple Chest Exam: clear to auscultation, moving air well, no wheezing or margarita crackles Heart Exam: RRR, no murmurs, rubs or gallops Abdomen Exam: Normoactive bowel sounds, soft, nontender on deep palpation Extremity Exam: No LE edema, warm well perfused Neuro Exam: Sleepy, awake and alert on voice, normal speech, AOx3 Assessment: 78 yo woman with copd on home 2L NC, ESRD on PD, Afib, HTN, AAA, HLD and ?esophageal stricture who presented to the ED with shortness or breath and food regurgitation and went into hypoxemic respiratory failure requiring intubation, now found to have ESBL PNA and UTI, doing well, s/p extubation on imipenem back on her home 2L NC, hemodynamically stable and afebrile with course c/b malnutrit ion now encouraging dietary supplements. Plan: Hypoxemic respiratory failure: In the setting of 1. likely aspiration given the history of esophageal stricture with food regurgitation, 2. ESBL E.coli pneumonia 3. right sided pleural effusion now s/p thoracentesis. -Initially required intubation, s/p extubation on 12/24 -s/p thoracentesis / -continuing imipenem for ESBL PNA (day #4) -now back on home 2L nasal canula -Home advair -duoneb q6H and q2 PRN for wheezing -f/u AFB smear and culture, fungal cultures and pleural fluid analysis and cytology E-coli ESBL pneumonia and cystitis: She remains on IV imipenem, day #4 Atrial fibrillation: Was initially placed on a diltiazem drip, now rate controlled on metoprolol succinate 25 mg daily. -Continue metoprolol succinate 25 QD Esophageal obstruction/stenosis: -had swallow eval, on full liquid diet -Aspiration precations DVT prophylaxis: heparin 5000 Q8H Diet: full liquid Dispo: pending clinical improvement and treatment completion VS,Fishbone, I+O VS, Fishbone, I+O Laboratory Tests 12/26/18 05:17 Red Blood Count 3.19 L, Mean Corpuscular Volume 97.5 H, Mean Corpuscular Hemoglobin 32.3, Mean Corpuscular Hemoglobin Concent 33.1, Red Cell Distribution Width 13.3, Calcium Level 8.3 L, Aspartate Amino Transf (AST/SGOT) 39 H, Alanine Aminotransferase (ALT/SGPT) 26, Alkaline Phosphatase 77, Total Bilirubin 0.4, Total Protein 5.5 L, Albumin 1.6 L Vital Signs Date Time Temp Pulse Resp B/P (MAP) Pulse Ox O2 Delivery O2 Flow Rate FiO2 12/26/18 06:00 98.0 89 14 106/70 (82) 93 2.0 12/25/18 07:46 Nasal Cannula 12/24/18 17:00 40 I&O- Last 24 Hours up to 6 AM 12/26/18 06:00 Intake Total 8300 ml Output Total 8150 ml Balance 150 ml RONAL MEMBRENO MD Dec 26, 2018 07:21
[2018-12-26] MEDS: ADVAIR HFA 230/21MCG INHALER INH SCH ×2 (07:39→20:28)
[2018-12-26] MEDS: IPRATROPIUM 0.5MG/ALBUTEROL 2.5MG INH SOL UD 3ML (DUONEB)(J7620) NEB SCH ×4 (07:39→20:00)
--- NOTE | 2018-12-26 07:54 | REP ---
Portable chest x-ray: Single view. History: Respiratory failure. Comparison chest x-ray: December 25, 2018. Findings: EKG electrode and oxygen delivery tubing are seen. Pleural angles are blunted suggesting bilateral effusions. Cardiomegaly is observed as before. No focal infiltrate is seen. Impression: Blunted pleural angles bilaterally. Cardiomegaly. No definite infiltrate seen. Electronically Signed by Leon Payton MD 12/26/2018 08:20 A
[2018-12-26] MEDS: METOPROLOL SUCC *XL* 25MG TAB (TopROL *XL*) PO SCH (08:54)
[2018-12-26] MEDS: PANTOPRAZOLE 40MG INJ (PROTONIX) (C9113) IV SCH ×2 (08:54→20:19)
[2018-12-26 12:19] LABS: MAGNESIUM LEVEL 1.6 MG/DL (1.8-2.4); PHOSPHORUS LEVEL 4.4 MG/DL (2.5-4.9)
[2018-12-26 14:00] VITALS: BP 147/77
[2018-12-26] MEDS ORDERED: POTASSIUM CHL PWD 20 MEQ PACKET PO ONE (14:00)
[2018-12-26] MEDS ORDERED: PROCHLORPERAZINE 10 MG/2 ML VIAL (J0780) IV ONE (14:00)
[2018-12-26] MEDS ORDERED: LIDOCAINE 1% MDV 20ML VIAL As Ordered ONE (15:51)
[2018-12-26] MEDS: HumaLOG INSULIN (NovoLOG) PER UNIT SC SCH (17:56)
[2018-12-26] MEDS ORDERED: SODIUM CHLORIDE IV SCH ×6 (18:00)
[2018-12-26] MEDS ORDERED: FAT EMULSION IV 20% 500 ML IV SCH (18:00)
[2018-12-26] MEDS ORDERED: POTASSIUM CHLORIDE IV SCH ×6 (18:00)
[2018-12-26] MEDS ORDERED: [UNRECOGNIZED DRUG - OTHER] IV SCH ×6 (18:00)
--- NOTE | 2018-12-26 21:18 | IPN ---
DATE: 12/26/2018 Mrs. Lange is seen this morning on her bedside. Her brother is visiting and he is deaf. I did answer his questions by writing. The patient has complained of recurrent vomiting and not tolerating oral medications or any diet. She has no fever or chills. Her peritoneal dialysis has been functioning well and peritoneal dialysis fluid is clear. PHYSICAL EXAMINATION Temperature 98.0 degrees Fahrenheit, heart rate 88 per minute and respiratory rate 14 per minute. Blood pressure 106/70 mmHg and oxygen saturation 93% on 2 liters oxygen. Head is atraumatic. Neck is supple and without jugular venous distention (JVD) or thyroid enlargement. Heart: Sounds are irregular in rhythm and lungs with diminished breath sounds at bases. Abdomen: Soft and nontender and peritoneal dialysis catheter is intact. Extremities have no cyanosis or clubbing. Neurologically she is awake and at her baseline mentation. Today's labs show WBC count 9.1, hemoglobin 10.3 and hematocrit 31. Platelets 234. Sodium 133, potassium 3.0, CO2 28, BUN 41 and creatinine 5.69. Glucose 99 and calcium 8.3. Total protein 5.5 and albumin 1.6. PROBLEMS 1. End-stage renal disease. The patient is currently on peritoneal dialysis which is working well and she is tolerating it very well. We will continue with the current prescription. 2. Hypokalemia. This is nutritional and the patient is unable to tolerate any kind of potassium supplement. We are going to start her on TPN and will add high amount of potassium in it and electrolytes will be checked again tomorrow morning. 3. Hypernatremia. This is mild and related to poor oral intake and end-stage renal disease. This will also be corrected with TPN then we will make adjustments in her TPN formula as needed. 4. Protein calorie malnutrition. The patient has not been able to eat due to esophageal obstruction and esophageal ulcer. Now she is vomiting frequently and is severely malnourished. I am going to start her on TPN and orders are being written. She will get a PICC line placed and TPN will be started this evening. 5. Anemia. At present her anemia is mild and stable and we will continue to monitor closely. Will give her a dose of Aranesp 100 mcg on Sunday morning. 6. Pneumonia. The patient is clinically improving and will continue with antibiotic therapy.
[2018-12-26 22:00] VITALS: BP 157/77
[2018-12-27] MEDS: HumaLOG INSULIN (NovoLOG) PER UNIT SC SCH ×4 (01:19→17:49)
[2018-12-27] MEDS: IMIPENEM/CILASTATIN 500 MG in D5W MINI-BAG PLUS 100 ML IV SCH ×4 (01:20→20:41)
[2018-12-27] MEDS ORDERED: traMADol 50 MG TAB PO ONE (01:45)
[2018-12-27] MEDS ORDERED: ANALGESIC BALM CRM 120 GM TOP ONE (02:00)
[2018-12-27] MEDS ORDERED: ACETAMINOPHEN TAB 650MG DOSE (2X325MG) PO ONE (02:00)
[2018-12-27 06:00] VITALS: BP 167/81
[2018-12-27 06:38] LABS: HEMATOCRIT 31.4 % (36.0-47.0); HEMOGLOBIN 10.2 g/dl (12.0-15.5); MEAN CORPUSCULAR HGB CONC 32.5 g/dl (32.0-36.5); MEAN CORPUSCULAR VOLUME 98.4 fl (80.0-96.0); PLATELET COUNT, AUTOMATED 267 10^3/uL (150-450); RED BLOOD COUNT 3.19 10^6/uL (4.00-5.40)
[2018-12-27 06:54] LABS: ABG BASE EXCESS -1.1 (-2.0-2.0); ABG HCO3 23.8 MEQ/L (22.0-26.0); ABG O2 SATURATION 93.8 % (95.0-99.0); ABG PARTIAL PRESSURE CO2 40.4 mmHg (35.0-45.0); ABG PARTIAL PRESSURE O2 69.8 mmHg (75.0-100.0); ABG STANDARD HCO3 23.5 MEQ/L (22.0-26.0); ABG pH (ARTERIAL) 7.388 UNITS (7.350-7.450)
[2018-12-27] MEDS: HEPARIN SOD (PORCINE) 5000 UNITS/ML VIAL SC SCH ×3 (06:59→23:21)
[2018-12-27] MEDS: SODIUM CHLORIDE 0.9% INJ 10 ML SYR IV SCH ×2 (07:00→17:41)
[2018-12-27 07:10] LABS: ALBUMIN 1.7 GM/DL (3.2-5.2); BILIRUBIN,TOTAL 0.4 MG/DL (0.2-1.0); CALCIUM LEVEL 8.9 MG/DL (8.8-10.2); CREATININE FOR GFR 5.15 MG/DL (0.55-1.30); GLOMERULAR FILTRATION RATE 8.6 (>32); POTASSIUM SERUM 3.3 MEQ/L (3.5-5.1); TOTAL PROTEIN 5.7 GM/DL (6.4-8.2)
[2018-12-27] MEDS: IPRATROPIUM 0.5MG/ALBUTEROL 2.5MG INH SOL UD 3ML (DUONEB)(J7620) NEB SCH ×4 (07:41→18:19)
[2018-12-27] MEDS: ADVAIR HFA 230/21MCG INHALER INH SCH ×2 (07:41→18:19)
[2018-12-27] MEDS ORDERED: CHLORTHALIDONE 25 MG TAB PO SCH (09:00)
--- NOTE | 2018-12-27 09:00 | IPNPDOC ---
Text Note Date of Service The patient was seen on 12/27/18. NOTE Subjective: -had significant nausea and emesis yesterday requiring both IV zofran and compazine, better today -Sleepy, tired, but no complaints this morning -remains to have poor PO -was started on TPN by nephrology -No chest pain, no shortness of breath, was extubated yesterday and now back on home 2L NC Objective: Vitals: see below Physical Examination General Exam: Alert, no acute distress, nasal canula in place, ill appearing Eye Exam: PERRLA, EOMI, anicteric ENT Exam: Atraumatic, MMM Neck Exam: Supple Chest Exam: clear to auscultation, moving air well, no wheezing or margarita crackles Heart Exam: RRR, no murmurs, rubs or gallops Abdomen Exam: Normoactive bowel sounds, soft, nontender on deep palpation Extremity Exam: No LE edema, warm well perfused Neuro Exam: Sleepy, awake and alert on voice, normal speech, AOx3, very weak without asymmetry and at 3 to 4 out of 5 strength. Assessment: 78 yo woman with copd on home 2L NC, ESRD on PD, Afib, HTN, AAA, HLD and ?esophageal stricture who presented to the ED with shortness or breath and food regurgitation and went into hypoxemic respiratory failure requiring intubation, now found to have ESBL PNA and UTI, doing well, s/p extubation on imipenem back on her home 2L NC, hemodynamically stable and afebrile with course c/b malnutrition and significant N/V now improved as well as now placed on TPN by nephrology. Plan: Hypoxemic respiratory failure: In the setting of 1. likely aspiration given the history of esophageal stricture with food regurgitation, 2. ESBL E.coli pneumonia 3. right sided pleural effusion now s/p thoracentesis. -Initially required intubation, s/p extubation on 12/24 -s/p thoracentesis 12/24 -continuing imipenem for ESBL PNA (day #5) -now back on home 2L nasal canula -Home advair -duoneb q6H and q2 PRN for wheezing -f/u AFB smear and culture, fungal cultures and pleural fluid analysis and cytology E-coli ESBL pneumonia and cystitis: She remains on IV imipenem, day #5 Atrial fibrillation: Was initially placed on a diltiazem drip, now rate controlled on metoprolol succinate 25 mg daily. -Continue metoprolol succinate 25 QD Esophageal obstruction/stenosis: -had swallow eval, on full liquid diet -Aspiration precautions Severe malnutrition: -Replete lytes aggressively -full liquid diet and encourage supplements -was started on TPN by nephrology DVT prophylaxis: heparin 5000 Q8H Diet: full liquid Dispo: pending clinical improvement and safe discharge planning VS,Fishbone, I+O VS, Fishbone, I+O Laboratory Tests 12/27/18 05:33 Red Blood Count 3.19 L, Mean Corpuscular Volume 98.4 H, Mean Corpuscular Hemoglobin 32.0, Mean Corpuscular Hemoglobin Concent 32.5, Red Cell Distribution Width 13.2, Calcium Level 8.9, Aspartate Amino Transf (AST/SGOT) 30, Alanine Aminotransferase (ALT/SGPT) 21, Alkaline Phosphatase 79, Total Bilirubin 0.4, Total Protein 5.7 L, Albumin 1.7 L Vital Signs Date Time Temp Pulse Resp B/P (MAP) Pulse Ox O2 Delivery O2 Flow Rate FiO2 12/27/18 06:00 97.4 89 20 167/81 (109) 94 2.0 12/25/18 07:46 Nasal Cannula 12/24/18 17:00 40 I&O- Last 24 Hours up to 6 AM 12/27/18 06:00 Intake Total 8830 ml Output Total 8800 ml Balance 30 ml RONAL MEMBRENO MD Dec 27, 2018 09:00
[2018-12-27] MEDS: PANTOPRAZOLE 40MG INJ (PROTONIX) (C9113) IV SCH ×2 (09:29→20:57)
[2018-12-27] MEDS: DARBEPOETIN 100 MCG/0.5 ML *NON-DIALYSIS* SYRINGE (J0881) SC SCH (09:29)
[2018-12-27] MEDS: METOPROLOL SUCC *XL* 25MG TAB (TopROL *XL*) PO SCH (09:31)
[2018-12-27] MEDS ORDERED: POTASSIUM CHL PWD 20 MEQ PACKET PO ONE (10:00)
--- NOTE | 2018-12-27 10:07 | REP ---
CHEST PORTABLE: AP portable view of the chest is performed. COMPARISON: 12/26/2018. There is cardiomegaly. There appear to be small effusions. There is very mild adjacent bibasilar atelectasis/infiltrate, unchanged. Mediastinal silhouette is unchanged. IMPRESSION: Stable exam. Electronically Signed by Dejuan Farris MD 12/27/2018 04:35 P
[2018-12-27 11:52] LABS: APPEARANCE, BODY FLUID CLEAR (CLEAR); PERITONEAL DIALYSATE FL COLOR COLORLESS (COLORLESS); SOURCE, BODY FLUID PERITONEAL DIALYSATE
[2018-12-27 14:00] VITALS: BP 170/83
[2018-12-27] MEDS: MORPHINE 4 MG/ML 1ML VIAL/SYRINGE (J2270) IV PRN ×2 (14:07→20:57)
--- NOTE | 2018-12-27 16:04 | REP ---
PICC line insertion under ultrasound guidance. The procedure was performed by NOEMÍ Collado, under the direct supervision of Dr. Farris. The risks and benefits of the procedure were explained to the patient and informed consent was obtained both verbally and written. Directly prior to the start of the procedure, a formal timeout was completed in the procedure room. The left medial brachial vein was localized using ultrasound guidance. The skin was prepped and draped in the sterile fashion. 3 ml 1% lidocaine was used as a local anesthetic. Using ultrasound guidance the left medial brachial vein was cannulated and a 0.018 guidewire was inserted and advanced to the SVC using fluoroscopic guidance. The needle was removed and a 5.5 [place] dilator and peel-away sheath was inserted over the guidewire. 5.5 [place] duel lumen catheter was cut to the length of 40 cm. The dilator was removed and the catheter was inserted over the guide wire with the tip ending in the SVC. The peel-away sheath was removed and the catheter was flushed with heparinized saline as per hospital protocol. The catheter was affixed to the skin and a sterile dressing was applied. The patient tolerated the procedure well and there were no immediate complications. 0.1 minutes of fluoroscopy time was utilized for this procedure. Some fluoroscopic images are performed with last image hold technology. These images require no additional radiation. Reviewed by NOEMÍ Vega 12/26/2018 05:28 P Electronically Signed by Dejuan Farris MD 12/27/2018 03:55 P
[2018-12-27] MEDS: IRBESARTAN 150 MG TAB PO SCH (17:41)
[2018-12-27] MEDS: CHLORTHALIDONE 25 MG TAB PO SCH (17:41)
[2018-12-27] MEDS ORDERED: POTASSIUM CHLORIDE IV SCH ×8 (18:00)
[2018-12-27] MEDS ORDERED: SODIUM CHLORIDE IV SCH ×8 (18:00)
[2018-12-27] MEDS ORDERED: [UNRECOGNIZED DRUG - OTHER] IV SCH ×8 (18:00)
[2018-12-27] MEDS ORDERED: FAT EMULSION IV 20% 500 ML IV SCH (18:00)
[2018-12-27] MEDS: cloNIDine 0.1 MG TAB PO SCH (21:07)
--- NOTE | 2018-12-27 21:08 | IPN ---
DATE: 12/27/2018 Mrs. Lange is seen this morning on her bedside. She is discouraged with her progress and wants to go home. I have explained to her that she is quite sick and receiving intravenous antibiotics and total parenteral nutrition (TPN). She has not been able to swallow and keep anything down, so it will be impossible for her to go home as yet. She has no fever or chills and blood pressure has been stable. PHYSICAL EXAMINATION: Temperature is 97.4 degrees Fahrenheit, heart rate 88 per minute and respiratory rate 20 per minute. Blood pressure 167/80 mmHg and oxygen saturation 94% on 2 liters oxygen. Head is atraumatic. Neck is supple and without any jugular venous distention (JVD) or thyroid enlargement. She has no oral thrush or ulcers. Heart sounds are irregular in rhythm. Lungs with diminished breath sounds at bases. Abdomen is soft and mildly tender. Bowel sounds are present and peritoneal dialysis catheter is intact. Extremities have no cyanosis or clubbing. Today's labs show WBC count 11.0, hemoglobin 10.2 and hematocrit 31.4. Platelets 267. Sodium 133, potassium 3.3, BUN 38 and creatinine 5.15. Glucose 127 and calcium 8.9. PROBLEM #1: End-stage renal disease. The patient continues with peritoneal dialysis, which is working reasonably well and we will continue with current prescription of five exchanges per day. We are using 2.5% fluid at present due to bilateral pleural effusions and risk of hypervolemia. PROBLEM #2: Hypokalemia. Slightly improved, and we will continue with potassium in the TPN. She received TPN only for about 12 hours prior to this blood draw, and her potassium is likely to improve. She is receiving about 60 mEq of potassium in each liter of TPN, which will be continued and electrolytes will be checked again tomorrow morning. PROBLEM #3: Hyponatremia. Mild and stable hyponatremia is likely to improve over the next 24-48 hours. I have increased sodium content in the TPN. PROBLEM #4: Hypomagnesemia. Again, we are adding 8 mEq of magnesium in each liter of TPN and her magnesium level should be rechecked tomorrow morning. PROBLEM #5: Protein-calorie malnutrition. The patient has been on peritoneal dialysis and remains at risk for further protein loss and malnutrition. She is not able to swallow and keep anything down. We will continue with TPN until she is able to eat well. PROBLEM #6: Esophageal ulcer and vomiting. The patient had endoscopy on the day of admission and was found to have impacted food in her esophagus, which caused ulceration. Now she has difficulty swallowing and vomiting. At present, we will continue with proton pump inhibitor (PPI) and only liquids if she can tolerate. We will advance her diet only very slowly over the next few days. PROBLEM #7: Pneumonia due to aspiration. She is clinically improving. She continues with antibiotics.
[2018-12-27 22:00] VITALS: BP 163/79
[2018-12-27] MEDS: SODIUM CHLORIDE 0.9% INJ 10 ML SYR IV PRN (23:28)
[2018-12-28] MEDS: HumaLOG INSULIN (NovoLOG) PER UNIT SC SCH ×4 (00:09→18:46)
[2018-12-28] MEDS: IMIPENEM/CILASTATIN 500 MG in D5W MINI-BAG PLUS 100 ML IV SCH ×3 (01:54→18:47)
[2018-12-28] MEDS: SODIUM CHLORIDE 0.9% INJ 10 ML SYR IV PRN ×3 (03:06→20:22)
[2018-12-28] MEDS: ONDANSETRON 4MG/2ML VIAL (J2405) IV PRN ×2 (03:42→12:38)
[2018-12-28 06:00] VITALS: BP 158/87
[2018-12-28] MEDS: HEPARIN SOD (PORCINE) 5000 UNITS/ML VIAL SC SCH ×3 (06:06→21:53)
[2018-12-28] MEDS: SODIUM CHLORIDE 0.9% INJ 10 ML SYR IV SCH ×2 (06:06→18:47)
[2018-12-28 07:28] LABS: HEMATOCRIT 33.4 % (36.0-47.0); HEMOGLOBIN 10.7 g/dl (12.0-15.5); MEAN CORPUSCULAR HEMOGLOBIN 33.1 pg (27.0-33.0); MEAN CORPUSCULAR VOLUME 103.4 fl (80.0-96.0); PLATELET COUNT, AUTOMATED 233 10^3/uL (150-450); RED BLOOD COUNT 3.23 10^6/uL (4.00-5.40); WHITE BLOOD COUNT 12.3 10^3/uL (4.0-10.0)
[2018-12-28 07:43] LABS: ALBUMIN 1.7 GM/DL (3.2-5.2); BILIRUBIN,TOTAL 0.4 MG/DL (0.2-1.0); CREATININE FOR GFR 4.64 MG/DL (0.55-1.30); GLOMERULAR FILTRATION RATE 9.7 (>32); MAGNESIUM LEVEL 1.8 MG/DL (1.8-2.4); POTASSIUM SERUM 3.4 MEQ/L (3.5-5.1); TOTAL PROTEIN 5.8 GM/DL (6.4-8.2)
[2018-12-28] MEDS: IPRATROPIUM 0.5MG/ALBUTEROL 2.5MG INH SOL UD 3ML (DUONEB)(J7620) NEB SCH ×4 (08:00→20:00)
--- NOTE | 2018-12-28 08:00 | IPNPDOC ---
Text Note Date of Service The patient was seen on 12/28/18. NOTE Subjective: -had significant asymptomatic hypertension yesterday in the setting of held home meds after presenting in severe sepsis -Worked with PT yesterday and sat in chair -remains to have poor PO, started on TPN -No chest pain, no shortness of breath Objective: Vitals: see below Physical Examination General Exam: Alert, no acute distress, nasal canula in place, ill appearing Eye Exam: PERRLA, EOMI, anicteric ENT Exam: Atraumatic, MMM Neck Exam: Supple Chest Exam: clear to auscultation, moving air well, no wheezing or margarita crack les Heart Exam: RRR, no murmurs, rubs or gallops Abdomen Exam: Normoactive bowel sounds, soft, nontender on deep palpation Extremity Exam: No LE edema, warm well perfused Neuro Exam: Sleepy, awake and alert on voice, normal speech, AOx3, very weak without asymmetry Assessment: 78 yo woman with copd on home 2L NC, ESRD on PD, Afib, HTN, AAA, HLD and esophageal ulcer noted on scope who presented to the ED with shortness or breath and food regurgitation and went into hypoxemic respiratory failure requiring intubation, now found to have ESBL PNA and UTI, clinically improved s/p extubation on imipenem back on her home 2L NC, hemodynamically stable and afebrile with course c/b malnutrition and significant N/V, with poor PO now on TPN as well as significant hypertension in the setting of held home meds after presenting in severe sepsis. Plan: Hypoxemic respiratory failure: In the setting of 1. likely aspiration given the history of esophageal stricture with food regurgitation and ulcer, 2. ESBL E.coli pneumonia 3. right sided pleural effusion now s/p thoracentesis. -Initially required intubation, s/p extubation on 12/24 -s/p thoracentesis 12/24 -continuing imipenem for ESBL PNA (day #6) -now back on home 2L nasal canula -Home advair -duoneb q6H and q2 PRN for wheezing -f/u AFB smear and culture, fungal cultures and pleural fluid analysis and cytology E-coli ESBL pneumonia and cystitis: She remains on IV imipenem, day #6 Atrial fibrillation: Was initially placed on a diltiazem drip, now rate controll ed on metoprolol succinate 25 mg daily. -Continue metoprolol succinate 25 QD Esophageal ulcer and history of impaction: -had swallow eval, on full liquid diet -Aspiration precautions -on IV PPI BID -Given poor PO at this time, was placed on TPN Severe malnutrition: -Replete lytes aggressively -full liquid diet and encourage supplements -was started on TPN ESRD on PD: -plan per nephrology DVT prophylaxis: heparin 5000 Q8H Diet: full liquid Dispo: pending clinical improvement VS,Ericbone, I+O VS, Fishbone, I+O Laboratory Tests 12/28/18 07:05 Red Blood Count 3.23 L, Mean Corpuscular Volume 103.4 H, Mean Corpuscular Hemoglobin 33.1 H, Mean Corpuscular Hemoglobin Concent 32.0, Red Cell Distribution Width 13.3, Calcium Level 9.0, Aspartate Amino Transf (AST/SGOT) 30, Alanine Aminotransferase (ALT/SGPT) 16, Alkaline Phosphatase 79, Total Bilirubin 0.4, Total Protein 5.8 L, Albumin 1.7 L Vital Signs Date Time Temp Pulse Resp B/P (MAP) Pulse Ox O2 Delivery O2 Flow Rate FiO2 12/28/18 06:00 97.9 75 18 158/87 (110) 97 2.0 12/25/18 07:46 Nasal Cannula 12/24/18 17:00 40 I&O- Last 24 Hours up to 6 AM 12/28/18 06:00 Intake Total 81944 ml Output Total 81742 ml Balance 916 ml RONAL MEMBRENO MD Dec 28, 2018 08:00
[2018-12-28] MEDS: ADVAIR HFA 230/21MCG INHALER INH SCH ×2 (08:52→19:22)
[2018-12-28] MEDS: cloNIDine 0.1 MG TAB PO SCH ×2 (09:00→21:00)
[2018-12-28] MEDS ORDERED: POTASSIUM CHL PWD 20 MEQ PACKET PO ONE (09:00)
[2018-12-28] MEDS: IRBESARTAN 150 MG TAB PO SCH (09:00)
[2018-12-28] MEDS: METOPROLOL SUCC *XL* 25MG TAB (TopROL *XL*) PO SCH (09:00)
[2018-12-28] MEDS: PANTOPRAZOLE 40MG INJ (PROTONIX) (C9113) IV SCH ×2 (09:20→21:52)
[2018-12-28] MEDS: CHLORTHALIDONE 25 MG TAB PO SCH (09:20)
[2018-12-28 14:00] VITALS: BP 141/71
--- NOTE | 2018-12-28 14:26 | IPN ---
DATE: 12/28/2018 SUBJECTIVE: The patient was seen and examined at the bedside this morning. She was actually sitting on the sofa. She is tolerating the TPN at this time. She continues to get peritoneal dialysis. She is on IV antibiotics as well. The patient is otherwise afebrile and hemodynamically stable. She reports that she started tolerating some liquid diet, but she wants to continue the TPN. OBJECTIVE: Vital signs: Temperature is 97.9 degrees Fahrenheit, blood pressure 180/84, pulse is 116, respiratory of 18, saturating 97% on 2 liters via nasal cannula. Intake and output: Urine output recorded is only 200 mL. Output with the peritoneal dialysis is only 700 mL. PHYSICAL EXAMINATION: General: The patient is awake, alert, oriented times three. She is laying on the sofa. No apparent distress. Head and neck exam: Extraocular muscles intact. Pupils equally round and reactive to light. Mucous membranes are moist. Neck is supple. There is no jugular venous distention (JVD). Cardiovascular: S1, S2. Trace edema of the bilateral lower extremities. Respiratory: Chest is clear to auscultation bilaterally. Bilateral equal air entry. No rales or rhonchi. Abdomen: Soft, obese, positive bowel sounds. Left lower quadrant peritoneal catheter with no tenderness. Musculoskeletal: No clubbing or cyanosis. Pulses are 2+. Central nervous system (MOTORCOACH OPERATOR): No focal deficits. Power is 5/5 in all extremities. LABORATORY REVIEW: CBC showed WBC of 12.3, hemoglobin 10.7, platelets are 233. BMP showed sodium 131, potassium 3.4, chloride 100, bicarbonate 23, BUN 40, creatinine is 4.6, calcium is 9, magnesium 1.8, albumin 1.7. CURRENT INPATIENT MEDICATIONS: The patient's medications were all reviewed by me. There is no change in the medications today as compared with yesterday. She continues to be on IV TPN. ASSESSMENT/PLAN: 1. End-stage renal disease on peritoneal dialysis. The patient continues to be on five manual exchanges a day all 2 liters, all 2.5%. 2. Esophageal ulcer and vomiting. The patient got the impacted food removed from the esophagus. She still has difficulty with swallowing. She continues to be and total parenteral nutrition. I have ordered a special nutrition again today. 3. Hypokalemia. The patient is getting potassium in the TPN as well. She was also given a dose of potassium orally today morning. 4. Hyponatremia. The patient has hypervolemic hyponatremia. Continue the current peritoneal dialysis regimen. Sodium in TPN fluid has been increased and if needed I would change some of the peritoneal exchanges to 4.25%. 5. Aspiration pneumonitis. The patient is getting IV Primaxin; however, the dose was too high for end-stage renal disease. I have changed the Primaxin dose to 500 mg IV q. 12 hourly. 6. Hypertension with end-stage renal disease. Continue current dose of chlorthalidone 25 mg by mouth daily, clonidine 0.1 mg by mouth twice a day, irbesartan 300 mg by mouth daily, metoprolol XL 25 mg by mouth daily. 7. Anemia in end-stage renal disease. Hemoglobin level is 10.7, which is optimal. Continue current dose of Aranesp 100 mcg subcutaneous on Fridays. MTDD
[2018-12-28] MEDS ORDERED: SODIUM CHLORIDE IV SCH ×6 (18:00)
[2018-12-28] MEDS ORDERED: [UNRECOGNIZED DRUG - OTHER] IV SCH ×6 (18:00)
[2018-12-28] MEDS ORDERED: POTASSIUM CHLORIDE IV SCH ×6 (18:00)
[2018-12-28] MEDS ORDERED: FAT EMULSION IV 20% 500 ML IV SCH (18:00)
[2018-12-28] MEDS ORDERED: PROCHLORPERAZINE 10 MG/2 ML VIAL (J0780) IV ONE (18:45)
[2018-12-28] MEDS: TERAZOSIN 1 MG CAP PO SCH (21:00)
[2018-12-28 22:00] VITALS: BP 119/52
[2018-12-29] MEDS ORDERED: CALCIUM CARBONATE 500 MG CHEW U/D PO ONE (00:30)
[2018-12-29] MEDS: HumaLOG INSULIN (NovoLOG) PER UNIT SC SCH ×4 (00:34→18:28)
[2018-12-29] MEDS: HEPARIN SOD (PORCINE) 5000 UNITS/ML VIAL SC SCH ×3 (05:58→21:56)
[2018-12-29] MEDS: IMIPENEM/CILASTATIN 500 MG in D5W MINI-BAG PLUS 100 ML IV SCH ×2 (05:59→18:28)
[2018-12-29 06:00] VITALS: BP 129/59
[2018-12-29] MEDS: SODIUM CHLORIDE 0.9% INJ 10 ML SYR IV SCH ×2 (06:00→18:28)
[2018-12-29 06:23] LABS: HEMATOCRIT 32.1 % (36.0-47.0); MEAN CORPUSCULAR HEMOGLOBIN 32.3 pg (27.0-33.0); MEAN CORPUSCULAR HGB CONC 31.2 g/dl (32.0-36.5); MEAN CORPUSCULAR VOLUME 103.5 fl (80.0-96.0); PLATELET COUNT, AUTOMATED 244 10^3/uL (150-450); WHITE BLOOD COUNT 15.3 10^3/uL (4.0-10.0)
[2018-12-29 06:47] LABS: CALCIUM LEVEL 8.6 MG/DL (8.8-10.2); CREATININE FOR GFR 4.44 MG/DL (0.55-1.30); GLOMERULAR FILTRATION RATE 10.2 (>32); POTASSIUM SERUM 3.8 MEQ/L (3.5-5.1)
[2018-12-29] MEDS: IPRATROPIUM 0.5MG/ALBUTEROL 2.5MG INH SOL UD 3ML (DUONEB)(J7620) NEB SCH ×4 (08:00→20:00)
[2018-12-29] MEDS: ADVAIR HFA 230/21MCG INHALER INH SCH ×2 (08:11→20:28)
--- NOTE | 2018-12-29 08:35 | IPNPDOC ---
Text Note Date of Service The patient was seen on 12/29/18. NOTE Subjective: -continues to have poor PO, on TPN, had significant nausea requiring compazine 10mg IV x 1 in addition to the zofran -No chest pain, no shortness of breath Objective: Vitals: see below Physical Examination General Exam: Alert, no acute distress, nasal canula in place, ill appearing Eye Exam: PERRLA, EOMI, anicteric ENT Exam: Atraumatic, MMM Neck Exam: Supple Chest Exam: clear to auscultation, moving air well, no wheezing or margarita crackles Heart Exam: RRR, no murmurs, rubs or gallops Abdomen Exam: Normoactive bowel sounds, soft, nontender on deep palpation Extremity Exam: No LE edema, warm well perfused Neuro Exam: Awake, alert, normal speech, AOx3, very weak without asymmetry Assessment: 78 yo woman with copd on home 2L NC, ESRD on PD, Afib, HTN, AAA, HLD and esophageal ulcer noted on scope who presented to the ED with shortness or breath and food regurgitation and went into hypoxemic respiratory failure requiring intubation, now found to have ESBL PNA and UTI, clinically improved s/p extubation on imipenem back on her home 2L NC, hemodynamically stable and afebrile with course c/b malnutrition and significant N/V, with poor PO now on TPN as well as significant hypertension in the setting of held home meds after presenting in severe sepsis. Plan: Hypoxemic respiratory failure: In the setting of 1. likely aspiration given the history of esophageal stricture with food regurgitation and ulcer, 2. ESBL E.coli pneumonia 3. right sided pleural effusion now s/p thoracentesis. -Initially required intubation, s/p extubation on 12/24 -s/p thoracentesis / -continuing imipenem for ESBL PNA (day #7) -now back on home 2L nasal canula -Home advair -duoneb q6H and q2 PRN for wheezing -f/u AFB culture, fungal cultures and pleural fluid analysis and cytology E-coli ESBL pneumonia and cystitis: She remains on IV imipenem, day #7 Atrial fibrillation: Was initially placed on a diltiazem drip, now rate controlled on metoprolol succinate 25 mg daily. -Continue metoprolol succinate 25 QD Esophageal ulcer and history of impaction: -had swallow eval, on full liquid diet -Aspiration precautions -on IV PPI BID -Given poor PO at this time, was placed on TPN Severe malnutrition: -Replete lytes aggressively -full liquid diet and encourage supplements -was started on TPN ESRD on PD: -plan per nephrology DVT prophylaxis: heparin 5000 Q8H Diet: full liquid Dispo: pending clinical improvement VS,Fishbone, I+O VS, Fishbone, I+O Laboratory Tests 12/29/18 05:31 Red Blood Count 3.10 L, Mean Corpuscular Volume 103.5 H, Mean Corpuscular Hemoglobin 32.3, Mean Corpuscular Hemoglobin Concent 31.2 L, Red Cell Distribution Width 13.6, Calcium Level 8.6 L Vital Signs Date Time Temp Pulse Resp B/P (MAP) Pulse Ox O2 Delivery O2 Flow Rate FiO2 12/29/18 06:00 98.3 72 20 129/59 (82) 94 2.0 12/28/18 19:25 Nasal Cannula 12/24/18 17:00 40 I&O- Last 24 Hours up to 6 AM 12/29/18 05:59 Intake Total 44534 ml Output Total 40873 ml Balance 355 ml RONAL MEMBRENO MD Dec 29, 2018 08:35
[2018-12-29] MEDS: CHLORTHALIDONE 25 MG TAB PO SCH (10:45)
[2018-12-29] MEDS: IRBESARTAN 150 MG TAB PO SCH (10:45)
[2018-12-29] MEDS: PANTOPRAZOLE 40MG INJ (PROTONIX) (C9113) IV SCH ×2 (10:45→21:56)
[2018-12-29] MEDS: METOPROLOL SUCC *XL* 25MG TAB (TopROL *XL*) PO SCH (10:46)
[2018-12-29] MEDS: cloNIDine 0.1 MG TAB PO SCH ×2 (10:46→21:56)
[2018-12-29 14:00] VITALS: BP 120/53
--- NOTE | 2018-12-29 15:53 | IPN ---
DATE: 12/29/2018 SUBJECTIVE: Patient was seen and examined at the bedside today morning. She continues to be on total parenteral nutrition (TPN). She reports that when she tries to eat, she has a lot of burning, even when she tries to drink Ensure. She ate a little bit of ice cream with the breakfast. There are no issues with the peritoneal dialysis. Total ultrafiltration with peritoneal dialysis since yesterday is 1 liter. OBJECTIVE: VITAL SIGNS: Temperature is 98.3 degrees Fahrenheit, blood pressure 147/58, pulse is 74, respiratory rate of 20, saturating 94% on 2 liters via nasal cannula. INTAKE AND OUTPUT: Urine output recorded is only 25 mL. Ultrafiltration with peritoneal dialysis was 1 liter. Weight in the bed scale is 82.7 kg. PHYSICAL EXAMINATION: GENERAL: Patient is awake, alert, oriented times three, sitting up in the bed in no apparent distress. HEAD AND NECK EXAM: Extraocular muscles intact. Pupils equally round and reactive to light. Mucous membranes are moist. Trace edema of the bilateral lower extremities. RESPIRATORY: Chest is clear to auscultation bilaterally. Bilateral equal air entry. No rales or rhonchi. ABDOMEN: Soft, positive bowel sounds. Left lower quadrant peritoneal dialysis. MUSCULOSKELETAL: No clubbing or cyanosis. Pulses are 2+. CENTRAL NERVOUS SYSTEM (HYDRAULIC LIFT OPERATOR): No focal deficit. Power is 5/5 in all extremities. LABORATORY REVIEW: Complete blood count (CBC) showed a WBC 15.3, hemoglobin is 10, platelets of 244. Basic metabolic panel (BMP) showed sodium 134, potassium 3.8, chloride 101, bicarbonate 25, BUN 44, creatinine is 4.4, calcium 8.6. CURRENT INPATIENT MEDICATIONS: Patient's medications were all reviewed by me. She continues to be on total parenteral nutrition, which is being managed by nephrology service. She continues to be on meropenem. Last dose will be tomorrow. No other change in the medications today as compared with yesterday. ASSESSMENT AND PLAN: 1. End-stage renal disease on peritoneal dialysis. Patient is getting five manual exchanges, all 2 liters. Four of them are 2.5% and one of them was changed to 4.25% yesterday because of hyponatremia and signs of fluid overload. Continue the current regimen at this time. 2. Dysphagia and esophageal ulcer. Patient reports burning even when she tries to drink Ensure. She continues to be on TPN. Special ordered TPN was ordered again by myself today. 3. Hyponatremia. She had hypervolemic hyponatremia. TPN fluid rate has been decreased to 60 mL an hour and she is getting one exchange of 4.25% daily to help improve the volume status. 4. Aspiration pneumonitis. Patient has extended-spectrum beta-lactamases (ESBL) Escherichia (E) coli in the urine and in the sputum as well. She continues to be on intravenous (IV) Primaxin. Last dose will be tomorrow. 5. Hypertension with end-stage renal disease. Blood pressure is optimal. Continue current dose of chlorthalidone, clonidine, irbesartan, and metoprolol. 6. Anemia in end-stage renal disease. Continue current dose of Aranesp 100 mcg subcutaneous once a week.
[2018-12-29] MEDS ORDERED: [UNRECOGNIZED DRUG - OTHER] IV SCH ×6 (18:00)
[2018-12-29] MEDS ORDERED: POTASSIUM CHLORIDE IV SCH ×6 (18:00)
[2018-12-29] MEDS ORDERED: SODIUM CHLORIDE IV SCH ×6 (18:00)
[2018-12-29] MEDS ORDERED: FAT EMULSION IV 20% 500 ML IV SCH (18:00)
[2018-12-29 20:00] VITALS: BP 151/58
[2018-12-29] MEDS: TERAZOSIN 1 MG CAP PO SCH (21:57)
[2018-12-29] MEDS: SODIUM CHLORIDE 0.9% INJ 10 ML SYR IV PRN (21:57)
[2018-12-30] MEDS: HumaLOG INSULIN (NovoLOG) PER UNIT SC SCH ×3 (00:14→12:38)
[2018-12-30] MEDS ORDERED: CALCIUM CARBONATE 500 MG CHEW U/D PO ONE (03:45)
[2018-12-30] MEDS: SODIUM CHLORIDE 0.9% INJ 10 ML SYR IV SCH ×2 (06:00→17:34)
[2018-12-30] MEDS: HEPARIN SOD (PORCINE) 5000 UNITS/ML VIAL SC SCH ×3 (06:12→22:20)
[2018-12-30] MEDS: IMIPENEM/CILASTATIN 500 MG in D5W MINI-BAG PLUS 100 ML IV SCH ×2 (06:12→17:34)
[2018-12-30 06:13] LABS: HEMATOCRIT 30.5 % (36.0-47.0); HEMOGLOBIN 9.7 g/dl (12.0-15.5); MEAN CORPUSCULAR HEMOGLOBIN 31.9 pg (27.0-33.0); MEAN CORPUSCULAR HGB CONC 31.8 g/dl (32.0-36.5); MEAN CORPUSCULAR VOLUME 100.3 fl (80.0-96.0); PLATELET COUNT, AUTOMATED 233 10^3/uL (150-450); RED BLOOD COUNT 3.04 10^6/uL (4.00-5.40)
[2018-12-30 06:36] LABS: CALCIUM LEVEL 8.5 MG/DL (8.8-10.2); CREATININE FOR GFR 4.37 MG/DL (0.55-1.30); GLOMERULAR FILTRATION RATE 10.4 (>32)
[2018-12-30] MEDS: IPRATROPIUM 0.5MG/ALBUTEROL 2.5MG INH SOL UD 3ML (DUONEB)(J7620) NEB SCH ×4 (07:46→20:00)
[2018-12-30] MEDS: ADVAIR HFA 230/21MCG INHALER INH SCH ×2 (07:46→20:20)
--- NOTE | 2018-12-30 08:57 | IPNPDOC ---
Text Note Date of Service The patient was seen on 12/30/18. NOTE Subjective: -continues to have poor PO, on TPN -No chest pain, no shortness of breath, feels weak, wants to sit in chair Objective: Vitals: see below Physical Examination General Exam: Alert, no acute distress, nasal canula in place, ill appearing Eye Exam: PERRLA, EOMI, anicteric ENT Exam: Atraumatic, MMM Neck Exam: Supple Chest Exam: clear to auscultation, moving air well, no wheezing or margarita crackles Heart Exam: RRR, no murmurs, rubs or gallops Abdomen Exam: Normoactive bowel sounds, soft, nontender on deep palpation Extremity Exam: No LE edema, warm well perfused Neuro Exam: Awake, alert, normal speech, AOx3, very weak without asymmetry Assessment: 78 yo woman with copd on home 2L NC, ESRD on PD, Afib, HTN, AAA, HLD and esophageal ulcer noted on scope who presented to the ED with shortness or breath and food regurgitation and went into hypoxemic respiratory failure requiring intubation, now found to have ESBL PNA and UTI, clinically improved s/p extubation on imipenem back on her home 2L NC, hemodynamically stable and afebrile with course c/b malnutrition and significant N/V, with poor PO now on TPN as well as significant hypertension in the setting of held home meds after presenting in severe sepsis. Plan: Hypoxemic respiratory failure: In the setting of 1. likely aspiration given the history of esophageal stricture with food regurgitation and ulcer, 2. ESBL E.coli pneumonia 3. right sided pleural effusion now s/p thoracentesis. -Initially required intubation, s/p extubation on 12/24 -s/p thoracentesis 12/24 -continuing imipenem for ESBL PNA (day #8) -now back on home 2L nasal canula -Home advair -duoneb q6H and q2 PRN for wheezing -f/u AFB culture, fungal cultures and pleural fluid analysis and cytology E-coli ESBL pneumonia and cystitis: She remains on IV imipenem, day #8 Atrial fibrillation: Was initially placed on a diltiazem drip, now rate controlled on metoprolol succinate 25 mg daily. -Continue metoprolol succinate 25 QD Esophageal ulcer and history of impaction: -had swallow eval, on full liquid diet -Aspiration precautions -on IV PPI BID -Given poor PO at this time, was placed on TPN Severe malnutrition: -Replete lytes aggressively -full liquid diet and encourage supplements -was started on TPN ESRD on PD: -plan per nephrology DVT prophylaxis: heparin 5000 Q8H Diet: full liquid Dispo: pending clinical improvement VS,Fishbone, I+O VS, Fishbone, I+O Laboratory Tests 12/30/18 05:14 Red Blood Count 3.04 L, Mean Corpuscular Volume 100.3 H, Mean Corpuscular Hemoglobin 31.9, Mean Corpuscular Hemoglobin Concent 31.8 L, Red Cell Distribution Width 13.9, Calcium Level 8.5 L Vital Signs Date Time Temp Pulse Resp B/P (MAP) Pulse Ox O2 Delivery O2 Flow Rate FiO2 12/29/18 21:57 151/58 12/29/18 21:00 2.0 12/29/18 20:00 97.3 77 17 97 12/29/18 11:50 Nasal Cannula 12/24/18 17:00 40 I&O- Last 24 Hours up to 6 AM 12/30/18 06:00 Intake Total 15791 ml Output Total 26370 ml Balance -40 ml RONAL MEMBRENO MD Dec 30, 2018 08:57
[2018-12-30 10:00] VITALS: BP 136/55
[2018-12-30] MEDS: PANTOPRAZOLE 40MG INJ (PROTONIX) (C9113) IV SCH ×2 (10:13→20:24)
[2018-12-30] MEDS: cloNIDine 0.1 MG TAB PO SCH ×2 (10:14→20:27)
[2018-12-30] MEDS: IRBESARTAN 150 MG TAB PO SCH (10:14)
[2018-12-30] MEDS: METOPROLOL SUCC *XL* 25MG TAB (TopROL *XL*) PO SCH (10:15)
[2018-12-30] MEDS: CHLORTHALIDONE 25 MG TAB PO SCH (10:15)
[2018-12-30 10:27] LABS: MAGNESIUM LEVEL 1.6 MG/DL (1.8-2.4); PHOSPHORUS LEVEL 1.3 MG/DL (2.5-4.9)
[2018-12-30 11:18] LABS: APPEARANCE, BODY FLUID CLEAR (CLEAR); PERITONEAL FL COLOR COLORLESS (COLORLESS); SOURCE, BODY FLUID PERITONEAL
--- NOTE | 2018-12-30 13:24 | IPN ---
DATE OF SERVICE: 12/30/2018 SUBJECTIVE: The patient was seen and examined at the bedside today morning. She is afebrile, hemodynamically stable. She reports that she is able to tolerate the chicken broth now. She continues to be on IV total parenteral nutrition (TPN) and she agrees to stop the TPN now. She is tolerating the peritoneal dialysis. She denies any active complaints. OBJECTIVE: Vital Signs: Temperature is 97.3 degrees Fahrenheit, blood pressure 144/63, pulse is 82, respiratory rate of 17, saturating 97% on 2 liters by nasal cannula. Intake and Output: Ultrafiltration with peritoneal dialysis is 1600 mL yesterday. Weight in the bed scale was 82.7 kg yesterday. PHYSICAL EXAMINATION: General: The patient is awake, alert, oriented times three, laying in bed, in no apparent distress. Head and Neck Exam: Extraocular muscles intact. Pupils equally round and reactive to light. Mucous membranes are moist. Neck is supple. There is no jugular venous distention (JVD). Cardiovascular: S1 and S2. 1+ edema of the bilateral lower extremities. Respiratory: Chest is clear to auscultation bilaterally. Bilateral equal air entry. No rales or rhonchi. Abdomen: Soft. Positive bowel sounds. Left lower quadrant peritoneal dialysis catheter. Musculoskeletal: No clubbing or cyanosis. Pulses are 2+. PBX TECHNICIAN: No focal deficit. Power is 5/5 in all extremities. LAB REVIEW: CBC showed WBC of 15, hemoglobin 9.7, platelets 233. BMP showed sodium 133, potassium is 4, chloride 102, bicarb 24, BUN 47, creatinine is 4.3, phosphorus is 1.3, magnesium is 1.6. CURRENT INPATIENT MEDICATIONS: The patient's medications were all reviewed by me. She continues to be on TPN. She continues to be on Primaxin, last dose will be tonight. No other change in the medications today as compared with yesterday. ASSESSMENT/PLAN: 1. End-stage renal disease on peritoneal dialysis. Continue current regimen of five manual exchanges a day, all 2 liters. Four of them are 2.5% and one 4.25%. 2. Protein calorie malnutrition. The patient is tolerating oral diet now. TPN is being stopped today. 3. Hyponatremia. The patient has hypervolemic hyponatremia. IV TPN is being stopped. Continue the current PD regimen. If needed, amount of 4.25% fluid exchanges will be increased tomorrow. 4. Aspiration pneumonitis. The patient continues to be on Primaxin. Last dose will be tonight. 5. Hypertension with end-stage renal disease. Continue current dose of metoprolol, irbesartan, clonidine and chlorthalidone. 6. Hypomagnesemia. The patient will be given a dose of magnesium sulfate IV. 7. Hypophosphatemia. Phosphorus is low and it could increase with more oral intake. No need of IV phosphorus administration since the patient is in renal failure. MTDD
[2018-12-30 14:00] VITALS: BP 138/68
[2018-12-30] MEDS ORDERED: MAG SULF 1GM/100ML (MAG RUN) 1 GM in IV 1 EA IV ONE (15:00)
[2018-12-30] MEDS ORDERED: SODIUM PHOSPHATE INJ 30 MMOL in D5W 500 ML IV ONE (15:00)
--- NOTE | 2018-12-30 15:59 | IPNPDOC ---
Text Note Date of Service The patient was seen on 12/30/18. NOTE Subjective: -Generally feels weak and unwell without any specific complaints -No chest pain, no shortness of breath Objective: Vitals: see below Physical Examination General Exam: Alert, no acute distress, nasal canula in place, ill appearing Eye Exam: PERRLA, EOMI, anicteric ENT Exam: Atraumatic, MMM Neck Exam: Supple Chest Exam: clear to auscultation, moving air well, no wheezing or margarita crackles Heart Exam: RRR, no murmurs, rubs or gallops Abdomen Exam: Normoactive bowel sounds, soft, nontender on deep palpation Extremity Exam: No LE edema, warm well perfused Neuro Exam: Awake, alert, normal speech, AOx3, very weak without asymmetry Assessment: 78 yo woman with copd on home 2L NC, ESRD on PD, Afib, HTN, AAA, HLD and esophageal ulcer noted on scope who presented to the ED with shortness or breath and food regurgitation and went into hypoxemic respiratory failure requiring intubation, now found to have ESBL PNA and UTI, clinically improved s/p extubation on imipenem back on her home 2L NC, hemodynamically stable and afebrile with course c/b malnutrition and significant N/V, with poor PO now on TPN as well as significant hypertension in the setting of held home meds after presenting in severe sepsis. Plan: Electrolyte disturbances: Hypophosphatemia, hypomagnesemia in the setting of prolonged poor PO recently started on TPN c/f risk for refeeding syndrome -BID BMP, phos, mag, replete aggressively -clinically stable, will monitor Hypoxemic respiratory failure: In the setting of 1. likely aspiration given the history of esophageal stricture with food regurgitation and ulcer, 2. ESBL E.coli pneumonia 3. right sided pleural effusion now s/p thoracentesis. -Initially required intubation, s/p extubation on 12/24 -s/p thoracentesis 12/24 -continuing imipenem for ESBL PNA (day #8) -now back on home 2L nasal canula -Home advair -duoneb q6H and q2 PRN for wheezing -f/u AFB culture, fungal cultures and pleural fluid analysis and cytology E-coli ESBL pneumonia and cystitis: She remains on IV imipenem, day #8 Atrial fibrillation: Was initially placed on a diltiazem drip, now rate controlled on metoprolol succinate 25 mg daily. -Continue metoprolol succinate 25 QD Esophageal ulcer and history of impaction: -had swallow eval, on full liquid diet -Aspiration precautions -on IV PPI BID -Given poor PO at this time, was placed on TPN Severe malnutrition: -Replete lytes aggressively -full liquid diet and encourage supplements -On TPN ESRD on PD: -plan per nephrology DVT prophylaxis: heparin 5000 Q8H Diet: full liquid Dispo: pending clinical improvement VS,Fishbone, I+O VS, Fishbone, I+O Laboratory Tests 12/30/18 05:14 Red Blood Count 3.04 L, Mean Corpuscular Volume 100.3 H, Mean Corpuscular Hemoglobin 31.9, Mean Corpuscular Hemoglobin Concent 31.8 L, Red Cell Distribution Width 13.9, Calcium Level 8.5 L Vital Signs Date Time Temp Pulse Resp B/P (MAP) Pulse Ox O2 Delivery O2 Flow Rate FiO2 12/30/18 10:15 82 12/30/18 10:14 144/63 12/30/18 10:00 97.9 20 95 2.0 12/29/18 11:50 Nasal Cannula 12/24/18 17:00 40 I&O- Last 24 Hours up to 6 AM 12/30/18 05:59 Intake Total 91550 ml Output Total 15619 ml Balance 280 ml RONAL MEMBRENO MD Dec 30, 2018 15:29
[2018-12-30] MEDS: TERAZOSIN 1 MG CAP PO SCH (20:26)
[2018-12-30] MEDS: NEUTRA-PHOS 1.5 GM PACKET PO SCH (20:27)
[2018-12-30] MEDS: SODIUM CHLORIDE 0.9% INJ 10 ML SYR IV PRN (20:28)
[2018-12-30 20:35] LABS: CALCIUM LEVEL 8.8 MG/DL (8.8-10.2); CREATININE FOR GFR 4.28 MG/DL (0.55-1.30); GLOMERULAR FILTRATION RATE 10.6 (>32); MAGNESIUM LEVEL 1.9 MG/DL (1.8-2.4); PHOSPHORUS LEVEL 1.7 MG/DL (2.5-4.9); POTASSIUM SERUM 3.6 MEQ/L (3.5-5.1)
[2018-12-30 22:00] VITALS: BP 112/57
[2018-12-30] MEDS ORDERED: ANALGESIC BALM CRM 120 GM TOP PRN (23:15)
[2018-12-31] MEDS: NEUTRA-PHOS 1.5 GM PACKET PO SCH ×3 (02:00→14:41)
[2018-12-31] MEDS: SODIUM CHLORIDE 0.9% INJ 10 ML SYR IV SCH ×2 (05:47→17:57)
[2018-12-31] MEDS: HEPARIN SOD (PORCINE) 5000 UNITS/ML VIAL SC SCH ×3 (05:48→21:39)
[2018-12-31 05:59] LABS: CALCIUM LEVEL 8.5 MG/DL (8.8-10.2); CREATININE FOR GFR 4.43 MG/DL (0.55-1.30); GLOMERULAR FILTRATION RATE 10.2 (>32)
[2018-12-31 06:00] VITALS: BP 118/54
[2018-12-31] MEDS: IPRATROPIUM 0.5MG/ALBUTEROL 2.5MG INH SOL UD 3ML (DUONEB)(J7620) NEB SCH ×4 (07:22→20:00)
[2018-12-31] MEDS: ADVAIR HFA 230/21MCG INHALER INH SCH ×2 (07:22→20:00)
[2018-12-31 08:13] LABS: APPEARANCE, BODY FLUID CLEAR (CLEAR); PERITONEAL DIALYSATE FL COLOR COLORLESS (COLORLESS); SOURCE, BODY FLUID PERITONEAL DIALYSATE
[2018-12-31 08:20] VITALS: BP 128/62
[2018-12-31] MEDS: SODIUM CHLORIDE 0.9% INJ 10 ML SYR IV PRN ×2 (09:47→21:40)
[2018-12-31] MEDS: PANTOPRAZOLE 40MG INJ (PROTONIX) (C9113) IV SCH ×3 (09:47→21:39)
[2018-12-31] MEDS: IRBESARTAN 150 MG TAB PO SCH (09:49)
[2018-12-31] MEDS: METOPROLOL SUCC *XL* 25MG TAB (TopROL *XL*) PO SCH (09:49)
[2018-12-31] MEDS: CHLORTHALIDONE 25 MG TAB PO SCH (09:50)
[2018-12-31] MEDS: cloNIDine 0.1 MG TAB PO SCH ×2 (09:50→20:24)
[2018-12-31 10:31] LABS: HEMATOCRIT 31.9 % (36.0-47.0); MEAN CORPUSCULAR HEMOGLOBIN 32.6 pg (27.0-33.0); MEAN CORPUSCULAR HGB CONC 31.3 g/dl (32.0-36.5); MEAN CORPUSCULAR VOLUME 103.9 fl (80.0-96.0); PLATELET COUNT, AUTOMATED 240 10^3/uL (150-450); RED BLOOD COUNT 3.07 10^6/uL (4.00-5.40); WHITE BLOOD COUNT 15.2 10^3/uL (4.0-10.0)
[2018-12-31 10:45] LABS: PHOSPHORUS LEVEL 2.2 MG/DL (2.5-4.9)
[2018-12-31 11:00] LABS: ATYPICAL LYMPH 1 % (0-5); EOSINOPHILS 4 % (0-3); LYMPHOCYTES 22 % (16-44); MONOCYTES 5 % (0-5); MYELOCYTES 8 % (0-0); NEUTROPHILS 56 % (28-66)
[2018-12-31 11:01] LABS: ANISOCYTOSIS 2+; PLATELET ESTIMATE NORMAL (NORMAL); POLYCHROMASIA 1+
--- NOTE | 2018-12-31 11:13 | IPNPDOC ---
Text Note Date of Service The patient was seen on 12/31/18. NOTE Subjective: Patient seen and examined at bedside. No acute overnight events reported. No new medical complaints this morning. Objective: General: NAD, lying comfortably in bed, chronically ill appearing HEENT: NC/AT Lungs: CTA B/L Heart: +S1S2, RRR Abd: soft, NT, +BS Ext: no edema Assessment: 78 yo woman with copd on home 2L NC, ESRD on PD, Afib, HTN, AAA, HLD and esophageal ulcer noted on scope, presented to the ED for SOB and food regurgitation. Developed respiratory failure requiring intubation, now found to have ESBL PNA and UTI, clinically improved s/p extubation on imipenem back on her home 2L NC. Complicated with malnutrition and significant N/V, with poor PO, was on TPN, now appears to be tolerating full liquid diet. Plan: #Electrolyte disturbances - continue to follow and replete - hoping for improvement now that oral diet has resumed - off TPN #Hypoxemic respiratory failure - likely aspiration given the history of esophageal stricture with food regurgitation and ulcer - complicated with ESBL E.coli pneumonia, right sided pleural effusion now s/p thoracentesis. - Initially required intubation, s/p extubation on 12/24 - s/p thoracentesis 12/24 - continuing imipenem for ESBL PNA (day #9) - now back on home 2L nasal canula - Home advair - duoneb q6H and q2 PRN for wheezing - f/u AFB culture, fungal cultures and pleural fluid analysis and cytology #E-coli ESBL pneumonia and cystitis - She remains on IV imipenem, day #9 #afib - s/p diltiazem gtt - now rate controlled on metoprolol succinate 25 mg daily. - anticoagulation? #Esophageal ulcer and history of impaction: -had swallow eval, on full liquid diet -Aspiration precautions -on IV PPI BID -Given poor PO at this time, was placed on TPN #Severe malnutrition: -Replete lytes aggressively -full liquid diet and encourage supplements -On TPN #ESRD on PD: -plan per nephrology #DVT prophylaxis: heparin 5000 Q8H #Diet: full liquid Dispo: pending clinical improvement VS,Fishbone, I+O VS, Fishbone, I+O Laboratory Tests 12/30/18 19:46 Calcium Level 8.8 12/31/18 05:11 Calcium Level 8.5 L 12/31/18 08:22 Red Blood Count 3.07 L, Mean Corpuscular Volume 103.9 H, Mean Corpuscular Hemoglobin 32.6, Mean Corpuscular Hemoglobin Concent 31.3 L, Red Cell Distribution Width 14.4 Vital Signs Date Time Temp Pulse Resp B/P (MAP) Pulse Ox O2 Delivery O2 Flow Rate FiO2 12/31/18 09:49 128/62 12/31/18 09:49 82 12/31/18 08:20 98.6 18 96 2.0 12/29/18 11:50 Nasal Cannula I&O- Last 24 Hours up to 6 AM 12/31/18 06:00 Intake Total 31535 ml Output Total 52206 ml Balance 2655 ml ELMER MAI MD Dec 31, 2018 11:13
[2018-12-31 14:00] VITALS: BP_SYST 113; BP_SYST 118; BP_DIAS 50; BP_DIAS 62
--- NOTE | 2018-12-31 19:55 | IPN ---
DATE: 12/31/2018 SUBJECTIVE: The patient was seen and examined at the bedside today morning. She was getting nebulizations when I saw her. Her total parenteral nutrition (TPN) was stopped yesterday. She continues to get peritoneal dialysis. She denies any issues with the peritoneal dialysis (PD) at this time. The patient is otherwise afebrile and hemodynamically stable. OBJECTIVE: Vital signs: Temperature is 98 degrees Fahrenheit, blood pressure 113/50, pulse is 74, respiratory rate of 18, saturating 99% 2 liters on nasal cannula. Intake and output: Peritoneal dialysate ultrafiltration so far is around 850 mL. Weight in the bed scale is 86.4 kg. PHYSICAL EXAMINATION: GENERAL: The patient is awake, alert, oriented times three, lying in bed getting nebulizations. HEAD AND NECK: Extraocular muscles intact. Pupils equally round and reactive to light. Mucous membranes are moist. Neck is supple. There is mildly elevated jugular venous distention (JVD). CARDIOVASCULAR: S1, S2. Edema 1+ of the bilateral lower extremities. RESPIRATORY: Mildly decreased breath sounds at the bases, otherwise no active rales or rhonchi. ABDOMEN: Soft. Positive bowel sounds. Left lower quadrant peritoneal dialysis catheter. MUSCULOSKELETAL: No clubbing or cyanosis. Pulses are 2+. CENTRAL NERVOUS SYSTEM: No focal deficit power is 5/5 in bilateral upper extremities. LABORATORY REVIEW: CBC showed a WBC of 15.2, hemoglobin is 10, platelets are 240. BMP showed sodium 134, potassium 4, chloride 102, bicarbonate 24, BUN 44, creatinine is 4.4, calcium 8.5, phosphorus is 2.2. CURRENT INPATIENT MEDICATIONS: The patient's medications were all reviewed by me. Her TPN was stopped last night. The patient was given Neutra-Phos packets, one packet every 6 hourly for a total of three doses, and she was also given intravenous (IV) sodium phosphate. ASSESSMENT AND PLAN: 1. End-stage renal disease, on peritoneal dialysis. Continue current peritoneal dialysis regimen, four exchanges of 2.5% and one exchange of 4.25%; however, if she remains in positive fluid balance, I would add more 4.25% exchanges. 2. Protein calorie malnutrition. TPN was stopped yesterday. Continue to encourage oral hydration. The patient is trying to drink Ensure as well. 3. Hyponatremia. The patient has hypervolemic hyponatremia. I will try to get more ultrafiltration done with peritoneal dialysis. 4. Aspiration pneumonitis. The patient finished a course of Primaxin. She was getting nebulizations today. 5. Hypertension. Blood pressure is controlled with irbesartan, metoprolol, clonidine, and chlorthalidone. 6. Hypophosphatemia. It is dietary in origin. The patient is given oral Neutra-Phos, and she was given IV phosphorus as well. MTDD
[2018-12-31] MEDS: TERAZOSIN 1 MG CAP PO SCH (20:24)
[2018-12-31 22:00] VITALS: BP 124/61
[2019-01-01 06:00] VITALS: BP 123/60
[2019-01-01] MEDS: SODIUM CHLORIDE 0.9% INJ 10 ML SYR IV SCH ×2 (06:01→18:22)
[2019-01-01] MEDS: HEPARIN SOD (PORCINE) 5000 UNITS/ML VIAL SC SCH (06:01)
[2019-01-01] MEDS: SODIUM CHLORIDE 0.9% INJ 10 ML SYR IV PRN ×2 (06:02→10:33)
[2019-01-01] MEDS: ADVAIR HFA 230/21MCG INHALER INH SCH ×2 (08:00→19:11)
[2019-01-01] MEDS: IPRATROPIUM 0.5MG/ALBUTEROL 2.5MG INH SOL UD 3ML (DUONEB)(J7620) NEB SCH ×4 (08:00→20:00)
[2019-01-01 10:18] VITALS: BP 118/50
[2019-01-01 10:25] LABS: HEMATOCRIT 30.4 % (36.0-47.0); HEMOGLOBIN 9.6 g/dl (12.0-15.5); MEAN CORPUSCULAR HEMOGLOBIN 31.9 pg (27.0-33.0); MEAN CORPUSCULAR HGB CONC 31.6 g/dl (32.0-36.5); PLATELET COUNT, AUTOMATED 218 10^3/uL (150-450); RED BLOOD COUNT 3.01 10^6/uL (4.00-5.40); WHITE BLOOD COUNT 12.8 10^3/uL (4.0-10.0)
[2019-01-01] MEDS: PANTOPRAZOLE 40MG INJ (PROTONIX) (C9113) IV SCH ×2 (10:33→22:04)
[2019-01-01] MEDS: IRBESARTAN 150 MG TAB PO SCH (10:34)
[2019-01-01] MEDS: cloNIDine 0.1 MG TAB PO SCH ×2 (10:34→21:00)
[2019-01-01] MEDS: METOPROLOL SUCC *XL* 25MG TAB (TopROL *XL*) PO SCH (10:35)
[2019-01-01] MEDS: CHLORTHALIDONE 25 MG TAB PO SCH (10:35)
[2019-01-01 10:49] LABS: ALBUMIN 1.7 GM/DL (3.2-5.2); CALCIUM LEVEL 8.5 MG/DL (8.8-10.2); CREATININE FOR GFR 4.53 MG/DL (0.55-1.30); GLOMERULAR FILTRATION RATE 9.9 (>32); PHOSPHORUS LEVEL 3.1 MG/DL (2.5-4.9)
[2019-01-01 11:10] LABS: ATYPICAL LYMPH 2 % (0-5); BASOPHILS 1 % (0-1); EOSINOPHILS 3 % (0-3); LYMPHOCYTES 16 % (16-44); METAMYELOCYTES 2 % (0-0); MONOCYTES 1 % (0-5); MYELOCYTES 3 % (0-0); NEUTROPHILS 70 % (28-66); NUCLEATED RED BLOOD CELL 2 % (0-0)
[2019-01-01 11:11] LABS: ANISOCYTOSIS 1+; HYPOCHROMASIA 1+; PLATELET ESTIMATE NORMAL (NORMAL); POLYCHROMASIA 1+
[2019-01-01 11:13] LABS: PLATELET CLUMPS SMALL AMT
--- NOTE | 2019-01-01 11:15 | IPNPDOC ---
Text Note Date of Service The patient was seen on 01/01/19. NOTE Subjective: Patient seen and examined at bedside. No acute overnight events reported. No new medical complaints this morning. Tolerating regular diet. Objective: General: NAD, sitting comfortably in chair HEENT: NC/AT Lungs: CTA B/L Heart: +S1S2, RRR Abd: soft, NT, +BS Ext: no edema Assessment: 78 yo woman with copd on home 2L NC, ESRD on PD, Afib, HTN, AAA, HLD and esopha geal ulcer noted on scope, presented to the ED for SOB and food regurgitation. Developed respiratory failure requiring intubation, now found to have ESBL PNA and UTI, clinically improved s/p extubation on imipenem back on her home 2L NC. Complicated with malnutrition and significant N/V, with poor PO, was on TPN, now appears to be tolerating full liquid diet. Plan: #Electrolyte disturbances - continue to follow and replete - off TPN - tolerating mechanical soft diet #Hypoxemic respiratory failure - likely aspiration given the history of esophageal stricture with food regurgitation and ulcer - complicated with ESBL E.coli pneumonia, right sided pleural effusion now s/p thoracentesis. - Initially required intubation, s/p extubation on 12/24 - s/p thoracentesis 12/24 - completed course of imipenem - 6 days - now back at baseline - 2L nasal canula - Home advair - duoneb q6H and q2 PRN for wheezing - f/u AFB culture, fungal cultures and pleural fluid analysis and cytology #E-coli ESBL pneumonia and cystitis - completed course of imipenem #afib - s/p diltiazem gtt - now rate controlled on metoprolol succinate 25 mg daily. - anticoagulation? #Esophageal ulcer and history of impaction: - Aspiration precautions - on IV PPI BID - tolerating mechanical soft diet #Severe malnutrition #ESRD on PD: -plan per nephrology #DVT prophylaxis - hep sc Dispo: pending clinical improvement, placement VS,Fishbone, I+O VS, Fishbone, I+O Laboratory Tests 01/01/19 10:13 Red Blood Count 3.01 L, Mean Corpuscular Volume 101.0 H, Mean Corpuscular Hemoglobin 31.9, Mean Corpuscular Hemoglobin Concent 31.6 L, Red Cell Distri bution Width 14.6 H, Anion Gap 9 Vital Signs Date Time Temp Pulse Resp B/P (MAP) Pulse Ox O2 Delivery O2 Flow Rate FiO2 01/01/19 10:35 72 118/50 01/01/19 06:00 97.9 18 96 2.0 12/29/18 11:50 Nasal Cannula I&O- Last 24 Hours up to 6 AM 01/01/19 05:59 Intake Total 38836 ml Output Total 53485 ml Balance 121 ml ELMER MAI MD Jan 01, 2019 11:15
--- NOTE | 2019-01-01 12:37 | IPN ---
DATE OF SERVICE: 01/01/2019 SUBJECTIVE: Patient was seen and examined at the bedside today morning. She has been started on soft mechanical diet now. She reports that she is trying to eat more but she does not have much appetite. She is hemodynamically stable. She denies any chest pain or shortness of breath. She does report abdominal pain at the heparin injection sites. OBJECTIVE: Vital signs: Temperature is 97.9 degrees Fahrenheit, blood pressure 118/50, pulse is 72, respiratory rate of 18, saturating 96% on 2 liters by nasal cannula. Intake and output: There is no urine output recorded. Ultrafiltration with peritoneal dialysis was 1.1 liters yesterday, 200 mL so far today since overnight. Weight in the bed scale is 84.5 mL. It was 86.4 yesterday. PHYSICAL EXAMINATION: General: Patient is awake, alert, oriented times three, sitting up in the recliner, in no apparent distress. Head and neck exam: muscles intact. Pupils equally round and reactive to light. Mucous membranes are moist. Neck is supple. There is no jugular venous distention (JVD). Cardiovascular: S1, S2, regular rate. 1+ edema of the bilateral lower extremities. Respiratory: Mildly decreased breath sounds at the bases. Otherwise, no rales or rhonchi. Abdomen: Soft. Positive bowel sounds. She has ecchymosis at the heparin injection sites around the umbilicus. Peritoneal dialysis at the site is clean and nontender. Musculoskeletal: No clubbing or cyanosis. Pulses are 2+. Central nervous system ([employer]): No focal deficit. Power is 5/5 in all extremities. LAB REVIEW: CBC showed WBC 12.8, hemoglobin 9.6, platelets of 218. BMP showed sodium 136, potassium 4, chloride 101, bicarbonate 26, BUN 44, creatinine is 4.5, calcium 8.5, phosphorus is 3.1, albumin is 1.7. CURRENT INPATIENT MEDICATIONS: The patient's medications were all reviewed by me. I am stopping the subcu heparin. I have started the patient on thromboembolism deterrents (TEDs) with sequential compression. She was given Neutra-Phos yesterday. No other change in the medications today as compared with yesterday. ASSESSMENT AND PLAN: 1. End-stage renal disease on peritoneal dialysis. Continue current peritoneal regimen all 2 liter four exchanges 2.5% and one exchange 4.25%. 2. Protein calorie malnutrition. Patient is currently on a soft mechanical diet. Total parenteral nutrition (TPN) was stopped. 3. Hyponatremia. Hyponatremia has improved after stopping the TPN and referred to further ultrafiltration with peritoneal dialysis. 4. Hypertension. Blood pressure is controlled with irbesartan, metoprolol, chlorthalidone, and clonidine. 5. Anemia in end-stage renal disease. Hemoglobin is 9.6, which is optimal. Continue current dose of Aranesp 100 mcg subcu once a week. MTDD
[2019-01-01 14:00] VITALS: BP 105/50
[2019-01-01] MEDS: TERAZOSIN 1 MG CAP PO SCH (21:00)
[2019-01-01 22:00] VITALS: BP 112/70
[2019-01-02 06:00] VITALS: BP 116/67
[2019-01-02] MEDS: SODIUM CHLORIDE 0.9% INJ 10 ML SYR IV SCH ×2 (06:07→18:11)
[2019-01-02] MEDS: ADVAIR HFA 230/21MCG INHALER INH SCH ×2 (07:37→20:07)
[2019-01-02] MEDS: IPRATROPIUM 0.5MG/ALBUTEROL 2.5MG INH SOL UD 3ML (DUONEB)(J7620) NEB SCH ×4 (07:38→20:00)
[2019-01-02 09:03] LABS: BASO # 0.1 10^3/uL (0.0-0.2); BASO % 0.7 % (0.0-1.0); EOS # 0.2 10^3/uL (0.0-0.5); EOS % 1.6 % (0.0-3.0); HEMATOCRIT 32.6 % (36.0-47.0); HEMOGLOBIN 10.5 g/dl (12.0-15.5); LYMPH # 1.2 10^3/uL (1.5-5.0); LYMPH % 10.5 % (24.0-44.0); MEAN CORPUSCULAR HEMOGLOBIN 33.2 pg (27.0-33.0); MEAN CORPUSCULAR HGB CONC 32.2 g/dl (32.0-36.5); MEAN CORPUSCULAR VOLUME 103.2 fl (80.0-96.0); MONO # 0.8 10^3/uL (0.0-0.8); MONO % 6.9 % (0.0-5.0); NEUTROPHILS # 8.8 10^3/uL (1.5-8.5); NEUTROPHILS % 75.6 % (36.0-66.0); PLATELET COUNT, AUTOMATED 242 10^3/uL (150-450); RED BLOOD COUNT 3.16 10^6/uL (4.00-5.40); WHITE BLOOD COUNT 11.6 10^3/uL (4.0-10.0)
[2019-01-02 09:23] LABS: ALBUMIN 1.9 GM/DL (3.2-5.2); CALCIUM LEVEL 8.3 MG/DL (8.8-10.2); CREATININE FOR GFR 4.82 MG/DL (0.55-1.30); GLOMERULAR FILTRATION RATE 9.2 (>32); MAGNESIUM LEVEL 1.7 MG/DL (1.8-2.4); PHOSPHORUS LEVEL 3.4 MG/DL (2.5-4.9); POTASSIUM SERUM 3.7 MEQ/L (3.5-5.1)
[2019-01-02] MEDS: PANTOPRAZOLE 40MG INJ (PROTONIX) (C9113) IV SCH ×2 (10:28→22:47)
[2019-01-02] MEDS: METOPROLOL SUCC *XL* 25MG TAB (TopROL *XL*) PO SCH (10:29)
[2019-01-02] MEDS: cloNIDine 0.1 MG TAB PO SCH ×2 (10:29→22:59)
[2019-01-02] MEDS: CHLORTHALIDONE 25 MG TAB PO SCH (10:30)
[2019-01-02] MEDS: IRBESARTAN 150 MG TAB PO SCH (10:30)
--- NOTE | 2019-01-02 12:22 | IPN ---
DATE OF SERVICE: 01/02/2019 SUBJECTIVE: Patient was seen and examined at the bedside today morning. She was actually sitting in the recliner. She is sleepy. She reports that her oral intake is improving. She is tolerating a soft diet now. She reports lower extremity edema. She denies any shortness of breath. Patient is otherwise afebrile and hemodynamically stable. OBJECTIVE: Vital signs: Temperature is 97 degrees Fahrenheit, blood pressure 116/67, pulse is 75, respiratory rate of 18, saturating 98% on room air. Intake and output: Urine output recorded is 350 mL. Ultrafiltration with peritoneal dialysis was 1 liter yesterday. Weight in the bed scale is not available. PHYSICAL EXAM: General: The patient is awake, alert, oriented times three, laying in the recliner, in no apparent distress. Head and neck exam: Extraocular muscles intact. Pupils equally round and reactive to light. Mucous membranes are moist. Neck is supple. There is no jugular venous distention (JVD). Cardiovascular: S1, S2, regular rate. 2+ edema of the bilateral lower extremities. Respiratory: Decreased breath sounds at the bases. Otherwise, no active rales or rhonchi. Abdomen is soft. Positive bowel sounds. Her peritoneal catheter exit site is clean and nontender. Musculoskeletal: No clubbing or cyanosis. Pulses are 2+. Central nervous system ([employer]): No focal deficit. Power is 5/5 in all extremities. LAB REVIEW: CBC showed WBC 11.6, hemoglobin 10.5, platelets of 242. BMP showed sodium 137, potassium 3.7, chloride 100, bicarbonate 27, BUN 42, creatinine is 4.8, calcium 8.3, phosphorus is 3.4, magnesium is 1.7, albumin 1.9. CURRENT INPATIENT MEDICATIONS: Patient's medications were all reviewed by me. There is no change in the medications today as compared with yesterday. ASSESSMENT AND PLAN: 1. End-stage renal disease on peritoneal dialysis. Patient has evidence of lower extremity edema. I have changed the peritoneal dialysis regimen to three exchanges of 2.5% and two exchanges of 4.25%. 2. Protein calorie malnutrution. Patient is tolerating a soft mechanical diet now. I have ordered Nepro 1 can to be given with lunch every day. 3. Hypertension. Blood pressure is controlled with irbesartan, metoprolol, clonidine, and chlorthalidone. Fluid management would also help improve blood pressure. 4. Anemia in end-stage renal disease. Continue current dose of once a week Aranesp 100 mcg.
[2019-01-02 14:15] VITALS: BP 100/50
[2019-01-02 20:00] VITALS: BP 143/72
[2019-01-02] MEDS: TERAZOSIN 1 MG CAP PO SCH (22:59)
[2019-01-03 06:00] VITALS: BP 128/58
[2019-01-03] MEDS: SODIUM CHLORIDE 0.9% INJ 10 ML SYR IV SCH ×2 (06:08→17:49)
--- NOTE | 2019-01-03 07:22 | IPNPDOC ---
Text Note Date of Service The patient was seen on 01/02/19. NOTE Subjective: Patient seen and examined at bedside. No acute overnight events reported. No new medical complaints this morning. Tolerating regular diet. Objective: General: NAD, sitting comfortably in chair HEENT: NC/AT Lungs: CTA B/L Heart: +S1S2, RRR Abd: soft, NT, +BS Ext: no edema Assessment: 78 yo woman with copd on home 2L NC, ESRD on PD, Afib, HTN, AAA, HLD and esopha geal ulcer noted on scope, presented to the ED for SOB and food regurgitation. Developed respiratory failure requiring intubation, now found to have ESBL PNA and UTI, clinically improved s/p extubation on imipenem back on her home 2L NC. Complicated with malnutrition and significant N/V, with poor PO, was on TPN, now appears to be tolerating full liquid diet. Plan: #Electrolyte disturbances - continue to follow and replete - off TPN - tolerating mechanical soft diet #Hypoxemic respiratory failure - likely aspiration given the history of esophageal stricture with food regurgitation and ulcer - complicated with ESBL E.coli pneumonia, right sided pleural effusion now s/p thoracentesis. - Initially required intubation, s/p extubation on 12/24 - s/p thoracentesis 12/24 - completed course of imipenem - 6 days - now back at baseline - 2L nasal canula - Home advair - duoneb q6H and q2 PRN for wheezing - f/u AFB culture, fungal cultures and pleural fluid analysis and cytology #E-coli ESBL pneumonia and cystitis - completed course of imipenem #afib - s/p diltiazem gtt - now rate controlled on metoprolol succinate 25 mg daily. - anticoagulation? #Esophageal ulcer and history of impaction: - Aspiration precautions - on IV PPI BID - tolerating mechanical soft diet #Severe malnutrition #ESRD on PD: -plan per nephrology #DVT prophylaxis - hep sc Dispo: pending clinical improvement, placement VS,Fishbone, I+O VS, Fishbone, I+O Laboratory Tests 01/02/19 08:42 Red Blood Count 3.16 L, Mean Corpuscular Volume 103.2 H, Mean Corpuscular Hemoglobin 33.2 H, Mean Corpuscular Hemoglobin Concent 32.2, Red Cell Distri bution Width 15.2 H, Neutrophils (%) (Auto) 75.6 H, Lymphocytes (%) (Auto) 10.5 L, Monocytes (%) (Auto) 6.9 H, Eosinophils (%) (Auto) 1.6, Basophils (%) (Auto) 0.7, Neutrophils # (Auto) 8.8 H, Lymphocytes # (Auto) 1.2 L, Monocytes # (Auto) 0.8, Eosinophils # (Auto) 0.2, Basophils # (Auto) 0.1, Anion Gap 10 Vital Signs Date Time Temp Pulse Resp B/P (MAP) Pulse Ox O2 Delivery O2 Flow Rate FiO2 01/02/19 22:59 134/68 01/02/19 22:00 2.0 01/02/19 20:00 97.8 91 19 98 01/01/19 19:13 Nasal Cannula I&O- Last 24 Hours up to 6 AM 01/03/19 06:00 Intake Total 51251 ml Output Total 08708 ml Balance -760 ml ELMER MAI MD Jan 03, 2019 07:22
[2019-01-03] MEDS: ADVAIR HFA 230/21MCG INHALER INH SCH ×2 (07:24→19:31)
[2019-01-03] MEDS: IPRATROPIUM 0.5MG/ALBUTEROL 2.5MG INH SOL UD 3ML (DUONEB)(J7620) NEB SCH ×4 (07:24→20:00)
[2019-01-03] MEDS ORDERED: MAG SULF 1GM/100ML (MAG RUN) 1 GM in IV 1 EA IV ONE (07:30)
[2019-01-03 09:31] LABS: BASO % 0.2 % (0.0-1.0); EOS # 0.2 10^3/uL (0.0-0.5); EOS % 1.9 % (0.0-3.0); HEMATOCRIT 32.5 % (36.0-47.0); HEMOGLOBIN 10.5 g/dl (12.0-15.5); LYMPH # 1.3 10^3/uL (1.5-5.0); LYMPH % 12.4 % (24.0-44.0); MEAN CORPUSCULAR HEMOGLOBIN 33.3 pg (27.0-33.0); MEAN CORPUSCULAR HGB CONC 32.3 g/dl (32.0-36.5); MEAN CORPUSCULAR VOLUME 103.2 fl (80.0-96.0); MONO # 0.7 10^3/uL (0.0-0.8); NEUTROPHILS # 7.7 10^3/uL (1.5-8.5); NEUTROPHILS % 76.2 % (36.0-66.0); PLATELET COUNT, AUTOMATED 225 10^3/uL (150-450); RED BLOOD COUNT 3.15 10^6/uL (4.00-5.40); WHITE BLOOD COUNT 10.1 10^3/uL (4.0-10.0)
[2019-01-03] MEDS: IRBESARTAN 150 MG TAB PO SCH (09:33)
[2019-01-03] MEDS: cloNIDine 0.1 MG TAB PO SCH ×2 (09:33→20:24)
[2019-01-03] MEDS: PANTOPRAZOLE 40MG INJ (PROTONIX) (C9113) IV SCH ×2 (09:34→20:25)
[2019-01-03] MEDS: DARBEPOETIN 100 MCG/0.5 ML *NON-DIALYSIS* SYRINGE (J0881) SC SCH (09:34)
[2019-01-03] MEDS: METOPROLOL SUCC *XL* 25MG TAB (TopROL *XL*) PO SCH (09:34)
[2019-01-03] MEDS: CHLORTHALIDONE 25 MG TAB PO SCH (09:34)
[2019-01-03 09:57] LABS: ALBUMIN 1.9 GM/DL (3.2-5.2); CALCIUM LEVEL 8.6 MG/DL (8.8-10.2); CREATININE FOR GFR 5.26 MG/DL (0.55-1.30); GLOMERULAR FILTRATION RATE 8.4 (>32); PHOSPHORUS LEVEL 3.8 MG/DL (2.5-4.9); POTASSIUM SERUM 3.3 MEQ/L (3.5-5.1)
--- NOTE | 2019-01-03 11:24 | IPNPDOC ---
Text Note Date of Service The patient was seen on 01/03/19. NOTE Subjective: Patient seen and examined at bedside. No acute overnight events reported. No new medical complaints this morning. Tolerating regular diet. Feels better today. Objective: General: NAD, sitting comfortably in chair HEENT: NC/AT Lungs: CTA B/L Heart: +S1S2, RRR Abd: soft, NT, +BS Ext: no edema Assessment: 78 yo woman with copd on home 2L NC, ESRD on PD, Afib, HTN, AAA, HLD and esophageal ulcer noted on scope, presented to the ED for SOB and food regurgitation. Developed respiratory failure requiring intubation, now found to have ESBL PNA and UTI, clinically improved s/p extubation on imipenem back on her home 2L NC. Complicated with malnutrition and significant N/V, with poor PO, was on TPN, now tolerating regular diet. Plan: #Electrolyte disturbances - continue to follow and replete - off TPN - tolerating mechanical soft diet #Hypoxemic respiratory failure - likely aspiration given the history of esophageal stricture with food regurgitation and ulcer - complicated with ESBL E.coli pneumonia, right sided pleural effusion now s/p thoracentesis. - Initially required intubation, s/p extubation on 12/24 - s/p thoracentesis 12/24 - completed course of imipenem - 6 days - now back at baseline - 2L nasal canula - Home advair - duoneb q6H and q2 PRN for wheezing - f/u AFB culture, fungal cultures and pleural fluid analysis and cytology #E-coli ESBL pneumonia and cystitis - completed course of imipenem #afib - s/p diltiazem gtt - now rate controlled on metoprolol succinate 25 mg daily. - anticoagulation? #Esophageal ulcer and history of impaction: - Aspiration precautions - on IV PPI BID - tolerating mechanical soft diet #Severe malnutrition #ESRD on PD: -plan per nephrology #DVT prophylaxis - hep sc Dispo: pending clinical improvement, placement VS,Fishbone, I+O VS, Fishbone, I+O Laboratory Tests 01/03/19 09:15 Red Blood Count 3.15 L, Mean Corpuscular Volume 103.2 H, Mean Corpuscular Hemoglobin 33.3 H, Mean Corpuscular Hemoglobin Concent 32.3, Red Cell Dist ribution Width 15.6 H, Neutrophils (%) (Auto) 76.2 H, Lymphocytes (%) (Auto) 12.4 L, Monocytes (%) (Auto) 7.0 H, Eosinophils (%) (Auto) 1.9, Basophils (%) (Auto) 0.2, Neutrophils # (Auto) 7.7, Lymphocytes # (Auto) 1.3 L, Monocytes # (Auto) 0.7, Eosinophils # (Auto) 0.2, Basophils # (Auto) 0.0, Anion Gap 6 L Vital Signs Date Time Temp Pulse Resp B/P (MAP) Pulse Ox O2 Delivery O2 Flow Rate FiO2 01/03/19 09:34 71 128/58 01/03/19 06:00 97.2 16 98 01/02/19 22:00 2.0 01/01/19 19:13 Nasal Cannula I&O- Last 24 Hours up to 6 AM 01/03/19 06:00 Intake Total 22876 ml Output Total 48925 ml Balance -760 ml ELMER MAI MD Jan 03, 2019 11:24
[2019-01-03] MEDS ORDERED: POTASSIUM CHLORIDE 10 MEQ SR TABLET PO ONE (12:00)
--- NOTE | 2019-01-03 12:21 | IPN ---
DATE OF SERVICE: 01/03/2019 SUBJECTIVE: Patient was seen and examined at the bedside today morning. Patient is afebrile, hemodynamically stable. Her peritoneal dialysis (PD) regimen was changed yesterday. She is getting more ultrafiltration done. She reports lower extremity edema is improving. She still reports a decreased appetite. However, she is on soft mechanical diet now. She denies any fevers or chills, and she is afebrile and hemodynamically stable. OBJECTIVE: Vital signs: Temperature is 97.2 degrees Fahrenheit, blood pressure 128/58, pulse is 71, respiratory of 16, saturating 98% on room air. Intake and output: Urine output is not recorded. Ultrafiltration with peritoneal dialysis so far is 300 mL. Weight in the bed scale is 83 kg. PHYSICAL EXAM: General: Patient is awake, alert, oriented times three, laying in the recliner, in no apparent distress. Head and neck exam: Extraocular muscles intact. Pupils equally round and reactive to light. Mucous membranes are moist. Neck is supple. There is no jugular venous distention (JVD). Cardiovascular: S1, S2, regular rate. 1+ edema of the bilateral lower extremities. Respiratory: Chest is clear to auscultation bilaterally. Bilateral equal air entry. No rales or rhonchi. Abdomen: Soft, positive bowel sounds. Left lower quadrant peritoneal dialysis catheter. Musculoskeletal: No clubbing or cyanosis. Pulses are 2+. 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 Patient moves all extremities. LAB REVIEW: CBC showed WBC 10.1, hemoglobin 10.5, platelets of 225. BMP done today showed sodium 136, potassium 3.3, chloride 100, bicarbonate 30, BUN 45, creatinine is 5.2, calcium 8.6, phosphorus is 3.8, albumin 1.9. CURRENT INPATIENT MEDICATIONS: Patient's medications were all reviewed by me. Patient was given a dose of Maxifed 1 gram IV today morning. No other change in the medications today as compared with yesterday. ASSESSMENT AND PLAN: 1. End-stage renal disease on peritoneal dialysis. Patient is currently getting three exchanges of 2.5% and two exchanges of 4.25%. Continue current regimen for now until the lower extremity edema that is better. 2. Hypokalemia. It is secondary to peritoneal dialysis. Patient will be given oral potassium today. 3. Protein calorie malnutrition. Continue soft mechanical diet and Nepro or Ensure with meals. 4. Hypertension. Continue current dose of irbesartan, metoprolol, clonidine, and chlorthalidone. 5. Anemia in end-stage renal disease. Hemoglobin level is optimal at 10.5.
[2019-01-03 12:35] LABS: MAGNESIUM LEVEL 1.7 MG/DL (1.8-2.4)
[2019-01-03 14:00] VITALS: BP 119/54
[2019-01-03 19:32] VITALS: O2SAT 93
[2019-01-03] MEDS: TERAZOSIN 1 MG CAP PO SCH (20:25)
[2019-01-03] MEDS: POTASSIUM CHLORIDE 10 MEQ SR TABLET PO SCH (20:25)
[2019-01-03 22:00] VITALS: BP 117/60
[2019-01-04 06:00] VITALS: BP 117/62
[2019-01-04] MEDS: SODIUM CHLORIDE 0.9% INJ 10 ML SYR IV SCH ×2 (06:32→17:03)
[2019-01-04] MEDS: ADVAIR HFA 230/21MCG INHALER INH SCH ×2 (07:28→20:06)
[2019-01-04] MEDS: IPRATROPIUM 0.5MG/ALBUTEROL 2.5MG INH SOL UD 3ML (DUONEB)(J7620) NEB SCH ×4 (07:28→20:00)
[2019-01-04 08:13] LABS: CALCIUM LEVEL 8.5 MG/DL (8.8-10.2); CREATININE FOR GFR 5.29 MG/DL (0.55-1.30); GLOMERULAR FILTRATION RATE 8.3 (>32); MAGNESIUM LEVEL 1.8 MG/DL (1.8-2.4); POTASSIUM SERUM 4.1 MEQ/L (3.5-5.1)
[2019-01-04] MEDS: PANTOPRAZOLE 40MG INJ (PROTONIX) (C9113) IV SCH ×2 (09:30→20:44)
[2019-01-04] MEDS: POTASSIUM CHLORIDE 10 MEQ SR TABLET PO SCH ×2 (09:31→20:43)
[2019-01-04] MEDS: METOPROLOL SUCC *XL* 25MG TAB (TopROL *XL*) PO SCH (09:32)
[2019-01-04] MEDS: cloNIDine 0.1 MG TAB PO SCH ×2 (09:32→20:45)
[2019-01-04] MEDS: CHLORTHALIDONE 25 MG TAB PO SCH (09:32)
[2019-01-04] MEDS: IRBESARTAN 150 MG TAB PO SCH (09:43)
--- NOTE | 2019-01-04 10:36 | IPNPDOC ---
Text Note Date of Service The patient was seen on 01/04/19. NOTE Subjective: Patient seen and examined at bedside. No acute overnight events reported. No new medical complaints this morning. Tolerating regular diet. Feels better today. Objective: General: NAD, sitting comfortably in chair HEENT: NC/AT Lungs: CTA B/L Heart: +S1S2, RRR Abd: soft, NT, +BS Ext: no edema Assessment: 78 yo woman with copd on home 2L NC, ESRD on PD, Afib, HTN, AAA, HLD and esophageal ulcer noted on scope, presented to the ED for SOB and food regurgitation. Developed respiratory failure requiring intubation, now found to have ESBL PNA and UTI, clinically improved s/p extubation on imipenem back on her home 2L NC. Complicated with malnutrition and significant N/V, with poor PO, was on TPN, now tolerating regular diet. Plan: #Electrolyte disturbances - continue to follow and replete - off TPN - tolerating mechanical soft diet #Hypoxemic respiratory failure - likely aspiration given the history of esophageal stricture with food regurgitation and ulcer - complicated with ESBL E.coli pneumonia, right sided pleural effusion now s/p thoracentesis. - Initially required intubation, s/p extubation on 12/24 - s/p thoracentesis 12/24 - completed course of imipenem - 6 days - now back at baseline - 2L nasal canula - Home advair - duoneb q6H and q2 PRN for wheezing - f/u AFB culture, fungal cultures and pleural fluid analysis and cytology #E-coli ESBL pneumonia and cystitis - completed course of imipenem #afib - s/p diltiazem gtt - now rate controlled on metoprolol succinate 25 mg daily. - anticoagulation? #Esophageal ulcer and history of impaction: - Aspiration precautions - on IV PPI BID - tolerating mechanical soft diet #Severe malnutrition #ESRD on PD: -plan per nephrology #DVT prophylaxis - hep sc Dispo: pending clinical improvement, placement VS,Fishbone, I+O VS, Fishbone, I+O Laboratory Tests 01/04/19 07:40 Calcium Level 8.5 L Vital Signs Date Time Temp Pulse Resp B/P (MAP) Pulse Ox O2 Delivery O2 Flow Rate FiO2 01/04/19 09:43 119/62 01/04/19 09:32 70 01/04/19 06:00 98.7 16 98 2.0 10/4/19 19:32 Nasal Cannula I&O- Last 24 Hours up to 6 AM 01/04/19 05:59 Intake Total 8640 ml Output Total 9075 ml Balance -435 ml ELMER MAI MD Jan 04, 2019 10:36
[2019-01-04 14:00] VITALS: BP 125/57
--- NOTE | 2019-01-04 15:55 | IPN ---
DATE: 01/04/2019 Mrs. Lange is seen this morning on her bedside. She is sitting in the recliner chair. She has lower extremity edema, and currently peritoneal dialysis is being performed with three exchanges of 4.25 and two exchanges of 2.5% fluid. Her oral intake is slowly improving; however, she feels bloated and does not eat much. She denies any vomiting. She has no fever or chills. She does have chronic dyspnea and remains on 2 liters oxygen. PHYSICAL EXAMINATION: Temperature 98.7 degrees Fahrenheit, heart rate 70 per minute, respiratory rate 16 per minute, blood pressure 117/62 mm of mercury, and oxygen saturation 98% on 2 liters oxygen. Head is atraumatic. Neck is supple and jugular venous distention (JVD) is not abnormally elevated. She has no oral thrush or ulcers. Heart sounds are regular, and lungs with slightly diminished breath sounds at bases. Abdomen soft and nontender. Peritoneal dialysis catheter is intact. Extremities have no cyanosis or clubbing. Lower extremity edema is at least 2+ bilaterally. Neurologically, she is awake, alert, and at her baseline mentation. Today's labs show sodium level 138, potassium 4.1, CO2 of 27, BUN 42, and creatinine 5.29. Calcium 8.5 and magnesium 1.8. PROBLEMS: 1. End-stage renal disease. The patient will continue with peritoneal dialysis. We are currently performing five exchanges per day and will continue with the same. We are going to cut down the volume of exchanged to 1500 mL instead of 2000 mL due to bloating and feeling of fullness. 2. Dysphagia and malnutrition. The patient had esophageal ulcer and obstruction. Now she is able to swallow, however, not eating much. We are going to change her diet to a regular diet and will also add Nepro one can daily. 3. Hypokalemia. Her potassium level has improved with supplement yesterday. We will continue with twice a day potassium supplement, which she was taking at home. 4. Anemia. At present her anemia is stable, and we will continue to monitor closely. She is receiving Aranesp 100 mcg every Sunday. 5. Lower extremity edema. We are using 2.5 and 4.25% peritoneal dialysis solution due to lower extremity edema. She has also been placed on chlorthalidone, though her urine output is minimal. Yesterday she only had 25 mL urine, and today she has 200 mL so far. She will try to get her in negative fluid balance with dialysis solution. 6. Generalized weakness and deconditioning. The patient continues with physical therapy and rehabilitation. She is feeling better. 7. Hypoxemia. This is a chronic issue. She does have history of pneumonia recently and has been treated. She remains on 2 liters oxygen.
[2019-01-04] MEDS: SODIUM CHLORIDE 0.9% INJ 10 ML SYR IV PRN (20:44)
[2019-01-04] MEDS: TERAZOSIN 1 MG CAP PO SCH (20:47)
[2019-01-04 22:00] VITALS: BP 123/59
[2019-01-05] MEDS: SODIUM CHLORIDE 0.9% INJ 10 ML SYR IV SCH ×2 (05:10→17:53)
[2019-01-05 06:00] VITALS: BP 134/67
[2019-01-05] MEDS: ADVAIR HFA 230/21MCG INHALER INH SCH ×2 (07:29→19:48)
[2019-01-05] MEDS: IPRATROPIUM 0.5MG/ALBUTEROL 2.5MG INH SOL UD 3ML (DUONEB)(J7620) NEB SCH ×4 (07:29→20:00)
[2019-01-05] MEDS: PANTOPRAZOLE 40MG INJ (PROTONIX) (C9113) IV SCH (10:02)
[2019-01-05] MEDS: POTASSIUM CHLORIDE 10 MEQ SR TABLET PO SCH ×2 (10:06→20:19)
[2019-01-05] MEDS: IRBESARTAN 150 MG TAB PO SCH ×2 (10:06→10:30)
--- NOTE | 2019-01-05 10:12 | IPNPDOC ---
Text Note Date of Service The patient was seen on 01/05/19. NOTE Subjective: Patient seen and examined at bedside. No acute overnight events reported. No new medical complaints this morning. Tolerating regular diet. Feels better today. Objective: General: NAD, sitting comfortably in chair HEENT: NC/AT Lungs: CTA B/L Heart: +S1S2, RRR Abd: soft, NT, +BS Ext: no edema Assessment: 78 yo woman with copd on home 2L NC, ESRD on PD, Afib, HTN, AAA, HLD and esophageal ulcer noted on scope, presented to the ED for SOB and food regurgitation. Developed respiratory failure requiring intubation, now found to have ESBL PNA and UTI, clinically improved s/p extubation on imipenem back on her home 2L NC. Complicated with malnutrition and significant N/V, with poor PO, was on TPN, now tolerating regular diet. Plan: #Electrolyte disturbances - continue to follow and replete - regular diet #Hypoxemic respiratory failure - likely aspiration given the history of esophageal stricture with food regurgitation and ulcer - complicated with ESBL E.coli pneumonia, right sided pleural effusion now s/p thoracentesis. - Initially required intubation, s/p extubation on 12/24 - s/p thoracentesis 12/24 - completed course of imipenem - 6 days - now back at baseline - 2L nasal canula - Home advair - duoneb q6H and q2 PRN for wheezing - infectious workup unrevealing #E-coli ESBL pneumonia and cystitis - completed course of imipenem #afib - s/p diltiazem gtt - now rate controlled on metoprolol succinate 25 mg daily. - anticoagulation? #Esophageal ulcer and history of impaction: - Aspiration precautions - on IV PPI BID - transition to PO today - tolerating oral diet #HTN - continue with current regimen - terazosin, clonidine, chlorthalidone, avapro, toprol #anemia - of chronic disease - aranesp q week #Severe malnutrition - diet changed to regular diet with supplementation #ESRD on PD: - continue to follow as per nephrology - assistance appreciated #DVT prophylaxis - hep sc Dispo: pending clinical improvement, placement VS,Fishbone, I+O VS, Fishbone, I+O Vital Signs Date Time Temp Pulse Resp B/P (MAP) Pulse Ox O2 Delivery O2 Flow Rate FiO2 01/05/19 06:00 98.7 71 16 134/67 (89) 99 2.0 01/04/19 20:07 Nasal Cannula I&O- Last 24 Hours up to 6 AM 01/05/19 06:00 Intake Total 8600 ml Output Total 9500 ml Balance -900 ml ELMER MAI MD Jan 05, 2019 10:12
[2019-01-05] MEDS: METOPROLOL SUCC *XL* 25MG TAB (TopROL *XL*) PO SCH (10:30)
[2019-01-05] MEDS: cloNIDine 0.1 MG TAB PO SCH ×2 (10:30→20:19)
[2019-01-05] MEDS: CHLORTHALIDONE 25 MG TAB PO SCH (10:42)
[2019-01-05 14:00] VITALS: BP 129/68
[2019-01-05 20:00] VITALS: BP 159/85
[2019-01-05] MEDS: PANTOPRAZOLE 40MG TAB (PROTONIX) PO SCH (20:19)
[2019-01-05] MEDS: TERAZOSIN 1 MG CAP PO SCH (20:19)
[2019-01-05] MEDS ORDERED: METOPROLOL SUCC *XL* 12.5MG PER 1/2 TAB (TopROL *XL*) PO ONE (21:30)
[2019-01-06 05:57] VITALS: BP 145/64
[2019-01-06 06:11] LABS: HEMATOCRIT 31.6 % (36.0-47.0); HEMOGLOBIN 9.8 g/dl (12.0-15.5); MEAN CORPUSCULAR HEMOGLOBIN 31.9 pg (27.0-33.0); MEAN CORPUSCULAR VOLUME 102.9 fl (80.0-96.0); PLATELET COUNT, AUTOMATED 238 10^3/uL (150-450); RED BLOOD COUNT 3.07 10^6/uL (4.00-5.40); WHITE BLOOD COUNT 10.9 10^3/uL (4.0-10.0)
[2019-01-06] MEDS: SODIUM CHLORIDE 0.9% INJ 10 ML SYR IV SCH ×2 (06:31→17:56)
[2019-01-06 06:39] LABS: ALBUMIN 1.8 GM/DL (3.2-5.2); BILIRUBIN,TOTAL 0.6 MG/DL (0.2-1.0); CALCIUM LEVEL 8.7 MG/DL (8.8-10.2); CREATININE FOR GFR 5.47 MG/DL (0.55-1.30); POTASSIUM SERUM 4.4 MEQ/L (3.5-5.1)
[2019-01-06] MEDS: ADVAIR HFA 230/21MCG INHALER INH SCH ×2 (07:15→21:07)
[2019-01-06] MEDS: IPRATROPIUM 0.5MG/ALBUTEROL 2.5MG INH SOL UD 3ML (DUONEB)(J7620) NEB SCH ×5 (07:15→20:00)
--- NOTE | 2019-01-06 09:52 | IPN ---
DATE: 01/05/2019 Mrs. Lange is seen this morning on her bedside. She is sitting in the recliner chair with her feet elevated. She is feeling somewhat better today and reports that she did not eat much breakfast as she felt full. She denies any vomiting or diarrhea. Her peritoneal dialysis is functioning well. The patient has no dyspnea or chest pain and her leg edema is essentially unchanged. PHYSICAL EXAMINATION Temperature 98.7 degrees Fahrenheit, heart rate 60 per minute and respiratory rate 16 per minute. Blood pressure 130/60 mmHg and oxygen saturation 99% on 2 liters oxygen. Head is atraumatic. Neck is supple and without JVD or thyroid enlargement. Heart: Sounds are regular and lungs with slightly diminished breath sounds at bases. Abdomen: Soft and nontender. Peritoneal dialysis catheter is intact. Extremities have no cyanosis or clubbing. Lower extremity edema is 2+. Neurologically she is awake, alert and oriented times three. The patient did not have a CBC for chemistry done today. PROBLEMS: 1. End-stage renal disease patient remains on peritoneal dialysis five exchanges per day. We are currently performing five exchanges per day and we will continue with the same. 1500 fluid spine exchange being used. 2. Hypervolemia. She does have lower extremity edema which is multifactorial. She was given IV fluids when she was sick and also she was hypotensive due to which fluid was not removed at that time. She also has low albumin level which is contributing to lower extremity edema. We are trying to correct her volume status with 2.5% and 4.25% dialysis solution. She should remain on fluid restriction of 1500 per day. 3. Protein calorie malnutrition. This is related to prolonged illness and poor oral intake. The patient is being encouraged for increased oral intake of protein. We have added Nepro 1 can daily. 4. Anemia. At this time her anemia is stable and we will continue to monitor closely. Her Aranesp should be stopped at discharge and she will receive her anemia management as an outpatient dialysis clinic. DISPOSITION: There is a plan for discharge to a swing bed at [facility] and it remains to be seen if she will be discharged tomorrow.
[2019-01-06] MEDS: PANTOPRAZOLE 40MG TAB (PROTONIX) PO SCH ×2 (10:06→21:41)
[2019-01-06] MEDS: CHLORTHALIDONE 25 MG TAB PO SCH (10:08)
[2019-01-06] MEDS: METOPROLOL SUCC *XL* 25MG TAB (TopROL *XL*) PO SCH (10:08)
[2019-01-06] MEDS: POTASSIUM CHLORIDE 10 MEQ SR TABLET PO SCH ×2 (10:08→21:41)
[2019-01-06] MEDS: cloNIDine 0.1 MG TAB PO SCH ×2 (10:08→21:41)
[2019-01-06] MEDS: IRBESARTAN 150 MG TAB PO SCH (10:09)
--- NOTE | 2019-01-06 12:54 | IPN ---
DATE OF VISIT: 01/06/2019 Mrs. Lange is seen this morning on her bedside. She denies any change in her condition. She is sitting in the recliner chair as usual. She reports that she is able to get up and walk to the bathroom with the help of a walker. Nursing staff reports that her peritoneal dialysis has been functioning very well. The patient denies any nausea, vomiting, chest pain, fever, or chills. She does have chronic dyspnea, hypoxemia, and lower extremity edema, which has not changed much. On physical examination, temperature 98.7 degrees Fahrenheit, heart rate 72 per minute, and respiratory rate 16 per minute. Blood pressure 143/66 mmHg and oxygen saturation 94% on 2-liter oxygen. Head is atraumatic. Neck is supple and without jugular venous distention (JVD) or thyroid enlargement. Heart sounds are regular. Lungs clear to auscultation. Abdomen: Soft and nontender, and bowel sounds are normal. Peritoneal dialysis catheter is intact. Extremities have no cyanosis or clubbing. Lower extremity edema is at least 2+. Neurologically, she is awake, alert, and oriented times three. Today's laboratories show WBC count 10.9, hemoglobin 9.8, and hematocrit 31.6. Platelets 238. Sodium 138, potassium 4.4, CO2 28, BUN 38, and creatinine 5.47. Glucose 109 and calcium 8.7. PROBLEMS: 1. End-stage renal disease. The patient remains on peritoneal dialysis, five exchanges per day while she is here in the hospital. Once she gets discharged and goes to swing bed at [facility], she will resume her chronic outpatient prescription with two 5-liter bags of peritoneal dialysis solution to be used on the cycler. She will followup with outpatient dialysis clinic. 2. Anemia. Her anemia is stable, and her Aranesp can be stopped. She will be managed as an outpatient with peritoneal dialysis. 3. Lower extremity edema. It is multifactorial and remains unchanged. We are going to continue with 2.5 and 4.25% dialysis solution in order to try to remove some fluid. She should remain on oral fluid restriction of 1500 mL per day or less. 4. Generalized weakness and deconditioning. The patient is being discharged to a swing bed at [facility] for subacute rehabilitation. From a renal standpoint, the patient can be discharged today.
[2019-01-06 14:00] VITALS: BP 130/75
--- NOTE | 2019-01-06 14:40 | IPNPDOC ---
Text Note Date of Service The patient was seen on 01/06/19. NOTE Subjective: Patient seen and examined at bedside. No acute overnight events reported. No new medical complaints this morning. Tolerating regular diet. Late yesterday afternoon some concern for respiratory distress with increasing oxygen requirement, peripheral edema and crackles on lung auscultation. Objective: General: NAD, sitting comfortably in chair HEENT: NC/AT Lungs: CTA B/L Heart: +S1S2, RRR Abd: soft, NT, +BS Ext: no edema Assessment: 78 yo woman with copd on home 2L NC, ESRD on PD, Afib, HTN, AAA, HLD and esophageal ulcer noted on scope, presented to the ED for SOB and food regurgitation. Developed respiratory failure requiring intubation, now found to have ESBL PNA and UTI, clinically improved s/p extubation on imipenem back on her home 2L NC. Complicated with malnutrition and significant N/V, with poor PO, was on TPN, now tolerating regular diet. Plan: #Electrolyte disturbances - continue to follow and replete - regular diet #Hypoxemic respiratory failure - grossly at baseline - CXR pending - likely aspiration given the history of esophageal stricture with food regurgitation and ulcer - complicated with ESBL E.coli pneumonia, right sided pleural effusion now s/p thoracentesis. - Initially required intubation, s/p extubation on 12/24 - s/p thoracentesis 12/24 - completed course of imipenem - 6 days - now back at baseline - 2L nasal canula - Home advair - duoneb q6H and q2 PRN for wheezing - infectious workup unrevealing #E-coli ESBL pneumonia and cystitis - completed course of imipenem #afib - s/p diltiazem gtt - now rate controlled on metoprolol succinate 25 mg daily. - anticoagulation? #Esophageal ulcer and history of impaction: - Aspiration precautions - on IV PPI BID - transition to PO today - tolerating oral diet #HTN - continue with current regimen - terazosin, clonidine, chlorthalidone, avapro, toprol #anemia - of chronic disease - aranesp q week #Severe malnutrition - diet changed to regular diet with supplementation #ESRD on PD: - continue to follow as per nephrology - assistance appreciated #DVT prophylaxis - hep sc Dispo: pending clinical improvement, placement VS,Fishbone, I+O VS, Fishbone, I+O Laboratory Tests 01/06/19 05:16 Red Blood Count 3.07 L, Mean Corpuscular Volume 102.9 H, Mean Corpuscular Hemoglobin 31.9, Mean Corpuscular Hemoglobin Concent 31.0 L, Red Cell Distribution Width 15.5 H, Calcium Level 8.7 L, Aspartate Amino Transf (AST/SGOT) 12, Alanine Aminotransferase (ALT/SGPT) 13, Alkaline Phosphatase 95, Total Bilirubin 0.6, Total Protein 6.0 L, Albumin 1.8 L Vital Signs Date Time Temp Pulse Resp B/P (MAP) Pulse Ox O2 Delivery O2 Flow Rate FiO2 01/06/19 10:09 143/66 01/06/19 10:08 77 01/06/19 05:57 98.7 15 94 2.0 01/04/19 20:07 Nasal Cannula I&O- Last 24 Hours up to 6 AM 01/06/19 06:00 Intake Total 7740 ml Output Total 8400 ml Balance -660 ml ELMER MAI MD Jan 06, 2019 14:40
--- NOTE | 2019-01-06 18:38 | REP ---
Chest x-ray: Two views: History: Shortness of breath. Comparison chest x-ray: December 27, 2018. Findings: There is blunting of the pleural angles bilaterally consistent with small bilateral pleural effusions. This is unchanged. There is a left-sided PICC line again noted with its tip in the expected location of the superior vena cava. Monitoring electrode is seen. Mild cardiomegaly is observed. The aorta is calcific and tortuous. There are degenerative changes in the thoracic spine. Impression: PICC line. Small bilateral effusions. Cardiomegaly. Electronically Signed by Leon Payton MD 01/06/2019 07:36 P
[2019-01-06] MEDS: TERAZOSIN 1 MG CAP PO SCH (21:42)
[2019-01-06 22:00] VITALS: BP 116/65
[2019-01-07 06:00] VITALS: BP 124/73
[2019-01-07] MEDS: SODIUM CHLORIDE 0.9% INJ 10 ML SYR IV SCH (06:15)
[2019-01-07 08:00] VITALS: BP 130/68
[2019-01-07] MEDS: IPRATROPIUM 0.5MG/ALBUTEROL 2.5MG INH SOL UD 3ML (DUONEB)(J7620) NEB SCH ×2 (08:00→11:11)
[2019-01-07] MEDS: ADVAIR HFA 230/21MCG INHALER INH SCH (08:30)
[2019-01-07] MEDS: POTASSIUM CHLORIDE 10 MEQ SR TABLET PO SCH (09:11)
[2019-01-07 09:12] VITALS: BP 130/68
[2019-01-07] MEDS: cloNIDine 0.1 MG TAB PO SCH (09:12)
[2019-01-07] MEDS: METOPROLOL SUCC *XL* 25MG TAB (TopROL *XL*) PO SCH (09:12)
[2019-01-07] MEDS: PANTOPRAZOLE 40MG TAB (PROTONIX) PO SCH (09:12)
[2019-01-07] MEDS: IRBESARTAN 150 MG TAB PO SCH (09:13)
[2019-01-07] MEDS: CHLORTHALIDONE 25 MG TAB PO SCH (09:13)
[2019-01-07] MEDS ORDERED: METO1TAB32 PO (11:55)
[2019-01-07] MEDS ORDERED: PANT40TA3 PO (11:55)
--- NOTE | 2019-01-07 12:40 | DS.PDOC ---
Discharge Summary General Date of Admission Dec 21, 2018 at 17:31 Date of Discharge 01/07/19 Discharge Summary PROCEDURES PERFORMED DURING STAY: EGD and food disimpaction on 12/21/18 Bronchoscopy on 12/21/18 Intubation on 12/21/18 US guided right thoracocentesis on 12/24/18 ECHO: 12/23/18 Underlying multifocal atrial rhythm - multifocal atrial tachycardia with rate averaging 90-100 bpm. No intraventricular conduction disturbance. Borderline concentric left ventricular hypertrophy with localized septal wall motion abnormality (RV pressure overload?) but other left ventricular wall segments were hyperkinetic. EF was 65% to 70% Mildly dilated left atrium with impairment of left ventricular (LV) diastolic function and current estimated mean left atrial pressure was mildly elevated. Mildly dilated right heart chambers with adequate free wall motion and Doppler evidence of at least moderate pulmonary hypertension. RVSP was 45 to 50 Inferior vena cava (IVC) size upper limits of normal with reduced respiratory collapse in keeping with an elevated central venous pressure. Moderate aortic valvular sclerosis without functional valvular abnormality. Normal aortic root size. Moderate mitral annular calcification without LV inflow tract obstruction and only very mild insufficiency. Normal appearing tricuspid valve with mild insufficiency. DISCHARGE DIAGNOSES: Acute on chronic respiratory failure with hypoxia Esophageal food impaction Esophageal large ulcer ESBL E coli Pneumonia Aspiration pneumonia due to food impaction and ulcer ESBL ecoli Cystitis ESRD on peritoneal dialysis COPD /Emphysema on home oxygen Moderate pulmonary hypertension and chronic right heart failure Hypertension Hyperlipidemia Multifocal atrial tachycardia in Echo. A fib not on anticoagulation at preset Malnutrition Anemia or chronic disease Hypophosphatemia. Diastolic CHF exacerbation Depression AAA 3.6 cm unchanged Ectasis of distal thoracic aorta unchanged COMPLICATIONS/CHIEF COMPLAINT: Esopageal Obstruction;Esrd On Peritoneal Dialysis. HISTORY OF PRESENT ILLNESS: See history and physical HOSPITAL COURSE: 78 yo woman with copd on home 2L NC, ESRD on PD, Afib, HTN, AAA, HLD presented to the ED on 12/21/18 for SOB, hypoxia in Room air to 70% which was corrected with 6 liters of oxygen and food regurgitation for at least 5 days. Patient underwent urgent EGD and was found to have food impaction and esophageal ulcer. During the procedure there was impacted pieces of chicken and a fairly large ulceration in the esophagus. She developed acute respiratory failure requiring intubation during the EGD. Postoperatively she remained hypoxic so remained intubated. She had infiltrates on the left upper lobe and right pleural effusion so underwent bronchoscopy on 12/21 and thoracocentesis on 12/24. She was found to have ESBL PNA and also UTI, clinically improved with Imipenem s/p extubation on 12/24/18 back on her home 2L NC. Complicated with malnutrition and significant N/V, with poor PO, was on TPN, now tolerating regular diet. She was continued on her peritoneal dialysis but her prescription was changed due to fluid overload and diastolic chf exacerbation # Acute on chronic Hypoxemic respiratory failure - resolved. -due to aspiration given the history of esophageal impaction with food regurgitation and ulcer - complicated with ESBL E.coli pneumonia, right sided pleural effusion now s/p thoracentesis. - Initially required intubation, s/p extubation on 12/24 - s/p thoracentesis 12/24 - completed course of imipenem - 6 days - now back at baseline - 2L nasal canula - Home advair - duoneb q6H and q2 PRN for wheezing # E-coli ESBL pneumonia and cystitis - completed course of imipenem # Emphysema with chronic respiratory failure with hypoxia -continue advair, duonebs prn. -oxygen supplementation back to baseline. # Afib/ Multfoca atrial tachycardia - s/p diltiazem gtt - now rate controlled on metoprolol succinate 25 mg daily. - aggrenox stopped on admission due to esophageal ulcer. will need to be restarted in 1 to 2 weeks time - MATand not afib was the rhythm in Echo. #Esophageal ulcer with food impaction - s/p disimpaction by EGD on 12/21/18 - Aspiration precautions - PPI bid. - tolerating oral regular diet #HTN - continue with current regimen - terazosin, clonidine, avapro, toprol #anemia - of chronic disease - aranesp in PD clinic. #Severe malnutrition - diet changed to regular diet with supplementation or nepro #ESRD on PD: - Has fluid overload still. PD prescription has been changed in hospital - continue to follow as per nephrology #Hypophosphatemia - stopped sevelamer follow up with nephrology before restarting. #Hypokalemia resolved will continue with home dosage of potassium. #Diastolic congestive heart failure -fluid management with peritoneal dialysis -fluid restriction to 1.5 liters. #Moderate pulmonary hypertension and chronic right heart failure -fluid management with dialysis. #Depression. - citalopram on hold may restarted at the PMD's discretion if needed #Abdominal aortic aneurysm - stable - no issues at present DISCHARGE MEDICATIONS: Please see below. ALLERGIES: Please see below. PHYSICAL EXAMINATION ON DISCHARGE: VITAL SIGNS: Please see below. General: NAD, sitting comfortably in chair HEENT: NC/AT, moist mucous membranes, anicteric eyes. NECK : No JVD, no thyromegaly Lungs: Bilateral vesicular breath sounds with bilateral basal crackles. Heart: +S1S2, RRR, no rub murmur or gallop Abd: soft, NT, +BS Ext: Bipedal 3+ edema. LABORATORY DATA: Please see below. ACTIVITY: [As tolerated]. DIET: Regular with 1.5 liter fluid restriction DISCHARGE PLAN: Subacute Rehab DISPOSITION: Lisandro gandhi DISCHARGE INSTRUCTIONS: Follow up with Nephrology in 1 week Follow up with PMD in 2 weeks after discharge. DISCHARGE CONDITION: [Stable]. TIME SPENT ON DISCHARGE: 45 minutes. Vital Signs/I&Os Vital Signs Date Time Temp Pulse Resp B/P (MAP) Pulse Ox O2 Delivery O2 Flow Rate FiO2 01/07/19 09:12 130/68 01/07/19 08:00 97.7 70 18 95 01/06/19 05:57 2.0 01/04/19 20:07 Nasal Cannula l I&O- Last 24 Hours up to 6 AM 01/07/19 06:00 Intake Total 7218 ml Output Total 7000 ml Balance 218 ml Laboratory Data CBC/BMP Item Value Date Time White Blood Count 10.9 10^3/uL H 01/06/19 05 Red Blood Count 3.07 10^6/uL L 01/06/19 05 Hemoglobin 9.8 g/dl L 01/06/19 0516 Hematocrit 31.6 % L 01/06/19 05 Mean Corpuscular Volume 102.9 fl H 01/06/19 05 Mean Corpuscular Hemoglobin 31.9 pg 01/06/19515 Mean Corpuscular Hemoglobin Concent 31.0 g/dl L 01/06/19515 Red Cell Distribution Width 15.5 % H 01/06/19515 Platelet Count 238 10^3/uL 01/06/19 05 Nucleated Red Blood Cells % (auto) 0.0 % 01/06/19515 Sodium Level 138 MEQ/L 10/7/19 0516 Potassium Level 4.4 MEQ/L 01/06/19 0516 Chloride Level 102 MEQ/L 01/06/19 0516 Carbon Dioxide Level 28 MEQ/L 01/06/19 05 Anion Gap 8 MEQ/L 01/06/19 0516 Blood Urea Nitrogen 38 MG/DL H 01/06/19 0516 Creatinine 5.47 MG/DL H 01/06/19 0516 Glomerular Filtration Rate 8.0 L 01/06/19 0516 Fasting Glucose 109 MG/DL H 01/06/19 0516 Calcium Level 8.7 MG/DL L 01/06/19 0516 Total Bilirubin 0.6 MG/DL 01/06/19 0516 Aspartate Amino Transf (AST/SGOT) 12 U/L 01/06/19 0516 Alanine Aminotransferase (ALT/SGPT) 13 U/L 01/06/19 0516 Alkaline Phosphatase 95 U/L 01/06/19 0516 Total Protein 6.0 GM/DL L 01/06/19 0516 Albumin 1.8 GM/DL L 01/06/19 05 Albumin/Globulin Ratio 0.43 L 01/06/19 0516 Discharge Medications Scheduled Clonidine HCl (Clonidine HCl) 0.1 Mg Tablet, 0.1 MG PO BID, (Reported) Folic Acid/Vit B Complex and C (Pastora-Olga Tablet) 1 Tab Tab, 1 TAB PO DAILY, (Reported) Irbesartan (Irbesartan) 300 Mg Tablet, 300 MG PO DAILY, (Reported) Metoprolol Succinate (Metoprolol Succinate) 25 Mg Tab.er.24h, 25 MG PO DAILY Multivit-Mins No.11/Folic Acid (Dialyvite 5000 Tablet) 1 Tab Tab, 1 TAB PO DAILY, (Reported) Pantoprazole Sodium (Pantoprazole Sodium) 40 Mg Tablet.dr, 40 MG PO BID Potassium Chloride (Potassium Chloride) 10 Meq Tablet.er, 20 MEQ PO DAILY, (Reported) Salmeterol/Fluticasone (Advair 250-50 Diskus) 14 Puff/Inhaler Aerp, 1 PUFF INH BID, (Reported) Simvastatin (Zocor) 40 Mg Tab, 40 MG PO QHS, (Reported) Terazosin HCl (Terazosin HCl) 1 Mg Capsule, 1 MG PO QHS, (Reported) Vitamin D (Vitamin D3) 1,000 Unit Tablet, 1,000 UNITS PO DAILY, (Reported) Vitamin E (Vitamin E) 400 Unit Capsule, 400 UNIT PO DAILY, (Reported) Scheduled PRN Calcium Carbonate (Tums) 500 Mg Chw, 500 MG PO Q4H PRN for HEARTBURN/INDIGESTION, (Reported) Gabapentin (Gabapentin) 100 Mg Capsule, 100 MG PO QHS PRN for RESTLESSNESS, (Reported) Ipratropium/Albuterol Sulfate (Iprat-Albut 0.5-3(2.5) mg/3 ml) 1 Jennie Jennie, 1 JENNIE INH Q6H PRN for SHORTNESS OF BREATH, (Reported) Ondansetron HCl (Zofran) 4 Mg Tablet, 4 MG PO Q6H PRN for NAUSEA, (Reported) Sodium Chloride (Chelsea Saline) 0.65 % Spr, 1 SPRAY NA QID PRN for NASAL DRYNESS, (Reported) Tramadol HCl (Tramadol HCl) 50 Mg Tablet, 50 MG PO TID PRN for PAIN, (Reported) Miscellaneous Medications [Patient Comment] , (Reported) PATIENT BROUGHT IN MEDICATION LIST FROM [facility]. THERE ARE MANY DISCREPENCIES BETWEEN THAT MED LIST AND HER EXTERNAL MED HISTORY. UNABLE TO VERIFY MEDICATIONS WITH PHARMACY. MEDICATION LIST WAS OBTAINED FROM EXTERNAL MED HISTORY Allergies Coded Allergies: latex (Verified Allergy, Intermediate, RASH, 12/21/18) pseudoephedrine (Verified Allergy, Intermediate, RASH, 12/21/18) carbamide peroxide (Verified Allergy, Unknown, 12/21/18) ibuprofen (Verified Adverse Reaction, Intermediate, BLOODY STOOLS, 12/21/18) HERMAN WELCH MD Jan 07, 2019 12:40
[2019-01-07] MEDS ORDERED: FLUBLOK(EGG FREE)(QUAD)INFLUENZA VACC 0.5ML SYRINGE (90682)18YRS&OLDER IM ONE (13:30)
--- NOTE | 2019-01-07 15:16 | IPN ---
DATE OF VISIT: 01/07/2019 Mrs. Lange is seen this morning on her bedside. Initially it was planned for her to go to [facility] swing bed for rehab yesterday. However, that has been postponed today. Details of her discharge are still being fingered out. I have talked to patient and family services and nursing staff about her dialysis and medications. In the meantime, patient is feeling well and denies any nausea, vomiting, dyspnea or chest pain. This morning she is not using oxygen. She had a chest x-ray done yesterday, which did not show any infiltrate but she does have small bilateral pleural effusions and cardiomegaly. On physical exam, temperature 97.7 degrees Fahrenheit, heart rate 70 per minute and respiratory rate 18 per minute. Blood pressure 130/68 mmHg and oxygen saturation 95% on room air. Head is atraumatic. Neck is supple and without jugular venous distention (JVD) or thyroid enlargement. Heart sounds are regular and lungs with slightly diminished breath sounds at bases. Abdomen is soft and nontender. Abdomen is slightly distended with peritoneal dialysis fluid and her peritoneal dialysis catheter is intact. Extremities have no cyanosis or clubbing. Neurologically, she is awake, alert and oriented times three. Patient did not have any new labs today. Labs from yesterday have already been reviewed. PROBLEMS: 1. End-stage renal disease. Patient is currently performing manual peritoneal dialysis five exchanges per day in the hospital. I have discussed with patient and peritoneal dialysis staff and they have all reassured me that patient will be able to use her cycler when she is at [facility] rehab bed. Patient's friend is going to bring her machine from home and supplies. She will use a 4.25% 5 liter bag along with a 2.5% 5 liter bag on the machine at night. During daytime she will use a 2 liter bag of 2.5% fluid and do a midday exchange. She will followup with our outpatient dialysis clinic. I have also talked to the outpatient dialysis nursing staff and they are planning to make a "home visit" to her tomorrow. 2. Hypertension. Blood pressure is very well controlled on current antihypertensive meds and she will continue with the same. Chlorthalidone is being stopped as she is not making much urine. 3. Hypokalemia. Her potassium level has corrected with potassium supplement and she will continue with the same. Her electrolytes should be checked once a week while she is up there in [facility]. 4. Anemia. Her anemia has improved and Aranesp is being stopped. She will not be able to get Aranesp in [facility]. We will give her Mircera when she comes for her monthly visit to outpatient dialysis clinic. 5. Hypervolemia and leg edema. Patient will follow a fluid restriction of 1500 mL per day. She will use 4.25% and 2.5% peritoneal dialysis solution until her edema is resolved. 6. Generalized weakness and deconditioning. Patient is going to subacute rehab at [facility] and hopefully will be able to go home soon after rehab. 7. Esophageal ulcer and dysphagia. Patient had food impaction in her esophagus and developed an ulcer. Now, she is able to swallow and will continue with her Protonix for at least 4 weeks.
== END 2019-01-07 13:39 | DRG 208 ==
LOC: M ED 14:22 → M ED INP 17:31 → M ICU 19:48 → M MSPAV 12-25 15:09
PROVIDERS: ADMIT Internal Medicine; ATTEND Internal Medicine Nephrology
PROC: 0B9J8ZZ Drainage of Left Lower Lung Lobe, Via Natural or Artificial Opening Endoscopic (ICD-10-PCS; 2018-12-21)
PROC: 5A1945Z Respiratory Ventilation, 24-96 Consecutive Hours (ICD-10-PCS; 2018-12-21)
PROC: 0DC58ZZ Extirpation of Matter from Esophagus, Via Natural or Artificial Opening Endoscopic (ICD-10-PCS; principal; 2018-12-21 17:16)
PROC: 0W993ZZ Drainage of Right Pleural Cavity, Percutaneous Approach (ICD-10-PCS; 2018-12-24)
PROC: 3E1M39Z Irrigation of Peritoneal Cavity using Dialysate, Percutaneous Approach (ICD-10-PCS; 2018-12-24)
PROC: 02HV33Z Insertion of Infusion Device into Superior Vena Cava, Percutaneous Approach (ICD-10-PCS; 2018-12-26)
PROC: 3E0536Z Introduction of Nutritional Substance into Peripheral Artery, Percutaneous Approach (ICD-10-PCS; 2018-12-26)
DX: J96.01 Acute respiratory failure with hypoxia (principal); N18.6 End stage renal disease; J69.0 Pneumonitis due to inhalation of food and vomit; E43 Unspecified severe protein-calorie malnutrition; J15.5 Pneumonia due to Escherichia coli; I12.0 Hypertensive chronic kidney disease with stage 5 chronic kidney disease or end stage renal disease; K22.10 Ulcer of esophagus without bleeding; J90 Pleural effusion, not elsewhere classified; N30.00 Acute cystitis without hematuria; K22.2 Esophageal obstruction; I50.812 Chronic right heart failure; J44.9 Chronic obstructive pulmonary disease, unspecified; I27.20 Pulmonary hypertension, unspecified; I48.91 Unspecified atrial fibrillation; I95.9 Hypotension, unspecified; E78.5 Hyperlipidemia, unspecified; E87.6 Hypokalemia; F17.200 Nicotine dependence, unspecified, uncomplicated; B96.20 Unspecified Escherichia coli [E. coli] as the cause of diseases classified elsewhere; K21.9 Gastro-esophageal reflux disease without esophagitis; I71.4 Abdominal aortic aneurysm, without rupture; E88.09 Other disorders of plasma-protein metabolism, not elsewhere classified; F32.9 Major depressive disorder, single episode, unspecified; Z99.2 Dependence on renal dialysis; Z99.81 Dependence on supplemental oxygen; Z79.82 Long term (current) use of aspirin; Z79.899 Other long term (current) drug therapy; Z91.040 Latex allergy status; Z88.8 Allergy status to other drugs, medicaments and biological substances; Z88.6 Allergy status to analgesic agent; D63.1 Anemia in chronic kidney disease; Z86.73 Personal history of transient ischemic attack (TIA), and cerebral infarction without residual deficits

== ENCOUNTER 2019-01-28 14:44 | Inpatient (IN) | payer MEDICARE ==
[~2019-01-28] VITALS: Ht 154.9 cm; Wt 78.1 kg
[~2019-01-28 14:44] MED LIST changes: +CHLO25TA PO; +CHOL100029 PO; +GABA-1171 PO; -IPRA0.00 INH; +IPRA0.00 NEB; +IRBE300T10 PO; +METO1TAB32 PO; +PANT40TA3 PO; +PATIENT COMMENT; +POTA1TAB23 PO; +SEVE800T3 PO; +TERA1CAP3 PO; +TRAM50TA2 PO; +VITA-245 PO; +ZOFR4TAB16 PO
[2019-01-28 16:24] LABS: BASO # 0.1 10^3/uL (0.0-0.2); BASO % 0.6 % (0.0-1.0); EOS # 0.1 10^3/uL (0.0-0.5); EOS % 0.6 % (0.0-3.0); HEMATOCRIT 33.2 % (36.0-47.0); HEMOGLOBIN 10.3 g/dl (12.0-15.5); LYMPH # 2.1 10^3/uL (1.5-5.0); LYMPH % 18.4 % (24.0-44.0); MEAN CORPUSCULAR VOLUME 103.1 fl (80.0-96.0); MONO # 0.6 10^3/uL (0.0-0.8); MONO % 4.9 % (0.0-5.0); NEUTROPHILS # 8.2 10^3/uL (1.5-8.5); NEUTROPHILS % 72.6 % (36.0-66.0); PLATELET COUNT, AUTOMATED 324 10^3/uL (150-450); RED BLOOD COUNT 3.22 10^6/uL (4.00-5.40); WHITE BLOOD COUNT 11.3 10^3/uL (4.0-10.0)
[2019-01-28 16:54] LABS: ERYTHROCYTE SEDIMENTATION RATE 89 mm/hr (0-30)
[2019-01-28 16:57] LABS: D-DIMER QUANT > 4000 ng/ml (<500)
--- NOTE | 2019-01-28 17:23 | REPVR ---
PROCEDURE INFORMATION: Exam: US Duplex Lower Extremity Veins Exam date and time: 01/28/2019 5:11 PM Clinical history: 78 years old, female; Pain; Leg, lower; Bilateral; Additional info: Swelling, pain TECHNIQUE: Imaging protocol: Real-time duplex ultrasound of the Lower Extremities with 2-D mariscal scale, color Doppler flow and spectral waveform analysis with image documentation. Complete exam focused on the bilateral lower extremity veins. COMPARISON: No relevant prior studies available. FINDINGS: Right deep veins: The right common femoral, and femoral veins are patent. There is a short segment of occlusive thrombus within the right popliteal vein. Right superficial veins: No superficial thrombophlebitis identified. Left deep veins: There is extensive occlusive thrombus within the left lower extremity deep venous system involving the left common femoral vein, left femoral vein, and left popliteal vein. Left superficial veins: No left superficial thrombophlebitis identified. Soft tissues: Unremarkable. IMPRESSION: Bilateral lower extremity DVT, more extensive on the left. Electronically signed by: Christo Craig On 01/28/2019 17:23:26 PM
--- NOTE | 2019-01-28 17:27 | REPVR ---
PROCEDURE INFORMATION: Exam: US Right Non-Vascular Joint or Other Extremity Structure, Limited Lower Extremity Exam date and time: 01/28/2019 5:11 PM Clinical history: 78 years old, female; Pain; Foot; Bilateral; Additional info: Swelling, pain TECHNIQUE: Imaging protocol: Right US Non-Vascular Joint or Other Extremity Structure. Limited exam of the lower extremity. COMPARISON: US BILAT LOWER EXTREM ARTERIAL 09/09/2018 12:15 PM FINDINGS: Extensive fluid changes within the subcutaneous tissues throughout the right foot. This may be seen with edema, cellulitis, as well as hemorrhage. No abscess is identified. If there is a continued clinical concern for soft tissue abscess then consider MRI as clinically indicated. IMPRESSION: No abscess identified. See above discussion. PROCEDURE INFORMATION: Exam: US Left Non-Vascular Joint or Other Extremity Structure, Limited Lower Extremity Exam date and time: 01/28/2019 5:11 PM Clinical history: 78 years old, female; Pain; Foot; Bilateral; Additional info: Swelling, pain TECHNIQUE: Imaging protocol: Left US Non-Vascular Joint or Other Extremity Structure. Limited exam of the lower extremity. COMPARISON: US BILAT LOWER EXTREM ARTERIAL 09/09/2018 12:15 PM FINDINGS: Extensive fluid changes within the subcutaneous tissues throughout the left foot. This may be seen with edema, cellulitis, as well as hemorrhage. No abscess is identified. If there is a continued clinical concern for soft tissue abscess then consider MRI as clinically indicated. IMPRESSION: No abscess identified. See above discussion. Electronically signed by: Christo Craig On 01/28/2019 17:27:33 PM
[2019-01-28] MEDS ORDERED: PROT1TAB2 OR (17:54)
[2019-01-28] MEDS ORDERED: CHLO125TA OR (17:54)
[2019-01-28] MEDS ORDERED: ALL10TAB29 OR (17:54)
[2019-01-28 18:13] LABS: C REACTIVE PROTEIN QUANTITATIV 2.07 MG/DL (0.00-0.30); CALCIUM LEVEL 8.2 MG/DL (8.8-10.2); CREATININE FOR GFR 6.84 MG/DL (0.55-1.30); GLOMERULAR FILTRATION RATE 6.2 (>32); POTASSIUM SERUM 3.8 MEQ/L (3.5-5.1)
[2019-01-28 18:36] LABS: INR 1.14; PROTHROMBIN TIME 14.3 SECONDS (11.8-14.0)
[2019-01-28 18:37] LABS: PARTIAL THROMBOPLASTIN TIME 31.2 SECONDS (25.0-38.4)
[2019-01-28] MEDS ORDERED: MORPHINE 2 MG/ML 1ML VIAL (J2270) IV ONE (19:00)
[2019-01-28] MEDS ORDERED: ISOVUE-370 76% 100ML VIAL (Q9967) As Ordered ONE (19:24)
[2019-01-28] MEDS ORDERED: HEPARIN DRIP 25,000 UNITS in IV 1 EA IV SCH (19:25)
[2019-01-28] MEDS ORDERED: HEPARIN SOD (PORCINE) 5000 UNITS/ML VIAL IV ONE (19:30)
[2019-01-28] MEDS ORDERED: HEPARIN SOD (PORCINE) 5000 UNITS/ML VIAL IV PRN (19:30)
--- NOTE | 2019-01-28 20:28 | REPVR ---
PROCEDURE INFORMATION: Exam: CT Angiography Chest With Contrast Exam date and time: 01/28/2019 7:21 PM Clinical history: 78 years old, female; Condition or disease; Other: Joaquin dvt; Additional info: Bilateral dvt le TECHNIQUE: Imaging protocol: Computed tomographic angiography of the chest with intravenous contrast. 3D rendering: MIP reconstructed images were created and reviewed. Radiation optimization: All CT scans at this facility use at least one of these dose optimization techniques: automated exposure control; mA and/or kV adjustment per patient size (includes targeted exams where dose is matched to clinical indication); or iterative reconstruction. Contrast material: ISOVUE 370; Contrast volume: 75 ml; Contrast route: IV; COMPARISON: CT Chest without contrast 12/21/2018 4:02 PM FINDINGS: Pulmonary arteries: There are numerous small pulmonary emboli within the left lower lobe, right lower lobe, right middle lobe and right upper lobe. Aorta: Severe atherosclerosis of the thoracic aorta without dissection. Probable ulcerated plaque within the aortic arch. 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 Lungs: Diffuse pulmonary emphysema. Right lower lobe consolidation. Mild peripheral groundglass lung opacities bilaterally. Right upper lobe calcified granuloma. Grouping of tiny nodules within the posterior lateral right upper lobe, suspicious for infectious bronchiolitis. There is a nodule measuring 5 mm within the right upper lobe on axial image 102 of series 401. Pleural space: Tiny bilateral pleural effusions. Heart: Severe atherosclerosis of the coronary arteries. Mild cardiomegaly. The RV/LV ratio is greater than 1 suspicious for right heart dysfunction. Liver: Calcified granulomas within the liver. Spleen: Calcified granulomas within the spleen. Lymph nodes: Unremarkable. No enlarged lymph nodes. Bones/joints: Degenerative spondylosis of the thoracic spine. No fracture or suspicious bone lesion. Soft tissues: Unremarkable. IMPRESSION: 1. Bilateral pulmonary emboli. 2. Findings suspicious for mild right heart dysfunction. 3. Right lower lobe consolidation. 4. Right upper lobe micronodules suspicious for infectious bronchiolitis. 5. 5 mm right upper lobe pulmonary nodule. Consider followup imaging as clinically indicated. For patients at low risk (minimal or absent history of smoking and of other known risk factors), no routine follow-up is indicated. For patients at high risk (history of smoking or of other known risk factors), consider optional CT at 12 months. (lopez Montoya al., Fleischner Society, 2017). 6. Evidence of prior granulomatous disease. Electronically signed by: Christo Craig On 01/28/2019 20:28:15 PM
[2019-01-28] MEDS ORDERED: CELE20TA PO (20:58)
[2019-01-28] MEDS ORDERED: METO25TA4 PO (20:58)
[2019-01-28] MEDS ORDERED: ASPI1CAP3 PO (20:58)
[2019-01-28] MEDS ORDERED: RA B2500 PO (20:58)
[2019-01-28] MEDS ORDERED: SIMVASTATIN 40 MG TAB PO SCH (21:00)
[2019-01-28 21:07] LABS: HEMATOCRIT 31.2 % (36.0-47.0); HEMOGLOBIN 9.8 g/dl (12.0-15.5); MEAN CORPUSCULAR HGB CONC 31.4 g/dl (32.0-36.5); PLATELET COUNT, AUTOMATED 307 10^3/uL (150-450); RED BLOOD COUNT 3.06 10^6/uL (4.00-5.40)
[2019-01-28 21:25] VITALS: BP 131/70
[2019-01-28] MEDS ORDERED: ONDANSETRON 4 MG TAB (S0181) PO PRN (22:15)
[2019-01-28] MEDS ORDERED: CALCIUM CARBONATE 500 MG CHEW U/D PO PRN (22:15)
[2019-01-28] MEDS ORDERED: traMADol 50 MG TAB PO PRN (22:15)
[2019-01-28] MEDS ORDERED: IPRATROPIUM 0.5MG/ALBUTEROL 2.5MG INH SOL UD 3ML (DUONEB)(J7620) NEB PRN (22:15)
[2019-01-28] MEDS: GABAPENTIN 100 MG CAP PO SCH (23:15)
[2019-01-28] MEDS: METOPROLOL TART 25 MG TABLET PO SCH (23:16)
--- NOTE | 2019-01-28 23:41 | HPE ---
DATE OF ADMISSION: 01/28/2019 PRIMARY CARE PHYSICIAN AND INFLATED BALL MOLDER: Dr. Jennifer Evans PATIENT FINANCIAL COORDINATOR: Dr. Dereje Lozada CHIEF COMPLAINT: Leg swelling. HISTORY OF PRESENTING ILLNESS: 78-year-old DO NOT RESUSCITATE, DO NOT INTUBATE female with end-stage renal disease, on peritoneal dialysis, hypertension, diabetes, diastolic heart failure, chronic obstructive pulmonary disease (COPD), on two liters of oxygen at night, presents to the emergency room with a 1-month history of increasing lower extremity edema, seen at Dr. Evans's office today and was prompted to come to the emergency room (ER) for further evaluation. The patient has had difficulty ambulating due to increased lower extremity edema. No changes in weight, remains at 162 pounds. No chest pain or shortness of breath at rest, but with dyspnea on exertion after walking unassisted without cane or walker about 10-15 feet. Patient does daily peritoneal dialysis, was seen at Dr. Evans's office on routine appointment without fever or chills, complained of 8/10 pain in the lower extremity when she walks and has taken no medications for this. She denies any history of hypercoagulable state, cancer, or family history of hypercoagulable state in the past. In the ER, she was afebrile. She was not found to be tachypneic or tachycardia. Venous Dopplers of bilateral lower extremities shows bilateral lower extremity deep vein thrombosis (DVT). CT chest shows pulmonary embolism (PE) in three lobes on the right. Hospitalist was called to admit for anticoagulation. The patient was hydrating well at 95% on room air with no use of respiratory accessory muscles. Patient otherwise denies any fever, chills, cough, changes in weight. Denies any insomnia or hypersomnia. Denies nausea, vomiting, abdominal pain, dysuria, urgency, frequency. Denies any abdominal pain, depression or anxiety. Hospitalist service was called to admit for bilateral lower extremity DVT and pulmonary embolism. PAST MEDICAL HISTORY: Abdominal aortic aneurysm without rupture. Hypertension. Diabetes. Depression. Transient ischemic attack (TIA) End-stage renal disease, on peritoneal dialysis. COPD. Atrial fibrillation, atrial flutter. Diastolic heart failure. Peritonitis. Recurrent Escherichia (E) coli urinary tract infection. Anemia due to end-stage renal disease. PAST SURGICAL HISTORY: Left ankle melanoma resection. Peritoneal dialysis catheter placement. Tonsillectomy as a child. Partial hysterectomy. Bilateral total knee replacement. Bilateral cataract surgery. ALLERGIES: To IBUPROFEN, LATEX, and CARBAMIDE. HOME MEDICATIONS: - aspirin dipyridamole one capsule by mouth twice a day - calcium carbonate 500 mg by mouth every 6 hours - cetirizine 10 mg daily - chlorthalidone 25 mg daily - Celexa 20 mg daily - gabapentin 100 mg four times a day - ipratropium albuterol every 6 hours as needed - irbesartan 300 mg daily - metoprolol 25 mg twice a day - Zofran 4 mg every 6 hours as needed - Protonix 40 mg daily - potassium 20 mEq daily - Zocor 40 mg nightly - tramadol 50 mg three times a day - vitamin D 1000 units daily - Biotin 2500 mcg daily - multivitamin one tablet daily - vitamin E 400 units daily SOCIAL HISTORY: The patient quit smoking 6 months ago, started smoking half a pack per day at the age of 13, quit 6 months ago. 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 Healthcare proxy is Julia Perez, phone number [phone]. She lives with a friend, walks unassisted. Patient is DO NOT RESUSCITATE, DO NOT INTUBATE. FAMILY HISTORY: Noncontributory due to age. No history of renal disease. REVIEW OF SYSTEMS: Per history of the present illness; 12-point system otherwise negative. PHYSICAL EXAMINATION: Temperature 98.6, pulse 65, respiratory rate 16, blood pressure 118/59, 85% on room air. Generally, patient is awake, alert, oriented to person, place and time. Answering questions appropriately. No use of respiratory accessory muscles. Trachea is midline. No jugular venous distention. No thyromegaly or cervical lymphadenopathy. Lungs are clear to auscultation. No wheezing, rales or rhonchi. Heart: S1, S2, sinus rhythm. No murmurs, rubs, or gallops. Abdomen is obese, soft, nontender, nondistended. Extremities: Positive 3+ pitting edema, left greater than the right. Distal pulses are noted - dorsalis pedis, posterior tibialis. Skin is warm, dry, well perfused, cool to touch but pulses have been noted. Patient did complain of lower extremity pain, 8/10 at the worst, did not take any pain medications at home despite having tramadol if needed on her medication list. LABORATORY DATA: White count 11.3, hemoglobin 10, hematocrit 33, platelet count 324. Sodium 139, potassium 3.8, chloride 105, bicarbonate 28, BUN 50, creatinine 6.84, glucose of 94, CRP 2.07, calcium 8.2. IMAGING STUDIES, 01/28/2019: Bilateral lower extremity DVT, more extensive on the left. Extremity nonvascular bilateral. No abscess identified bilateral lower extremities. CT chest angio: Bilateral pulmonary emboli with mild right heart dysfunction, right lower lobe consolidation, right upper lobe micronodules suspicious for infectious bronchiolitis, 5 mm right upper lobe pulmonary nodule. Consider followup imaging. Diffuse pulmonary emphysema. Probable ulcerated plaque within the aortic arch. Focal aneurysmal dilatation of the distal portion of the aortic arch with transverse diameter of 4 cm. Mild peripheral groundglass lung opacities bilaterally. Severe atherosclerosis of the coronary arteries. Mild cardiomegaly. RV/LV ratio is greater than 1, suspicious for right heart dysfunction. ASSESSMENT AND PLAN: This is an 78-year-old DO NOT RESUSCITATE, DO NOT INTUBATE female with end-stage renal disease, on peritoneal dialysis, hypertension, diabetes, COPD, diastolic heart failure, atrial fibrillation, atrial flutter, TIA, abdominal aortic aneurysm without rupture, anemia of chronic disease due to renal failure, presented with a 1-month history of increasing lower extremity edema, found to have bilateral lower extremity DVT and bilateral pulmonary embolism with right lower lobe consolidation, without fever, chills, cough, but with dyspnea on exertion. Patient will be admitted as an inpatient for two midnights for the following acute issues: 1. Acute bilateral lower extremity DVT and PE. Patient is admitted for intravenous heparin drip. Patient and family services (PFS) has been consulted for Eliquis preauthorization in light of renal failure; however, the patient is most likely best served with warfarin, to be managed by her primary care physician and strategy analyst, Dr. Jennifer Evans. Monitor for any signs of bleeding. Check stool for blood, PT, PTT for adjustment. Patient currently does not have any significant hypoxia, but will monitor for worsening respiratory distress. 2. Right lower lobe consolidation found on CT of the chest. Patient denies any fever or chills, shortness of breath, without intervention, had the white count decrease from 11.3 to 10,000. She is currently asymptomatic. Should the patient develop a fever of 100.4 or complaints of productive cough with increased white count, consider coverage with antibiotic. Obtain sputum culture, urine Legionella and Streptococcal antigen and full workup. At this time, no empiric antibiotics as the patient is asymptomatic. 3. End-stage renal disease. On maintenance peritoneal dialysis. Management Scientist, Dr. Jennifer Evans, has been consulted for management. Continue with peritoneal dialysis during hospital admission. 4. Anemia secondary to end-stage renal disease. No acute indication for red blood cell (RBC) transfusion. Monitor for worsening anemia or symptomatic anemia. Dyspnea on exertion is felt to be secondary to patient's bilateral pulmonary embolism. She is currently close to her baseline hemoglobin of 9.8 and hematocrit of 31; that was on 01/06/2019 and appears to be unchanged. No requirement for blood transfusion at this time. 5. History of diastolic congestive heart failure. Monitor intake and output, strict daily weights, continue on chlorthalidone and peritoneal dialysis. Continue on Avapro. 6. Hypertension. Continue on irbesartan and metoprolol. Blood pressure is adequately controlled with systolic pressure between 100 to 137 mmHg. Holding parameters have been placed for blood pressure medications. 7. History of atrial fibrillation, atrial flutter. On chronic Lopressor 25 mg twice a day. She is currently on intravenous heparin drip for anticoagulation. 8. History of COPD. Quit smoking 6 months ago. Resume as needed DuoNebs. 9. Dyslipidemia. On chronic Zocor. 10. Allergic rhinitis. On Zyrtec. 11. Peripheral neuropathy. On Neurontin 100 mg four times a day. 12. Vitamin D deficiency. On vitamin D supplementation along with calcium carbonate. 13. Chronic pain. On tramadol 50 mg three times a day as needed for pain. CODE STATUS: Patient is DO NOT RESUSCITATE, DO NOT INTUBATE. MTDD
[2019-01-29 06:00] VITALS: BP 123/73
[2019-01-29 07:24] LABS: HEMATOCRIT 33.3 % (36.0-47.0); HEMOGLOBIN 10.2 g/dl (12.0-15.5); MEAN CORPUSCULAR HEMOGLOBIN 31.5 pg (27.0-33.0); MEAN CORPUSCULAR HGB CONC 30.6 g/dl (32.0-36.5); MEAN CORPUSCULAR VOLUME 102.8 fl (80.0-96.0); PLATELET COUNT, AUTOMATED 328 10^3/uL (150-450); RED BLOOD COUNT 3.24 10^6/uL (4.00-5.40); WHITE BLOOD COUNT 9.4 10^3/uL (4.0-10.0)
[2019-01-29 07:42] LABS: CALCIUM LEVEL 8.1 MG/DL (8.8-10.2); CREATININE FOR GFR 6.87 MG/DL (0.55-1.30); GLOMERULAR FILTRATION RATE 6.1 (>32); POTASSIUM SERUM 3.4 MEQ/L (3.5-5.1)
[2019-01-29] MEDS ORDERED: CETIRIZINE (ZyrTEC) 10 MG TAB PO SCH (09:00)
[2019-01-29] MEDS ORDERED: CHLORTHALIDONE 25 MG TAB PO SCH (09:00)
[2019-01-29] MEDS ORDERED: VITAMIN D 1,000 INTERNATIONAL UNITS TABLET PO SCH (09:00)
[2019-01-29] MEDS ORDERED: POTASSIUM CHLORIDE 10 MEQ SR TABLET PO SCH (09:00)
[2019-01-29] MEDS ORDERED: IRBESARTAN 150 MG TAB PO SCH (09:00)
[2019-01-29] MEDS ORDERED: PANTOPRAZOLE 40MG TAB (PROTONIX) PO SCH (09:00)
[2019-01-29] MEDS ORDERED: CitaloPRAM (CeleXA) 20 MG TAB PO SCH (09:00)
[2019-01-29 09:47] VITALS: BP 113/58
[2019-01-29] MEDS: GABAPENTIN 100 MG CAP PO SCH ×2 (09:48→12:12)
[2019-01-29] MEDS: METOPROLOL TART 25 MG TABLET PO SCH (09:48)
[2019-01-29] MEDS ORDERED: POTASSIUM CHLORIDE 10 MEQ SR TABLET PO ONE (11:00)
--- NOTE | 2019-01-29 11:51 | IPNPDOC ---
Subjective Date Seen The patient was seen on 01/29/19. Subjective Chief Complaint/HPI Patient is comfortable in no apparent distress. Offers no new complaints General: Denies: ROS Unobtainable, Chills, Night Sweats, Fatigue, Malaise, Normal Appetite, Other Symptoms Constitutional: Denies: Chills, Fever, Malaise, Night Sweats, Weakness, Fatigue, Weight Loss, Lethargy, Other Eyes: Denies: Pain, Vision change, Conjunctivae inflammation, Eyelid inflammation, Redness, Other ENT: Denies: Head Aches, Ear Pain, Dysphagia, Sinus Congestion, Post Nasal Drip, Sore Throat, Epistaxis, Other Symptoms Skin: Denies: Rash, Lesions, Jaundice, Bruising, Itching, Dry, Breakdown, Nail Changes, Other Pulmonary: Denies: Dyspnea, Cough, Pleuritic Chest Pain, Other Symptoms Cardiovascular: Denies: Chest Pain, Palpitations, Orthopnea, Paroxysmal Noc. Dyspnea, Edema, Lt Headedness, Other Symptoms Gastrointestinal: Denies: Nausea, Vomiting, Abdominal Pain, Diarrhea, C onstipation, Melena, Hematochezia, Other Symptoms Musculoskeletal: Denies: Neck Pain, Back Pain, Shoulder Pain, Arm Pain, Hand Pain, Leg Pain, Foot Pain, Joint Pain, Muscle Pain, Spasms, Other Symptoms Neurological: Denies: Weakness, Numbness, Incoordination, Change in speech, Confusion, Seizures, Other Symptoms Objective Physical Examination General Exam: Positive: Alert, Cooperative Eye Exam: Positive: PERRLA ENT Exam: Positive: Atraumatic Neck Exam: Positive: Supple Chest Exam: Positive: Clear to auscultation, Normal air movement Heart Exam: Positive: Rate Normal, Normal S1, Normal S2 Abdomen Exam: Positive: Normal bowel sounds, Soft, Tenderness Extremity Exam: Positive: Other (positive bilateral pedal edema) Skin Exam: Positive: Nl turgor and temperature Neuro Exam: Positive: Strength at 5/5 X4 ext, Sensation Intact Assessment /Plan Problems (1) Pulmonary emboli Status: Acute Problem Text: 78 years old white female with past medical history of end-stage renal disease on peritoneal dialysis at home. Follows up with Dr. White also has a history of hypertension, diabetes mellitus type 2, COPD, diastolic heart failure, atrial fibrillation/atrial flutter, TIA, abdominal aortic aneurysm without rupture. Anemia of chronic disease due to renal failure. She was referred to ER from nephrology clinic with chief complaints of increasing lower extremity edema since last 1 month, and was found to have a bilateral lower extremity DVT and bilateral pulmonary embolus in ED and patient was admitted inpatient for further treatment and workup [facility] and is started on IV heparin for anticoagulation Discuss with Dr. Evans patient probably can be started on Eliquis and IV heparin can be stopped. Will also try to make sure that Eliquis is covered by patient's insurance before she is discharged back home. Continue all home medications (2) DVT (deep venous thrombosis) Status: Acute Problem Text: Please see management as per pulmonary embolus section (3) ESRD on peritoneal dialysis Status: Chronic Problem Text: Discuss with Dr. Evans patient received peritoneal dialysis at home Artificial nephrology consult is still pending Will await nephrology input and further recommendations (4) HTN (hypertension) Status: Chronic Problem Text: Continue home meds (5) HLD (hyperlipidemia) Status: Chronic Problem Text: Continue home meds (6) COPD (chronic obstructive pulmonary disease) Status: Chronic Problem Text: Continue home meds (7) A-fib Status: Chronic Problem Text: Will DC heparin Patient will be started on eliquis is 2.5 mg by mouth twice a day Plan/VTE VTE Prophylaxis Ordered?: Yes VS, I&O, 24H, Fishbone Vital Signs/I&O Vital Signs Date Time Temp Pulse Resp B/P (MAP) Pulse Ox O2 Delivery O2 Flow Rate FiO2 01/29/19 10:42 2.0 01/29/19 09:48 62 01/29/19 09:47 113/58 01/29/19 06:00 96.7 18 97 Nasal Cannula I&O- Last 24 Hours up to 6 AM 01/29/19 06:00 Intake Total 4000 ml Output Total 2100 ml Balance 1900 ml Laboratory Data 24H LABS Laboratory Tests 2 01/28/19 15:29: Immature Granulocyte % (Auto) 2.9, Neutrophils (%) (Auto) 72.6H, Lymphocytes (%) (Auto) 18.4L, Monocytes (%) (Auto) 4.9, Eosinophils (%) (Auto) 0.6, Basophils (%) (Auto) 0.6, Neutrophils # (Auto) 8.2, Lymphocytes # (Auto) 2.1, Monocytes # (Auto) 0.6, Eosinophils # (Auto) 0.1, Basophils # (Auto) 0.1, Nucleated Red Blood Cells % (auto) 0.0, Erythrocyte Sedimentation Rate 89H, Prothrombin Time 14.3H, Prothromb Time International Ratio 1.14, Activated Partial Thromboplast Time 31.2, D-Dimer, Quantitative > 4000H 01/28/19 17:45: Anion Gap 6L, Glomerular Filtration Rate 6.2L, Calcium Level 8.2L, C-Reactive Protein, Quantitative 2.07H 01/28/19 19:00: 01/28/19 20:59: Nucleated Red Blood Cells % (auto) 0.0 01/29/19 03:13: Activated Partial Thromboplast Time 185.4*H 01/29/19 06:55: Nucleated Red Blood Cells % (auto) 0.0, Anion Gap 7L, Glomerular Filtration Rate 6.1L, Calcium Level 8.1L 01/29/19 11:15: Activated Partial Thromboplast Time 73.4H CBC/BMP Laboratory Tests 01/28/19 15:29 01/28/19 17:45 01/28/19 20:59 01/29/19 06:55 JAMES WRIGHT MD Jan 29, 2019 11:51
[2019-01-29] MEDS ORDERED: ELIQ2.5T PO (11:58)
[2019-01-29] MEDS ORDERED: APIXABAN 2.5 MG TAB (ELIQUIS) PO SCH (13:00)
[2019-01-29 14:00] VITALS: BP 111/57
--- NOTE | 2019-01-29 14:55 | DS.PDOC ---
Discharge Summary General Date of Admission Jan 28, 2019 at 19:19 Date of Discharge 01/29/19 Specialist/Consultants Involve: FEDERICO EVANS MD @ Discharge Summary PROCEDURES PERFORMED DURING STAY: None. ADMITTING DIAGNOSES: 1. DVT, PE, end-stage renal disease on peritoneal dialysis. DISCHARGE DIAGNOSES: 1. DVT, PE, end-stage renal disease on peritoneal dialysis. COMPLICATIONS/CHIEF COMPLAINT: Deep Vein Thrombosis Of Bilateral [place] Extremitie. HISTORY OF PRESENT ILLNESS: 78 years old white female with end-stage renal disease, on peritoneal dialysis, hypertension, diabetes, diastolic heart failure, chronic obstructive pulmonary disease (COPD), on two liters of oxygen at night, presents to the emergency room with a 1-month history of increasing lower extremity edema, seen at Dr. Evans's office today and was prompted to come to the emergency room (ER) for further evaluation. The patient has had difficulty ambulating due to increased lower extremity edema. No changes in weight, remains at 162 pounds. No chest pain or shortness of breath at rest, but with dyspnea on exertion after walking unassisted without cane or walker about 10-15 feet. Patient does daily peritoneal dialysis, was seen at Dr. Evans's office on routine appointment without fever or chills, complained of 8/10 pain in the lower extremity when she walks and has taken no medications for this. She denies any history of hypercoagulable state, cancer, or family history of hypercoagulable state in the past. In the ER, she was afebrile. She was not found to be tachypneic or tachycardia. Venous Dopplers of bilateral lower extremities shows bilateral lower extremity deep vein thrombosis (DVT). CT chest shows pulmonary embolism (PE) in three lobes on the right. Hospitalist was called to admit for anticoagulation. The patient was hydrating well at 95% on room air with no use of respiratory accessory muscles. Patient otherwise denies any fever, chills, cough, changes in weight. Denies any insomnia or hypersomnia. Denies nausea, vomiting, abdominal pain, dysuria, urgency, frequency. Denies any abdominal pain, depression or anxiety. Hospitalist service was called to admit for bilateral lower extremity DVT and pulmonary embolism.. HOSPITAL COURSE: 78 years old white female with past medical history of end-stage renal disease on peritoneal dialysis at home. Follows up with Dr. White also has a history of hypertension, diabetes mellitus type 2, COPD, diastolic heart failure, atrial fibrillation/atrial flutter, TIA, abdominal aortic aneurysm without rupture. Anemia of chronic disease due to renal failure. She was referred to ER from nephrology clinic with chief complaints of increasing lower extremity edema since last 1 month, and was found to have a bilateral lower extremity DVT and bilateral pulmonary embolus in ED and patient was admitted inpatient for further treatment and workup Patient admitted to [facility] floor and is started on IV heparin for anticoagulation Discuss with Dr. Evans IV heparin was DC'd and patient was started on eliquis 2.5 mg by mouth twice a day pharmacy was also called and checked the dosage and renal dialysis patients before discharge Patient had a physical therapy evaluation done and has been cleared for discharge home. She will be discharged home on by moutheliquis. Patient will be discharged home on home care for She will follow with Dr. Evans in 1 week Continue all home meds . DISCHARGE MEDICATIONS: Please see below. ALLERGIES: Please see below. PHYSICAL EXAMINATION ON DISCHARGE: VITAL SIGNS: Please see below. GENERAL: Within normal limits HEENT: PERRLA. Extraocular muscles intact NECK: Supple, no JVD, no lymphadenopathy CARDIOVASCULAR EXAMINATION: S1, S2, regular RESPIRATORY EXAMINATION: Clear to A&P ABDOMINAL EXAMINATION: Benign EXTREMITIES: No clubbing, cyanosis, edema SKIN: Normal NEUROLOGICAL EXAMINATION: no Focal motor sensory deficit PSYCHIATRIC EXAMINATION: Normal LABORATORY DATA: Please see below. IMAGING: . CTA chest:1. Bilateral pulmonary emboli. 2. Findings suspicious for mild right heart dysfunction. 3. Right lower lobe consolidation. 4. Right upper lobe micronodules suspicious for infectious bronchiolitis. 5. 5 mm right upper lobe pulmonary nodule. Consider followup imaging as clinically indicated. For patients at low risk (minimal or absent history of smoking and of other known risk factors), no routine follow-up is indicated. For patients at high risk (history of smoking or of other known risk factors), consider optional CT at 12 months. (lopez Montoya al., Fleischner Society, 2017). 6. Evidence of prior granulomatous disease. PROGNOSIS: Good ACTIVITY: As tolerated. DIET: Renal diet DISCHARGE PLAN: Home DISPOSITION: Home with home care. DISCHARGE INSTRUCTIONS: 1. As per discharge instruction. ITEMS TO FOLLOWUP ON ON OUTPATIENT: 1. Follow with Dr. Evans in 1 week. DISCHARGE CONDITION: Stable. TIME SPENT ON DISCHARGE: 45 minutes. Vital Signs/I&Os Vital Signs Date Time Temp Pulse Resp B/P (MAP) Pulse Ox O2 Delivery O2 Flow Rate FiO2 01/29/19 14:00 98.4 66 15 111/57 (75) 97 Nasal Cannula 2.0 I&O- Last 24 Hours up to 6 AM 01/29/19 06:00 Intake Total 4000 ml Output Total 2100 ml Balance 1900 ml Laboratory Data Labs 24H Laboratory Tests 2 01/28/19 15:29: Immature Granulocyte % (Auto) 2.9, Neutrophils (%) (Auto) 72.6H, Lymphocytes (%) (Auto) 18.4L, Monocytes (%) (Auto) 4.9, Eosinophils (%) (Auto) 0.6, Basophils (%) (Auto) 0.6, Neutrophils # (Auto) 8.2, Lymphocytes # (Auto) 2.1, Monocytes # (Auto) 0.6, Eosinophils # (Auto) 0.1, Basophils # (Auto) 0.1, Nucleated Red Blood Cells % (auto) 0.0, Erythrocyte Sedimentation Rate 89H, Prothrombin Time 14.3H, Prothromb Time International Ratio 1.14, Activated Partial Thromboplast Time 31.2, D-Dimer, Quantitative > 4000H 01/28/19 17:45: Anion Gap 6L, Glomerular Filtration Rate 6.2L, Calcium Level 8.2L, C-Reactive Protein, Quantitative 2.07H 01/28/19 19:00: 01/28/19 20:59: Nucleated Red Blood Cells % (auto) 0.0 01/29/19 03:13: Activated Partial Thromboplast Time 185.4*H 01/29/19 06:55: Nucleated Red Blood Cells % (auto) 0.0, Anion Gap 7L, Glomerular Filtration Rate 6.1L, Calcium Level 8.1L 01/29/19 11:15: Activated Partial Thromboplast Time 73.4H CBC/BMP Laboratory Tests 01/28/19 15:29 01/28/19 17:45 01/28/19 20:59 01/29/19 06:55 Discharge Medications Scheduled Apixaban (Eliquis) 2.5 Mg Tablet, 2.5 MG PO BID Aspirin/Dipyridamole (Aspirin-Dipyridam ER 25-200 mg) 1 Each Cpmp.12hr, 1 CAP PO BID, (Reported) Biotin (Biotin) 2,500 Mcg Capsule, 2,500 MCG PO DAILY, (Reported) Cetirizine HCl (Cetirizine HCl) 10 Mg Tablet, 10 MG OR DAILY, (Reported) Chlorthalidone (Chlorthalidone) 25 Mg Tablet, 25 MG OR DAILY, (Reported) Citalopram Hydrobromide (Celexa) 20 Mg Tablet, 20 MG PO DAILY, (Reported) Gabapentin (Gabapentin) 100 Mg Capsule, 100 MG PO QID, (Reported) Irbesartan (Irbesartan) 300 Mg Tablet, 300 MG PO DAILY, (Reported) Metoprolol Tartrate (Metoprolol Tartrate) 25 Mg Tablet, 25 MG PO BID, (Reported) Multivit-Mins No.11/Folic Acid (Dialyvite 5000 Tablet) 1 Tab Tab, 1 TAB PO DAILY, (Reported) Pantoprazole Sodium (Protonix) 40 Mg Tablet.dr, 40 MG OR DAILY, (Reported) Potassium Chloride (Potassium Chloride) 10 Meq Tablet.er, 20 MEQ PO DAILY, (Reported) Simvastatin (Zocor) 40 Mg Tab, 40 MG PO QHS, (Reported) Vitamin D (Vitamin D3) 1,000 Unit Tablet, 1,000 UNITS PO DAILY, (Reported) Vitamin E (Vitamin E) 400 Unit Capsule, 400 UNIT PO DAILY, (Reported) Scheduled PRN Calcium Carbonate (Tums) 500 Mg Chw, 500 MG PO Q4H PRN for HEARTBURN/INDIGESTION, (Reported) Ipratropium/Albuterol Sulfate (Iprat-Albut 0.5-3(2.5) mg/3 ml) 1 Shara Shara, 1 VIAL NEB Q6H PRN for SHORTNESS OF BREATH, (Reported) Ondansetron HCl (Zofran) 4 Mg Tablet, 4 MG PO Q6H PRN for NAUSEA, (Reported) Tramadol HCl (Tramadol HCl) 50 Mg Tablet, 50 MG PO TID PRN for PAIN, (Reported) Allergies Coded Allergies: latex (Verified Allergy, Intermediate, RASH, 12/21/18) pseudoephedrine (Verified Allergy, Intermediate, RASH, 12/21/18) carbamide peroxide (Verified Allergy, Unknown, 12/21/18) ibuprofen (Verified Adverse Reaction, Intermediate, BLOODY STOOLS, 12/21/18) JAMES WRIGHT MD Jan 29, 2019 14:55
--- NOTE | 2019-01-29 20:59 | CR ---
DATE OF CONSULTATION: 01/29/2019 REFERRING PHYSICIAN: Henrietta Gentile MD REASON FOR CONSULTATION: To assist in the management of end-stage renal disease. HISTORY OF PRESENT ILLNESS Mrs. Lange is an 78-year-old female with known history of type 2 diabetes, hypertension, COPD, congestive heart failure, end-stage renal disease and recent history for pneumonia. She was admitted to [facility] just a few weeks ago with respiratory failure and pneumonia caused by esophageal obstruction. She was quite weak after this hospitalization and was discharged to home just a couple of weeks ago. She reports worsening pain and swelling of her left leg for the last few days and presented to the emergency room yesterday and was noticed to have DVT. She has been admitted and being anticoagulation with IV heparin drip. The patient has been on home dialysis with peritoneal dialysis and nephrology consultation was requested last evening. Her peritoneal dialysis was ordered and the patient is seen this morning. PAST MEDICAL AND SURGICAL HISTORY Significant for 1. Abdominal aortic aneurysm without rupture. 2. Hypertension. 3. Diabetes. 4. End-stage renal disease. 5. History of TIA. 6. History of atrial fibrillation and flutter. 7. Chronic obstructive pulmonary disease (COPD). 8. Diastolic congestive heart failure. 9. History of recurrent UTI. 10. Has recent pneumonia and respiratory failure. Past surgical history is significant for left ankle melanoma resection, peritoneal dialysis catheter placement, tonsillectomy as a child, partial hysterectomy, bilateral total knee replacement and bilateral cataract surgery. ALLERGIES: She has allergy to LATEX, IBUPROFEN and CARBAMIDE. MEDICATIONS Home medications include aspirin, calcium carbonate 500 mg every 6 hours as needed for heartburn, cetirizine 10 mg daily, chlorthalidone 25 mg daily, dipyridamole 1 capsule twice a day, Celexa 20 mg daily, gabapentin 100 mg four times a day, irbesartan 300 mg daily, metoprolol 25 mg twice a day, Protonix 40 mg daily, potassium 20 mEq daily, Zocor 40 mg at bedtime, tramadol 50 mg three times a day, vitamin D 1000 units daily, multivitamin one tablet daily, vitamin E 400 units daily and albuterol and ipratropium inhalers every 6 hours as needed. PERSONAL AND SOCIAL HISTORY The patient quit smoking about 6 months ago. She denies any alcohol or drug use. FAMILY HISTORY: Negative for end-stage renal disease. REVIEW OF SYSTEMS: The patient was recently admitted with esophageal obstruction caused by food impaction, pneumonia and respiratory failure. Now she has developed worsening left leg pain and swelling and diagnosed with DVT on this admission. She denies any fever or chills. Ears, nose and throat are unremarkable. Cardiovascular system negative for dyspnea or chest pain, though she has edema only in the left leg. Respiratory system significant for recent pneumonia and respiratory failure. She denies any hemoptysis or pleuritic type of chest pain. GI system is significant for esophageal ulcer due to food impaction and recent upper endoscopy. Denies any diarrhea or vomiting. system is significant for recurrent urinary tract infection. Endocrine system is significant for type 2 diabetes and secondary hyperparathyroidism. Psychosocial system significant for depression. Neurological system is significant for prior history of TIA and peripheral neuropathy. Musculoskeletal system significant for back pain and degenerative arthritis. PHYSICAL EXAMINATION Elderly lady laying in the bed using oxygen via nasal cannula. Temperature 96.7 degrees Fahrenheit, heart rate 64 per minute and respiratory rate 18 per minute. Blood pressure 113/58 mmHg and oxygen saturation 97% on 2 liters oxygen. Head is atraumatic. Neck is supple and jugular venous distention (JVD) mildly elevated. There is no oral thrush or ulcers. Pupils are equal and reactive to light and sclera is anicteric. Heart exam reveals regular S1 and S2. Lungs with slightly diminished breath sounds at bases. Abdomen: Soft and nontender. Peritoneal dialysis catheter is intact. Her belly is filled with peritoneal fluid. Extremities have no cyanosis or clubbing. Left leg has significant edema up to her buttock area. She has mild bluish discoloration of her toes. Neurologically she is awake, alert and at her baseline mentation. LABORATORY DATA WBC count is 9.4, hemoglobin 10.2 and hematocrit 33.3. Platelets 328. Sodium 140, potassium 3.4, CO2 31, BUN 49 and creatinine 6.87. Glucose 140 and calcium 8.1. She had a CT angiogram of chest done which showed bilateral pulmonary emboli. Findings suspicious for mild right heart dysfunction and right lower lobe consolidation. Right upper lobe micronodule suspicious for infectious bronchiolitis. 5 mm right upper lobe pulmonary nodule. Lower extremity ultrasound was consistent with bilateral lower extremity DVT, more extensive on the left. PROBLEMS: 1. End-stage renal disease. The patient has been on peritoneal dialysis at home. We have already resumed her peritoneal dialysis with five exchanges per day. We are using 2.5 liters of fluid due to lower extremity edema and see if we can correct her volume status. 2. Hypertension. Blood pressure seems reasonably well-controlled at present. I would suggest to monitor her blood pressure closely as she does have risk of hypotension with multiple antihypertensive meds. 3. Anemia. There is no history of anemia of end-stage renal disease. At present her anemia is stable. She is being anticoagulated. 4. Hypokalemia. This is another chronic issue and she has been on chronic potassium supplement along with diuretics. We will continue with potassium supplement 20 mEq daily. 5. Bilateral lower extremity DVT. She is at high risk and currently being anticoagulated with heparin drip. She can be switched to Eliquis if that is an option for her. I would recommend to use 2.5 mg twice a day dose after adequate heparinization. Thank you for involving me in the care of Mrs. Lange. I will follow her along with you.
== END 2019-01-29 16:38 | disposition home health service (06) | DRG 299 ==
LOC: M ED 14:44 → M ED INP 19:19 → M MSPAV 21:22
PROVIDERS: ADMIT General Practice; ATTEND Internal Medicine
DX: I82.433 Acute embolism and thrombosis of popliteal vein, bilateral (principal); I26.94 Multiple subsegmental thrombotic pulmonary emboli without acute cor pulmonale; N18.6 End stage renal disease; I12.0 Hypertensive chronic kidney disease with stage 5 chronic kidney disease or end stage renal disease; I50.32 Chronic diastolic (congestive) heart failure; I48.92 Unspecified atrial flutter; I48.20 Chronic atrial fibrillation, unspecified; E11.22 Type 2 diabetes mellitus with diabetic chronic kidney disease; J44.9 Chronic obstructive pulmonary disease, unspecified; Z66 Do not resuscitate; E55.9 Vitamin D deficiency, unspecified; I70.0 Atherosclerosis of aorta; F32.9 Major depressive disorder, single episode, unspecified; Z86.73 Personal history of transient ischemic attack (TIA), and cerebral infarction without residual deficits; E11.42 Type 2 diabetes mellitus with diabetic polyneuropathy; D63.1 Anemia in chronic kidney disease; Z87.440 Personal history of urinary (tract) infections; J30.9 Allergic rhinitis, unspecified; Z85.820 Personal history of malignant melanoma of skin; Z96.653 Presence of artificial knee joint, bilateral; Z99.2 Dependence on renal dialysis; Z98.41 Cataract extraction status, right eye; Z99.81 Dependence on supplemental oxygen; Z98.42 Cataract extraction status, left eye; Z88.6 Allergy status to analgesic agent; Z88.8 Allergy status to other drugs, medicaments and biological substances; Z91.040 Latex allergy status; Z79.82 Long term (current) use of aspirin; Z79.891 Long term (current) use of opiate analgesic; Z79.899 Other long term (current) drug therapy; Z87.891 Personal history of nicotine dependence

== ENCOUNTER 2019-02-03 18:32 | Inpatient (IN) | payer MEDICARE ==
[~2019-02-03] VITALS: Ht 154.9 cm; Wt 73.2 kg
[~2019-02-03 18:32] MED LIST changes: +ALL10TAB29 PO; +ASPI1CAP3 PO; +CELE20TA PO; +CHLO125TA PO; +ELIQ2.5T PO; +METO25TA4 PO; +PROT1TAB2 PO; +RA B2500 PO
[2019-02-03 20:48] VITALS: BP 160/80
[2019-02-03] MEDS: SIMVASTATIN 40 MG TAB PO SCH (21:00)
[2019-02-03] MEDS: POTASSIUM CHLORIDE 10 MEQ SR TABLET PO SCH (21:00)
[2019-02-03] MEDS: GABAPENTIN 100 MG CAP PO SCH (21:00)
[2019-02-03] MEDS ORDERED: MEROPENEM INJ 1 GM in IV 1 EA IV SCH (21:15)
[2019-02-03 21:25] LABS: BASO % 0.2 % (0.0-1.0); EOS % 0.1 % (0.0-3.0); HEMATOCRIT 32.8 % (36.0-47.0); LYMPH # 1.8 10^3/uL (1.5-5.0); MEAN CORPUSCULAR HEMOGLOBIN 31.3 pg (27.0-33.0); MEAN CORPUSCULAR HGB CONC 30.5 g/dl (32.0-36.5); MEAN CORPUSCULAR VOLUME 102.8 fl (80.0-96.0); MONO # 0.8 10^3/uL (0.0-0.8); NEUTROPHILS # 16.9 10^3/uL (1.5-8.5); NEUTROPHILS % 85.7 % (36.0-66.0); PLATELET COUNT, AUTOMATED 332 10^3/uL (150-450); RED BLOOD COUNT 3.19 10^6/uL (4.00-5.40); WHITE BLOOD COUNT 19.7 10^3/uL (4.0-10.0)
[2019-02-03 21:50] LABS: ERYTHROCYTE SEDIMENTATION RATE 108 mm/hr (0-30)
[2019-02-03] MEDS ORDERED: VANCOMYCIN 1000 MG/20 ML VIAL (J3370) IP ONE (22:00)
[2019-02-03] MEDS ORDERED: GENTAMICIN SULF INJ 80MG/2ML VIAL (J1580) IP ONE (22:00)
[2019-02-03 22:24] LABS: BILIRUBIN,TOTAL 0.3 MG/DL (0.2-1.0); C REACTIVE PROTEIN QUANTITATIV 14.5 MG/DL (0.00-0.30); CALCIUM LEVEL 8.2 MG/DL (8.8-10.2); CK-MB VALUE MASS 1.4 NG/ML (<3.6); CREATININE FOR GFR 8.51 MG/DL (0.55-1.30); GLOMERULAR FILTRATION RATE 4.8 (>32); MB/CK RELATIVE INDEX 3.33 (< OR =4); POTASSIUM SERUM 4.2 MEQ/L (3.5-5.1); TOTAL PROTEIN 6.2 GM/DL (6.4-8.2); TROPONIN I 0.03 NG/ML (< 0.10)
[2019-02-03] MEDS: MEROPENEM INJ 1 GM in IV 1 EA IV SCH (23:00)
[2019-02-03] MEDS ORDERED: ELIQ2.5T PO (23:45)
[2019-02-03] MEDS ORDERED: BIOT1CAP2 PO (23:45)
[2019-02-03] MEDS ORDERED: ADV250INH INH (23:45)
[2019-02-03] MEDS ORDERED: OCEA0.654 (23:47)
[2019-02-03] MEDS ORDERED: PROAAER10 INH (23:47)
[2019-02-04] VITALS: BP 170/90
[2019-02-04] MEDS ORDERED: CALCIUM CARBONATE 500 MG CHEW U/D PO PRN (00:15)
[2019-02-04] MEDS ORDERED: traMADol 50 MG TAB PO PRN (00:15)
[2019-02-04] MEDS ORDERED: ONDANSETRON 4 MG TAB (S0181) PO PRN (00:15)
--- NOTE | 2019-02-04 00:25 | HPEPDOC ---
[facility] Medical History & Physical Date of Admission Feb 03, 2019 Date of Service: Feb 03, 2019 Attending Physician: JOLANTA FREDERICK MD History and Physical CHIEF COMPLAINT: Direct transfer from [facility] for Leukocytosis, lactic acidosis, dysphagia HISTORY OF PRESENT ILLNESS: Yuki Lange is an 78 YO F with history of ESRD on PD, recent history ESBL E. coli pneumonia, recent ESBL E. coli cystitis, recent admission to [facility] for DVT and bilateral pulmonary emboli (now on Eliquis) presents to [facility] after direct transfer from [facility] for dysphagia and leukocytosis. The patient states she feels as if the food or liquid she eats gets stuck about midway down her esophagus and then she regurgitates everything. She denies any vomiting, coughing, choking or nausea and also states that her symptoms of GERD are well controlled with the omeprazole she takes at home. She has not had any fevers, chills or sweats. At the outside facility she was found to have leukocytosis of 19,000 and lactic acidosis of 2.8. There was concern for peritonitis but the patient denies any abdominal pain. She was also found to have suspicious infiltrate on chest x-ray concerning for pneumonia. She was transferred to [facility] for higher level of care. PAST MEDICAL HISTORY: Abdominal aortic aneurysm without rupture. Hypertension. Diabetes. Depression. Transient ischemic attack (TIA) End-stage renal disease, on peritoneal dialysis. COPD. Atrial fibrillation, atrial flutter. Diastolic heart failure. Peritonitis. Recurrent Escherichia (E) coli urinary tract infection. Anemia due to end-stage renal disease. History of Esophageal stricture and ulcerations PAST SURGICAL HISTORY: Left ankle melanoma resection. Peritoneal dialysis catheter placement. Tonsillectomy as a child. Partial hysterectomy. Bilateral total knee replacement. Bilateral cataract surgery. SOCIAL HISTORY: The patient quit smoking 6 months ago, started smoking half a pack per day at the age of 13, quit 6 months ago. 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 Healthcare proxy is Julia Perez, phone number [phone]. She lives with a friend, walks unassisted. Patient is DO NOT RESUSCITATE, DO NOT INTUBATE. FAMILY HISTORY: Noncontributory due to age. No history of renal disease. ALLERGIES: Please see below. REVIEW OF SYSTEMS: CONSTITUTIONAL: Feels well. No fever or chills HEENT: denies vision changes, no sinus problems, denies any trouble swallowing CARDIOVASCULAR: no palpitations RESPIRATORY: Denies any shortness of breath GENITOURINARY: No dysuria MUSCULOSKELETAL: Denies any joint/muscle pain GASTROINTESTINAL: Denies abdominal pain, no nausea/vomiting/diarrhea, reports she feels hungry SKIN: No new rashes or lesions NEUROLOGICAL: No loss of sensation PSYCHIATRIC: Reports normal mood, no delusions or hallucinations ENDOCRINE: No hot/cold intolerance HEMATOLOGIC/LYMPHATIC: No easy bruising, no lumps/bumps ALLERGIC/IMMUNOLOGIC: No sinus symptoms HOME MEDICATIONS: Please see below. PHYSICAL EXAMINATION: VITAL SIGNS: Please see below. GENERAL APPEARANCE: Laying in bed, appears stated age, no acute distress, calm, cooperative HEENT: EOMI, PERRLA, neck is supple with no thyromegaly or lymphadenopathy RESPIRATORY: Lungs are clear to auscultation bilaterally with no adventitious breath sounds appreciated CARDIOVASCULAR: Mildly elevated JVD at 11 cm, irregularly irregular rate,no murmurs/rubs/gallops ABDOMEN: Soft, nontender to palpation in all four quadrants, no masses/organomegaly, peritoneal catheter in place with no surrounding edema or pain with palpation EXTREMITIES: Left lower extremity is 2+ pitting edema right lower extremity without edema, clubbing or cyanosis NEUROLOGICAL: No obvious focal deficits PSYCHIATRIC: normal mood/affect Skin: No rashes or ulcers. LN: No significant cervical or inguinal lymphadenopathy LABORATORY DATA: See below. IMAGING: Chest x-ray from outside hospital read: "Cardiomegaly, bilateral pleural effusions, suspicious infiltrate which is visible on the lateral film" MICROBIOLOGY: Please see below. ASSESSMENT: This is an 78-year-old female with history of ESRD on PD, recurrent aspiration pneumonia, recurrent cystitis, who presents with dysphasia found to have leukocytosis and lactic acidosis concerning for recurrent ESBL aspiration pneumonia versus ESBL cystitis versus peritonitis. She will be started on empiric antibiotics: vancomycin and meropenem pending cultures, then will be de- escalated as necessary. PLAN: 1. Leukocytosis: Patient was found to have WBC 19,000 and lactic acid 2.8 at outside hospital. -CXR pending -Blood cultures 2 -UA and culture -Trend lactic acid (was 2.8 at outside hospital, now 1.7) -Started empiric treatment with Vancomycin/Meropenem renally dosed -Case was discussed with Dr. Mcguire of nephrology. He will order peritoneal dialysis and cell cultures 2. Possible peritonitis in setting of active peritoneal dialysis: -No evidence of abdominal pain, fevers, chills -Nephrology consulted. Appreciate recommendations for peritoneal dialysis -Cr found to be 8.51. Will resume PD 3. Dysphagia: -Clear thin liquids for time being -Consider GI consult in AM 4. History of aspiration PNA and CXR concerning for infiltrate: -Empiric abx -O2 saturation WNL (patient uses O2 at home) -Will order sputum cultures -Will order Duonebs as needed 5. Recent history of DVT and bilateral PE's: -Will continue Eliquis 2.5mg BID 6. Anemia of Chronic kidney disease: Hgb is 10.0 -Stable 7. HTN: -Continue Chlorthalidone, Irbesartan, Metoprolol 8. History of AF and atrial flutter: -I will place the patient on 48h telemetry -Will order Magnesium level 9. Mood disorder: -Continue Celexa DISPO: pending culture results ATTENDING PHYSICIAN ATTESTATION: I have independently interviewed and examined the patient, and agree with the physical findings, assessment, and management plan as documented above by my Resident physician. Home Medications Scheduled Apixaban (Eliquis) 2.5 Mg Tablet, 2.5 MG PO BID Aspirin/Dipyridamole (Aspirin-Dipyridam ER 25-200 mg) 1 Each Cpmp.12hr, 1 CAP PO BID Biotin (Biotin) 1 Mg Capsule, 1 MG PO DAILY Cetirizine HCl (Cetirizine HCl) 10 Mg Tablet, 10 MG PO DAILY Chlorthalidone (Chlorthalidone) 25 Mg Tablet, 25 MG PO DAILY Citalopram Hydrobromide (Celexa) 20 Mg Tablet, 20 MG PO DAILY Gabapentin (Gabapentin) 100 Mg Capsule, 100 MG PO QHS Irbesartan (Irbesartan) 300 Mg Tablet, 300 MG PO DAILY Metoprolol Tartrate (Metoprolol Tartrate) 25 Mg Tablet, 25 MG PO BID Multivit-Mins No.11/Folic Acid (Dialyvite 5000 Tablet) 1 Tab Tab, 1 TAB PO DAILY Pantoprazole Sodium (Protonix) 40 Mg Tablet.dr, 40 MG PO DAILY Potassium Chloride (Potassium Chloride) 10 Meq Tablet.er, 10 MEQ PO BID Salmeterol/Fluticasone (Advair 250-50 Diskus) 1 Each Blst.w.dev, 1 PUFF INH BID Simvastatin (Zocor) 40 Mg Tab, 40 MG PO QHS Vitamin D (Vitamin D3) 1,000 Unit Tablet, 1,000 UNITS PO DAILY Vitamin E (Vitamin E) 400 Unit Capsule, 400 UNIT PO DAILY Scheduled PRN Albuterol Sulfate (Proair Hfa) 8.5 Gm Hfa.aer.ad, 1 PUFF INH Q4H PRN for SHORTNESS OF BREATH Calcium Carbonate (Tums) 500 Mg Chw, 500 MG PO Q4H PRN for HEARTBURN/INDIGESTION Ipratropium/Albuterol Sulfate (Iprat-Albut 0.5-3(2.5) mg/3 ml) 1 Shara Shara, 3 ML NEB Q6H PRN for SHORTNESS OF BREATH Ondansetron HCl (Zofran) 4 Mg Tablet, 4 MG PO Q6H PRN for NAUSEA Sodium Chloride ([place]lier) 104 Ml [place], 2 SPRAY NA QID PRN for NASAL DRYNESS EACH NOSTRIL Tramadol HCl (Tramadol HCl) 50 Mg Tablet, 50 MG PO Q8H PRN for PAIN Allergies Coded Allergies: latex (Verified Allergy, Intermediate, RASH, 12/21/18) pseudoephedrine (Verified Allergy, Intermediate, RASH, 12/21/18) carbamide peroxide (Verified Allergy, Unknown, 12/21/18) ibuprofen (Verified Adverse Reaction, Intermediate, BLOODY STOOLS, ) A-FIB/CHADSVASC A-FIB History Current/History of A-Fib/PAF?: Yes Current PO Anticoag Therapy: Yes Age/Risk Factor Scoring CHADSVASC: CHADSVASC Response (Comments) Value Age Risk Factor Age >/= 75 years old 2 Gender Risk Factor Female 1 Hx of CHF No 0 Hx of HTN Yes 1 Hx of Stroke/TIA/or VTE Yes 2 Hx of Diabetes No 0 Hx of Vascular Disease Yes 1 Total 7 Treatment Treatment ordered: Apixaban GME ATTESTATION GME ATTESTATION My faculty preceptor for this patient encounter was physically present during the encounter and was fully available. All aspects of the patient interview, examination, medical decision making process, and medical care plan development were reviewed and approved by the faculty preceptor. The faculty preceptor is aware and concurs with the plan as stated in the body of this note and will attest to such by his/her cosignature. WALDO MARISCAL MD Feb 03, 2019 21:50 JOLANTA FREDERICK MD Feb 04, 2019 02:13
[2019-02-04] MEDS: IPRATROPIUM 0.5MG/ALBUTEROL 2.5MG INH SOL UD 3ML (DUONEB)(J7620) NEB SCH ×4 (01:11→20:26)
[2019-02-04] MEDS: METOPROLOL TART 25 MG TABLET PO SCH ×3 (01:50→20:06)
[2019-02-04] MEDS: APIXABAN 2.5 MG TAB (ELIQUIS) PO SCH ×3 (01:50→20:05)
[2019-02-04 04:00] VITALS: BP 162/82
--- NOTE | 2019-02-04 07:01 | REP ---
The portable chest, 10:52 p.m., the patient semi upright AP: Comparison is 01/06/2019. The costophrenic angles are effaced bilaterally. This is unchanged and compatible with small bilateral pleural effusions. There is focal atelectasis inferolaterally in the right lung as an interval change. There is diffuse interstitial coarsening as an interval change compatible with interstitial infiltrates. Cardiac size is enlarged. The dimitrios, mediastinum, skeletal structures are unremarkable. There is artifact from the right first rib superimposed over the right apex. Electronically Signed by Dejuan Galindo MD 02/04/2019 06:53 A
[2019-02-04 07:19] LABS: APPEARANCE, BODY FLUID CLEAR (CLEAR); PERITONEAL DIALYSATE FL COLOR COLORLESS (COLORLESS); SOURCE, BODY FLUID PERITONEAL DIALYSATE
[2019-02-04 07:25] LABS: BASO # 0.1 10^3/uL (0.0-0.2); BASO % 0.3 % (0.0-1.0); EOS # 0.1 10^3/uL (0.0-0.5); EOS % 0.9 % (0.0-3.0); HEMATOCRIT 30.9 % (36.0-47.0); HEMOGLOBIN 9.4 g/dl (12.0-15.5); LYMPH # 1.8 10^3/uL (1.5-5.0); LYMPH % 11.4 % (24.0-44.0); MEAN CORPUSCULAR HEMOGLOBIN 31.3 pg (27.0-33.0); MEAN CORPUSCULAR HGB CONC 30.4 g/dl (32.0-36.5); MONO # 0.7 10^3/uL (0.0-0.8); MONO % 4.7 % (0.0-5.0); NEUTROPHILS # 12.6 10^3/uL (1.5-8.5); NEUTROPHILS % 81.6 % (36.0-66.0); PLATELET COUNT, AUTOMATED 320 10^3/uL (150-450); WHITE BLOOD COUNT 15.4 10^3/uL (4.0-10.0)
[2019-02-04 07:52] VITALS: BP 143/76
[2019-02-04 07:58] LABS: CALCIUM LEVEL 8.5 MG/DL (8.8-10.2); CREATININE FOR GFR 8.01 MG/DL (0.55-1.30); GLOMERULAR FILTRATION RATE 5.1 (>32); POTASSIUM SERUM 3.1 MEQ/L (3.5-5.1)
[2019-02-04] MEDS ORDERED: FUROSEMIDE 40 MG/4 ML VIAL (J1940) IV ONE (08:15)
--- NOTE | 2019-02-04 08:50 | REP ---
Portable chest, 08:27 a.m., single AP view with the patient sitting:Comparison is 02/03/2019 at 10:52 p.m. The costophrenic angles are effaced bilaterally, unchanged.Additionally, there are is focal atelectasis in the right costophrenic angle, unchanged.The interstitial coarsening is unchanged.Cardiac size is enlarged, unchanged.The dimitrios, mediastinum and skeletal structures are unremarkable except for surgical clips in the left axilla, unchanged.Impression:There is no interval change. Electronically Signed by Dejuan Galindo MD 02/04/2019 08:42 A
[2019-02-04] MEDS ORDERED: CitaloPRAM (CeleXA) 20 MG TAB PO SCH (09:00)
[2019-02-04] MEDS ORDERED: IRBESARTAN 150 MG TAB PO SCH (09:00)
[2019-02-04] MEDS ORDERED: CHLORTHALIDONE 12.5MG PER 1/2 TABLET PO SCH (09:00)
[2019-02-04] MEDS ORDERED: PANTOPRAZOLE 40MG TAB (PROTONIX) PO SCH (09:00)
[2019-02-04] MEDS ORDERED: VITAMIN D 1,000 INTERNATIONAL UNITS TABLET PO SCH (09:00)
[2019-02-04] MEDS: KCL 10MEQ/100ML SWI (KRUN) 10 MEQ in IV 1 EA IV SCH ×2 (09:14→10:00)
[2019-02-04] MEDS: ONDANSETRON 4MG/2ML VIAL (J2405) IV PRN ×2 (09:14→15:18)
[2019-02-04 09:59] LABS: INR 1.52; PROTHROMBIN TIME 18.1 SECONDS (11.8-14.0)
--- NOTE | 2019-02-04 10:13 | IPNPDOC ---
Subjective Date Seen The patient was seen on 02/04/19. Subjective Chief Complaint/HPI Related to examine patient at bedside. She complained of shortness of breath, patient was lying flat on her bed, denied any chest pain, but complaining of nausea General: Denies: ROS Unobtainable, Chills, Night Sweats, Fatigue, Malaise, Normal Appetite, Other Symptoms Constitutional: Denies: Chills, Fever, Malaise, Night Sweats, Weakness, Fatigue, Weight Loss, Lethargy, Other Skin: Denies: Rash, Lesions, Jaundice, Bruising, Itching, Dry, Breakdown, Nail Changes, Other Pulmonary: Reports: Dyspnea Cardiovascular: Denies: Chest Pain, Palpitations, Orthopnea, Paroxysmal Noc. Dyspnea, Edema, Lt Headedness, Other Symptoms Gastrointestinal: Reports: Nausea Musculoskeletal: Denies: Neck Pain, Back Pain, Shoulder Pain, Arm Pain, Hand Pain, Leg Pain, Foot Pain, Joint Pain, Muscle Pain, Spasms, Other Symptoms Neurological: Denies: Weakness, Numbness, Incoordination, Change in speech, Confusion, Seizures, Other Symptoms Psych: Denies: Mood Normal, Anxiety, Depression, Memory Issues, Thoughts of Self Harm, Anger, Thoughts of Harming Other, Other Psych Objective Physical Examination General Exam: Positive: Alert, Cooperative Eye Exam: Positive: PERRLA, Conjunctiva & lids normal ENT Exam: Positive: Atraumatic, Mucous membr. moist/pink Neck Exam: Positive: Supple Chest Exam: Positive: Rales, Other Heart Exam: Positive: Rate Normal, Normal S1, Normal S2 Abdomen Exam: Positive: Normal bowel sounds Extremity Exam: Positive: Edema Skin Exam: Positive: Nl turgor and temperature Neuro Exam: Positive: Strength at 5/5 X4 ext, Sensation Intact Psych Exam: Positive: Anxiety Assessment /Plan Problems (1) Peritonitis associated with peritoneal dialysis Status: Acute Problem Text: Patient admitted to PCU with possible peritonitis Peritonism fluid has a WBC 13 with polymorphs Continue Merrem I.V. Repeat labs in a.m. Further input as per nephrology might require IV antibiotics via PD (2) Volume overload Status: Acute Problem Text: Chest x-ray consistent with institutional edema Most likely volume overload Lasix 120 mg IV 1 dose given I&O's Discussed with Dr. Mcguire patient will probably need hemodialysis in near future Was closely monitor patient and treat accordingly (3) ESRD on peritoneal dialysis Status: Chronic Problem Text: Nephrology consult called. Further, as per nephrology recommendations (4) Hypertension Status: Chronic Problem Text: Continue home meds (5) A-fib Status: Chronic Problem Text: Ventricular rate is under control Continue home meds (6) HLD (hyperlipidemia) Status: Chronic Problem Text: Continue home meds (7) Dysphagia Status: Chronic Problem Text: History of esophageal strictures and ulcerations Patient is currently on pantoprazole Will order barium esophagram swallow study Plan/VTE VTE Prophylaxis Ordered?: Yes VS, I&O, 24H, Fishbone Vital Signs/I&O Vital Signs Date Time Temp Pulse Resp B/P (MAP) Pulse Ox O2 Delivery O2 Flow Rate FiO2 02/04/19 07:52 97.9 63 20 143/76 (98) 90 Nasal Cannula 1.0 I&O- Last 24 Hours up to 6 AM 02/04/19 05:59 Intake Total 4200 ml Output Total 1900 ml Balance 2300 ml Laboratory Data 24H LABS Laboratory Tests 2 02/03/19 21:14: Immature Granulocyte % (Auto) 1.0, Neutrophils (%) (Auto) 85.7H, Lymphocytes (%) (Auto) 9.0L, Monocytes (%) (Auto) 4.0, Eosinophils (%) (Auto) 0.1, Basophils (%) (Auto) 0.2, Neutrophils # (Auto) 16.9H, Lymphocytes # (Auto) 1.8, Monocytes # (Auto) 0.8, Eosinophils # (Auto) 0.0, Basophils # (Auto) 0.0, Nucleated Red Blood Cells % (auto) 0.0, Erythrocyte Sedimentation Rate 108H, Anion Gap 9, Glomerular Filtration Rate 4.8L, Lactic Acid Level 1.7, Calcium Level 8.2L, Tot al Bilirubin 0.3, Aspartate Amino Transf (AST/SGOT) 16, Alanine Aminotransferase (ALT/SGPT) 16, Alkaline Phosphatase 100, Total Creatine Kinase 42, Creatine Kinase MB 1.4, Creatine Kinase MB Relative Index 3.33, Troponin I 0.03, C- Reactive Protein, Quantitative 14.50H, Total Protein 6.2L, Albumin 2.0L, Albumin/Globulin Ratio 0.48L 02/04/19 06:00: Body Fluid Source PERITONEAL DIALYSATE, Body Fluid WBC (Auto) 13H, Body Fluid RBC (Auto) < 2, Body Fluid Mononuclear Cells % Auto 77.0H, Fluid Polymorphonuclear Cell % Auto 23.0H, Peritoneal Fluid Color COLORLESS, Peritoneal Fluid Appearance CLEAR 02/04/19 06:34: Urine Color YELLOW, Urine Appearance TURBIDH, Urine pH 5.0, Urine Specific [place] 1.020, Urine Protein 2+H, Urine Glucose (UA) NEGATIVE, Urine Ketones NEGATIVE, Urine Blood 1+H, Urine Nitrite NEGATIVE, Urine Bilirubin NEGATIVE, Urine Urobilinogen 0.2, Urine Leukocyte Esterase 2+H, Urine WBC (Auto) 38H, Urine RBC (Auto) 18H, Urine Hyaline Casts (Auto) 0, Urine Bacteria (Auto) 3+H, Urine Squamous Epithelial Cells 74, Urine Mucus (Auto) SMALL, Urine Sperm (Auto) 02/04/19 06:58: Immature Granulocyte % (Auto) 1.1, Neutrophils (%) (Auto) 81.6H, Lymphocytes (%) (Auto) 11.4L, Monocytes (%) (Auto) 4.7, Eosinophils (%) (Auto) 0.9, Basophils (%) (Auto) 0.3, Neutrophils # (Auto) 12.6H, Lymphocytes # (Auto) 1.8, Monocytes # (Auto) 0.7, Eosinophils # (Auto) 0.1, Basophils # (Auto) 0.1, Nucleated Red Blood Cells % (auto) 0.0, Anion Gap 9, Glomerular Filtration Rate 5.1L, Calcium Level 8.5L 02/04/19 09:16: 02/04/19 09:19: Prothrombin Time 18.1H, Prothromb Time International Ratio 1.52 CBC/BMP Laboratory Tests 02/03/19 21:14 02/04/19 06:58 Microbiology Microbiology 02/04/19 Urine Culture, Received Pending 02/04/19 Gram Stain, Received Pending 02/04/19 Body Fluid Culture, Received Pending 02/03/19 Blood Culture, Received Pending 02/03/19 Blood Culture, Received Pending JAMES WRIGHT MD Feb 04, 2019 10:13
[2019-02-04 10:41] LABS: NT-PRO BNP 26351 PG/ML (<450)
[2019-02-04] MEDS ORDERED: E-Z-HD 98% w/w 340GM SUSP BTL As Ordered ONE (10:43)
[2019-02-04] MEDS ORDERED: E-Z-GAS II EFFERVESCENT PACKET (SODIUM BICARB./CITRIC ACID/SIMETHICONE) As Ordered ONE (10:43)
[2019-02-04] MEDS ORDERED: E-Z-PAQUE 96% w/w SUSP 176GM BTL As Ordered ONE (10:43)
[2019-02-04] MEDS: POTASSIUM CHLORIDE 10 MEQ SR TABLET PO SCH ×2 (11:07→20:06)
[2019-02-04 11:52] VITALS: BP 167/79
--- NOTE | 2019-02-04 13:53 | CR ---
DATE OF CONSULTATION: 02/04/2019 REQUESTING PHYSICIAN: Dr. Henrietta Gentile ATTENDING PHYSICIAN: Dr. Mcguire REASON FOR CONSULTATION: Management of end stage renal disease and peritoneal dialysis. CHIEF COMPLAINT: The patient was sent from [facility] for leukocytosis and persistent dysphagia. HISTORY OF PRESENT ILLNESS: Yuki Lange is an 78-year-old female with past medical history of end-stage renal disease on peritoneal dialysis well-known to nephrology service from multiple previous hospitalizations and from outpatient home dialysis center. She was recently admitted at the hospital with extended-Spectrum beta-Lactamases (ESBL) Escherichia (E) coli urinary tract infection (UTI) and pneumonia with aspiration pneumonitis and impacted food in the esophagus, which needed to be removed with endoscopy and that had caused ulceration. The patient was in the hospital for many days. She initially needed total parenteral nutrition and then she started tolerating soft diet. She was transferred to the [facility] and from there she was discharged to her home. She was having persistent lower extremity edema. She was sent back to the hospital again a few days ago and she was found to have bilateral lower extremity deep vein thrombosis (DVT) and bilateral pulmonary embolism. She was started on Eliquis and discharged home on January 29, 2019. However, when the patient went home, she said that she was having progressive dysphagia. She was unable to keep anything down. She was vomiting anything that she would eat or drink. She also complained of shortness of breath. The patient presented to [facility] where she was found to have leukocytosis and lactic acidosis. She was transferred to [facility] overnight. The patient was admitted under the hospitalist service. Nephrology service was called for further help in the management of this patient. I discussed the case with the admitting biomedical engineering supervisor Dr. Murrieta last night. Decision was made to empirically cover the patient with vancomycin and meropenem because of history of ESBL E-coli urinary tract infection and pneumonia in the past. Peritoneal fluid cell count and culture were ordered. The patient was started on peritoneal dialysis overnight. I saw and evaluated the patient today morning at the bedside. The patient still reports mild persistent shortness of breath and leukocytosis is improving after initiation of the IV antibiotics. Cultures are still pending. PAST MEDICAL HISTORY: Past medical history of end-stage renal disease on peritoneal dialysis, history of hypertension, diabetes mellitus type 2, depression, transient ischemic attacks in the past, chronic obstructive pulmonary disease (COPD), atrial fibrillation and atrial flutter, chronic diastolic congestive heart failure, history of peritonitis in the past, history of recurrent ESBL E-coli urinary tract infections, recent aspiration pneumonitis, recent paraesophageal stricture and ulceration because of impacted food in the esophagus, anemia secondary to end-stage renal disease, recent diagnosis of DVT and bilateral PE last week. PAST SURGICAL HISTORY: Status post peritoneal dialysis catheter placement, status post left ankle melanoma resection, tonsillectomy as a child, history of partial hysterectomy, bilateral total knee replacements and bilateral cataract surgeries. ALLERGIES: The patient is allergic to CARBAMIDE IBUPROFEN, LATEX, PSEUDOEPHEDRINE. FAMILY HISTORY: No significant family history of end-stage renal disease requiring hemodialysis. SOCIAL HISTORY: The patient lives at home, she lives about 1 hour away in [place]. She quit smoking about 6 months ago. She denies any illicit drug abuse or alcohol abuse. REVIEW OF SYSTEMS: CONSTITUTIONAL: The patient denies any fevers or chills at this time. Eyes: She denies any double vision or blurry vision. ENT: She denies any ear discharge. She does report dysphagia and vomiting. CARDIOVASCULAR: She denies any chest pain or palpitations. She does report lower extremity edema. RESPIRATORY: She reports mild persistent shortness of breath. GASTROINTESTINAL: She reports nausea and vomiting after eating. She denies any diarrhea. GENITOURINARY: She denies any dysuria or hematuria. MUSCULOSKELETAL: She reports bilateral lower extremity edema. SKIN: She denies any rashes or ulcers. PSYCHIATRIC: She reports history of depression. CENTRAL NERVOUS SYSTEM (DIRECT CARE PROVIDER): She denies any strokes or seizure at this time. She denies any weakness. HEMATOLOGY/ONCOLOGY: She denies any easy bleeding or bruising. All other review of systems is negative. PHYSICAL EXAMINATION: General: The patient is awake, alert, oriented times three, sitting up in the bed. Vital signs: Temperature is 97 degrees Fahrenheit, blood pressure 167/79, pulse 99, respiratory of 20, saturating 90% on nasal cannula at 1 liter. Head and neck exam: Extraocular muscles intact. Pupils equally round and reactive to light. Mucous membranes are moist. Neck is supple. She has moderately elevated jugular venous distention (JVD). CARDIOVASCULAR: S1, S2. She has 3+ edema of the left lower extremity, 2+ edema of the right lower extremity. RESPIRATORY: Decreased breath sounds at the bases with crepitations bilaterally at the bases, right is worse than the left. ABDOMEN: Soft, obese, positive bowel sounds. Peritoneal dialysis catheter exit site is clean. GENITOURINARY: Bladder is not palpable. No hernia noted. MUSCULOSKELETAL: The patient has edema of the bilateral lower extremities, left is worse than right. CENTRAL NERVOUS SYSTEM (DIRECT CARE PROVIDER): No focal deficit. Power is 5/5 in bilateral upper extremities. PSYCHIATRIC: The patient has a depressed mood. CBC showed WBC of 19.7 yesterday and 15.4 today, hemoglobin is 9.4, platelets of 320. Urinalysis showed it was turbid, 2+ protein, 2+ leukocyte esterase, 38 WBCs, 3+ bacteria. Peritoneal fluid cell count showed WBC 13, mononuclear cells 77% and polymorphonuclear were 23%. BMP showed sodium 138, potassium 3.1, chloride 99, bicarbonate 30, BUN 46, creatinine is 1, glucose is 127, calcium is 8.5. BNP is 26,351. Microbiology: Urine culture and blood cultures are pending. IMAGING STUDIES: Chest x-ray was done this morning and showed pulmonary vascular congestion, atelectasis in the right costophrenic angle. CURRENT INPATIENT MEDICATIONS: The patient is getting: - meropenem 1 gram IV q. 24 hourly - KCl 10 mEq every 1 hour - DuoNeb nebulizations - Eliquis 2.5 mg p.o. twice a day - chlorthalidone 25 mg p.o. daily - Celexa 20 mg daily - She was given Lasix 120 mg IV times one dose - gabapentin 100 mg at night - she was given gentamicin 80 mg intraperitoneal times one dose last night - Avapro 300 mg p.o. daily - metoprolol 25 mg p.o. twice a day - Zofran as needed - Protonix 40 mg by mouth daily - potassium chloride 10 mEq p.o. twice a day - simvastatin 40 mg at night - tramadol 50 mg every 8 hours as needed for pain - vancomycin 2 grams intraperitoneal was given - vitamin D 1000 units p.o. daily ASSESSMENT: 78-year-old female with history of end-stage renal disease on peritoneal dialysis, recent aspiration pneumonia because of ulceration in the esophagus after food impaction, history of recurrent extended-Spectrum beta-Lactamases (ESBL) Escherichia (E) coli urinary tract infection (UTI), bilateral deep vein thrombosis (DVT) and pulmonary embolus, currently on Eliquis admitted this time of the leukocytosis. PLAN: 1. End-stage renal disease on peritoneal dialysis. The patient is not getting adequate ultrafiltration with the peritoneal dialysis. She was getting all 2.5% 2 liters exchanges and she was actually retaining the fluid. I am going to change the peritoneal dialysis regimen to combination of 4.25% three exchanges and 2.5% two exchanges, all 2 liters, and apparently she has a fast transport and with 4-hour draws she tries to retain the fluid. I am going to change the draw time to 2 hours and see if I can get more ultrafiltration with this. If not able to get off extra fluid with this regimen, then the patient will need to get tunneled dialysis catheter placement to switch to hemodialysis. 2. Anemia in end-stage renal disease, hemoglobin level is 9.4. I am going to check the iron levels tomorrow morning and start the patient on Aranesp. 3. Hypokalemia. It is secondary to peritoneal dialysis. The patient is getting IV and oral potassium. 4. Leukocytosis. The patient is empirically getting IV meropenem because of history of ESBL pneumonia and UTI. She was also given intraperitoneal vancomycin 2 grams, which should be adequate for the next 5 days. Cultures are still pending. There is no evidence of peritonitis on peritoneal fluid cell count of cultures. 5. Persistent dysphagia. The patient recently had esophageal ulceration. She had food removed from the esophagus. She is pending another esophagogram. Currently she is on thin liquids. GI evaluation is pending. 6. Bilateral deep vein thrombosis (DVT) and pulmonary embolus. Continue Eliquis 2.5 mg p.o. twice a day. 7. Hypertension with end-stage renal disease. Continue current dose of metoprolol, irbesartan and chlorthalidone. 8. History of atrial fibrillation and atrial flutter. Patient is already on metoprolol. Heart rate is controlled. She is already anticoagulated for atrial fibrillation and for DVT. 9. Acute decompensated diastolic congestive heart failure. It is secondary to end-stage renal disease and inadequate ultrafiltration with peritoneal dialysis. As mentioned above, PD regimen is being changed to more aggressive regimen with smaller draw time and if that does not help then the patient will need to switch to hemodialysis. The patient lives 1 hour away from [place] and driving for dialysis two times or three times a week is a big hassle for her and she does not really want to switch to hemodialysis until it is absolutely necessary Thank you for involving me in the care of this patient. I shall be happy to follow the patient along with you tomorrow morning.
[2019-02-04 16:00] VITALS: BP 117/70
--- NOTE | 2019-02-04 17:26 | CR.PDOC ---
General Date of Consultation: Feb 04, 2019 Referring Provider: JAMES WRIGHT MD Attending Physician: MARÍA GTZ MD Consultation Primary physician/ hospitalist: Dr. Aguilera Reason for consult: Suspected esophageal stricture. HPI: 78-year-old female patient with HTN, DM type 2, TIA in past, COPD, ESRD on Peritoneal dialysis, depression, atrial fibrillation on Eliquis, chronic diastol ic congestive heart failure, history of peritonitis in the past, history of recurrent ESBL E-coli urinary tract infections, recent aspiration pneumonitis, recent hospitalization for food impaction, ( EGD done in Set[place] 2018 - showed esophageal ulceration at distal esophagus), anemia secondary to end-stage renal disease, recent diagnosis of DVT and bilateral PE ( started on Eliquis since then), presents to [facility] after direct transfer from [facility] for dysphagia and leukocytosis. Patient is noted with Dysphagia and GI consulted for the dame. Patient reports having difficulty swallowing for the past 1 week gradually worsening, now unable to swallow even pills and soft foods. She is abl e to keep liquid down for now. There was concern for peritonitis but the work up is pending. She was also found to have suspicious infiltrate on chest x-ray concerning for pneumonia. Pertinent negative GI symptoms: Patient denies diarrhea, abdominal pain, loss of appetite, early satiety or unintentional weight loss. No history of hematemesis, melena or hematochezia. Patient reports regular bowel movements. Review of Systems: GI: as stated above CVS: No chest pain, No palpitations, No leg swelling. RS: No Shortness of breath, No Wheezing, no cough SPEECH/LANGUAGE THERAPIST: No dizziness, No motor weakness, No sensory problems Hematology: No bruising, No gum bleeding, Musculoskeletal: No joint pain, ambulating well. Skin: No rash : No hematuria, No burning sensation of the urine ENT: No ear discharge/ pain, No dysphagia. Eyes: No photophobia. Home medications: reviewed. Antithrombotic agents - Eliquis Medical h/o: As above. Surgical h/o: NO surgical scars on abdomen.. Social h/o: Alcohol- denies, tobacco- Denies, IVDA/ drugs- Denies. Family h/o of GI cancers - None. Prior Endoscopies: --- EGD - Done on 12/2018 -- noted with food impaction, lower esophageal ulceration. Prior GI evaluation: Seen by Dr. Muñoz in past hospitalization in [facility]. Exam: Vitals: reviewed General: Alert and oriented x 3, mild distress from Shortness of breath. HEENT: No pallor, no icterus. Normal oropharynx, NO cervical lymph nodes. Chest: symmetric with bilateral clear air entry, CVS: S1, S2 heard, normal, no murmurs . Abdomen: non-distended, no surgical scars, soft, non-tender, no palpable masses, normal bowel sounds heard. Rectal exam: Patient refused. Extremities: no pedal edema, pulses palpable. SPEECH/LANGUAGE THERAPIST: no focal motor or sensory deficits. Moves all extremities Skin: no rash. Labs: reviewed. Impression: - Gradually worsening dysphagia in patient with known lower esophageal ulceration -- needs further evaluation. Recommendations: - Patient educated about the test results, possible differential diagnoses and All questions answered. - Stop oral pills and keep patient on NPO or clear liquid diet. - Continue on IV Pantoprazole 40 mg twice daily. - Obtain Esophagogram with gastrograffin. - Patient will be scheduled for EGD with dilation based on the esophagogram. - Patient will require medical clearance for the above procedure and eden- procedure management of anti- thrombotic agrents, as the dilation is considered high risk procedure for bleeding. - Patient is educated about the procedure, indications, risks (bleeding, perforation, infection, hypotension, respiratory depression, allergy, need for endotracheal intubation, surgery, colostomy, cardiac arrest, even ), benefits, limitations (e.g., missing a lesion), and all other alternatives (including no intervention). Plan of care discussed with patient and primary team. Patient verbalized understanding and agreed with the plan. Vital Signs/I&O Vital Signs Date Time Temp Pulse Resp B/P (MAP) Pulse Ox O2 Delivery O2 Flow Rate FiO2 02/04/19 16:00 97.7 68 18 117/70 (86) 92 Nasal Cannula 1.0 I&O- Last 24 Hours up to 6 AM 02/04/19 06:00 Intake Total 4200 ml Output Total 1900 ml Balance 2300 ml Laboratory Data Labs 24H Laboratory Tests 2 02/03/19 21:14: Immature Granulocyte % (Auto) 1.0, Neutrophils (%) (Auto) 85.7H, Lymphocytes (%) (Auto) 9.0L, Monocytes (%) (Auto) 4.0, Eosinophils (%) (Auto) 0.1, Basophils (%) (Auto) 0.2, Neutrophils # (Auto) 16.9H, Lymphocytes # (Auto) 1.8, Monocytes # (Auto) 0.8, Eosinophils # (Auto) 0.0, Basophils # (Auto) 0.0, Nucleated Red Blood Cells % (auto) 0.0, Erythrocyte Sedimentation Rate 108H, Anion Gap 9, Glomerular Filtration Rate 4.8L, Lactic Acid Level 1.7, Calcium Level 8.2L, Total Bilirubin 0.3, Aspartate Amino Transf (AST/SGOT) 16, Alanine Aminotransferase (ALT/SGPT) 16, Alkaline Phosphatase 100, Total Creatine Kinase 42, Creatine Kinase MB 1.4, Creatine Kinase MB Relative Index 3.33, Troponin I 0.03, C-Reactive Protein, Quantitative 14.50H, Total Protein 6.2L, Albumin 2.0L, Albumin/Globulin Ratio 0.48L 02/04/19 06:00: Body Fluid Source PERITONEAL DIALYSATE, Body Fluid WBC (Auto) 13H, Body Fluid RBC (Auto) < 2, Body Fluid Mononuclear Cells % Auto 77.0H, Fluid Polymorphonuclear Cell % Auto 23.0H, Peritoneal Fluid Color COLORLESS, Peritoneal Fluid Appearance CLEAR 02/04/19 06:34: Urine Color YELLOW, Urine Appearance TURBIDH, Urine pH 5.0, Urine Specific Counce 1.020, Urine Protein 2+H, Urine Glucose (UA) NEGATIVE, Urine Ketones NEGATIVE, Urine Blood 1+H, Urine Nitrite NEGATIVE, Urine Bilirubin NEGATIVE, Urine Urobilinogen 0.2, Urine Leukocyte Esterase 2+H, Urine WBC (Auto) 38H, Urine RBC (Auto) 18H, Urine Hyaline Casts (Auto) 0, Urine Bacteria (Auto) 3+H, Urine Squamous Epithelial Cells 74, Urine Mucus (Auto) SMALL, Urine Sperm (Auto) 02/04/19 06:58: Immature Granulocyte % (Auto) 1.1, Neutrophils (%) (Auto) 81.6H, Lymphocytes (%) (Auto) 11.4L, Monocytes (%) (Auto) 4.7, Eosinophils (%) (Auto) 0.9, Basophils (%) (Auto) 0.3, Neutrophils # (Auto) 12.6H, Lymphocytes # (Auto) 1.8, Monocytes # (Auto) 0.7, Eosinophils # (Auto) 0.1, Basophils # (Auto) 0.1, Nucleated Red Blood Cells % (auto) 0.0, Anion Gap 9, Glomerular Filtration Rate 5.1L, Calcium Level 8.5L 02/04/19 09:16: AT-Oqx-X-Type Natriuretic Peptide [id number] 02/04/19 09:19: Prothrombin Time 18.1H, Prothromb Time International Ratio 1.52 CBC/BMP Laboratory Tests 02/03/19 21:14 02/04/19 06:58 Microbiology Microbiology 02/04/19 Urine Culture, Received Pending 02/04/19 Gram Stain - Final, Resulted 02/04/19 Body Fluid Culture, Resulted Pending 02/03/19 Blood Culture, Received Pending 02/03/19 Blood Culture, Received Pending Allergies Coded Allergies: latex (Verified Allergy, Intermediate, RASH, 12/21/18) pseudoephedrine (Verified Allergy, Intermediate, RASH, 12/21/18) carbamide peroxide (Verified Allergy, Unknown, 12/21/18) ibuprofen (Verified Adverse Reaction, Intermediate, BLOODY STOOLS, 12/21/18) Home Medications Scheduled Apixaban (Eliquis) 2.5 Mg Tablet, 2.5 MG PO BID, (Reported) Aspirin/Dipyridamole (Aspirin-Dipyridam ER 25-200 mg) 1 Each Cpmp.12hr, 1 CAP PO BID, (Reported) Biotin (Biotin) 1 Mg Capsule, 1 MG PO DAILY, (Reported) Cetirizine HCl (Cetirizine HCl) 10 Mg Tablet, 10 MG PO DAILY, (Reported) Chlorthalidone (Chlorthalidone) 25 Mg Tablet, 25 MG PO DAILY, (Reported) Citalopram Hydrobromide (Celexa) 20 Mg Tablet, 20 MG PO DAILY, (Reported) Gabapentin (Gabapentin) 100 Mg Capsule, 100 MG PO QHS, (Reported) Irbesartan (Irbesartan) 300 Mg Tablet, 300 MG PO DAILY, (Reported) Metoprolol Tartrate (Metoprolol Tartrate) 25 Mg Tablet, 25 MG PO BID, (Reported) Multivit-Mins No.11/Folic Acid (Dialyvite 5000 Tablet) 1 Tab Tab, 1 TAB PO DAILY , (Reported) Pantoprazole Sodium (Protonix) 40 Mg Tablet.dr, 40 MG PO DAILY, (Reported) Potassium Chloride (Potassium Chloride) 10 Meq Tablet.er, 10 MEQ PO BID, (Reported) Salmeterol/Fluticasone (Advair 250-50 Diskus) 1 Each Blst.w.dev, 1 PUFF INH BID, (Reported) Simvastatin (Zocor) 40 Mg Tab, 40 MG PO QHS, (Reported) Vitamin D (Vitamin D3) 1,000 Unit Tablet, 1,000 UNITS PO DAILY, (Reported) Vitamin E (Vitamin E) 400 Unit Capsule, 400 UNIT PO DAILY, (Reported) Scheduled PRN Albuterol Sulfate (Proair Hfa) 8.5 Gm Hfa.aer.ad, 1 PUFF INH Q4H PRN for SHORTNESS OF BREATH, (Reported) Calcium Carbonate (Tums) 500 Mg Chw, 500 MG PO Q4H PRN for HEARTBURN/INDIGESTION, (Reported) Ipratropium/Albuterol Sulfate (Iprat-Albut 0.5-3(2.5) mg/3 ml) 1 Shara Shara, 3 ML NEB Q6H PRN for SHORTNESS OF BREATH, (Reported) Ondansetron HCl (Zofran) 4 Mg Tablet, 4 MG PO Q6H PRN for NAUSEA, (Reported) Sodium Chloride ([place]) 104 Ml Beauty, 2 SPRAY NA QID PRN for NASAL DRYNESS, (Reported) EACH NOSTRIL Tramadol HCl (Tramadol HCl) 50 Mg Tablet, 50 MG PO Q8H PRN for PAIN, (Reported) MARÍA GTZ MD Feb 04, 2019 17:26
[2019-02-04 20:00] VITALS: BP 130/62
[2019-02-04] MEDS: SIMVASTATIN 40 MG TAB PO SCH (20:05)
[2019-02-04] MEDS: GABAPENTIN 100 MG CAP PO SCH (20:06)
[2019-02-04] MEDS: MEROPENEM INJ 1 GM in IV 1 EA IV SCH (21:32)
--- NOTE | 2019-02-04 22:07 | ECGEPIP ---
[facility] Test Date: 2019-02-03 Pat Name: JHONNY NEELY Department: Room: [place] [address] Gender: Female Sap Architect: HT : [id number] Requested By: JOLANTA Gutierrez Order Number: [id number] Reading MD: Paco Pettit Measurements Intervals [place] Rate: 78 P: 40 ME: 176 QRS: 9 QRSD: 86 T: 136 QT: 401 QTc: 459 Interpretive Statements Normal sinus rhythm with PACs Nonspecific ST-T wave abnormalities Compared to prior tracing of 12/22/2018, atrial fibrillation has resolved Electronically Signed on 02-04-2019 22:07:16 EST by Paco Pettit
[2019-02-05] VITALS: BP 128/64
[2019-02-05] MEDS: PANTOPRAZOLE 40MG INJ (PROTONIX) (C9113) IV SCH ×3 (01:45→20:14)
[2019-02-05] MEDS: ONDANSETRON 4MG/2ML VIAL (J2405) IV PRN (01:45)
[2019-02-05] MEDS: IPRATROPIUM 0.5MG/ALBUTEROL 2.5MG INH SOL UD 3ML (DUONEB)(J7620) NEB SCH ×4 (02:00→20:00)
[2019-02-05 04:00] VITALS: BP 138/70
[2019-02-05 05:51] LABS: BASO # 0.1 10^3/uL (0.0-0.2); BASO % 0.6 % (0.0-1.0); EOS # 0.2 10^3/uL (0.0-0.5); EOS % 1.9 % (0.0-3.0); HEMATOCRIT 31.3 % (36.0-47.0); HEMOGLOBIN 9.4 g/dl (12.0-15.5); LYMPH # 1.5 10^3/uL (1.5-5.0); LYMPH % 12.7 % (24.0-44.0); MEAN CORPUSCULAR VOLUME 103.3 fl (80.0-96.0); MONO # 0.9 10^3/uL (0.0-0.8); MONO % 7.1 % (0.0-5.0); NEUTROPHILS % 75.3 % (36.0-66.0); PLATELET COUNT, AUTOMATED 305 10^3/uL (150-450); RED BLOOD COUNT 3.03 10^6/uL (4.00-5.40)
[2019-02-05 06:15] LABS: CREATININE FOR GFR 7.64 MG/DL (0.55-1.30); GLOMERULAR FILTRATION RATE 5.4 (>32); PERCENT SATURATION 23.4 % (13.2-45.0); POTASSIUM SERUM 3.3 MEQ/L (3.5-5.1)
[2019-02-05] MEDS ORDERED: HEPARIN SOD (PORCINE) 5000 UNITS/ML VIAL IV PRN (07:30)
[2019-02-05 08:00] VITALS: BP 111/62
[2019-02-05] MEDS ORDERED: GASTROGRAFIN SOLUTION 30ML (Q9963) As Ordered ONE (08:04)
[2019-02-05] MEDS: METOPROLOL 5 MG/5 ML VIAL IV SCH ×3 (08:04→20:13)
[2019-02-05 08:58] LABS: HEPATITIS B SURFACE ANTIBODY POSITIVE (POSITIVE)
[2019-02-05 09:02] LABS: HEPATITIS B SURFACE ANTIGEN NEGATIVE (NEGATIVE)
[2019-02-05 09:23] LABS: HEPATITIS C VIRUS ABY INDEX 0.1 INDEX (<0.8)
[2019-02-05 09:24] LABS: HEPATITIS B CORE ANTIBODY IGM NEGATIVE (NEGATIVE)
[2019-02-05] MEDS ORDERED: E-Z-PAQUE 96% w/w SUSP 176GM BTL As Ordered ONE (09:27)
[2019-02-05] MEDS ORDERED: DARBEPOETIN 300 MCG/0.6 ML *NON-DIALYSIS* SYRINGE (J0881) SC SCH (09:30)
[2019-02-05] MEDS: HEPARIN DRIP 25,000 UNITS in IV 1 EA IV SCH (10:13)
--- NOTE | 2019-02-05 10:31 | REP ---
ESOPHAGRAM SINGLE CONTRAST The procedure was performed under the direct supervision of Dr. Payton. The images were reviewed with Dr. Payton. A single view AP chest x-ray is submitted as a crimper operator film. There is plate-like on the right as well as interstitial coarsening which is unchanged compared to a previous chest x-ray. The cardiac size is enlarged and, again, unchanged. Liquid barium was administered in the prone oblique position. The oral and pharyngeal stages of deglutition are unremarkable. During esophageal transport there is marked esophageal dysmotility. There is residual food throughout the esophagus. The GE junction is narrowed consistent with a lesion. The esophagus is dilated. There is no evidence of esophagitis stricture mucosal ring or hiatal hernia. Impression: Marked esophageal dysmotility with achalasia. The esophagus is dilated. There is residual food throughout the esophagus. 2.3 minutes of fluoroscopy time was utilized for this procedure. Electronically Signed by NOEMÍ Galan 02/05/2019 09:58 A Electronically Signed by Leon Payton MD 02/05/2019 10:24 A
--- NOTE | 2019-02-05 10:32 | IPNPDOC ---
Subjective Date Seen The patient was seen on 02/05/19. Subjective Chief Complaint/HPI Patient is still complaining of nausea scheduled to go for esophagogram today General: Denies: ROS Unobtainable, Chills, Night Sweats, Fatigue, Malaise, Normal Appetite, Other Symptoms Constitutional: Denies: Chills, Fever, Malaise, Night Sweats, Weakness, Fatigue, Weight Loss, Lethargy, Other Pulmonary: Denies: Dyspnea, Cough, Pleuritic Chest Pain, Other Symptoms Cardiovascular: Denies: Chest Pain, Palpitations, Orthopnea, Paroxysmal Noc. Dyspnea, Edema, Lt Headedness, Other Symptoms Gastrointestinal: Reports: Nausea Musculoskeletal: Denies: Neck Pain, Back Pain, Shoulder Pain, Arm Pain, Hand Pain, Leg Pain, Foot Pain, Joint Pain, Muscle Pain, Spasms, Other Symptoms Neurological: Denies: Weakness, Numbness, Incoordination, Change in speech, Confusion, Seizures, Other Symptoms Psych: Denies: Mood Normal, Anxiety, Depression, Memory Issues, Thoughts of Self Harm, Anger, Thoughts of Harming Other, Other Psych Objective Physical Examination Neck Exam: Positive: Supple Chest Exam: Positive: Rales, Other Heart Exam: Positive: Rate Normal, Normal S1, Normal S2 Abdomen Exam: Positive: Normal bowel sounds Extremity Exam: Positive: Edema Skin Exam: Positive: Nl turgor and temperature Neuro Exam: Positive: Strength at 5/5 X4 ext, Sensation Intact Psych Exam: Positive: Anxiety Assessment /Plan Problems (1) Peritonitis associated with peritoneal dialysis Status: Acute Problem Text: Patient admitted to PCU with possible peritonitis Peritonism fluid has a WBC 13 with polymorphs Patient's WBC count is progressively declining. His 12,000 now Continue IV antibiotics Further, as per nephrology recommendations (2) Volume overload Status: Acute Problem Text: Chest x-ray consistent with institutional edema Most likely volume overload Lasix 120 mg IV 1 dose given Aggressive PD has been recommended by nephrology Continue monitoring closely (3) ESRD on peritoneal dialysis Status: Chronic Problem Text: Nephrology consult called. Further, as per nephrology recommendations (4) Hypertension Status: Chronic Problem Text: Continue home meds (5) A-fib Status: Chronic Problem Text: Ventricular rate is under control Continue home meds (6) HLD (hyperlipidemia) Status: Chronic Problem Text: Continue home meds (7) Dysphagia Status: Chronic Problem Text: History of esophageal strictures and ulcerations Patient is currently on Protonix 40 mg IV every [address] Adhikari last night Nothing by mouth except sips and chips DC all by mouth meds Beta blockers changed to IV Esophagogram with Gastrografin today Possible EGD in a few days dolly son has been DC'd and is started on heparin drip for history of DVT and PE Plan/VTE VTE Prophylaxis Ordered?: Yes VS, I&O, 24H, Fishbone Vital Signs/I&O Vital Signs Date Time Temp Pulse Resp B/P (MAP) Pulse Ox O2 Delivery O2 Flow Rate FiO2 02/05/19 08:04 78 122/69 02/05/19 08:00 97.6 20 90 Nasal Cannula 1.0 I&O- Last 24 Hours up to 6 AM 02/05/19 06:00 Intake Total 9350 ml Output Total 37841 ml Balance -1700 ml Laboratory Data 24H LABS Laboratory Tests 2 02/05/19 05:26: Immature Granulocyte % (Auto) 2.4, Neutrophils (%) (Auto) 75.3H, Lymphocytes (%) (Auto) 12.7L, Monocytes (%) (Auto) 7.1H, Eosinophils (%) (Auto) 1.9, Basophils (%) (Auto) 0.6, Neutrophils # (Auto) 9.0H, Lymphocytes # (Auto) 1.5, Monocytes # (Auto) 0.9H, Eosinophils # (Auto) 0.2, Basophils # (Auto) 0.1, Nucleated Red Blood Cells % (auto) 0.0, Anion Gap 7L, Glomerular Filtration Rate 5.4L, Calcium Level 8.0L, Iron Level 39L, Total Iron Binding Capacity 167L, Transferrin % Saturation 23.4, Ferritin 310H 02/05/19 08:26: Activated Partial Thromboplast Time 36.4 CBC/BMP Laboratory Tests 02/05/19 05:26 Microbiology Microbiology 02/04/19 Urine Culture, Received Pending 02/04/19 Gram Stain - Final, Resulted 02/04/19 Body Fluid Culture, Resulted Pending 02/03/19 Blood Culture - Preliminary, Resulted No growth after 24 hours . All specim... 02/03/19 Blood Culture - Preliminary, Resulted No growth after 24 hours . All specim... JAMES WRIGHT MD Feb 05, 2019 10:32
[2019-02-05] MEDS: KCL 10MEQ/100ML SWI (KRUN) 10 MEQ in IV 1 EA IV SCH ×3 (10:43→13:43)
[2019-02-05 12:00] VITALS: BP 176/82
[2019-02-05] MEDS: KCL 20MEQ IN D5/0.45NS 1000ML 1,000 ML IV SCH (12:24)
--- NOTE | 2019-02-05 13:38 | IPN ---
DATE OF SERVICE: 02/05/2019 SUBJECTIVE: Patient was seen and examined at the bedside today morning. Her peritoneal dialysis (PD) regimen was changed yesterday. She was getting exchanges every 2 hours instead of 4 hours and she was able to get some ultrafiltration done with that. Volume status is improving. However, patient has been made nothing by mouth and most of her oral medications have been stopped after recommendations from GI. Patient got the esophagogram done today and they are planning to do the endoscope possible dilatation if needed. Patient denies any active complaints at this time. OBJECTIVE: Vital signs: Temperature is 97.1 degrees Fahrenheit, blood pressure 176/82, pulse is 77, respiratory rate of 18, saturating 94% on nasal cannula at 1 liter. Intake and output: There is no urine output recorded. Ultrafiltration with the peritoneal dialysis was 600 mL yesterday, 200 mL so far today since overnight. Weight in the bed scale is 77.3 kg. PHYSICAL EXAMINATION: General: Patient is awake, alert, oriented times three, laying in bed, in no apparent distress. Head and neck exam: Extraocular muscles intact. Pupils equally round and reactive to light. Mucous membranes are moist. Neck is supple. There is mildly elevated jugular venous distention. Cardiovascular: S1, S2, regular rate. 2+ edema of the bilateral lower extremities was noted worse on the left side as compared with the right. Respiratory: Mildly decreased breath sounds at the bases. Otherwise, no active rales or rhonchi. Abdomen: Soft, obese, positive bowel sounds. Left lower quadrant peritoneal dialysis catheter was noted. Genitourinary: No hernia were noted. Musculoskeletal: Edema of the bilateral lower extremity was noted. Otherwise, normal range of movement. 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 Power is 5/5 in bilateral upper extremities. LAB REVIEW: CBC showed WBC of 12, hemoglobin 9.4, platelets are 305. BMP showed sodium 139, potassium 3.3, chloride 101, bicarbonate 31, BUN 41, creatinine is 7.6, iron 39, TIBC 167, transferrin saturation 23.4% ferritin is 310. MICROBIOLOGY: Blood cultures are negative so far. Urine cultures are pending. IMAGING: An esophagogram was done today morning, which showed marked esophageal dysmaturity with achalasia. Esophagus is dilated. There is residual food throughout the esophagus. CURRENT INPATIENT MEDICATIONS: Patient's medications were all reviewed by me. I have started the patient on KCl 20 mEq in D5 half-normal saline at 50 mL/h. She continues to be on IV meropenem. She has been started on heparin drip. Eliquis has been stopped. Most of the oral medications including Tums, chlorthalidone, Celexa, irbesartan, metoprolol, Protonix, oral potassium, simvastatin, and tramadol have been stopped. The patient is getting of metoprolol 5 mg IV every 6 hours. ASSESSMENT/PLAN: 1. End-stage renal disease on peritoneal dialysis. Patient is getting peritoneal dialysis every 2 hourly five manual exchanges a day alternating between 2.5% and 4.25%. Volume status is improving. 2. Anemia in end-stage renal disease. Continue current dose of Aranesp once a week. 3. Hypokalemia. Patient cannot take oral potassium. Patient is getting IV potassium in the IV fluids. 4. Leukocytosis. Patient has history of extended spectrum beta-lactamase (ESBL) urinary tract infection (UTI) and history of aspiration pneumonia. Most likely she had another episode of aspiration pneumonitis because of severe achalasia. Continue the current dose of IV meropenem. Leukocytosis is improving. 5. Dysphagia. Patient has achalasia and massively dilated esophagus with food in the esophagus. She is currently nothing by mouth. She is going to have esophagogastroduodenoscopy (EGD) and possible dilatation of the lower esophageal sphincter by GI. She continues to be nothing by mouth. So, she has been started on gentle IV fluid hydration. 6. Bilateral deep venous thrombosis (DVT). Eliquis is on hold for the procedure. She has been started on heparin drip. 7. Hypertension with end-stage renal disease. Oral metoprolol, isosorbide, and diuretics has been held because of nothing by mouth status. She is currently getting metoprolol every 6 hours. 8. Decompensated diastolic congestive heart failure. Patient's volume status is getting better with current PD regimen manual exchanges every two hourly. No need of hemodialysis at this time. 9. History of atrial fibrillation (AFib) and atrial flutter. Heart rate is controlled. Continue IV metoprolol. Anticoagulation has been switched to heparin.
[2019-02-05 16:00] VITALS: BP 167/77
[2019-02-05 20:00] VITALS: BP 137/80
[2019-02-05] MEDS: MEROPENEM INJ 1 GM in IV 1 EA IV SCH (22:02)
[2019-02-06] VITALS: BP 128/68
[2019-02-06] MEDS: IPRATROPIUM 0.5MG/ALBUTEROL 2.5MG INH SOL UD 3ML (DUONEB)(J7620) NEB SCH ×4 (02:00→20:28)
[2019-02-06] MEDS: METOPROLOL 5 MG/5 ML VIAL IV SCH ×4 (02:05→20:01)
[2019-02-06 04:00] VITALS: BP 118/74
[2019-02-06] MEDS: HEPARIN DRIP 25,000 UNITS in IV 1 EA IV SCH (05:46)
[2019-02-06 06:11] LABS: BASO # 0.1 10^3/uL (0.0-0.2); BASO % 0.3 % (0.0-1.0); EOS # 0.3 10^3/uL (0.0-0.5); HEMATOCRIT 33.2 % (36.0-47.0); HEMOGLOBIN 10.2 g/dl (12.0-15.5); LYMPH % 12.4 % (24.0-44.0); MEAN CORPUSCULAR HEMOGLOBIN 31.4 pg (27.0-33.0); MEAN CORPUSCULAR HGB CONC 30.7 g/dl (32.0-36.5); MEAN CORPUSCULAR VOLUME 102.2 fl (80.0-96.0); MONO % 6.4 % (0.0-5.0); NEUTROPHILS # 12.2 10^3/uL (1.5-8.5); NEUTROPHILS % 76.7 % (36.0-66.0); PLATELET COUNT, AUTOMATED 330 10^3/uL (150-450); RED BLOOD COUNT 3.25 10^6/uL (4.00-5.40); WHITE BLOOD COUNT 15.9 10^3/uL (4.0-10.0)
[2019-02-06 06:28] LABS: CALCIUM LEVEL 8.6 MG/DL (8.8-10.2); CREATININE FOR GFR 6.92 MG/DL (0.55-1.30); GLOMERULAR FILTRATION RATE 6.1 (>32); POTASSIUM SERUM 3.7 MEQ/L (3.5-5.1)
[2019-02-06 08:00] VITALS: BP 148/84
[2019-02-06] MEDS: PANTOPRAZOLE 40MG INJ (PROTONIX) (C9113) IV SCH ×2 (08:16→20:01)
[2019-02-06] MEDS: KCL 20MEQ IN D5/0.45NS 1000ML 1,000 ML IV SCH (08:16)
--- NOTE | 2019-02-06 08:18 | REP ---
Portable chest, 07:36 a.m., single AP view with the patient semi upright: Comparison is 02/04/2019. Cardiomegaly and interstitial coarsening are unchanged. Effacement of the costophrenic angles is unchanged. Focal atelectasis in the right costophrenic angle is unchanged. Impression: There is no interval change. Electronically Signed by Dejuan Galindo MD 02/06/2019 08:08 A
--- NOTE | 2019-02-06 09:47 | IPNPDOC ---
Subjective Date Seen The patient was seen on 02/06/19. Subjective Chief Complaint/HPI Patient is nothing by mouth wants to eat but other wolff offers no other complaints General: Denies: ROS Unobtainable, Chills, Night Sweats, Fatigue, Malaise, Normal Appetite, Other Symptoms Constitutional: Denies: Chills, Fever, Malaise, Night Sweats, Weakness, Fatigue, Weight Loss, Lethargy, Other Pulmonary: Denies: Dyspnea, Cough, Pleuritic Chest Pain, Other Symptoms Cardiovascular: Denies: Chest Pain, Palpitations, Orthopnea, Paroxysmal Noc. Dyspnea, Edema, Lt Headedness, Other Symptoms Gastrointestinal: Denies: Nausea, Vomiting, Abdominal Pain, Diarrhea, Constipation, Melena, Hematochezia, Other Symptoms Musculoskeletal: Denies: Neck Pain, Back Pain, Shoulder Pain, Arm Pain, Hand Pain, Leg Pain, Foot Pain, Joint Pain, Muscle Pain, Spasms, Other Symptoms Neurological: Denies: Weakness, Numbness, Incoordination, Change in speech, Confusion, Seizures, Other Symptoms Objective Physical Examination Neck Exam: Positive: Supple Chest Exam: Positive: Rales, Other Heart Exam: Positive: Rate Normal, Normal S1, Normal S2 Abdomen Exam: Positive: Normal bowel sounds, Soft Extremity Exam: Positive: Edema Skin Exam: Positive: Nl turgor and temperature Neuro Exam: Positive: Strength at 5/5 X4 ext, Sensation Intact Psych Exam: Positive: Anxiety Assessment /Plan Problems (1) Peritonitis associated with peritoneal dialysis Status: Acute Problem Text: Peritoneal fluid cultures are negative, and so for the peritonitis has been ruled out for the cause of leukocytosis Patient is still on meropenem due to. Leukocytosis, which could be secondary to UTI . On examination abdomen is soft, nontender, bowel sounds present. No evidence of acute peritoneal infection (2) Volume overload Status: Acute Problem Text: Aggressive peritoneal dialysis as per nephrology Patient is clinically improving (3) ESRD on peritoneal dialysis Status: Chronic Problem Text: Continue PD as per nephrology (4) Hypertension Status: Chronic Problem Text: Continue home meds (5) A-fib Status: Chronic Problem Text: Has been started on IV beta blockers Rate is under well control (6) HLD (hyperlipidemia) Status: Chronic Problem Text: By mouth meds on hold (7) Dysphagia Status: Chronic Problem Text: Esophagogram consistent with the dysmotility and achalasia. There was residual fluid in the esophagus. Patient is on heparin secondary to DVT and PE eliquis has been stopped All by mouth meds have been stopped Further intervention as per GI (8) UTI (urinary tract infection) Status: Acute Problem Text: Plan consistent with UTI Continue meropenem Urine cultures pending (9) Acute on chronic diastolic CHF (congestive heart failure) Status: Chronic Problem Text: Aggressive peritoneal dialysis as per nephrology to decreased volume overload Monitor I&O's Patient is clinically improving Plan/VTE VTE Prophylaxis Ordered?: Yes VS, I&O, 24H, Fishbone Vital Signs/I&O Vital Signs Date Time Temp Pulse Resp B/P (MAP) Pulse Ox O2 Delivery O2 Flow Rate FiO2 02/06/19 08:16 78 148/84 02/06/19 08:00 97.8 17 92 Nasal Cannula 2.0 I&O- Last 24 Hours up to 6 AM 02/06/19 06:00 Intake Total 10967 ml Output Total 67624 ml Balance 736 ml Laboratory Data 24H LABS Laboratory Tests 2 02/05/19 16:32: Activated Partial Thromboplast Time 84.7H 02/05/19 23:06: Activated Partial Thromboplast Time 107.0H 02/06/19 05:51: Activated Partial Thromboplast Time 83.4H, Immature Granulocyte % (Auto) 2.2, Neutrophils (%) (Auto) 76.7H, Lymphocytes (%) (Auto) 12.4L, Monocytes (%) (Auto) 6.4H, Eosinophils (%) (Auto) 2.0, Basophils (%) (Auto) 0.3, Neutrophils # (Auto) 12.2H, Lymphocytes # (Auto) 2.0, Monocytes # (Auto) 1.0H, Eosinophils # (Auto) 0.3, Basophils # (Auto) 0.1, Nucleated Red Blood Cells % (auto) 0.0, Anion Gap 7L, Glomerular Filtration Rate 6.1L, Calcium Level 8.6L CBC/BMP Laboratory Tests 02/06/19 05:51 Microbiology Microbiology 02/04/19 Urine Culture, Received Pending 02/04/19 Gram Stain - Final, Resulted 02/04/19 Body Fluid Culture, Resulted Pending 02/03/19 Blood Culture - Preliminary, Resulted No Growth after 48 hours. All Specime... 02/03/19 Blood Culture - Preliminary, Resulted No Growth after 48 hours. All Specime... JAMES WRIGHT MD Feb 06, 2019 09:47
[2019-02-06 12:00] VITALS: BP 125/60
--- NOTE | 2019-02-06 13:55 | IPN ---
DATE: 02/06/2019 SUBJECTIVE: The patient is seen and examined this morning at bedside. She is continuing to get exchanges every 2 hours. Her volume status does seem to be improving. The patient continues to be nothing by mouth. She did not have an esophagogastroduodenoscopy (EGD) done yesterday and there is not one planned for today. Gastroenterology will likely proceed for the next 1 to 2 days with endoscopic dilatation. The patient denies any active complaints at this time. OBJECTIVE: VITAL SIGNS: Temperature 98 degrees, pulse 79, respiratory rate 18, blood pressure 125/60, saturating 93% on 1 liter nasal cannula. The patient had 100mL out through peritoneal dialysis over the last 24 hours. PHYSICAL EXAMINATION: GENERAL: The patient is awake, alert, oriented times three. Lying in bed in no acute distress. HEENT: Extraocular muscles intact. Pupils are equal, round and reactive to light. Mucous membranes are moist. Neck is supple. Mildly elevated jugular venous distention (JVD). CARDIOVASCULAR: Regular rate and rhythm. Normal S1, S2. 2+ bilateral lower extremity edema, worse on the left greater than right, unchanged from yesterday. RESPIRATORY: Diminished breath sounds at the bilateral bases. No wheezes, crackles or rhonchi. ABDOMEN: Obese, soft, nontender, nondistended. Positive bowel sounds. Left lower quadrant peritoneal dialysis catheter present. NEUROLOGIC: No focal neuro deficits noted. LABORATORY REVIEW: White blood cell count of 15.9, hemoglobin 10.2, hematocrit 33.2, platelet count of 330. Sodium 139, potassium 3.7, chloride 103, CO2 of 29, BUN of 34, creatinine 6.92, glucose 99, calcium 8.6. CURRENT MEDICATIONS: The patient is continued on: - Aranesp - D5 half normal saline with KCL IV in light of her nothing by mouth status ASSESSMENT AND PLAN: 1. Endstage renal disease on peritoneal dialysis. The patient is getting dialysis every 2 hours with five manual exchanges a day, alternating between 2.5 and 4.25%. Volume status is improving. 2. Anemia in end stage renal disease. The patient is continued on Aranesp once weekly. 3. Hypokalemia. The patient is unable to take oral potassium and is getting supplemental potassium through her IV fluids. 4. Leukocytosis. The patient has extended-Spectrum beta-Lactamases (ESBL) urinary tract infection (UTI) and history of aspiration pneumonia. Once again, she likely had an episode of aspiration pneumonitis due to her severe achalasia. The patient is currently on her current dose of meropenem. Her leukocytosis is mildly elevated from yesterday, but she reports no worsening of her symptoms. 5. Dysphagia. The patient has massively dilated esophagus with achalasia and food present in the esophagus. She is currently nothing by mouth and there are plans for her to undergo EGD with possible dilatation of her LES by GI. She continues to be nothing by mouth and is on IV fluid hydration. 6. Chronic bilateral deep vein thrombosis (DVT). The patient's Eliquis is on hold. She is on heparin drip. 7. Hypertension with end stage renal disease. The patient is currently only continued on Lopressor IV every 6 hours. All other blood pressure medications have been held in light of her nothing by mouth status. 8. Decompensated diastolic congestive heart failure (CHF). The patient's volume status continues to improve with dialysis regimen manual exchanges every 2 hours. No need for hemodialysis currently. 9. History of atrial fibrillation and atrial flutter. Heart remains controlled. She is on IV metoprolol and heparin. MTDD
[2019-02-06 16:00] VITALS: BP 168/92
[2019-02-06 20:00] VITALS: BP 134/82
[2019-02-06] MEDS: MEROPENEM INJ 1 GM in IV 1 EA IV SCH (21:38)
[2019-02-07] VITALS: BP 112/76
[2019-02-07] MEDS: IPRATROPIUM 0.5MG/ALBUTEROL 2.5MG INH SOL UD 3ML (DUONEB)(J7620) NEB SCH ×3 (01:57→20:00)
[2019-02-07] MEDS: METOPROLOL 5 MG/5 ML VIAL IV SCH ×3 (02:17→14:00)
[2019-02-07] MEDS: KCL 20MEQ IN D5/0.45NS 1000ML 1,000 ML IV SCH (03:32)
[2019-02-07 04:00] VITALS: BP 172/74
[2019-02-07 05:26] LABS: HEMATOCRIT 31.8 % (36.0-47.0); HEMOGLOBIN 9.7 g/dl (12.0-15.5); MEAN CORPUSCULAR HEMOGLOBIN 30.8 pg (27.0-33.0); MEAN CORPUSCULAR HGB CONC 30.5 g/dl (32.0-36.5); PLATELET COUNT, AUTOMATED 303 10^3/uL (150-450); RED BLOOD COUNT 3.15 10^6/uL (4.00-5.40); WHITE BLOOD COUNT 11.5 10^3/uL (4.0-10.0)
[2019-02-07 05:42] LABS: EOSINOPHILS 2 % (0-3); LYMPHOCYTES 12 % (16-44); METAMYELOCYTES 1 % (0-0); MONOCYTES 8 % (0-5); MYELOCYTES 2 % (0-0); NEUTROPHILS 75 % (28-66); POLYCHROMASIA 1+
[2019-02-07 05:44] LABS: PLATELET ESTIMATE NORMAL (NORMAL)
[2019-02-07 05:46] LABS: ALBUMIN 1.5 GM/DL (3.2-5.2); ALT/SGPT 15 U/L (12-78); BILIRUBIN,TOTAL 0.3 MG/DL (0.2-1.0); BLOOD UREA NITROGEN 30 MG/DL (7-18); CALCIUM LEVEL 8.2 MG/DL (8.8-10.2); CARBON DIOXIDE LEVEL 31 MEQ/L (21-32); CHLORIDE LEVEL 100 MEQ/L (98-107); CREATININE FOR GFR 6.66 MG/DL (0.55-1.30); GLOMERULAR FILTRATION RATE 6.4 (>32); GLUCOSE, FASTING 90 MG/DL (70-100); POTASSIUM SERUM 3.4 MEQ/L (3.5-5.1); SODIUM LEVEL 139 MEQ/L (136-145); TOTAL PROTEIN 5.9 GM/DL (6.4-8.2)
[2019-02-07 08:00] VITALS: BP 111/80
[2019-02-07] MEDS: PANTOPRAZOLE 40MG INJ (PROTONIX) (C9113) IV SCH (08:14)
[2019-02-07] MEDS: KCL 10MEQ/100ML SWI (KRUN) 10 MEQ in IV 1 EA IV SCH ×2 (08:14→09:44)
[2019-02-07 10:13] LABS: VANCOMYCIN RANDOM < 0.8 UG/ML
--- NOTE | 2019-02-07 10:25 | IPNPDOC ---
Subjective Date Seen The patient was seen on 02/07/19. Subjective Chief Complaint/HPI Patient was sleeping comfortably, easily aroused offers no new complaints except diet she still has some nausea General: Denies: ROS Unobtainable, Chills, Night Sweats, Fatigue, Malaise, Normal Appetite, Other Symptoms Constitutional: Denies: Chills, Fever, Malaise, Night Sweats, Weakness, Fatigue, Weight Loss, Lethargy, Other Eyes: Denies: Pain, Vision change, Conjunctivae inflammation, Eyelid inflammation, Redness, Other ENT: Denies: Head Aches, Ear Pain, Dysphagia, Sinus Congestion, Post Nasal Drip, Sore Throat, Epistaxis, Other Symptoms Skin: Denies: Rash, Lesions, Jaundice, Bruising, Itching, Dry, Breakdown, Nail Changes, Other Pulmonary: Denies: Dyspnea, Cough, Pleuritic Chest Pain, Other Symptoms Cardiovascular: Denies: Chest Pain, Palpitations, Orthopnea, Paroxysmal Noc. D yspnea, Edema, Lt Headedness, Other Symptoms Gastrointestinal: Reports: Nausea Endocrine: Denies: Polydipsia, Polyphagia, Polyuria, Heat Intolerance, Cold I ntolerance, Other Endocrine Sx Musculoskeletal: Denies: Neck Pain, Back Pain, Shoulder Pain, Arm Pain, Hand Pain, Leg Pain, Foot Pain, Joint Pain, Muscle Pain, Spasms, Other Symptoms Objective Physical Examination General Exam: Positive: Alert, Cooperative Neck Exam: Positive: Supple Chest Exam: Positive: Rales, Other Heart Exam: Positive: Rate Normal, Normal S1, Normal S2 Abdomen Exam: Positive: Normal bowel sounds, Soft, Tenderness (. No tenderness) Extremity Exam: Positive: Edema Skin Exam: Positive: Nl turgor and temperature Assessment /Plan Problems (1) Peritonitis associated with peritoneal dialysis Status: Acute Problem Text: Peritonitis ruled out on the basis of negative cultures and benign abdominal exam Peritoneal fluid cultures are negative, and so for the peritonitis has been ruled out for the cause of leukocytosis Patient is still on meropenem due to. Leukocytosis, which could be secondary to UTI (2) Volume overload Status: Acute Problem Text: Aggressive peritoneal dialysis as per nephrology Patient is clinically improving with the PD regimen as per nephrology Nephrology follow-up appreciated (3) ESRD on peritoneal dialysis Status: Chronic Problem Text: Continue PD as per nephrology (4) Hypertension Status: Chronic Problem Text: Continue home meds (5) A-fib Status: Chronic Problem Text: Has been started on IV beta blockers Rate is under well control (6) HLD (hyperlipidemia) Status: Chronic Problem Text: By mouth meds on hold (7) Dysphagia Status: Chronic Problem Text: Esophagogram consistent with the dysmotility and achalasia. There was residual fluid in the esophagus. Patient is on heparin secondary to DVT and PE eliquis has been stopped All by mouth meds have been stopped Discussed with Dr. Adhikari yesterday Is scheduled for EGD either today or tomorrow (8) UTI (urinary tract infection) Status: Acute Problem Text: Plan consistent with UTI Continue meropenem Urine cultures are still pending WBC count of 11.5 today with a stable H&H (9) Acute on chronic diastolic CHF (congestive heart failure) Status: Chronic Problem Text: Aggressive peritoneal dialysis as per nephrology to decreased volume overload Monitor I&O's Patient is clinically improving Plan/VTE VTE Prophylaxis Ordered?: Yes VS, I&O, [facility]/I&O Vital Signs Date Time Temp Pulse Resp B/P (MAP) Pulse Ox O2 Delivery O2 Flow Rate FiO2 02/07/19 08:00 2.0 02/07/19 04:00 97.1 80 16 172/74 (106) 96 Nasal Cannula I&O- Last 24 Hours up to 6 AM 02/07/19 06:00 Intake Total 34931 ml Output Total 9700 ml Balance 1034 ml Laboratory Data 24H LABS Laboratory Tests 2 02/06/19 11:46: Activated Partial Thromboplast Time 87.1H 02/07/19 05:04: Activated Partial Thromboplast Time 89.3H, Immature Granulocyte % (Auto) , Nucleated Red Blood Cells % (auto) 0.0, Neutrophils 75H, Lymphocytes (Manual) 12L, Monocytes (Manual) 8H, Eosinophils (Manual) 2, Metamyelocytes 1H, Myelocytes 2H, Polychromasia 1+, Platelet Estimate NORMAL, Anion Gap 8, Glomerular Filtration Rate 6.4L, Calcium Level 8.2L, Total Bilirubin 0.3, Aspartate Amino Transf (AST/SGOT) 13, Alanine Aminotransferase (ALT/SGPT) 15, Alkaline Phosphatase 118H, Total Protein 5.9L, Albumin 1.5L, Albumin/Globulin Ratio 0.34L, Random Vancomycin Level < 0.8 CBC/BMP Laboratory Tests 02/07/19 05:04 Microbiology Microbiology 02/04/19 Urine Culture - Preliminary, Resulted E.coli Esbl Enterococcus Faecalis Lactobacillus Species 02/04/19 Gram Stain - Final, Complete 02/04/19 Body Fluid Culture - Final, Complete 02/03/19 Blood Culture - Preliminary, Resulted No Growth after 72 hours. All specime... 02/03/19 Blood Culture - Preliminary, Resulted No Growth after 72 hours. All specime... JAMES WRIGHT MD Feb 07, 2019 10:25
[2019-02-07] MEDS: KCL 40MEQ IN D5/0.45NS 1000ML 1,000 ML IV SCH (12:38)
[2019-02-07] MEDS ORDERED: VANCOMYCIN INTERMITTENT/PULSE DOSING BY CLINICAL PHARMACIST PER DOSING PROTOCOL XX SCH (13:15)
--- NOTE | 2019-02-07 13:29 | IPN ---
DATE OF SERVICE: 02/07/2019 SUBJECTIVE: The patient was seen and examined at the bedside today morning. She continues to be on intravenous (IV) fluid. Her urine cultures came back positive for extended-spectrum beta-lactamase (ESBL) Escherichia (E) coli and Enterococcus faecalis. The patient is tolerating the peritoneal dialysis. She was getting a potassium repletion and she told me that she was having burning at the IV site. OBJECTIVE: Vital signs: Temperature is 94.9 degrees Fahrenheit., blood pressure 191/80, pulse is 85, respiratory rate of 15, saturating 96% on nasal cannula at 2 liters. Intake and output: Peritoneal dialysis output was 500 mL overnight. Weight in the bed scale is 74.5 kg. PHYSICAL EXAMINATION: General: The patient is awake, alert, oriented times three, laying in bed, in no apparent distress. Head and neck exam: Extraocular muscles intact. Pupils equally round and reactive to light. Mucous membranes are moist. Neck is supple. There is no jugular venous distention (JVD). Cardiovascular: S1, S2, regular rate. Trace edema of the right lower extremity, 1+ lymph edema of the left lower extremity. Respiratory: Chest is clear to auscultation bilaterally. Bilateral equal air entry. No rales or rhonchi. Abdomen: Soft, positive bowel sounds. Nontender. No organomegaly. Musculoskeletal: No clubbing or cyanosis. Central nervous system (HEATER MECHANIC): No focal deficit. Power is 5/5 in all extremities. LAB REVIEW: CBC showed WBC of 11.5, hemoglobin 9.7, platelets are 303. BMP showed sodium 139, potassium 3.4, chloride 100, bicarbonate 31, BUN 30, creatinine 6.6, calcium 8.2, albumin is 1.5. MICROBIOLOGY: Urine cultures are growing ESBL E coli and Enterococcus faecalis in addition to lactobacillus species. CURRENT INPATIENT MEDICATIONS: The patient's medications were all reviewed by me. She continues to be on heparin drip. I have changed her IV fluid to KCl 40 mEq in D5 half-normal saline at 50 mL/h. She continues to be on IV meropenem. I have started her on vancomycin for Enterococcus faecalis in the urine cultures. No other change in the medications today as compared with yesterday. ASSESSMENT AND PLAN: 1. End-stage renal disease on peritoneal dialysis. Continue current peritoneal dialysis (PD) regimen of five manual exchanges every 2 hours alternating between 2.5% and 4.25%. 2. Anemia in end-stage renal disease. Continue current dose of Aranesp. Hemoglobin level is stable. 3. Hypokalemia. The patient is getting IV potassium runs but it is causing burning. I have changed the IV fluid to higher concentration of potassium. 4. Urinary tract infection. The patient has ESBL E-coli and Enterococcus faecalis. She is already on meropenem. I have added the vancomycin dose will be adjusted by pharmacy. 5. Achalasia. The patient has dysphagia. She is nothing by mouth. She is going to have esophagogastroduodenoscopy (EGD) by GI. Continue IV fluid hydration while she is nothing by mouth. 6. 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 Continue heparin drip. Eliquis is on hold. 7. Hypertension. Oral antihypertensives are on hold. Continue every 6 hourly IV Lopressor. 8. Chronic diastolic congestive heart failure. Volume status is improving. Continue current PD regimen. 9. History of atrial fibrillation/atrial flutter. Continue IV metoprolol. Anticoagulation is with heparin.
--- NOTE | 2019-02-07 13:34 | PHACANCOPD ---
PHARMACY VANCOMYCIN DOSING Pt Demographics Demographics Patient Age:78 , Weight:74.500 , Gender: female Adjusted Body Weight Date: 02/07/19, Adjusted Body Weight: Kg Events Past 24 Hours Events Past 24 Hours: YES: Dialysis, Elevation in WBC; NO: Diuretic Therapy, Change in CrCl, Fever, Pending Diagnostics, Pending Procedures, Other Vancomycin Vancomycin indication: UTI Vancomycin Target Ranges: 10-20 mcg/ml Vancomycin Load Y/N: Yes Load Dose Date Time Vancomycin Load Dose: 1000 MG Date: 02/07/19 Time: 1400 Vancomycin Dose Date: 02/07/19. Current Vancomycin Dose: [ INTERMITTENT VANCOMYCIN] Intermittent Dosing?: Yes Labs Labs Vital Signs Label Value Date Time Patient Temperature 94.9 degrees F 02/07/19 0800 Temperature Source Temporal 02/07/19 0800 Patient Temperature 97.1 degrees F 02/07/19 0400 Temperature Source Temporal 02/07/19 0400 Patient Temperature 98.6 degrees F 02/07/19 0000 Temperature Source Temporal 02/07/19 0000 Blood Pressure Assessment 112/76 (88) 02/07/19 0000 Blood Pressure Assessment 172/74 (106) 02/07/19 0400 Blood Pressure Assessment 111/80 (90) 02/07/19 0800 Item Value Date Time White Blood Count 19.7 10^3/uL H 02/03/192113 White Blood Count 15.4 10^3/uL H 02/04/19 0658 White Blood Count 12.0 10^3/uL H 02/05/19 0526 White Blood Count 15.9 10^3/uL H 02/06/19 0551 White Blood Count 11.5 10^3/uL H 02/07/19 0504 Erythrocyte Sedimentation Rate 108 mm/hr H 02/03/192113 Creatinine 6.66 MG/DL H 02/07/19 0504 Creatinine 6.92 MG/DL H 02/06/19 0551 Creatinine 7.64 MG/DL H 02/05/19 0526 Creatinine 8.01 MG/DL *H 02/04/19 0658 Glomerular Filtration Rate 5.1 L 02/04/19 0658 Glomerular Filtration Rate 5.4 L 02/05/19 0526 Glomerular Filtration Rate 6.1 L 02/06/19 0551 Glomerular Filtration Rate 6.4 L 02/07/19 0504 C-Reactive Protein, Quantitative 14.50 MG/DL H 02/03/192113 Micro Microbiology 02/04/19 Urine Culture - Preliminary, Resulted E.coli Esbl Enterococcus Faecalis Lactobacillus Species 02/04/19 Gram Stain - Final, Complete 02/04/19 Body Fluid Culture - Final, Complete 02/03/19 Blood Culture - Preliminary, Resulted No Growth after 72 hours. All specime... 02/03/19 Blood Culture - Preliminary, Resulted No Growth after 72 hours. All specime... Creatinine Clearance Date:02/07/19. Creatinine Clearance: [ 5.5 mL/min ]. Assessment and Plan Maintaining Current Dose?: Yes Reason for dose change: No Dose Change Pharmacist Note Pharmacist Note Date: 02/07/19. Pharmacist note: Patient presented to [facility] on 02/03/19 as a transfer from [facility]. Ms. Lange was thought to have peritonitis, but was subsequently placed on vancomycin therapy due the finding of e faecalis in a urine culture. She has a history of ESBL e coli urinary tract infections. She will be placed on intermittent dosing, due to her end stage renal disease on peritoneal dialysis. A loading dose of 1 gram was scheduled for today @ 1400. We will obtain a random level tomorrow with the morning lab draw to determine future dosing. We will continue to monitor and make adjustments as necessary. LEONA GUTIERREZ PHARMACY Feb 07, 2019 13:34
[2019-02-07] MEDS ORDERED: VANCOMYCIN HCL 1,000 MG, VIAL MATE ADAPTER 1 EACH in D5W 250 ML IV ONE (14:00)
--- NOTE | 2019-02-07 14:59 | IPNPDOC ---
Date Seen The patient was seen on 02/07/19. Progress Note Interval history: Patient was placed on NPO and was stopped on Eliquis for 4 days ( due to ERSD). Patient fluid status also much improved with agreesive dialysis. Patient is cleared by primary team to proceed with EGD with dilation today. Xray esophagogram was done and reviewed ( likely motility issue, cannot rule out distal stricture). Patient denies any new GI symptoms. Exam: Vitals: afebrile, no tachycardia. General: Alert and oriented x 3, mild distress from Shortness of breath. Abdomen: non-distended, no surgical scars, soft, non-tender, no palpable masses, normal bowel sounds heard. Labs: reviewed. Impression: - Gradually worsening dysphagia in patient with known lower esophageal ulceration in past EGD done few months ago for food impaction, barium esophagogram showing possible achalasia -- needs further evaluation. Recommendations: - Patient educated about the esophagogram results, possible differential diagnoses and All questions answered. - Patient is scheduled for EGD with dilation today. - Patient is educated about the procedure, indications, risks (bleeding, perforation, infection, hypotension, respiratory depression, allergy, need for endotracheal intubation, surgery, colostomy, cardiac arrest, even ), benefits, limitations (e.g., missing a lesion), and all other alternatives (including no intervention). Patient verbalized understanding and consented for the procedure. - Follow procedure note for Post procedure recommendations Plan of care discussed with patient and primary team. Patient verbalized understanding and agreed with the plan. VS, I&O, 24H, Fishbone Vital Signs/I&O Vital Signs Date Time Temp Pulse Resp B/P (MAP) Pulse Ox O2 Delivery O2 Flow Rate FiO2 02/07/19 12:00 2.0 02/07/19 08:00 94.9 85 15 111/80 (90) 96 Nasal Cannula I&O- Last 24 Hours up to 6 AM 02/07/19 06:00 Intake Total 74990 ml Output Total 9700 ml Balance 1034 ml Laboratory Data 24H LABS Laboratory Tests 2 02/07/19 05:04: Immature Granulocyte % (Auto) , Nucleated Red Blood Cells % (auto) 0.0, Neutrophils 75H, Lymphocytes (Manual) 12L, Monocytes (Manual) 8H, Eosinophils (Manual) 2, Metamyelocytes 1H, Myelocytes 2H, Polychromasia 1+, Platelet Estimate NORMAL, Activated Partial Thromboplast Time 89.3H, Anion Gap 8, Glomerular Filtration Rate 6.4L, Calcium Level 8.2L, Total Bilirubin 0.3, Aspartate Amino Transf (AST/SGOT) 13, Alanine Aminotransferase (ALT/SGPT) 15, Alkaline Phosphatase 118H, Total Protein 5.9L, Albumin 1.5L, Albumin/Globulin Ratio 0.34L, Random Vancomycin Level < 0.8 CBC/BMP Laboratory Tests 02/07/19 05:04 Microbiology Microbiology 02/04/19 Urine Culture - Preliminary, Resulted E.coli Esbl Enterococcus Faecalis Lactobacillus Species 02/04/19 Gram Stain - Final, Complete 02/04/19 Body Fluid Culture - Final, Complete 02/03/19 Blood Culture - Preliminary, Resulted No Growth after 72 hours. All specime... 02/03/19 Blood Culture - Preliminary, Resulted No Growth after 72 hours. All specime... MARÍA GTZ MD Feb 07, 2019 14:59
[2019-02-07] MEDS ORDERED: LIDOCAINE 2% INJ 100 MG/5 ML SDV (FOR ANES.) As Ordered ONE (15:21)
[2019-02-07] MEDS ORDERED: PROPOFOL 200 MG/20 ML VIAL As Ordered ONE (15:21)
--- NOTE | 2019-02-07 15:54 | ROOR ---
Patient Name: Yuki Lange Procedure Date: 02/07/2019 2:54 PM Date of : 1940 Age: 78 Room: [facility] Gender: Female Note Status: Finalized Procedure: Upper GI endoscopy Indications: Dysphagia Providers: Chip Adhikari MD Referring MD: 2. Inpatient 2. Inpatient Requesting Provider: Medicines: Monitored Anesthesia Care Complications: No immediate complications. Procedure: Pre-Anesthesia Assessment: - Prior to the procedure, a History and Physical was performed, and patient medications and allergies were reviewed. The patient is competent. The risks and benefits of the procedure and the sedation options and risks were discussed with the patient. All questions were answered and informed consent was obtained. Patient identification and proposed procedure were verified by the physician, the nurse and the anesthesiologist in the procedure room. Mental Status Examination: alert and oriented. Airway Examination: normal oropharyngeal airway and neck mobility. Respiratory Examination: clear to auscultation. CV Examination: normal. Prophylactic Antibiotics: The patient does not require prophylactic antibiotics. Prior Anticoagulants: The patient has taken no previous anticoagulant or antiplatelet agents. ASA Grade Assessment: III - A patient with severe systemic disease. After reviewing the risks and benefits, the patient was deemed in satisfactory condition to undergo the procedure. The anesthesia plan was to use monitored anesthesia care (MAC). Immediately prior to administration of medications, the patient was re-assessed for adequacy to receive sedatives. The heart rate, respiratory rate, oxygen saturations, blood pressure, adequacy of pulmonary ventilation, and response to care were monitored throughout the procedure. The physical status of the patient was re-assessed after the procedure. The Endoscope was introduced through the mouth, and advanced to the second part of duodenum. The upper GI endoscopy was accomplished without difficulty. The patient tolerated the procedure well. Findings: Abnormal motility was noted in the distal esophagus and at the lower esophageal sphincter. The cricopharyngeus was normal. There is spasticity of the esophageal body. The distal esophagus/lower esophageal sphincter is spastic, but gives up passage to the endoscope. A TTS dilator was passed through the scope. Dilation with an 18-19-20 mm balloon dilator was performed to 20 mm. The dilation site was examined following endoscope reinsertion and showed moderate improvement in luminal narrowing. Biopsies were taken with a cold forceps for histology. Verification of patient identification for the specimen was done by the physician and nurse using the patient's name, date and medical record number. Estimated blood loss was minimal. A medium-sized hiatal hernia was present. Diffuse moderate inflammation characterized by erythema and friability was found in the gastric antrum. Biopsies were taken with a cold forceps for Helicobacter pylori testing. The duodenal bulb and second portion of the duodenum were normal. Impression: - Abnormal esophageal motility, suspicious for presbyesophagus. Dilated. Biopsied. - Medium-sized hiatal hernia. - Gastritis. Biopsied. - Normal duodenal bulb and second portion of the duodenum. Recommendation: - Patient has a contact number available for emergencies. The signs and symptoms of potential delayed complications were discussed with the patient. Return to normal activities tomorrow. Written discharge instructions were provided to the patient. - Mechanical soft diet. - Continue present medications. - Recommend a motility agent. - Repeat upper endoscopy in 3 months for retreatment. - Return to GI clinic in [facility] (address [address], [address], [place], [facility]) in 4 -- 6 weeks. Please call GI clinic @ [phone] for apppointment date and time. - Return to primary care physician. Chip Adhikari MD Chip Adhikari MD 02/07/2019 3:53:25 PM Electronically signed by Chip Adhikari MD Number of Addenda: 0 Note Initiated On: 02/07/2019 2:54 PM Estimated Blood Loss: Estimated blood loss was minimal.
[2019-02-07 16:00] VITALS: BP 186/82
[2019-02-07] MEDS ORDERED: METOCLOPRAMIDE 5 MG TAB PO SCH (17:30)
[2019-02-07] MEDS: ONDANSETRON 4MG/2ML VIAL (J2405) IV PRN ×2 (18:18→23:44)
[2019-02-07] MEDS: ISOSORBIDE DIN. (ISORDIL) 5 MG TAB PO SCH (19:00)
[2019-02-07 20:00] VITALS: BP 180/81
[2019-02-07] MEDS: APIXABAN 2.5 MG TAB (ELIQUIS) PO SCH (21:29)
[2019-02-07] MEDS: SIMVASTATIN 40 MG TAB PO SCH (21:29)
[2019-02-07] MEDS: METOPROLOL TART 25 MG TABLET PO SCH (21:29)
[2019-02-07] MEDS: MEROPENEM INJ 1 GM in IV 1 EA IV SCH (21:30)
[2019-02-07] MEDS ORDERED: ALTEPLASE 2 MG/2 ML VIAL (J2997 PER 1MG) XX ONE (23:15)
[2019-02-08] VITALS (7 sets, daily range): BP systolic 110–163; BP diastolic 57–76
[2019-02-08] MEDS: IPRATROPIUM 0.5MG/ALBUTEROL 2.5MG INH SOL UD 3ML (DUONEB)(J7620) NEB SCH ×4 (02:00→20:00)
[2019-02-08 06:05] LABS: HEMATOCRIT 33.1 % (36.0-47.0); HEMOGLOBIN 9.9 g/dl (12.0-15.5); MEAN CORPUSCULAR HEMOGLOBIN 30.8 pg (27.0-33.0); MEAN CORPUSCULAR HGB CONC 29.9 g/dl (32.0-36.5); MEAN CORPUSCULAR VOLUME 103.1 fl (80.0-96.0); PLATELET COUNT, AUTOMATED 286 10^3/uL (150-450); RED BLOOD COUNT 3.21 10^6/uL (4.00-5.40); WHITE BLOOD COUNT 9.8 10^3/uL (4.0-10.0)
[2019-02-08 06:28] LABS: ALBUMIN 1.5 GM/DL (3.2-5.2); BILIRUBIN,TOTAL 0.3 MG/DL (0.2-1.0); CALCIUM LEVEL 8.1 MG/DL (8.8-10.2); CREATININE FOR GFR 6.01 MG/DL (0.55-1.30); GLOMERULAR FILTRATION RATE 7.2 (>32); MAGNESIUM LEVEL 1.1 MG/DL (1.8-2.4); POTASSIUM SERUM 3.8 MEQ/L (3.5-5.1); TOTAL PROTEIN 5.9 GM/DL (6.4-8.2); VANCOMYCIN RANDOM 17.6 UG/ML
--- NOTE | 2019-02-08 06:39 | PHACANCOPD ---
PHARMACY VANCOMYCIN DOSING Pt Demographics Demographics Patient Age:78 , Weight:60.900 , Gender: female Adjusted Body Weight Date: 02/07/19, Adjusted Body Weight: Kg Events Past 24 Hours Events Past 24 Hours: YES: Dialysis Vancomycin Vancomycin indication: UTI Vancomycin Target Ranges: 10-20 mcg/ml Vancomycin Load Y/N: Yes Load Dose Date Time Vancomycin Load Dose: 1000 MG Date: 02/07/19 Time: 1400 Vancomycin Dose Date: 02/07/19. Current Vancomycin Dose: [ INTERMITTENT VANCOMYCIN] Intermittent Dosing?: Yes Labs Labs Item Value Date Time White Blood Count 11.5 10^3/uL H 02/07/19 0504 Glomerular Filtration Rate 7.2 L 02/08/19 0538 Creatinine 6.01 MG/DL H 02/08/19 0538 Blood Urea Nitrogen 25 MG/DL H 02/08/19 0538 Random Vancomycin Level 17.6 UG/ML 02/08/19 0538 Vital Signs Label Value Date Time Patient Temperature 97.6 degrees F 02/08/19 0400 Temperature Source Temporal 02/08/19 0400 Micro Microbiology 02/04/19 Urine Culture - Preliminary, Resulted E.coli Esbl Enterococcus Faecalis Lactobacillus Species 02/04/19 Gram Stain - Final, Complete 02/04/19 Body Fluid Culture - Final, Complete 02/03/19 Blood Culture - Preliminary, Resulted No Growth after 72 hours. All specime... 02/03/19 Blood Culture - Preliminary, Resulted No Growth after 72 hours. All specime... Creatinine Clearance Date:02/07/19. Creatinine Clearance: [ 5.5 mL/min ]. Pending Labs random 11-10 in am Assessment and Plan Maintaining Current Dose?: Yes Reason for dose change: No Dose Change Pharmacist Note Pharmacist Note Date: 02/08/19. Pharmacist note:Random of 17.6 is within target range. Will dose with 500mg today @0900. We will continue to monitor and dose as necessary. PEEWEE GONZALES PHARMACY Feb 08, 2019 06:39
[2019-02-08 06:48] LABS: EOSINOPHILS 2 % (0-3); LYMPHOCYTES 20 % (16-44); METAMYELOCYTES 1 % (0-0); MONOCYTES 9 % (0-5); MYELOCYTES 1 % (0-0); NEUTROPHILS 67 % (28-66); PLATELET ESTIMATE NORMAL (NORMAL)
[2019-02-08] MEDS: PANTOPRAZOLE 40MG TAB (PROTONIX) PO SCH (08:07)
[2019-02-08] MEDS: KCL 40MEQ IN D5/0.45NS 1000ML 1,000 ML IV SCH (08:07)
[2019-02-08] MEDS: CitaloPRAM (CeleXA) 20 MG TAB PO SCH (08:07)
[2019-02-08] MEDS: APIXABAN 2.5 MG TAB (ELIQUIS) PO SCH ×2 (08:08→21:18)
[2019-02-08] MEDS: IRBESARTAN 150 MG TAB PO SCH (08:08)
[2019-02-08] MEDS: METOPROLOL TART 25 MG TABLET PO SCH ×2 (08:08→21:21)
[2019-02-08] MEDS: ISOSORBIDE DIN. (ISORDIL) 5 MG TAB PO SCH ×3 (08:08→18:18)
[2019-02-08] MEDS ORDERED: VANCOMYCIN HCL 500 MG in D5W MINI-BAG PLUS 100 ML IV ONE (09:00)
--- NOTE | 2019-02-08 09:38 | IPNPDOC ---
Subjective Date Seen The patient was seen on 02/08/19. Subjective Chief Complaint/HPI Patient tolerating her food offers no new complaints. Sitting up in her bed and wants to go home General: Denies: ROS Unobtainable, Chills, Night Sweats, Fatigue, Malaise, Normal Appetite, Other Symptoms Constitutional: Denies: Chills, Fever, Malaise, Night Sweats, Weakness, Fatigue, Weight Loss, Lethargy, Other Pulmonary: Denies: Dyspnea, Cough, Pleuritic Chest Pain, Other Symptoms Cardiovascular: Denies: Chest Pain, Palpitations, Orthopnea, Paroxysmal Noc. Dyspnea, Edema, Lt Headedness, Other Symptoms Gastrointestinal: Denies: Nausea, Vomiting, Abdominal Pain, Diarrhea, Constipation, Melena, Hematochezia, Other Symptoms Musculoskeletal: Denies: Neck Pain, Back Pain, Shoulder Pain, Arm Pain, Hand Pain, Leg Pain, Foot Pain, Joint Pain, Muscle Pain, Spasms, Other Symptoms Neurological: Denies: Weakness, Numbness, Incoordination, Change in speech, Confusion, Seizures, Other Symptoms Objective Physical Examination Neck Exam: Positive: Supple Chest Exam: Positive: Rales, Other Heart Exam: Positive: Rate Normal, Normal S1, Normal S2 Abdomen Exam: Positive: Normal bowel sounds, Soft, Tenderness (. No tenderness) Extremity Exam: Positive: Edema Skin Exam: Positive: Nl turgor and temperature Assessment /Plan Problems (1) Peritonitis associated with peritoneal dialysis Status: Acute Problem Text: Peritonitis ruled out on the basis of negative cultures and benign abdominal exam Peritoneal fluid cultures are negative, and so for the peritonitis has been ruled out for the cause of leukocytosis Patient is still on meropenem due to. Leukocytosis, which could be secondary to UTI, leukocytosis resolved now. Her WBC count is 9.8 today (2) Volume overload Status: Acute Problem Text: Aggressive peritoneal dialysis as per nephrology Patient is clinically improving with the PD regimen as per nephrology Nephrology follow-up appreciated To discharge patient home once cleared by nephrology (3) ESRD on peritoneal dialysis Status: Chronic Problem Text: Continue PD as per nephrology (4) Hypertension Status: Chronic Problem Text: Continue home meds (5) A-fib Status: Chronic Problem Text: Has been started on IV beta blockers Rate is under well control (6) HLD (hyperlipidemia) Status: Chronic Problem Text: By mouth meds on hold (7) Dysphagia Status: Chronic Problem Text: Esophagogram consistent with the dysmotility and achalasia. There was residual fluid in the esophagus. Patient is on heparin secondary to DVT and PE Patient had EGD done most likely spastic esophagus and has been started on nitrates for relaxation Discussed with Dr. Adhikari, further follow-up as an outpatient All meds including eliquis restarted and patient is tolerating oral feeding very well (8) UTI (urinary tract infection) Status: Acute Problem Text: Plan consistent with UTI Continue meropenem Urine cultures are still pending WBC count of 11.5 today with a stable H&H (9) Acute on chronic diastolic CHF (congestive heart failure) Status: Chronic Problem Text: Aggressive peritoneal dialysis as per nephrology to decreased volume overload Monitor I&O's Patient is clinically improving (10) Hypomagnesemia Status: Acute Problem Text: Magnesium sulfate 1 g IVPB 2 Repeat levels at 4 PM and tomorrow Plan/VTE VTE Prophylaxis Ordered?: Yes VS, I&O, 24H, [facility] Vital Signs/I&O Vital Signs Date Time Temp Pulse Resp B/P (MAP) Pulse Ox O2 Delivery O2 Flow Rate FiO2 02/08/19 08:08 140/70 02/08/19 08:08 96 02/08/19 04:00 97.6 17 95 Nasal Cannula 2.0 I&O- Last 24 Hours up to 6 AM 02/08/19 05:59 Intake Total 9665 ml Output Total 67899 ml Balance -2455 ml Laboratory Data 24H LABS Laboratory Tests 2 02/08/19 05:38: Immature Granulocyte % (Auto) , Nucleated Red Blood Cells % (auto) 0.0, Neutrophils 67H, Lymphocytes (Manual) 20, Monocytes (Manual) 9H, Eosinophils (Manual) 2, Metamyelocytes 1H, Myelocytes 1H, Macrocytosis 2+, Platelet Estimate NORMAL, Anion Gap 8, Glomerular Filtration Rate 7.2L, Calcium Level 8.1L, Magnesium Level 1.1L, Total Bilirubin 0.3, Aspartate Amino Transf (AST/SGOT) 25, Alanine Aminotransferase (ALT/SGPT) 19, Alkaline Phosphatase 80, Total Protein 5.9L, Albumin 1.5L, Albumin/Globulin Ratio 0.34L, Random Vancomycin Level 17.6 CBC/BMP Laboratory Tests 02/08/19 05:38 Microbiology Microbiology 02/04/19 Urine Culture - Final, Complete E.coli Esbl Enterococcus Faecalis Lactobacillus Species 02/04/19 Gram Stain - Final, Complete 02/04/19 Body Fluid Culture - Final, Complete 02/03/19 Blood Culture - Preliminary, Resulted No Growth after 72 hours. All specime... 02/03/19 Blood Culture - Preliminary, Resulted No Growth after 72 hours. All specime... JAMES WRIGHT MD Feb 08, 2019 09:38
[2019-02-08] MEDS: MAG SULF 1GM/100ML (MAG RUN) 1 GM in IV 1 EA IV SCH ×2 (10:12→11:15)
[2019-02-08] MEDS ORDERED: POTASSIUM CHLORIDE 10% LIQ 20 MEQ/15 ML UDC PO ONE (10:15)
[2019-02-08] MEDS: ONDANSETRON 4 MG ORAL DISINTEGRATING TAB (Q0162 PER 1MG) PO PRN ×2 (13:19→16:44)
--- NOTE | 2019-02-08 14:12 | IPN ---
DATE OF SERVICE: 02/08/2019 SUBJECTIVE: The patient was seen and examined the bedside today morning. She got the EGD done yesterday and got balloon dilatation of the achalasia of the lower esophagus. The patient reports that she was able to able to keep her breakfast down today. She is on soft mechanical diet. She denies any nausea or vomiting at this time. She is afebrile and hemodynamically stable. OBJECTIVE Vital signs: Temperature is 90.2 degrees Fahrenheit, blood pressure 140/70, pulse is 96, respiratory of 18, saturating 97% on nasal cannula at 2 liters. Intake and output - urine output recorded is 600 mL, output with peritoneal dialysate so far is 100 mL so far. Weight in the bed scale is 60.9. PHYSICAL EXAMINATION: General: The patient is awake, alert, oriented times three, laying in bed, morbidly obese, no apparent distress. Head and neck exam: Extraocular muscles intact. Pupils equally round and reactive to light. Mucous membranes are moist. Neck: Is supple. There is no jugular venous distention (JVD). Cardiovascular: S1 and S2 regular rate, 1+ edema of the left lower extremity, trace edema of the right lower extremities. Respiratory: Chest is clear to auscultation bilaterally. Bilateral equal air entry. No rales or rhonchi. Abdomen: Soft, obese, positive bowel sounds. Nontender. No organomegaly. Left lower quadrant PD catheter with no tenderness. Musculoskeletal: No clubbing or cyanosis. Pulses are 2+. LEAD BUSINESS ANALYST: No focal deficit power is 5/5 in bilateral upper extremities. LAB REVIEW: CBC showed WBC of 9.8, hemoglobin 9.9, platelets of 286. BMP showed sodium 137, potassium 3.8, chloride 101, bicarb 28, BUN 25, creatinine is 6, magnesium 1.1, albumin is 1.5. CURRENT INPATIENT MEDICATIONS: The patient's medications were all reviewed by me. She was started on IV vancomycin yesterday. I have stopped the IV fluid. The patient is getting IV magnesium which was ordered by primary team. She has been started on Eliquis 2.5 mg by mouth twice a day, Celexa 20 mg daily. She has been restarted on irbesartan 300 mg by mouth daily, isosorbide 5 mg by mouth daily. She has been switched to oral metoprolol 25 mg by mouth twice a day. I have changed her Zofran to oral dissolvable tablet 4 mg every 6 hours nausea and vomiting. She is on Protonix 40 mg by mouth daily now. I have ordered a dose of potassium chloride 20 mEq liquid times one dose and she is on simvastatin 40 mg by mouth daily. ASSESSMENT AND PLAN: 1. End-stage renal disease on peritoneal dialysis. Continue current peritoneal dialysis regimen three exchanges of 2.5% and two exchanges of 4.25% each exchange for a 2 hour dwell time. 2. Anemia in end-stage renal disease. Continue current dose of Aranesp. 3. Hypokalemia. The patient was given oral potassium. 4. Hypomagnesemia. The patient is getting IV magnesium. 5. Urinary tract infection. The patient has two organisms growing in the urine culture ESBL E-coli and Enterococcus faecalis, she is currently on IV vancomycin and meropenem. 6. Dysphagia and achalasia of esophagus. The patient is status post EGD and balloon dilatation. She is tolerating the soft diet now. 7. 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 Continue current dose of Eliquis. IV heparin has been stopped. 8. Hypertension. Continue irbesartan and Lopressor now. 9. Chronic diastolic congestive heart failure. Volume status is better. Continue current PD regimen. MTDD
[2019-02-08] MEDS: SIMVASTATIN 40 MG TAB PO SCH (21:18)
[2019-02-08] MEDS: MEROPENEM INJ 1 GM in IV 1 EA IV SCH (21:21)
[2019-02-09] VITALS (7 sets, daily range): BP systolic 90–140; BP diastolic 52–70
[2019-02-09] MEDS: IPRATROPIUM 0.5MG/ALBUTEROL 2.5MG INH SOL UD 3ML (DUONEB)(J7620) NEB SCH ×4 (02:00→20:00)
[2019-02-09 05:47] LABS: HEMATOCRIT 30.2 % (36.0-47.0); HEMOGLOBIN 9.2 g/dl (12.0-15.5); MEAN CORPUSCULAR HEMOGLOBIN 30.8 pg (27.0-33.0); MEAN CORPUSCULAR HGB CONC 30.5 g/dl (32.0-36.5); PLATELET COUNT, AUTOMATED 294 10^3/uL (150-450); RED BLOOD COUNT 2.99 10^6/uL (4.00-5.40); WHITE BLOOD COUNT 9.6 10^3/uL (4.0-10.0)
[2019-02-09 06:19] LABS: ALBUMIN 1.5 GM/DL (3.2-5.2); BILIRUBIN,TOTAL 0.3 MG/DL (0.2-1.0); CALCIUM LEVEL 8.5 MG/DL (8.8-10.2); CREATININE FOR GFR 6.19 MG/DL (0.55-1.30); GLOMERULAR FILTRATION RATE 6.9 (>32); POTASSIUM SERUM 3.7 MEQ/L (3.5-5.1); TOTAL PROTEIN 5.8 GM/DL (6.4-8.2); VANCOMYCIN RANDOM 17.6 UG/ML
[2019-02-09 06:21] LABS: EOSINOPHILS 6 % (0-3); LYMPHOCYTES 15 % (16-44); METAMYELOCYTES 4 % (0-0); MONOCYTES 4 % (0-5); NEUTROPHILS 71 % (28-66)
[2019-02-09 06:23] LABS: HYPOCHROMASIA 1+; PLATELET ESTIMATE NORMAL (NORMAL)
--- NOTE | 2019-02-09 06:26 | PHACANCOPD ---
PHARMACY VANCOMYCIN DOSING Pt Demographics Demographics Patient Age:78 , Weight:60.900 , Gender: female Adjusted Body Weight Date: 02/07/19, Adjusted Body Weight: Kg Events Past 24 Hours Events Past 24 Hours: YES: Dialysis Vancomycin Vancomycin indication: UTI Vancomycin Target Ranges: 10-20 mcg/ml Vancomycin Load Y/N: Yes Load Dose Date Time Vancomycin Load Dose: 1000 MG Date: 02/07/19 Time: 1400 Vancomycin Dose Date: 02/07/19. Current Vancomycin Dose: [ INTERMITTENT VANCOMYCIN] Intermittent Dosing?: Yes Labs Labs Item Value Date Time White Blood Count 9.6 10^3/uL 02/09/19 0526 Glomerular Filtration Rate 6.9 L 02/09/19 05 Creatinine 6.19 MG/DL H 02/09/19 05 Blood Urea Nitrogen 24 MG/DL H 02/09/19 05 Random Vancomycin Level 17.6 UG/ML 02/09/19 05 Vital Signs Label Value Date Time Patient Temperature 97.3 degrees F 02/09/19 0400 Temperature Source Temporal 02/09/19 0400 Micro Microbiology 02/04/19 Urine Culture - Final, Complete E.coli Esbl Enterococcus Faecalis Lactobacillus Species 02/04/19 Gram Stain - Final, Complete 02/04/19 Body Fluid Culture - Final, Complete 02/03/19 Blood Culture - Final, Complete NO GROWTH AFTER 5 DAYS 02/03/19 Blood Culture - Final, Complete NO GROWTH AFTER 5 DAYS Creatinine Clearance Date:02/09/19. Creatinine Clearance: [ 5.9 mL/min ]. Pending Labs random 11-11 in am Assessment and Plan Maintaining Current Dose?: Yes Reason for dose change: No Dose Change Pharmacist Note Pharmacist Note Date: 02/09/19. Pharmacist note:Random of 17.6 is within target range. Will dose with 500mg today @0900. We will continue to monitor and dose as necessary. PEEWEE GONZALES PHARMACY Feb 09, 2019 06:26
[2019-02-09] MEDS: ISOSORBIDE DIN. (ISORDIL) 5 MG TAB PO SCH ×3 (07:10→18:27)
[2019-02-09] MEDS: ONDANSETRON 4 MG ORAL DISINTEGRATING TAB (Q0162 PER 1MG) PO PRN ×3 (07:11→19:41)
[2019-02-09] MEDS ORDERED: VANCOMYCIN HCL 500 MG in D5W MINI-BAG PLUS 100 ML IV ONE (09:00)
--- NOTE | 2019-02-09 09:00 | IPNPDOC ---
Subjective Date Seen The patient was seen on 02/09/19. Subjective Chief Complaint/HPI Had some nausea last night after eating her dinner tolerated breakfast very well General: Denies: ROS Unobtainable, Chills, Night Sweats, Fatigue, Malaise, Normal Appetite, Other Symptoms Constitutional: Denies: Chills, Fever, Malaise, Night Sweats, Weakness, Fatigue, Weight Loss, Lethargy, Other Pulmonary: Denies: Dyspnea, Cough, Pleuritic Chest Pain, Other Symptoms Cardiovascular: Denies: Chest Pain, Palpitations, Orthopnea, Paroxysmal Noc. Dyspnea, Edema, Lt Headedness, Other Symptoms Gastrointestinal: Reports: Nausea Genitourinary: Denies: Dysuria, Frequency, Incontinence, Hematuria, Retention, Other Symptoms Musculoskeletal: Denies: Neck Pain, Back Pain, Shoulder Pain, Arm Pain, Hand Pain, Leg Pain, Foot Pain, Joint Pain, Muscle Pain, Spasms, Other Symptoms Neurological: Denies: Weakness, Numbness, Incoordination, Change in speech, Confusion, Seizures, Other Symptoms Objective Physical Examination Neck Exam: Positive: Supple Chest Exam: Positive: Rales, Other Heart Exam: Positive: Rate Normal, Normal S1, Normal S2 Abdomen Exam: Positive: Normal bowel sounds, Soft, Tenderness (. No tenderness) Extremity Exam: Positive: Edema Skin Exam: Positive: Nl turgor and temperature Assessment /Plan Problems (1) Peritonitis associated with peritoneal dialysis Status: Acute Problem Text: Peritonitis ruled out on the basis of negative cultures and benign abdominal exam Peritoneal fluid cultures are negative, and so for the peritonitis has been ruled out for the cause of leukocytosis Patient is still on meropenem due to. Leukocytosis, which could be secondary to UTI, leukocytosis resolved now. Normal leukocyte count 9.6, hemoglobin stable (2) Volume overload Status: Acute Problem Text: Patient is clinically improving with the PD regimen as per nephrology Peritoneal dialysis and progress as per nephrology Was discharged home once cleared by nephrology (3) ESRD on peritoneal dialysis Status: Chronic Problem Text: Continue PD as per nephrology (4) Hypertension Status: Chronic Problem Text: Continue home meds (5) A-fib Status: Chronic Problem Text: Has been started on IV beta blockers Rate is under well control (6) HLD (hyperlipidemia) Status: Chronic Problem Text: By mouth meds on hold (7) Dysphagia Status: Chronic Problem Text: Esophagogram consistent with the dysmotility and achalasia. There was residual fluid in the esophagus. 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 She had a balloon dilatation done and has been started on nitrates for relaxation Discussed with Dr. Adhikari, further follow-up as an outpatient All meds including eliquis restarted and patient is tolerating oral feeding very well Patient was counseled regarding smaller meals and slow eating to avoid nausea (8) UTI (urinary tract infection) Status: Acute Problem Text: Plan consistent with UTI Continue meropenem Urine cultures are still pending WBC count of 11.5 today with a stable H&H (9) Acute on chronic diastolic CHF (congestive heart failure) Status: Chronic Problem Text: Aggressive peritoneal dialysis as per nephrology to decreased volume overload Monitor I&O's Patient is clinically improving (10) Hypomagnesemia Status: Resolved Problem Text: Magnesium sulfate 1 g IVPB 2 Repeat levels at 4 PM and tomorrow Plan/VTE VTE Prophylaxis Ordered?: Yes VS, I&O, 24H, [facility] Vital Signs/I&O Vital Signs Date Time Temp Pulse Resp B/P (MAP) Pulse Ox O2 Delivery O2 Flow Rate FiO2 02/09/19 08:34 118/68 (85) 02/09/19 07:10 72 02/09/19 04:00 97.3 16 97 Nasal Cannula 2.0 I&O- Last 24 Hours up to 6 AM 02/09/19 06:00 Intake Total 9000 ml Output Total 63546 ml Balance -3450 ml Laboratory Data 24H LABS Laboratory Tests 2 02/08/19 16:27: Magnesium Level 2.1 02/09/19 05:26: Immature Granulocyte % (Auto) , Nucleated Red Blood Cells % (auto) 0.0, Neutrophils 71H, Lymphocytes (Manual) 15L, Monocytes (Manual) 4, Eosinophils (Manual) 6H, Metamyelocytes 4H, Hypochromasia 1+, Macrocytosis 1+, Platelet Estimate NORMAL, Anion Gap 8, Glomerular Filtration Rate 6.9L, Calcium Level 8.5L, Total Bilirubin 0.3, Aspartate Amino Transf (AST/SGOT) 21, Alanine Aminotransferase (ALT/SGPT) 18, Alkaline Phosphatase 88, Total Protein 5.8L, Albumin 1.5L, Albumin/Globulin Ratio 0.35L, Random Vancomycin Level 17.6 CBC/BMP Laboratory Tests 02/09/19 05:26 Microbiology Microbiology 02/04/19 Urine Culture - Final, Complete E.coli Esbl Enterococcus Faecalis Lactobacillus Species 02/04/19 Gram Stain - Final, Complete 02/04/19 Body Fluid Culture - Final, Complete 02/03/19 Blood Culture - Final, Complete NO GROWTH AFTER 5 DAYS 02/03/19 Blood Culture - Final, Complete NO GROWTH AFTER 5 DAYS JAMES WRIGHT MD Feb 09, 2019 09:00
[2019-02-09] MEDS: IRBESARTAN 150 MG TAB PO SCH (10:34)
[2019-02-09] MEDS: METOPROLOL TART 25 MG TABLET PO SCH ×2 (10:34→21:00)
[2019-02-09] MEDS: APIXABAN 2.5 MG TAB (ELIQUIS) PO SCH ×2 (10:35→20:43)
[2019-02-09] MEDS: CitaloPRAM (CeleXA) 20 MG TAB PO SCH (10:35)
[2019-02-09] MEDS: PANTOPRAZOLE 40MG TAB (PROTONIX) PO SCH (10:35)
--- NOTE | 2019-02-09 14:48 | IPN ---
DATE OF SERVICE: 02/09/2019 SUBJECTIVE: Yuki is seen and examined this morning at the bedside sitting out of bed to the chair. Reports that her breathing has been more comfortable. Denies any issues with her PD exchanges. States her leg edema is improving. OBJECTIVE: Vital Signs: Temperature 97.0, pulse 65, respiratory rate 18, blood pressure 118/68, saturating 92-96% on room air. Intake yesterday and output yesterday shows a net negative fluid balance that is inappropriately recorded as all of her peritoneal dialysis is unaccounted for. General: The patient is seen sitting in the chair, awake, alert, oriented times three, obese, in no apparent distress. Extraocular muscles are intact. Pupils are equally round and reactive to light. Mucous membranes are moist. Neck is supple. Jugular veins are not distended. Cardiac: S1 and S2, regular rate. 1+ edema in the left lower extremity, trace edema on the right lower extremity. Respiratory: Chest is clear to auscultation bilaterally. Equal air entry. No rale or rhonchi. Abdomen is soft, obese. There are bowel sounds. The left lower quadrant PD catheter exit site has a dressing which is clean, dry and intact. Musculoskeletal: No clubbing or cyanosis. Radial pulses 2+. Neurologic: No focal deficits. Oriented, interactive and conversational. LABORATORY DATA: White count 9.6, hemoglobin 9.2, platelet 294, sodium 139, potassium 3.7, bicarbonate 28. INPATIENT MEDICATIONS: Reviewed by myself and no change from prior. PROBLEMS: 1. End-stage renal disease on peritoneal dialysis. She is receiving five manual exchanges, three of them have been 2.5% and two of them have been 4.25%. There is a dwell time of 2 hours. Her volume status has improved nicely. I am making four of her exchanges 2.5% now and only one of them will be 4.25%. Her electrolytes are acceptable. 2. Anemia of end-stage renal disease. Hemoglobin is 9.2 which is suboptimal, but stable. She continues on Aranesp. 3. Hypertension. She is on irbesartan, Isordil and Lopressor and systolic is around 110 to 140. Continue current regimen. 4. Protein calorie malnutrition. Serum albumin of 1.5. Advise Nepro 1 can daily. 5. Diastolic congestive heart failure. Volume status has improved with the current PD prescription and only one of her exchanges will be 4.25% now.
[2019-02-09] MEDS: SIMVASTATIN 40 MG TAB PO SCH (20:43)
[2019-02-09] MEDS: MEROPENEM INJ 1 GM in IV 1 EA IV SCH (20:43)
[2019-02-10] VITALS: BP 107/64
[2019-02-10] MEDS: IPRATROPIUM 0.5MG/ALBUTEROL 2.5MG INH SOL UD 3ML (DUONEB)(J7620) NEB SCH ×3 (02:00→14:00)
[2019-02-10 04:00] VITALS: BP 109/74
[2019-02-10 06:09] LABS: HEMATOCRIT 31.2 % (36.0-47.0); HEMOGLOBIN 9.4 g/dl (12.0-15.5); MEAN CORPUSCULAR HEMOGLOBIN 30.5 pg (27.0-33.0); MEAN CORPUSCULAR HGB CONC 30.1 g/dl (32.0-36.5); MEAN CORPUSCULAR VOLUME 101.3 fl (80.0-96.0); PLATELET COUNT, AUTOMATED 297 10^3/uL (150-450); RED BLOOD COUNT 3.08 10^6/uL (4.00-5.40); WHITE BLOOD COUNT 10.6 10^3/uL (4.0-10.0)
[2019-02-10 06:37] LABS: CALCIUM LEVEL 8.4 MG/DL (8.8-10.2); CREATININE FOR GFR 6.62 MG/DL (0.55-1.30); GLOMERULAR FILTRATION RATE 6.4 (>32); POTASSIUM SERUM 3.6 MEQ/L (3.5-5.1)
--- NOTE | 2019-02-10 06:49 | PHACANCOPD ---
PHARMACY VANCOMYCIN DOSING Pt Demographics Demographics Patient Age:78 , Weight:73.200 , Gender: female Adjusted Body Weight Date: 02/07/19, Adjusted Body Weight: Kg Events Past 24 Hours Events Past 24 Hours: YES: Dialysis Vancomycin Vancomycin indication: UTI Vancomycin Target Ranges: 10-20 mcg/ml Vancomycin Load Y/N: Yes Load Dose Date Time Vancomycin Load Dose: 1000 MG Date: 02/07/19 Time: 1400 Vancomycin Dose Date: 02/07/19. Current Vancomycin Dose: [ INTERMITTENT VANCOMYCIN] Intermittent Dosing?: Yes Labs Labs Item Value Date Time White Blood Count 10.6 10^3/uL H 02/10/19 0555 Glomerular Filtration Rate 6.4 L 02/10/19 0555 Creatinine 6.62 MG/DL H 02/10/19 0555 Blood Urea Nitrogen 27 MG/DL H 02/10/19 0555 Random Vancomycin Level 22.0 UG/ML 02/10/19 0555 Vital Signs Label Value Date Time Patient Temperature 98.0 degrees F 02/10/19 0400 Temperature Source Temporal 02/10/19 0400 Micro Microbiology 02/04/19 Urine Culture - Final, Complete E.coli Esbl Enterococcus Faecalis Lactobacillus Species 02/04/19 Gram Stain - Final, Complete 02/04/19 Body Fluid Culture - Final, Complete 02/03/19 Blood Culture - Final, Complete NO GROWTH AFTER 5 DAYS 02/03/19 Blood Culture - Final, Complete NO GROWTH AFTER 5 DAYS Creatinine Clearance Date:02/10/19. Creatinine Clearance: [ 5.5 mL/min ]. Pending Labs random 11-12 in am Assessment and Plan Maintaining Current Dose?: Yes Reason for dose change: No Dose Change Pharmacist Note Pharmacist Note Date: 02/10/19. Pharmacist note:Random of 22.0 is above target range. patient to receive no dose today. We will continue to monitor and dose as necessary. PEEWEE GONZALES PHARMACY Feb 10, 2019 06:49
[2019-02-10 06:55] LABS: ATYPICAL LYMPH 3 % (0-5); BASOPHILS 2 % (0-1); EOSINOPHILS 5 % (0-3); HYPOCHROMASIA 1+; LYMPHOCYTES 15 % (16-44); METAMYELOCYTES 2 % (0-0); MONOCYTES 6 % (0-5); MYELOCYTES 1 % (0-0); NEUTROPHILS 66 % (28-66); PLATELET ESTIMATE NORMAL (NORMAL)
[2019-02-10] MEDS: CitaloPRAM (CeleXA) 20 MG TAB PO SCH (07:55)
[2019-02-10] MEDS: PANTOPRAZOLE 40MG TAB (PROTONIX) PO SCH (07:55)
[2019-02-10] MEDS: APIXABAN 2.5 MG TAB (ELIQUIS) PO SCH (07:55)
[2019-02-10] MEDS: ISOSORBIDE DIN. (ISORDIL) 5 MG TAB PO SCH ×2 (07:55→12:33)
[2019-02-10] MEDS: IRBESARTAN 150 MG TAB PO SCH (07:56)
[2019-02-10] MEDS ORDERED: METOPROLOL TART 25 MG TABLET PO SCH (09:00)
--- NOTE | 2019-02-10 10:41 | IPNPDOC ---
Subjective Date Seen The patient was seen on 02/10/19. Subjective Chief Complaint/HPI Patient sitting in chair. Offers no new complaints. No more nausea, vomiting General: Denies: ROS Unobtainable, Chills, Night Sweats, Fatigue, Malaise, Normal Appetite, Other Symptoms Constitutional: Denies: Chills, Fever, Malaise, Night Sweats, Weakness, Fatigue, Weight Loss, Lethargy, Other Skin: Denies: Rash, Lesions, Jaundice, Bruising, Itching, Dry, Breakdown, Nail Changes, Other Pulmonary: Denies: Dyspnea, Cough, Pleuritic Chest Pain, Other Symptoms Cardiovascular: Denies: Chest Pain, Palpitations, Orthopnea, Paroxysmal Noc. Dyspnea, Edema, Lt Headedness, Other Symptoms Gastrointestinal: Denies: Nausea, Vomiting, Abdominal Pain, Diarrhea, Constipation, Melena, Hematochezia, Other Symptoms Musculoskeletal: Denies: Neck Pain, Back Pain, Shoulder Pain, Arm Pain, Hand Pain, Leg Pain, Foot Pain, Joint Pain, Muscle Pain, Spasms, Other Symptoms Neurological: Denies: Weakness, Numbness, Incoordination, Change in speech, Confusion, Seizures, Other Symptoms Objective Physical Examination General Exam: Positive: Alert, Cooperative Neck Exam: Positive: Supple Chest Exam: Positive: Rales, Other Heart Exam: Positive: Rate Normal, Normal S1, Normal S2 Abdomen Exam: Positive: Normal bowel sounds, Soft, Tenderness (. No tenderness) Extremity Exam: Positive: Edema Skin Exam: Positive: Nl turgor and temperature Assessment /Plan Problems (1) Peritonitis associated with peritoneal dialysis Status: Acute Problem Text: Peritonitis ruled out on the basis of negative cultures and benign abdominal exam Peritoneal fluid cultures are negative, and so for the peritonitis has been ruled out for the cause of leukocytosis Patient is still on meropenem due to. Leukocytosis, which could be secondary to UTI, leukocytosis resolved now. WBC count of 810.6 today We'll discharge patient home once cleared by nephrology (2) Volume overload Status: Acute Problem Text: Patient is clinically improving with the PD regimen as per nephr oly Peritoneal dialysis and progress as per nephrology Nephrology follow-up appreciated (3) ESRD on peritoneal dialysis Status: Chronic Problem Text: Continue PD as per nephrology (4) Hypertension Status: Chronic Problem Text: Continue home meds (5) A-fib Status: Chronic Problem Text: Has been started on IV beta blockers Rate is under well control (6) HLD (hyperlipidemia) Status: Chronic Problem Text: By mouth meds on hold (7) Dysphagia Status: Chronic Problem Text: Esophagogram consistent with the dysmotility and achalasia. There was residual fluid in the esophagus. 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 She had a balloon dilatation done and has been started on nitrates for relaxation Discussed with Dr. Adhikari, further follow-up as an outpatient All meds including eliquis restarted and patient is tolerating oral feeding very well Patient was counseled regarding smaller meals and slow eating to avoid nausea (8) UTI (urinary tract infection) Status: Acute Problem Text: Multivitamin drug resistant Escherichia coli Sensitive to meropenem Once patient is cleared to be discharged will be discharged home on by mouth doxycycline (9) Acute on chronic diastolic CHF (congestive heart failure) Status: Chronic Problem Text: Aggressive peritoneal dialysis as per nephrology to decreased volume overload Monitor I&O's Patient is clinically improving (10) Hypomagnesemia Status: Resolved Problem Text: Corrected Plan/VTE VTE Prophylaxis Ordered?: Yes VS, I&O, 24H, [facility] Vital Signs/I&O Vital Signs Date Time Temp Pulse Resp B/P (MAP) Pulse Ox O2 Delivery O2 Flow Rate FiO2 02/10/19 07:56 82 02/10/19 07:55 148/82 02/10/19 04:00 98.0 16 96 Room Air 02/10/19 04:00 1.0 I&O- Last 24 Hours up to 6 AM 02/10/19 06:00 Intake Total 8660 ml Output Total 34187 ml Balance -2890 ml Laboratory Data 24H LABS Laboratory Tests 2 02/10/19 05:55: Immature Granulocyte % (Auto) , Nucleated Red Blood Cells % (auto) 0.0, Neutrophils 66, Lymphocytes (Manual) 15L, Monocytes (Manual) 6H, Eosinophils (Manual) 5H, Basophils (Manual) 2H, Metamyelocytes 2H, Myelocytes 1H, Atypical Lymphocytes 3, Hypochromasia 1+, Macrocytosis 1+, Platelet Estimate NORMAL, Anion Gap 5L, Glomerular Filtration Rate 6.4L, Calcium Level 8.4L, Random Vancomycin Level 22.0 CBC/BMP Laboratory Tests 02/10/19 05:55 Microbiology Microbiology 02/04/19 Urine Culture - Final, Complete E.coli Esbl Enterococcus Faecalis Lactobacillus Species 02/04/19 Gram Stain - Final, Complete 02/04/19 Body Fluid Culture - Final, Complete 02/03/19 Blood Culture - Final, Complete NO GROWTH AFTER 5 DAYS 02/03/19 Blood Culture - Final, Complete NO GROWTH AFTER 5 DAYS JAMES WRIGHT MD Feb 10, 2019 10:41
[2019-02-10] MEDS ORDERED: SLF 3 ML SYR IV PRN (11:00)
[2019-02-10 12:00] VITALS: BP 122/34
[2019-02-10 12:33] VITALS: BP 122/64
[2019-02-10] MEDS ORDERED: DOXY-350 PO (12:52)
[2019-02-10] MEDS ORDERED: ISOS5TA PO (12:55)
--- NOTE | 2019-02-10 12:59 | DS.PDOC ---
Discharge Summary General Date of Admission Feb 03, 2019 at 20:40 Date of Discharge 02/10/19 Discharge Summary PROCEDURES PERFORMED DURING STAY: None. ADMITTING DIAGNOSES: 1. Acute peritonitis. DISCHARGE DIAGNOSES: 1. Peritonitis was ruled out, volume overload, end-stage renal disease on peritoneal dialysis, hypertension, hyperlipidemia, achalasia and a spastic esophagus, UTI, acute on chronic diastolic heart failure, hypomagnesemia. COMPLICATIONS/CHIEF COMPLAINT: Peritonitis. HISTORY OF PRESENT ILLNESS: HISTORY OF PRESENT ILLNESS: Yuki Lange is an 78 YO F with history of ESRD on PD, recent history ESBL E. coli pneumonia, recent ESBL E. coli cystitis, recent admission to [facility] for DVT and bilateral pulmonary emboli (now on Eliquis) presents to [facility] after direct transfer from [facility] for dysphagia and leukocytosis. The patient states she feels as if the food or liquid she eats gets stuck about midway down her esophagus and then she regurgitates everything. She denies any vomiting, coughing, choking or nausea and also states that her symptoms of GERD are well controlled with the omeprazole she takes at home. She has not had any fevers, chills or sweats. At the outside facility she was found to have leukocytosis of 19,000 and lactic acidosis of 2.8. There was concern for peritonitis but the patient denies any abdominal pain. She was also found to have suspicious inf iltrate on chest x-ray concerning for pneumonia. She was transferred to [facility] for higher level of care.. HOSPITAL COURSE: [Initially patient was admitted with the diagnosis of peritonitis and was started on IV antibiotics but the cultures were negative, and examination was benign and hence peritonitis was ruled out, patient was seen by Dr. Evans and aggressive peritoneal dialysis was provided significant volume loss and improvement of symptoms. Patient also has a difficulty in s wallowing esophagogram was consistent with achalasia. Patient was seen by GI and had EGD done which showed achalasia with spastic esophagus. Patient was stated that it started on nitrates Qac for symptomatic care. Patient's symptoms improved very well. She is tolerating oral feeding. She has been advised to eat small and frequent meals and sent him 3 large meals. Discussed with the nephrology patient is clear from them to discharge patient home today . Patient also was diagnosed with UTI during her stay and it was Escherichia coli resistance to multiple antibiotics. Hence has been started on doxycycline, which it is sensitive to. Patient has been advised to follow with Dr. Evans in 1 week DISCHARGE MEDICATIONS: Please see below. ALLERGIES: Please see below. PHYSICAL EXAMINATION ON DISCHARGE: VITAL SIGNS: Please see below. GENERAL: Within normal limits HEENT: PERRLA, ocular muscles intact NECK: Supple. Negative JVD CARDIOVASCULAR EXAMINATION: S1, S2, regular RESPIRATORY EXAMINATION: Clear to A&P ABDOMINAL EXAMINATION: , Soft, nontender, bowel sounds present EXTREMITIES: No clubbing, cyanosis, edema SKIN: Within normal limits NEUROLOGICAL EXAMINATION: No focal motor sensory deficit PSYCHIATRIC EXAMINATION: Within normal limits LABORATORY DATA: Please see below. IMAGING: Chest x-ray:Cardiomegaly and interstitial coarsening are unchanged. Effacement of the costophrenic angles is unchanged. Focal atelectasis in the right costophrenic angle is unchanged. Impression: There is no interval change. PROGNOSIS: Good ACTIVITY: As tolerated. DIET: As tolerated DISCHARGE PLAN: Follow with Dr. Evans in 1 week DISPOSITION: . Home DISCHARGE INSTRUCTIONS: 1. As per discharge instructions. ITEMS TO FOLLOWUP ON ON OUTPATIENT: 1. Follow with Dr. Evans in 1 week. DISCHARGE CONDITION: Stable. TIME SPENT ON DISCHARGE: 48 minutes. Vital Signs/I&Os Vital Signs Date Time Temp Pulse Resp B/P (MAP) Pulse Ox O2 Delivery O2 Flow Rate FiO2 02/10/19 12:33 122/64 02/10/19 08:00 1.0 02/10/19 07:56 82 02/10/19 04:00 98.0 16 96 Room Air I&O- Last 24 Hours up to 6 AM 02/10/19 06:00 Intake Total 8660 ml Output Total 77053 ml Balance -2890 ml Laboratory Data Labs 24H Laboratory Tests 2 02/10/19 05:55: Immature Granulocyte % (Auto) , Nucleated Red Blood Cells % (auto) 0.0, Neutrop hils 66, Lymphocytes (Manual) 15L, Monocytes (Manual) 6H, Eosinophils (Manual) 5H, Basophils (Manual) 2H, Metamyelocytes 2H, Myelocytes 1H, Atypical Lymphocytes 3, Hypochromasia 1+, Macrocytosis 1+, Platelet Estimate NORMAL, Anion Gap 5L, Glomerular Filtration Rate 6.4L, Calcium Level 8.4L, Random V ancomycin Level 22.0 CBC/BMP Laboratory Tests 02/10/19 05:55 Microbiology Microbiology 02/04/19 Urine Culture - Final, Complete E.coli Esbl Enterococcus Faecalis Lactobacillus Species 02/04/19 Gram Stain - Final, Complete 02/04/19 Body Fluid Culture - Final, Complete 02/03/19 Blood Culture - Final, Complete NO GROWTH AFTER 5 DAYS 02/03/19 Blood Culture - Final, Complete NO GROWTH AFTER 5 DAYS Discharge Medications Scheduled Apixaban (Eliquis) 2.5 Mg Tablet, 2.5 MG PO BID, (Reported) Aspirin/Dipyridamole (Aspirin-Dipyridam ER 25-200 mg) 1 Each Cpmp.12hr, 1 CAP PO BID, (Reported) Biotin (Biotin) 1 Mg Capsule, 1 MG PO DAILY, (Reported) Cetirizine HCl (Cetirizine HCl) 10 Mg Tablet, 10 MG PO DAILY, (Reported) Chlorthalidone (Chlorthalidone) 25 Mg Tablet, 25 MG PO DAILY, (Reported) Citalopram Hydrobromide (Celexa) 20 Mg Tablet, 20 MG PO DAILY, (Reported) Doxycycline Monohydrate (Doxycycline) 100 Mg Capsule, 1 CAP PO BID Gabapentin (Gabapentin) 100 Mg Capsule, 100 MG PO QHS, (Reported) Irbesartan (Irbesartan) 300 Mg Tablet, 300 MG PO DAILY, (Reported) Isosorbide Dinitrate (Isosorbide Dinitrate) 5 Mg Tablet, 5 MG PO AC Metoprolol Tartrate (Metoprolol Tartrate) 25 Mg Tablet, 25 MG PO BID, (Reported) Multivit-Mins No.11/Folic Acid (Dialyvite 5000 Tablet) 1 Tab Tab, 1 TAB PO DAILY, (Reported) Pantoprazole Sodium (Protonix) 40 Mg Tablet.dr, 40 MG PO DAILY, (Reported) Potassium Chloride (Potassium Chloride) 10 Meq Tablet.er, 10 MEQ PO BID, (Reported) Salmeterol/Fluticasone (Advair 250-50 Diskus) 1 Each Blst.w.dev, 1 PUFF INH BID, (Reported) Simvastatin (Zocor) 40 Mg Tab, 40 MG PO QHS, (Reported) Vitamin D (Vitamin D3) 1,000 Unit Tablet, 1,000 UNITS PO DAILY, (Reported) Vitamin E (Vitamin E) 400 Unit Capsule, 400 UNIT PO DAILY, (Reported) Scheduled PRN Albuterol Sulfate (Proair Hfa) 8.5 Gm Hfa.aer.ad, 1 PUFF INH Q4H PRN for SHORTNESS OF BREATH, (Reported) Calcium Carbonate (Tums) 500 Mg Chw, 500 MG PO Q4H PRN for HEARTBURN/INDIGESTION, (Reported) Ipratropium/Albuterol Sulfate (Iprat-Albut 0.5-3(2.5) mg/3 ml) 1 Shara Shara, 3 ML NEB Q6H PRN for SHORTNESS OF BREATH, (Reported) Ondansetron HCl (Zofran) 4 Mg Tablet, 4 MG PO Q6H PRN for NAUSEA, (Reported) Sodium Chloride ([place]) 104 Ml [place], 2 SPRAY NA QID PRN for NASAL DRYNESS, (Reported) EACH NOSTRIL Tramadol HCl (Tramadol HCl) 50 Mg Tablet, 50 MG PO Q8H PRN for PAIN, (Reported) Allergies Coded Allergies: latex (Verified Allergy, Intermediate, RASH, 12/21/18) pseudoephedrine (Verified Allergy, Intermediate, RASH, 12/21/18) carbamide peroxide (Verified Allergy, Unknown, 12/21/18) ibuprofen (Verified Adverse Reaction, Intermediate, BLOODY STOOLS, 12/21/18) JAMES WRIGHT MD Feb 10, 2019 12:59
--- NOTE | 2019-02-10 13:07 | IPN ---
DATE: 02/10/2019 SUBJECTIVE: The patient is seen and examined this morning at bedside sitting in her chair. She reports no acute events overnight and states that she is feeling fine and that her breathing is doing okay. She denies any problems with her peritoneal dialysis exchanges. She states that she has been up and walking around without her oxygen on and does not desaturate. OBJECTIVE: VITAL SIGNS: Temperature 98, pulse 88, respiratory rate 16, blood pressure 109/74, saturating 96% on room air. Output: She had 11,000 dialysate exchange in the last 24 hours. GENERAL: The patient is awake, alert, oriented and in no acute distress, sitting comfortably in her chair. HEENT: Head is normocephalic, atraumatic. Extraocular muscles intact. Pupils are equal, round and reactive to light. Mucous membranes are moist. NECK: Supple. No jugular venous distention (JVD). CARDIAC: Regular rate and rhythm. Normal S1, S2. 1+ edema in the left lower extremity. No edema in the right lower extremity. RESPIRATORY: Clear to auscultation bilaterally. No wheezes, crackles or rhonchi. ABDOMEN: Obese, soft, nontender, nondistended. Left lower quadrant peritoneal dialysis catheter site has a dressing on it with no signs of drainage. It is clean, dry and intact. MUSCULOSKELETAL: No clubbing, cyanosis or edema. 2+ radial pulses. NEUROLOGIC: No focal neuro deficits. The patient is alert and oriented. LABORATORY DATA: White blood cell count 10.6, hemoglobin 9.4, hematocrit 31.2. Sodium of 140, potassium 3.6, chloride 104, bicarbonate 31, BUN 27, creatinine 6.62, glucose 80, calcium is 8.4. ASSESSMENT AND PLAN: 1. End stage renal disease on peritoneal dialysis. Her volume status continues to improve. She is now on five manual exchanges every 2 hours with four of them being 2.5% and one 4.25%. Her electrolytes continue to be in normal range. 2. Anemia of end stage renal disease. Hemoglobin is 9.4, which is suboptimal but it continues to be stable. We will continue her on Aranesp. 3. Hypertension. The patient's blood pressure is stable. She is continued on irbesartan and Lopressor. 4. Protein calorie malnutrition. The patient is getting one can of Nepro daily. 5. Diastolic congestive heart failure (CHF). Volume status continues to improve with the peritoneal dialysis exchanges that we have her on now. Patient is stable from nephrology stand point and is ok to be discharged after clearance by her primary team. SHERRELL
[2019-02-10] MEDS ORDERED: SLF 3 ML SYR IV SCH (14:00)
[2019-02-12] MEDS ORDERED: DARBEPOETIN 100 MCG/0.5 ML *NON-DIALYSIS* SYRINGE (J0881) SC SCH (09:00)
== END 2019-02-10 16:18 | disposition home health service (06) | DRG 291 ==
LOC: M PCU 20:40
PROVIDERS: ADMIT General Practice; ATTEND Internal Medicine
PROC: 3E1M39Z Irrigation of Peritoneal Cavity using Dialysate, Percutaneous Approach (ICD-10-PCS; principal; 2019-02-03)
PROC: 0DB38ZX Excision of Lower Esophagus, Via Natural or Artificial Opening Endoscopic, Diagnostic (ICD-10-PCS; 2019-02-07)
DX: I13.2 Hypertensive heart and chronic kidney disease with heart failure and with stage 5 chronic kidney disease, or end stage renal disease (principal); N18.6 End stage renal disease; I50.33 Acute on chronic diastolic (congestive) heart failure; E87.2 Acidosis; I48.20 Chronic atrial fibrillation, unspecified; K22.10 Ulcer of esophagus without bleeding; I82.503 Chronic embolism and thrombosis of unspecified deep veins of lower extremity, bilateral; N39.0 Urinary tract infection, site not specified; E46 Unspecified protein-calorie malnutrition; D72.829 Elevated white blood cell count, unspecified; B96.20 Unspecified Escherichia coli [E. coli] as the cause of diseases classified elsewhere; Z66 Do not resuscitate; E83.42 Hypomagnesemia; R13.10 Dysphagia, unspecified; K22.0 Achalasia of cardia; K21.9 Gastro-esophageal reflux disease without esophagitis; E11.22 Type 2 diabetes mellitus with diabetic chronic kidney disease; E87.6 Hypokalemia; K44.9 Diaphragmatic hernia without obstruction or gangrene; F32.9 Major depressive disorder, single episode, unspecified; J44.9 Chronic obstructive pulmonary disease, unspecified; D63.1 Anemia in chronic kidney disease; Z85.820 Personal history of malignant melanoma of skin; Z96.653 Presence of artificial knee joint, bilateral; Z98.41 Cataract extraction status, right eye; Z98.42 Cataract extraction status, left eye; Z87.891 Personal history of nicotine dependence; Z99.2 Dependence on renal dialysis; Z86.711 Personal history of pulmonary embolism; Z79.01 Long term (current) use of anticoagulants; Z79.899 Other long term (current) drug therapy; Z88.6 Allergy status to analgesic agent; Z88.8 Allergy status to other drugs, medicaments and biological substances; Z91.040 Latex allergy status

== ENCOUNTER 2019-03-03 14:24 | Inpatient (IN) | payer MEDICARE ==
[~2019-03-03 14:24] MED LIST changes: +BIOT1CAP2 PO; +DOXY-350 PO; +ISOS5TA PO; +OCEA0.654; +PROAAER10 INH; -SIMV20TA2 PO; +SIMV20TA22 PO
[2019-03-03 17:40] VITALS: BP 115/60
[2019-03-03] MEDS ORDERED: NS 1,000 ML IV SCH ×2 (18:08→18:51)
--- NOTE | 2019-03-03 18:37 | HPEPDOC ---
General Date of Admission Mar 03, 2019 at 17:23 Date of Service: Mar 03, 2019 Chief Complaint The patient is a 78-year-old female admitted with a reason for visit of Gi Bleed. Source: Patient Exam Limitations: No limitations Timing/Duration: 4-6 hours Severity: Mild History of Present Illness Patient is 78-year-old female with past medical history HTN, DM type 2, TIA in past, COPD, ESRD on peritoneal dialysis, depression, atrial fibrillation on El iquis, chronic diastolic congestive heart failure, history of peritonitis in the past, history of recurrent ESBL E-coli urinary tract infections, recent aspiration pneumonitis, recent hospitalization for food impaction, ( EGD done in [place] 2018 - showed esophageal ulceration at distal esophagus), anemia secondary to end-stage renal disease, recent diagnosis of DVT and bilateral PE ( started on Eliquis since then), presents to [facility] after direct transfer from [facility]. Patient noticed black stool today. She went to [facility], she was found to have stool positive for blood, hemoglobin of 8.4. Patient complains of suprapubic abdominal pain and epigastric pain. From the records from the previous hospital patient was tested positive in UA for Escherichia coli, she received treatment with nitrofurantoin for 4 days. Patient denies fever, nausea, vomiting, shortness of breath, palpitations, dysuria Home Medications Scheduled Apixaban (Eliquis) 2.5 Mg Tablet, 2.5 MG PO BID, (Reported) Aspirin/Dipyridamole (Aspirin-Dipyridam ER 25-200 mg) 1 Each Cpmp.12hr, 1 CAP PO BID, (Reported) Biotin (Biotin) 1 Mg Capsule, 1 MG PO DAILY, (Reported) Cetirizine HCl (Cetirizine HCl) 10 Mg Tablet, 10 MG PO DAILY, (Reported) Chlorthalidone (Chlorthalidone) 25 Mg Tablet, 25 MG PO DAILY, (Reported) Citalopram Hydrobromide (Celexa) 20 Mg Tablet, 20 MG PO DAILY, (Reported) Doxycycline Monohydrate (Doxycycline) 100 Mg Capsule, 1 CAP PO BID Gabapentin (Gabapentin) 100 Mg Capsule, 100 MG PO QHS, (Reported) Irbesartan (Irbesartan) 300 Mg Tablet, 300 MG PO DAILY, (Reported) Isosorbide Dinitrate (Isosorbide Dinitrate) 5 Mg Tablet, 5 MG PO AC Metoprolol Tartrate (Metoprolol Tartrate) 25 Mg Tablet, 25 MG PO BID, (Reported) Multivit-Mins No.11/Folic Acid (Dialyvite 5000 Tablet) 1 Tab Tab, 1 TAB PO DAILY, (Reported) Pantoprazole Sodium (Protonix) 40 Mg Tablet.dr, 40 MG PO DAILY, (Reported) Potassium Chloride (Potassium Chloride) 10 Meq Tablet.er, 10 MEQ PO BID, (Report ed) Salmeterol/Fluticasone (Advair 250-50 Diskus) 1 Each Blst.w.dev, 1 PUFF INH BID, (Reported) Simvastatin (Zocor) 40 Mg Tab, 40 MG PO QHS, (Reported) Vitamin D (Vitamin D3) 1,000 Unit Tablet, 1,000 UNITS PO DAILY, (Reported) Vitamin E (Vitamin E) 400 Unit Capsule, 400 UNIT PO DAILY, (Reported) Scheduled PRN Albuterol Sulfate (Proair Hfa) 8.5 Gm Hfa.aer.ad, 1 PUFF INH Q4H PRN for SHORTNESS OF BREATH, (Reported) Calcium Carbonate (Tums) 500 Mg Chw, 500 MG PO Q4H PRN for HEARTBURN/INDIGESTION, (Reported) Ipratropium/Albuterol Sulfate (Iprat-Albut 0.5-3(2.5) mg/3 ml) 1 Shara Shara, 3 ML NEB Q6H PRN for SHORTNESS OF BREATH, (Reported) Ondansetron HCl (Zofran) 4 Mg Tablet, 4 MG PO Q6H PRN for NAUSEA, (Reported) Sodium Chloride (Geronimo) 104 Ml [place], 2 SPRAY NA QID PRN for NASAL DRYNESS, (Reported) EACH NOSTRIL Tramadol HCl (Tramadol HCl) 50 Mg Tablet, 50 MG PO Q8H PRN for PAIN, (Reported) Allergies Coded Allergies: latex (Verified Allergy, Intermediate, RASH, 12/21/18) pseudoephedrine (Verified Allergy, Intermediate, RASH, 12/21/18) carbamide peroxide (Verified Allergy, Unknown, 12/21/18) ibuprofen (Verified Adverse Reaction, Intermediate, BLOODY STOOLS, 12/21/18) Past Medical History Medical History 78-year-old female patient with HTN, DM type 2, TIA in past, COPD, ESRD on Peritoneal dialysis, depression, atrial fibrillation on Eliquis, chronic diastol ic congestive heart failure, history of peritonitis in the past, history of recurrent ESBL E-coli urinary tract infections, recent aspiration pneumonitis, recent hospitalization for food impaction, ( EGD done in [place] - showed esophageal ulceration at distal esophagus), anemia secondary to end-stage renal disease, recent diagnosis of DVT and bilateral PE Family History I personally reviewed her family history and found not pertinent Social History * Smoker: Denies Alcohol: Denies Drugs: denies A-FIB/CHADSVASC A-FIB History Current/History of A-Fib/PAF?: Yes Current PO Anticoag Therapy: Yes Review of Systems Constitutional: Reports: Chills, Weakness; Denies: Fever Eyes: Denies: Pain, Vision change ENT: Denies: Head Aches, Ear Pain Skin: Denies: Rash, Lesions Pulmonary: Denies: Dyspnea Cardiovascular: Denies: Palpitations Gastrointestinal: Reports: Abdominal Pain, Melena; Denies: Nausea, Hematochezia Genitourinary: Denies: Dysuria, Frequency Hematologic: Denies: Bruising Endocrine: Denies: Polydipsia Musculoskeletal: Denies: Neck Pain, Back Pain Neurological: Denies: Weakness, Numbness Psych: Reports: Mood Normal Physical Examination General Exam: Positive: Alert Eye Exam: Positive: PERRLA, Conjunctiva & lids normal ENT Exam: Positive: Atraumatic, Mucous membr. moist/pink Neck Exam: Positive: Supple; Negative: JVD Chest Exam: Positive: Clear to auscultation Heart Exam: Positive: Irregular Rhythm; Negative: Rate Normal Telemetry: Positive: Atrial fibrillation Abdomen Exam: Positive: BS Hyperactive, Tenderness (epigastric area and also over suprapubic area ); Negative: Normal bowel sounds Extremity Exam: Negative: Clubbing Skin Exam: Positive: Nl turgor and temperature Neuro Exam: Positive: Strength at 5/5 X4 ext, Cranial Nerves 3-12 NL Psych Exam: Positive: Mental status NL Vital Signs Vital Signs Date Time Temp Pulse Resp B/P (MAP) Pulse Ox O2 Delivery O2 Flow Rate FiO2 03/03/19 17:40 97.3 75 18 115/60 (78) 99 Room Air Assessment/Plan Patient is 78-year-old female with past medical history HTN, DM type 2, TIA in past, COPD, ESRD on peritoneal dialysis, depression, atrial fibrillation on Eliquis, chronic diastolic congestive heart failure, history of peritonitis in the past, history of recurrent ESBL E-coli urinary tract infections, recent aspiration pneumonitis, recent hospitalization for food impaction, ( EGD done in [place] - showed esophageal ulceration at distal esophagus), anemia secondary to end-stage renal disease, recent diagnosis of DVT and bilateral PE ( started on Eliquis since then), presents to [facility] after direct transfer from [facility]. Patient noticed black stool today. She went to [facility], she was found to have stool positive for blood, hemoglobin of 8.4. Problems (1) GIB (gastrointestinal bleeding) Status: Acute Problem Text: Most likely secondary to upper GI bleed Full liquid diet Gentle IV fluid in the light of CHF We will transfuse if hemoglobin less than 7. Hb today 8.4 Appreciate/agree with GI recommendation PPI IV (2) UTI (urinary tract infection) Status: Acute Problem Text: According to records from previous facility patient has been treated with nitrofurantoin for 4 days due to Escherichia coli infection We will continue nitrofurantoin given suprapubic pain Will repeat UA with culture (3) Abdominal pain Status: Acute Problem Text: Epigastric pain secondary to possible gastritis, peptic ulcer, esophagitis Suprapubic pain most likely secondary to interstitial cystitis (4) ESRD on peritoneal dialysis Status: Chronic Problem Text: Appreciate/agree with precision lens generator consult (5) A-fib Status: Chronic Problem Text: I will hold Eliquis given acute GI bleed (6) Acute anemia Status: Acute Problem Text: Secondary to acute GI bleed H&H every 6 hours Plan / VTE VTE Prophylaxis Ordered?: No VTE Exclusion Pharmacological: Active Bleeding GORGE PALACIOS DO Mar 03, 2019 18:37
[2019-03-03] MEDS ORDERED: POTASSIUM CHLORIDE 10 MEQ SR TABLET PO ONE (18:45)
[2019-03-03] MEDS ORDERED: ISOS5TA PO (18:55)
[2019-03-03] MEDS ORDERED: SODIUM CHLORIDE NASAL 0.65% SPRAY BTL (OCEAN) PRN (19:00)
[2019-03-03] MEDS ORDERED: IPRATROPIUM 0.5MG/ALBUTEROL 2.5MG INH SOL UD 3ML (DUONEB)(J7620) NEB PRN (19:00)
[2019-03-03] MEDS ORDERED: traMADol 50 MG TAB PO PRN (19:00)
[2019-03-03] MEDS ORDERED: ALBUTEROL 90 MCG/ACT 8GM HFA INHALER INH PRN (19:00)
[2019-03-03] MEDS ORDERED: CALCIUM CARBONATE 500 MG CHEW U/D PO PRN (19:00)
[2019-03-03] MEDS: ACETAMINOPHEN TAB 650MG DOSE (2X325MG) PO PRN (19:11)
[2019-03-03] MEDS: CIPROFLOXACIN 500 MG TAB PO SCH (19:11)
[2019-03-03 19:14] LABS: HEMATOCRIT 27.7 % (36.0-47.0); HEMOGLOBIN 8.8 g/dl (12.0-15.5); MEAN CORPUSCULAR HEMOGLOBIN 31.2 pg (27.0-33.0); MEAN CORPUSCULAR HGB CONC 31.8 g/dl (32.0-36.5); MEAN CORPUSCULAR VOLUME 98.2 fl (80.0-96.0); PLATELET COUNT, AUTOMATED 295 10^3/uL (150-450); RED BLOOD COUNT 2.82 10^6/uL (4.00-5.40); WHITE BLOOD COUNT 13.5 10^3/uL (4.0-10.0)
[2019-03-03 19:39] LABS: CALCIUM LEVEL 8.9 MG/DL (8.8-10.2); CREATININE FOR GFR 6.2 MG/DL (0.55-1.30); GLOMERULAR FILTRATION RATE 6.9 (>32); POTASSIUM SERUM 3.3 MEQ/L (3.5-5.1)
[2019-03-03] MEDS ORDERED: NITROFURANTOIN (MACROBID) 100 MG CAP PO SCH (21:00)
[2019-03-03] MEDS: METOPROLOL TART 25 MG TABLET PO SCH (21:23)
[2019-03-03] MEDS: GABAPENTIN 100 MG CAP PO SCH (21:23)
[2019-03-03] MEDS: SIMVASTATIN 40 MG TAB PO SCH (21:23)
[2019-03-03] MEDS: PANTOPRAZOLE 40MG INJ (PROTONIX) (C9113) IV SCH (21:23)
[2019-03-03 21:55] VITALS: BP 129/59
[2019-03-03 22:00] VITALS: BP 116/60
[2019-03-03 22:10] VITALS: BP 121/57
[2019-03-03 22:43] VITALS: BP 115/60
[2019-03-03 23:10] VITALS: BP 121/61
[2019-03-03 23:44] LABS: SOURCE, BODY FLUID PERITONEAL
[2019-03-03 23:45] LABS: APPEARANCE, BODY FLUID CLOUDY (CLEAR); PERITONEAL FL COLOR YELLOW (COLORLESS)
[2019-03-04 00:10] VITALS: BP 120/57
[2019-03-04 01:10] VITALS: BP 124/64
[2019-03-04 02:10] VITALS: BP 124/60
[2019-03-04 02:26] LABS: HEMATOCRIT 29.8 % (36.0-47.0); HEMOGLOBIN 9.2 g/dl (12.0-15.5)
[2019-03-04 06:00] VITALS: BP 134/67
[2019-03-04 06:22] LABS: HEMATOCRIT 30.7 % (36.0-47.0); HEMOGLOBIN 9.5 g/dl (12.0-15.5); MEAN CORPUSCULAR HEMOGLOBIN 30.2 pg (27.0-33.0); MEAN CORPUSCULAR HGB CONC 30.9 g/dl (32.0-36.5); MEAN CORPUSCULAR VOLUME 97.5 fl (80.0-96.0); PLATELET COUNT, AUTOMATED 317 10^3/uL (150-450); RED BLOOD COUNT 3.15 10^6/uL (4.00-5.40); WHITE BLOOD COUNT 8.8 10^3/uL (4.0-10.0)
[2019-03-04 06:41] LABS: CALCIUM LEVEL 8.8 MG/DL (8.8-10.2); CREATININE FOR GFR 6.27 MG/DL (0.55-1.30); GLOMERULAR FILTRATION RATE 6.8 (>32); MAGNESIUM LEVEL 1.5 MG/DL (1.8-2.4); POTASSIUM SERUM 3.6 MEQ/L (3.5-5.1)
[2019-03-04] MEDS: ISOSORBIDE DIN. (ISORDIL) 5 MG TAB PO SCH ×3 (07:30→17:30)
[2019-03-04] MEDS: METOPROLOL TART 25 MG TABLET PO SCH ×2 (08:47→22:05)
[2019-03-04] MEDS: CHLORTHALIDONE 25 MG TAB PO SCH (08:47)
[2019-03-04] MEDS ORDERED: IRBESARTAN 150 MG TAB PO SCH (09:00)
[2019-03-04] MEDS: POTASSIUM CHLORIDE 10 MEQ SR TABLET PO SCH (09:10)
[2019-03-04] MEDS: CitaloPRAM (CeleXA) 20 MG TAB PO SCH (09:10)
[2019-03-04] MEDS: PANTOPRAZOLE 40MG INJ (PROTONIX) (C9113) IV SCH ×2 (09:10→22:05)
[2019-03-04] MEDS: VITAMIN D 1,000 INTERNATIONAL UNITS TABLET PO SCH (09:10)
[2019-03-04] MEDS: MAGNESIUM CHLORIDE 64 MG TABCR (SLO MAG) PO SCH (09:10)
[2019-03-04] MEDS: PHENAZOPYRIDINE 100 MG TAB PO SCH ×2 (09:10→22:04)
[2019-03-04] MEDS: CETIRIZINE (ZyrTEC) 10 MG TAB PO SCH (09:10)
[2019-03-04] MEDS: NYSTATIN 100,000 UNITS/GM TOPICAL PWD 15 GM TOP SCH ×2 (11:19→22:05)
[2019-03-04] MEDS: ONDANSETRON 4MG/2ML VIAL (J2405) IV PRN ×2 (11:19→15:25)
[2019-03-04 11:40] LABS: APPEARANCE, BODY FLUID CLOUDY (CLEAR); PERITONEAL FL COLOR COLORLESS (COLORLESS); SOURCE, BODY FLUID PERITONEAL
--- NOTE | 2019-03-04 12:31 | IPNPDOC ---
Text Note Date of Service The patient was seen on 03/04/19. NOTE Subjective: patient continues to complain of suprapubic abdominal pain. She d idn't have any bowel movements. Patient denies fever, chills, nausea, shortness of breath, palpitations, vomiting, diarrhea Objectives: not in apparent distress HEENT: Normocephalic, atraumatic. Mucous members moist and pink CARDIOVASCULAR: Irregularly irregular rhythm, S1S2 LUNGS: . Diminished lung sounds, ABDOMEN: Bowel sounds are hypoactive. Abdomen is soft and mildly tender in the suprapubic area MUSCULOSKELETAL: Range of motion is intact in all 4 extremities NEUROLOGICAL: Cranial nerves II-12 are grossly intact. Speech is not dysarthric Assessment and plan: Patient is 78-year-old female with past medical history HTN, DM type 2, TIA in past, COPD, ESRD on peritoneal dialysis, depression, atrial fibrillation on Eliquis, chronic diastolic congestive heart failure, history of peritonitis in the past, history of recurrent ESBL E-coli urinary tract infections, recent aspiration pneumonitis, recent hospitalization for food impaction, ( EGD done in [place] - showed esophageal ulceration at distal esophagus), anemia secondary to end-stage renal disease, recent diagnosis of DVT and bilateral PE ( started on Eliquis since then), presents to [facility] after direct transfer from [facility] with GI bleed. (1) GIB (gastrointestinal bleeding) Most likely secondary to upper GI bleed She didn't have bowel movements today Full liquid diet 1 unit of blood transfusion given on 03/03/19 Appreciate/agree with GI recommendation PPI IV (2) UTI (urinary tract infection) According to records from previous facility patient has been treated with nitrofurantoin for 4 days due to Escherichia coli infection We will continue antibiotic therapy with ciprofloxacin given suprapubic pain (3) Abdominal pain Epigastric pain resolved Suprapubic pain most likely secondary to interstitial cystitis (4) ESRD on peritoneal dialysis Appreciate/agree with corn miller consult Peritoneal fluid shows around 7500 leukocytes Gentamicin and vancomycin started intraperitoneally Peritoneal fluid was sent for culture (5) A-fib Eliquis on hold given acute GI bleed (6) Acute anemia Improved after 1 unit of blood transfusion yesterday Secondary to acute GI bleed H&H every 6 hours VS,Fishbone, I+O VS, Fishbone, I+O Laboratory Tests 03/03/19 19:06 12/3/19 02:03 03/04/19 05:32 Vital Signs Date Time Temp Pulse Resp B/P (MAP) Pulse Ox O2 Delivery O2 Flow Rate FiO2 03/04/19 08:00 18 03/04/19 07:30 108/48 03/04/19 06:00 96.3 68 93 Room Air I&O- Last 24 Hours up to 6 AM 03/04/19 06:00 Intake Total 5351 ml Output Total 2000 ml Balance 3351 ml GORGE PALACIOS DO Mar 04, 2019 12:31
[2019-03-04 12:57] LABS: HEMATOCRIT 26.3 % (36.0-47.0); HEMOGLOBIN 8.3 g/dl (12.0-15.5)
[2019-03-04 14:00] VITALS: BP 112/62
[2019-03-04] MEDS ORDERED: GENTAMICIN SULF INJ 80MG/2ML VIAL (J1580) IP ONE (14:00)
[2019-03-04] MEDS ORDERED: VANCOMYCIN 1000 MG/20 ML VIAL (J3370) IP ONE (14:00)
--- NOTE | 2019-03-04 15:08 | CR ---
DATE OF CONSULTATION: 03/04/2019 REQUESTING PHYSICIAN: Dr. Tc Jara CONSULTING PHYSICIAN: Dr. Evans REASON FOR CONSULTATION: Management of end-stage renal disease on peritoneal dialysis. HISTORY OF PRESENT ILLNESS: Yuki Lange is previously known to me, she is a 78-year-old female, with a past medical history of hypertension, end-stage renal disease on peritoneal dialysis, atrial fibrillation on Eliquis, diastolic congestive heart failure, history of peritonitis, history of recurrent urinary tract infections (UTIs), recurrent hospitalizations, anemia of end-stage kidney disease, recent diagnosis of deep venous thromboses (DVTs) and pulmonary embolisms (PEs) and other comorbid conditions mentioned below. The patient has recently been on Eliquis anticoagulation for her history of atrial fibrillation and recent DVT and PEs. She noticed a black stool at home yesterday and presented to her local emergency room at [facility] were she was found to have stool occult blood positive and with a hemoglobin of 8.4 and the patient was subsequently transferred to [facility] for further evaluation and workup. She tells me that she has recently been receiving outpatient treatment for a urinary tract infection as well with Macrobid. The patient denies any issues with her peritoneal dialysis. She uses the cycler at night, she does not have any midday exchange. She denies any diarrhea, vomiting, chills or fevers. The patient has been afebrile over the course of this admission. She has leukocytosis. She was admitted and transfused 1 unit packed red blood cells (PRBC) and started on ciprofloxacin for a urinary tract infection. Peritoneal fluid analysis shows a high peritoneal cell count and she is subsequently ordered for intraperitoneal antimicrobials as well. PAST MEDICAL HISTORY: End-stage renal disease on peritoneal dialysis, history of hypertension, type 2 diabetes, depression, transient ischemic attacks in the past, chronic obstructive pulmonary artery disease (COPD), atrial fibrillation/atrial flutter, chronic diastolic congestive heart failure, history of peritonitis, history of recurrent Extended Spectrum Beta-Lactamase (ESBL) Escherichia coli (E. Coli) urinary tract infection (UTI), history of aspiration pneumonitis, recent paraesophageal stricture and ulceration because of impacted food in the esophagus, anemia of end-stage renal disease, recent diagnosis of deep venous thrombosis (DVT) and bilateral pulmonary embolus about 1 month ago and recurrent hospitalization. SURGICAL HISTORY: Status post peritoneal dialysis catheter placement, status post left ankle melanoma resection, and tonsillectomy as a child, history of partial hysterectomy, bilateral total knee replacements, bilateral cataract surgery, esophagogastroduodenoscopy (EGD). ALLERGIES: CARBAMIDE, PEROXIDE, IBUPROFEN, LATEX, PSEUDOEPHEDRINE. FAMILY HISTORY: No significant family history of end-stage renal disease requiring dialysis. SOCIAL HISTORY: She lives at home by herself about 1 hour away in [place]. She has a ex-smoker. There is no illicit drug use or alcohol abuse. REVIEW OF SYSTEMS: Constitutional: She denies fevers or chills. She reports generalized weakness and debility. Eyes: She denies double vision or blurry vision. ENT: She denies ear discharge. She reports no rhinorrhea. Cardiac: She has a history of diastolic congestive heart failure. She denies chest pain, palpitations or leg swelling. Respiratory: She has had recent PEs. She reports dyspnea with exertion. She denies shortness of breath at rest. Denies cough. Abdomen: She denies abdominal pain. She denies vomiting. She reports black stool. Genitourinary: She reports recent UTIs. She was a straight cathed for urine specimen Musculoskeletal: She denies leg swelling. She denies any new arthralgias or myalgias. Skin: She denies rashes or ulcers. Psychiatric: She has a history of depression. Neurologic: She denies seizures or loss of consciousness. Hematologic: She reports a history of anemia and long-term anticoagulant use and she reports recent DVT and PE. Remainder review of systems is negative or as per history of present illness. PHYSICAL EXAM: Vital signs: Temperature 96.3, pulse 68, respiratory rate 16, blood pressure 134/67, saturating 93-96% on room air. General: The patient is seen lying in bed, having PD exchange, elderly female, awake, alert, oriented to person, place and situation, in no apparent distress. Extraocular muscles are intact. The tongue is moist. Neck is supple. Jugular veins were not elevated. Cardiac: S1-S2 irregularly irregular. No edema in the peripheries. Lungs: Show symmetric air entry bilaterally. No crackle or rale. Abdomen is soft. Her PD fluid is being drained and is noted to be cloudy. The PD catheter exit site is clean, dry and intact. The extremities are negative for clubbing, cyanosis or edema. Skin: Normal turgor and temperature. Neurologic: She is oriented to person, place, situation, cooperative with physical exam and conversational. Psychiatric: Appropriate mood and affect. LABS: Peritoneal fluid analysis shows WBC of 7500, sodium 137, potassium 3.6, bicarbonate 26, magnesium 1.5, hemoglobin 9.5 cultures, urine culture and the peritoneal fluid culture are pending. Urinalysis with 3+ leukocyte esterase and 1+ bacteria. INPATIENT MEDICATIONS: She was receiving normal saline at 80 mL an hour, chlorthalidone 25 mg by mouth daily, Tylenol as needed, ciprofloxacin 500 mg by mouth daily, citalopram 20 mg by mouth daily, gabapentin 100 mg by mouth at bedtime, irbesartan 300 mg by mouth daily, Isordil 5 mg by mouth three times a day, magnesium 64 mg by mouth daily, metoprolol 25 mg by mouth twice a day, Zofran as needed, Protonix 40 mg IV twice daily, peridium 100 mg by mouth twice a day, potassium 20 mEq by mouth daily, Zocor 40 mg by mouth at bedtime, tramadol 50 mg by mouth every 8 hours as needed, vitamin D 1000 units by mouth daily. PROBLEMS: 1. End-stage renal disease on peritoneal dialysis. Orders for peritoneal dialysis exchanges were put in yesterday. The patient is has received PD exchanges overnight. Her peritoneal dialysis cell count is elevated. Her PD fluid culture is pending. She is being started on intraperitoneal antibiotics. Her electrolytes volume status are fairly acceptable at this time I have discontinued her off of IV fluids as I note that she is reabsorbing some of the peritoneal dialysate fluid. We will continue with five exchanges daily with volume of 2 liters and 2.5% Dianeal. 2. Peritonitis associated with peritoneal dialysis. The patient has a elevated WBC count on the peritoneal fluid analysis. I am ordering intraperitoneal vancomycin 1 gram and intraperitoneal gentamicin 80 grams today with the next PD exchange we will follow up cultures and we will continue checking a daily peritoneal cell count. Continue with the PD catheter exit site care with mupirocin. 3. Hypertension. The patient is ill with gastrointestinal (GI) bleed and peritonitis. Her blood pressures are soft. I have discontinued her irbesartan and I have written very generous holding parameters with the chlorthalidone and the Isordil. Thus far she has not received any antihypertensives with the exception of metoprolol which she also needs for rate control. 4. Gastrointestinal (GI) bleed. The patient is on IV proton pump inhibitor, she received 1 unit packed red blood cell. Nursing staff reports she has not had any bowel movement since admission. Her hemoglobin and hematocrit has up trended. GI evaluation is pending. She is on a full liquid diet given that she is reabsorbing some of the peritoneal dialysis fluid and also given her history of congestive heart failure. I am discontinuing IV fluids in this dialysis patient who is presently hemodynamically stable. 5. Hypokalemia. Continue with current supplementation. 6. Hypomagnesemia. Continue with current supplementation. 7. Thank you for involving me in the care of Ms. Mirza, I will be happy to follow her along with you.
[2019-03-04] MEDS: MUPIROCIN 2% OINT 22 GM TUBE TOP SCH (15:25)
[2019-03-04] MEDS: CIPROFLOXACIN 500 MG TAB PO SCH (18:23)
[2019-03-04 19:53] LABS: HEMATOCRIT 30.1 % (36.0-47.0); HEMOGLOBIN 9.3 g/dl (12.0-15.5)
[2019-03-04 22:00] VITALS: BP 124/65
[2019-03-04] MEDS: SIMVASTATIN 40 MG TAB PO SCH (22:04)
[2019-03-04] MEDS: GABAPENTIN 100 MG CAP PO SCH (22:04)
[2019-03-05 01:51] LABS: HEMATOCRIT 28.5 % (36.0-47.0); HEMOGLOBIN 8.8 g/dl (12.0-15.5)
[2019-03-05 06:00] VITALS: BP 96/60
[2019-03-05 06:48] LABS: APPEARANCE, BODY FLUID CLOUDY (CLEAR); PERITONEAL FL COLOR COLORLESS (COLORLESS); SOURCE, BODY FLUID PERITONEAL
[2019-03-05] MEDS: ISOSORBIDE DIN. (ISORDIL) 5 MG TAB PO SCH (07:30)
[2019-03-05 08:36] LABS: HEMATOCRIT 29.3 % (36.0-47.0); MEAN CORPUSCULAR HEMOGLOBIN 30.3 pg (27.0-33.0); MEAN CORPUSCULAR HGB CONC 30.7 g/dl (32.0-36.5); MEAN CORPUSCULAR VOLUME 98.7 fl (80.0-96.0); PLATELET COUNT, AUTOMATED 305 10^3/uL (150-450); RED BLOOD COUNT 2.97 10^6/uL (4.00-5.40); WHITE BLOOD COUNT 13.7 10^3/uL (4.0-10.0)
[2019-03-05 08:59] LABS: CALCIUM LEVEL 8.6 MG/DL (8.8-10.2); CREATININE FOR GFR 5.43 MG/DL (0.55-1.30); GLOMERULAR FILTRATION RATE 8.1 (>32); MAGNESIUM LEVEL 1.4 MG/DL (1.8-2.4); POTASSIUM SERUM 3.5 MEQ/L (3.5-5.1); VANCOMYCIN RANDOM 13.1 UG/ML
[2019-03-05] MEDS: CHLORTHALIDONE 25 MG TAB PO SCH (09:00)
[2019-03-05] MEDS: METOPROLOL TART 25 MG TABLET PO SCH ×4 (09:00→21:00)
[2019-03-05] MEDS ORDERED: PNEUMOCOCCAL VACCINE 0.5ML SYRINGE(90732) PNEUMOVAX 23 IM ONE (09:00)
[2019-03-05] MEDS: NYSTATIN 100,000 UNITS/GM TOPICAL PWD 15 GM TOP SCH ×2 (09:03→23:15)
[2019-03-05] MEDS: VITAMIN D 1,000 INTERNATIONAL UNITS TABLET PO SCH (09:05)
[2019-03-05] MEDS: PANTOPRAZOLE 40MG INJ (PROTONIX) (C9113) IV SCH ×2 (09:05→22:46)
[2019-03-05] MEDS: PHENAZOPYRIDINE 100 MG TAB PO SCH ×2 (09:05→21:00)
[2019-03-05] MEDS: POTASSIUM CHLORIDE 10 MEQ SR TABLET PO SCH (09:06)
[2019-03-05] MEDS: MAGNESIUM CHLORIDE 64 MG TABCR (SLO MAG) PO SCH (09:06)
[2019-03-05] MEDS: CitaloPRAM (CeleXA) 20 MG TAB PO SCH (09:06)
[2019-03-05] MEDS: CETIRIZINE (ZyrTEC) 10 MG TAB PO SCH (09:06)
[2019-03-05] MEDS: MUPIROCIN 2% OINT 22 GM TUBE TOP SCH (09:09)
--- NOTE | 2019-03-05 12:31 | IPNPDOC ---
Text Note Date of Service The patient was seen on 03/05/19. NOTE Subjective: patient complains of generalized weakness, she didn't have any bowel movements. Patient denies fever, chills, nausea, shortness of breath, palpitations, vomiting, diarrhea Objectives: not in apparent distress HEENT: Normocephalic, atraumatic. Mucous members moist and pink CARDIOVASCULAR: Irregularly irregular rhythm, S1S2 LUNGS: Diminished lung sounds, some mild crackles on the base ABDOMEN: Bowel sounds are hypoactive. Abdomen is soft and mildly tender in the suprapubic area MUSCULOSKELETAL: Range of motion is intact in all 4 extremities NEUROLOGICAL: Cranial nerves II-12 are grossly intact. Speech is not dysarthric Assessment and plan: Patient is 78-year-old female with past medical history HTN, DM type 2, TIA in past, COPD, ESRD on peritoneal dialysis, depression, atrial fibrillation on Eliquis, chronic diastolic congestive heart failure, history of peritonitis in the past, history of recurrent ESBL E-coli urinary tract infections, recent aspiration pneumonitis, recent hospitalization for food impaction, ( EGD done in [place] 2019 - showed esophageal ulceration at distal esophagus), anemia secondary to end-stage renal disease, recent diagnosis of DVT and bilateral PE ( started on Eliquis since then), presents to [facility] after direct transfer from [facility] with GI bleed. Sepsis There is concern for sepsis given increased leukocytosis today to patient 13.5 and hypotension of 108/48 Patient was diagnosed with peritonitis, she receives intraperitoneally vancomycin and gentamicin Blood culture ordered Peritoneal fluid culture pending Dr. Evans recommended CT chest given some crackles at the lung base vs PNA. GIB (gastrointestinal bleeding) Most likely secondary to upper GI bleed She didn't have bowel movements today Full liquid diet 1 unit of blood transfusion given on 03/03/19. Hemoglobin is stable today Continue PPI IV UTI (urinary tract infection) According to records from previous facility patient has been treated with nitrofurantoin for 4 days due to Escherichia coli infection We will continue antibiotic therapy with ciprofloxacin given suprapubic pain Abdominal pain Epigastric pain resolved Suprapubic pain most likely secondary to interstitial cystitis ESRD on peritoneal dialysis Peritoneal fluid shows around 7500 leukocytes on 03/04/12 Gentamicin and vancomycin started intraperitoneally Peritoneal fluid was sent for culture A-fib Eliquis on hold given acute GI bleed Acute anemia Hb stable Secondary to acute GI bleed H&H every 6 hours VS,Fishbone, I+O VS, Fishbone, I+O Laboratory Tests 03/04/19 12:41 03/04/19 19:41 03/05/19 01:43 03/05/19 08:18 Vital Signs Date Time Temp Pulse Resp B/P (MAP) Pulse Ox O2 Delivery O2 Flow Rate FiO2 03/05/19 09:00 96/61 03/05/19 09:00 77 03/05/19 06:00 96.7 18 89 Room Air 03/04/19 15:56 2.0 I&O- Last 24 Hours up to 6 AM 03/05/19 06:00 Intake Total 27714 ml Output Total 65339 ml Balance 750 ml GORGE PALACIOS DO Mar 05, 2019 12:31
--- NOTE | 2019-03-05 13:34 | CR.PDOC ---
General Date of Consultation: Mar 04, 2019 Referring Provider: GORGE GARCIA DO Attending Physician: MARÍA GTZ MD Consultation Primary physician/ hospitalist: Dr. Gorge Garcia Reason for consult: Anemia with dark stools. HPI: 78-year-old female patient with HTN, DM type 2, TIA in past, COPD, ESRD on Peritoneal dialysis, depression, atrial fibrillation on Eliquis, chronic diast olic congestive heart failure, history of peritonitis in the past, history of recurrent ESBL E-coli urinary tract infections, recent aspiration pneumonitis, prior hospitalization for food impaction, ( EGD done in Dec [address] Muñoz - showed esophageal ulceration at distal esophagus and subsequent EGD for dysphagia in Jan 2019 done by me showed possible achalasia, dilated with TTS balloon to 2 cm), chronic anemia secondary to end-stage renal disease, recent diagnosis of DVT and bilateral PE (on Eliquis), is now admitted after being transferred from [facility] for anemia and dark stools. Patient reports having 2-3 loose black stools daily for atleast few days, and last mitzi ck stool was on Sunday ( 03/03/2019). Patient also reports epigastric abdominal pain and lower abdominal pain, which is present for along time and reports some abdominal rash recently. During this hospitalization the peritoneal fluid analysis is noted be suggestive of peritonitis and is being treated with intra-peritoneal antibiotics ( as per nephrology). Patient does not remember taking eliquis. Pertinent negative GI symptoms: Patient denies loss of appetite, early satiety or unintentional weight loss. No history of hematemesis.. Review of Systems: GI: as stated above CVS: No chest pain, No palpitations, No leg swelling. RS: No Shortness of breath, No Wheezing, no cough MARKETING SERVICES SPECIALIST: No dizziness, No motor weakness, No sensory problems Hematology: No bruising, No gum bleeding, Musculoskeletal: No joint pain, ambulating well. Skin: No rash : No hematuria, No burning sensation of the urine ENT: No ear discharge/ pain, No dysphagia. Eyes: No photophobia. Home medications: reviewed. Antithrombotic agents Eliquis Unclear last dose. Medical h/o: As above. Surgical h/o: NO surgical scars on abdomen.. Social h/o: Alcohol- denies, tobacco- Denies, IVDA/ drugs- Denies. Family h/o of GI cancers - None. Prior Endoscopies: --- EGD - Done on 12/2018 -- noted with food impaction, lower esophageal ulceration. --- EGD done in Jan 2019 by Me for symptoms of dysphagia noted no strictures but suggestive fo achalasia, dilated with TTS balloon to 2 cm. recommended follow up in 3 months. Prior GI evaluation: Seen by Dr. Muñoz in past hospitalization in [facility]. Exam: Vitals: reviewed General: Alert and oriented x 3, mild distress from Shortness of breath. HEENT: No pallor, no icterus. Normal oropharynx, No cervical lymph nodes. Chest: symmetric with bilateral clear air entry, CVS: S1, S2 heard, normal, no murmurs . Abdomen: non-distended, soft, mild to moderate tenderness on palpation all over the abdomen, no rigidity, no guarding, mild rebound tenderness, no rash on abd omen (unlike what patient reported), and minimal erythema around the peritoneal catheter. no palpable masses, normal bowel sounds heard. Rectal exam: Patient refused. Extremities: no pedal edema, pulses palpable. MARKETING SERVICES SPECIALIST: no focal motor or sensory deficits. Moves all extremities Skin: no rash. Labs: reviewed. Impression: - Gradually worsening anemia with h/o black stools, no documented melena since admitted to the floor in [facility], DDx Likely AVM vs PUD vs less likely esophagitis. -- needs further evaluation. - Abdominal pain likely related to secondary peritonitis. Recommendations: - Patient educated about the test results, possible differential diagnoses and All questions answered. - Continue on clear liquid/ full liquid diet for now. - Continue on IV Pantoprazole 40 mg twice daily. - Management of the peritonitis as per primary team and nephrology. - Monitor Hemoglobin and hematocrit and transfuse if needed. - Currently patients eliquis is on hold and patient is educated about the risks and benefits and all alternatives discussed. - If patient is optimized for the peritonitis therapy and if cleared by Primary team, will consider EGD on . Patient is educated about the procedure, indications, risks (bleeding, perforation, infection, hypotension, respiratory depression, allergy, need for endotracheal intubation, surgery, colostomy, cardiac arrest, even ), benefits, limitations (e.g., missing a lesion), and all other alternatives (including no intervention). - GI will follow. Plan of care discussed with patient and primary team. Patient verbalized understanding and agreed with the plan. Laboratory Data CBC/BMP Laboratory Tests 03/04/19 19:41 03/05/19 01:43 03/05/19 08:18 Allergies Coded Allergies: latex (Verified Allergy, Intermediate, RASH, 12/21/18) pseudoephedrine (Verified Allergy, Intermediate, RASH, 12/21/18) carbamide peroxide (Verified Allergy, Unknown, 12/21/18) ibuprofen (Verified Adverse Reaction, Intermediate, BLOODY STOOLS, 12/21/18) Home Medications Scheduled Apixaban (Eliquis) 2.5 Mg Tablet, 2.5 MG PO BID, (Reported) Aspirin/Dipyridamole (Aspirin-Dipyridam ER 25-200 mg) 1 Each Cpmp.12hr, 1 CAP PO BID, (Reported) Biotin (Biotin) 1 Mg Capsule, 1 MG PO DAILY, (Reported) Cetirizine HCl (Cetirizine HCl) 10 Mg Tablet, 10 MG PO DAILY, (Reported) Chlorthalidone (Chlorthalidone) 25 Mg Tablet, 25 MG PO DAILY, (Reported) Citalopram Hydrobromide (Celexa) 20 Mg Tablet, 20 MG PO DAILY, (Reported) Gabapentin (Gabapentin) 100 Mg Capsule, 100 MG PO QHS, (Reported) Irbesartan (Irbesartan) 300 Mg Tablet, 300 MG PO DAILY, (Reported) Isosorbide Dinitrate (Isosorbide Dinitrate) 5 Mg Tablet, 5 MG PO AC, (Reported) Metoprolol Tartrate (Metoprolol Tartrate) 25 Mg Tablet, 25 MG PO BID, (Reported) Multivit-Mins No.11/Folic Acid (Dialyvite 5000 Tablet) 1 Tab Tab, 1 TAB PO DAILY, (Reported) Pantoprazole Sodium (Protonix) 40 Mg Tablet.dr, 40 MG PO DAILY, (Reported) Potassium Chloride (Potassium Chloride) 10 Meq Tablet.er, 20 MEQ PO DAILY, (Reported) Salmeterol/Fluticasone (Advair 250-50 Diskus) 1 Each Blst.w.dev, 1 PUFF INH BID, (Reported) Simvastatin (Zocor) 40 Mg Tab, 40 MG PO QHS, (Reported) Vitamin D (Vitamin D3) 1,000 Unit Tablet, 1,000 UNITS PO DAILY, (Reported) Vitamin E (Vitamin E) 400 Unit Capsule, 400 UNIT PO DAILY, (Reported) Scheduled PRN Albuterol Sulfate (Proair Hfa) 8.5 Gm Hfa.aer.ad, 1 PUFF INH Q4H PRN for SHORTNESS OF BREATH, (Reported) Calcium Carbonate (Tums) 500 Mg Chw, 500 MG PO Q4H PRN for HEARTBURN/INDIGESTION, (Reported) Ipratropium/Albuterol Sulfate (Iprat-Albut 0.5-3(2.5) mg/3 ml) 1 Shara Shara, 3 ML NEB Q6H PRN for SHORTNESS OF BREATH, (Reported) Ondansetron HCl (Zofran) 4 Mg Tablet, 4 MG PO Q6H PRN for NAUSEA, (Reported) Sodium Chloride ([place]) 104 Ml [place], 2 SPRAY NA QID PRN for NASAL DRYNESS, (Reported) EACH NOSTRIL Tramadol HCl (Tramadol HCl) 50 Mg Tablet, 50 MG PO Q8H PRN for PAIN, (Reported) MARÍA GTZ MD Mar 05, 2019 13:34
[2019-03-05 14:00] VITALS: BP 125/67
--- NOTE | 2019-03-05 14:07 | REP ---
Clinical: Chest pain and dyspnea. Rule out pneumonia. Technique: Axial noncontrast images from the thoracic inlet to the upper abdomen with coronal and sagittal re-formations. Comparison: 01/28/2019. Findings: Lung hollingsworth demonstrate chronic emphysematous changes with scattered scarring and few scattered small calcified and noncalcified nodules up to approximately 4 mm. Very subtle "tree in bud "infiltrates involving the right upper lobe appreciated along with right basilar fibro atelectatic changes and small consolidation suggesting an acute right upper lobe early pneumonia and possible acute versus chronic right basilar fibroatelectatic changes. Mediastinum demonstrates stable atherosclerotic changes to the thoracic aorta with focal aneurysmal dilatation of the descending thoracic aortic arch elements of mural thrombus remaining stable compared to prior examination. Focal aneurysmal dilatation of the descending thoracic aortic arch measuring up to approximately 3.7 cm diameter. Atherosclerotic changes to the coronary arteries noted without cardiomegaly or pericardial effusion. Calcified mediastinal and hilar lymph nodes consistent with prior granulomas disease and few small reactive mediastinal lymph nodes measure up to 9 mm. Surrounding musculoskeletal structures demonstrate osteopenia and degenerative changes. Limited upper abdomen demonstrates ascites and small amount of suspected free air which is consistent with peritoneal dialysis. Impression: 1. Subtle "tree in bud" infiltrate to the right upper lobe may reflect an acute early pneumonia. 2. Small consolidation and fibroatelectatic changes to the right base may reflect chronic changes and partial resolution to the previously noted right lower lobe consolidation on 01/28/2019 versus acute atelectasis. 3. Stable changes to the thoracic aorta. 4. Upper abdominal findings suggesting a peritoneal dialysis. Electronically Signed by Yaya Garzon MD 03/05/2019 02:00 P
[2019-03-05] MEDS: ONDANSETRON 4 MG TAB (S0181) PO PRN ×2 (17:22→17:36)
[2019-03-05] MEDS: CIPROFLOXACIN 500 MG TAB PO SCH ×2 (17:22→17:36)
[2019-03-05] MEDS: SIMVASTATIN 40 MG TAB PO SCH (21:00)
[2019-03-05] MEDS: GABAPENTIN 100 MG CAP PO SCH (21:00)
--- NOTE | 2019-03-05 21:48 | IPN ---
DATE: 03/05/2019 SUBJECTIVE: Yuki is seen and examined this morning at the bedside. She complains of feeling generalized weakness and also complains of shortness of breath. Her hemoglobins have remained stable and she has only received one unit of packed red blood cell on this admission. Her peritoneal cell count continues to downward trend. The cultures are pending and she remains afebrile and is in net positive fluid balance with reabsorption of some of the peritoneal dialysis fluid. VITAL SIGNS: Temperature 96.7, pulse 68, respiratory rate 18, blood pressure 96/60, saturating 92% on room air. Review of intake and output yesterday shows net positive 1.8 liters. Weight in the bed scale today is 72.6 kg. GENERAL: The patient is seen lying in bed, elderly female, in no apparent distress, awake, alert and oriented times three. Extraocular muscles are intact. The tongue is moist. The neck is supple. The jugular veins are not elevated. CARDIAC: S1, S2, irregularly irregular, at most only trace edema in the legs. LUNGS: Show scattered crackles, more so on the right but also at the bases. There is no wheeze. The abdomen is soft. There is peritoneal dialysis fluid in situ. The peritoneal dialysis (PD) catheter exit site on the left side is clean, dry and intact without any discharge or drainage. The extremities are negative for clubbing and cyanosis and show at most only trace edema. SKIN: Normal turgor and temperature. NEUROLOGIC: She is oriented to person, place, situation and cooperative with physical examination. PSYCHIATRIC: Appropriate mood and affect. LABORATORY DATA: Peritoneal fluid WBCs 4800. Sodium 136, potassium 3.5, bicarbonate 26, magnesium 1.4. White count 13.7, hemoglobin 9.0. Random vancomycin 13.1. Blood culture, urine culture and peritoneal fluid culture are pending. CT of the chest 03/05/2019 shows early right upper lobe pneumonia and small consolidation in the right base. INPATIENT MEDICATIONS: I discontinued her chlorthalidone. I discontinued her Isordil. I have reduced her metoprolol to 12.5 mg by mouth twice a day with very generous holding parameters. Her remainder of medications are unchanged from prior. PROBLEMS: 1. End-stage renal disease on peritoneal dialysis. The patient is reabsorbing and retaining some of the peritoneal dialysis fluid. She is in a positive fluid balance and I am not going to make her prescription more aggressive in view of her borderline blood pressures/poor oral intake/sepsis. At present, we will leave her on five exchanges with each having a volume of two liters and 2.5% Dianeal. Her electrolytes are acceptable and she continues on potassium and magnesium supplementation. 2. Peritonitis associated with peritoneal dialysis. The patient's cultures are pending. Her peritoneal cell count is improving and is going to be checked daily. She will receive again intraperitoneal vancomycin and gentamicin with her exchange tonight. She is afebrile but there is ongoing leukocytosis. Her vancomycin random level was subtherapeutic this morning and she is going to be redosed. 3. Pneumonia. The patient today complained of increased shortness of breath and lung examination was significant for crackles, mostly on the right side. I discussed with Dr. Wade regarding lung imaging and the patient subsequently had a CT of the chest which shows a probable right upper lobe pneumonia. If she does not start to clinically improve in the next 24 hours then would change her antibiotics to IV. 4. Gastrointestinal (GI) bleed. She has only received one unit of packed red blood cells on this admission. Hemoglobin has improved and stable at 9.0. Her Eliquis is on hold. 5. Hypertension. Actually, her pressures are soft and the patient is ill with peritonitis and possibly pneumonia as well. At this point, I have discontinued her irbesartan, her chlorthalidone, her Isordil, and I have decreased her metoprolol to just 12.5 mg by mouth twice daily with very generous holding parameters.
[2019-03-05 22:00] VITALS: BP 108/63
[2019-03-05] MEDS ORDERED: VANCOMYCIN 1000 MG/20 ML VIAL (J3370) IP ONE (22:00)
[2019-03-05] MEDS ORDERED: GENTAMICIN SULF INJ 80MG/2ML VIAL (J1580) IP ONE (22:00)
[2019-03-05] MEDS: ONDANSETRON 4MG/2ML VIAL (J2405) IV PRN (22:57)
[2019-03-06 06:00] VITALS: BP 132/79
[2019-03-06 06:03] LABS: HEMATOCRIT 29.1 % (36.0-47.0); HEMOGLOBIN 9.2 g/dl (12.0-15.5); MEAN CORPUSCULAR HEMOGLOBIN 30.6 pg (27.0-33.0); MEAN CORPUSCULAR HGB CONC 31.6 g/dl (32.0-36.5); MEAN CORPUSCULAR VOLUME 96.7 fl (80.0-96.0); PLATELET COUNT, AUTOMATED 317 10^3/uL (150-450); RED BLOOD COUNT 3.01 10^6/uL (4.00-5.40); WHITE BLOOD COUNT 14.9 10^3/uL (4.0-10.0)
[2019-03-06] MEDS: ACETAMINOPHEN TAB 650MG DOSE (2X325MG) PO PRN ×2 (06:13→12:20)
[2019-03-06 06:31] LABS: CALCIUM LEVEL 8.5 MG/DL (8.8-10.2); CREATININE FOR GFR 5.31 MG/DL (0.55-1.30); GLOMERULAR FILTRATION RATE 8.3 (>32); MAGNESIUM LEVEL 1.4 MG/DL (1.8-2.4); POTASSIUM SERUM 3.5 MEQ/L (3.5-5.1)
[2019-03-06 07:06] LABS: SOURCE, BODY FLUID PERITONEAL
[2019-03-06 07:07] LABS: APPEARANCE, BODY FLUID CLOUDY (CLEAR); PERITONEAL FL COLOR COLORLESS (COLORLESS)
[2019-03-06] MEDS ORDERED: MEROPENEM INJ 1 GM in IV 1 EA IV ONE (08:45)
[2019-03-06 08:57] LABS: VANCOMYCIN RANDOM 24.9 UG/ML
[2019-03-06 09:30] VITALS: BP 153/63
[2019-03-06] MEDS: ONDANSETRON 4MG/2ML VIAL (J2405) IV PRN ×3 (09:40→18:27)
[2019-03-06] MEDS: CitaloPRAM (CeleXA) 20 MG TAB PO SCH (11:50)
[2019-03-06] MEDS: METOPROLOL TART 25 MG TABLET PO SCH ×2 (11:53→21:00)
[2019-03-06] MEDS: POTASSIUM CHLORIDE 10 MEQ SR TABLET PO SCH (11:55)
[2019-03-06] MEDS: PHENAZOPYRIDINE 100 MG TAB PO SCH ×2 (11:55→22:11)
[2019-03-06] MEDS: VITAMIN D 1,000 INTERNATIONAL UNITS TABLET PO SCH (11:57)
[2019-03-06] MEDS: MAGNESIUM CHLORIDE 64 MG TABCR (SLO MAG) PO SCH (11:57)
[2019-03-06] MEDS: CETIRIZINE (ZyrTEC) 10 MG TAB PO SCH (11:58)
[2019-03-06] MEDS: NYSTATIN 100,000 UNITS/GM TOPICAL PWD 15 GM TOP SCH ×2 (11:59→22:12)
[2019-03-06] MEDS: MUPIROCIN 2% OINT 22 GM TUBE TOP SCH (12:00)
[2019-03-06] MEDS ORDERED: PILL CUTTER 1 EACH XX PRN (12:00)
[2019-03-06] MEDS: PANTOPRAZOLE 40MG INJ (PROTONIX) (C9113) IV SCH ×2 (12:20→22:12)
--- NOTE | 2019-03-06 12:48 | REP ---
Clinical: Shortness of breath. Pneumonia. Technique: Axial noncontrast images from the thoracic inlet to the upper abdomen with coronal and sagittal re-formations. Comparison: 03/05/2019. Findings: No significant change is appreciated when compared to prior examination. Chronic emphysematous changes with scattered scarring and scattered calcified and noncalcified nodules up to approximately 5 mm are again noted. Subtle reticulonodular "tree in bud "infiltrates involving the right lung along with small right lower lobe consolidation with air bronchograms and associated linear and atelectasis are essentially unchanged. These findings may also represent residual chronic changes which were slightly more pronounced on 01/28/2019 and correlation is necessary. Left hemithorax is without obvious new/acute process. No pleural effusion. No pneumothorax. Evaluation of the mediastinum again demonstrates stable cardiomegaly along with significant atherosclerotic changes to the thoracic aorta and coronary arteries as well as stable known aneurysmal dilatation of the descending thoracic aortic arch and inferior descending thoracic aorta at the level of the hiatus. No significant acute adenopathy. The current examination demonstrates a mildly distended esophagus with retained material to the level of the mid esophagus where there may be mild extrinsic mechanical compression due to the adjacent aorta. These findings should be correlated clinically. Impression: 1. Lung hollingsworth demonstrate no significant change with chronic findings and suspected superimposed subtle elements of the infiltrate involving the right lung including small area of consolidation with air bronchograms at the right base. These findings appear slightly less pronounced when compared through 01/28/2019 examination and should be correlated clinically. No new acute process is appreciated. 2. Mild distension to the esophagus which may be secondary to extrinsic mechanical compression at the mid/distal esophagus due to the adjacent aorta. 3. Atherosclerotic changes to the coronary arteries and thoracic aorta with elements of aneurysmal dilatation remains stable. Cardiomegaly remains stable. Electronically Signed by Yaya Garzon MD 03/06/2019 12:39 P
[2019-03-06 14:00] VITALS: BP 141/62
--- NOTE | 2019-03-06 15:17 | REP ---
Clinical: Sepsis. Technique: Axial noncontrast images from the lung bases to the pubic symphysis with coronal and sagittal re-formations. Comparison: 12/21/2018. Findings: Lung bases demonstrate right basilar pleuroparenchymal changes including small area of consolidation with fibroatelectatic change and bronchiectasis. Findings may represent chronic change and/or superimposed acute pneumonia. Peritoneal dialysis catheter is identified along with moderate amount of peritoneal fluid and small amount of pneumoperitoneum likely related to peritoneal dialysis. Hepatic and splenic parenchymal calcifications consistent with prior granulomas disease. Pancreas, gallbladder, bilateral adrenal glands are essentially normal by noncontrast evaluation. Atrophic appearance to the kidneys without obvious acute hydronephrosis or perinephric stranding. The enteric system is grossly unremarkable and without obstruction or obvious acute inflammatory process. Sigmoid diverticulosis noted without obvious acute diverticulitis. Pelvis demonstrates normal bladder and evidence for prior hysterectomy. No adenopathy. Extensive atherosclerotic changes to the aorta with stable infrarenal dilatation to 3.5 cm. Osseous structures demonstrate degenerative changes without focal acute abnormality. Impression: 1. Peritoneal fluid and pneumoperitoneum likely related to peritoneal dialysis with peritoneal dialysis catheter in the pelvis. 2. Right basilar lung changes may represent chronic change with superimposed acute small pneumonia / atelectasis. 3. No definite obvious acute abdominopelvic pathology identified. 4. Diverticulosis. 5. Atherosclerotic disease and stable infrarenal aortic aneurysm measuring up to approximately 3.5 cm diameter. Electronically Signed by Yaya Garzon MD 03/06/2019 03:08 P
[2019-03-06] MEDS ORDERED: PIPERACILLIN/TAZOBACTAM SOD 3.375 GM in D5W MINI-BAG PLUS 50 ML IV SCH (16:45)
--- NOTE | 2019-03-06 16:54 | IPNPDOC ---
Text Note Date of Service The patient was seen on 03/06/19. NOTE Subjective: patient complains of generalized weakness, she didn't have any bowel movements. She stated that her weakness is worse than yesterday. She doesn't have appetite Patient denies fever, chills, nausea, shortness of breath, palpitations, vomiting, diarrhea Objectives: not in apparent distress HEENT: Normocephalic, atraumatic. Mucous members moist and pink CARDIOVASCULAR: Irregularly irregular rhythm, S1S2 LUNGS: Diminished lung sounds, some mild crackles on the base ABDOMEN: Bowel sounds are hypoactive. Abdomen is soft and mildly tender in the suprapubic area MUSCULOSKELETAL: Range of motion is intact in all 4 extremities NEUROLOGICAL: Cranial nerves II-12 are grossly intact. Speech is not dysarthric Assessment and plan: Patient is 78-year-old female with past medical history HTN, DM type 2, TIA in past, COPD, ESRD on peritoneal dialysis, depression, atrial fibrillation on Eliquis, chronic diastolic congestive heart failure, history of peritonitis in t he past, history of recurrent ESBL E-coli urinary tract infections, recent aspiration pneumonitis, recent hospitalization for food impaction, ( EGD done in [place] 2019 - showed esophageal ulceration at distal esophagus), anemia secondary to end-stage renal disease, recent diagnosis of DVT and bilateral PE ( started on Eliquis since then), presents to [facility] after direct transfer from [facility] with GI bleed. Sepsis increased leukocytosis today to patient 14.9 Patient was diagnosed with peritonitis, she receives intraperitoneally vancomycin and gentamicin. However, patient has increased weakness and increased white blood count. Zosyn IV added On 03/06/[address] shows no definite obvious acute abdominopelvic pathology Blood culture no growth for 24 hours Peritoneal fluid culture pending Urine culture shows Escherichia coli ESBL sensitive to Zosyn Dr. Evans follows pt GIB (gastrointestinal bleeding) Most likely secondary to upper GI bleed She didn't have bowel movements today Full liquid diet 1 unit of blood transfusion given on 03/03/19. Hemoglobin is stable Continue PPI IV UTI (urinary tract infection) According to records from previous facility patient has been treated with nitrofurantoin for 4 days due to Escherichia coli infection Ciprofloxacin discontinued due to resistance, IV Zosyn initiated Abdominal pain Epigastric pain resolved Suprapubic pain most likely secondary to interstitial cystitis ESRD on peritoneal dialysis Peritoneal fluid shows around 7500 leukocytes on 03/04/12 Gentamicin and vancomycin intraperitoneally Peritoneal fluid was sent for culture. Await result A-fib Eliquis on hold given acute GI bleed Acute anemia Hb stable Secondary to acute GI bleed VS,Fishbone, I+O VS, Fishbone, I+O Laboratory Tests 03/06/19 05:27 Vital Signs Date Time Temp Pulse Resp B/P (MAP) Pulse Ox O2 Delivery O2 Flow Rate FiO2 03/06/19 11:53 88 150/61 03/06/19 09:30 97.2 20 98 Nasal Cannula 1.0 I&O- Last 24 Hours up to 6 AM 03/06/19 06:00 Intake Total 51699 ml Output Total 46936 ml Balance 330 ml GORGE PALACIOS DO Mar 06, 2019 16:54
[2019-03-06 17:16] LABS: HEMATOCRIT 29.8 % (36.0-47.0); HEMOGLOBIN 9.1 g/dl (12.0-15.5); MEAN CORPUSCULAR HEMOGLOBIN 30.4 pg (27.0-33.0); MEAN CORPUSCULAR HGB CONC 30.5 g/dl (32.0-36.5); MEAN CORPUSCULAR VOLUME 99.7 fl (80.0-96.0); PLATELET COUNT, AUTOMATED 326 10^3/uL (150-450); RED BLOOD COUNT 2.99 10^6/uL (4.00-5.40)
[2019-03-06] MEDS: PIPERACILLIN/TAZOBACTAM SOD 2.25 GM in D5W MINI-BAG PLUS 50 ML IV SCH (18:39)
[2019-03-06 18:53] LABS: BLAST CELLS 1 % (0-0); LYMPHOCYTES 10 % (16-44); METAMYELOCYTES 1 % (0-0); MONOCYTES 3 % (0-5); MYELOCYTES 8 % (0-0); NEUTROPHILS 68 % (28-66); PROMYELOCYTES 1 % (0-0)
[2019-03-06 18:54] LABS: NUCLEATED RED BLOOD CELL 1 % (0-0); PLATELET ESTIMATE NORMAL (NORMAL)
[2019-03-06 18:55] LABS: POLYCHROMASIA 1+
[2019-03-06] MEDS ORDERED: PROMETHAZINE INJ 25 MG/ML VIAL (J2550) IV ONE (19:45)
[2019-03-06] MEDS ORDERED: KETOROLAC 30 MG/ML VIAL (J1885) IV ONE (19:45)
--- NOTE | 2019-03-06 20:17 | IPN ---
DATE: 03/06/2019 SUBJECTIVE: Yuki is seen and examined this morning at the bedside. She is complaining of nausea, poor appetite and poor oral intake, and she is complaining of abdominal pain. Her peritoneal fluid analysis showed a rise in the WBC count. Her serum WBC is likewise rising. Cultures thus far are pending. She is for a CT of the abdomen and pelvis. Her vancomycin random levels have been therapeutic. Her daughter reports that the patient had one small tarry stool. Her hemoglobin remains stable. Vital signs: Temperature 97.2, pulse 78, respiratory rate 20, blood pressure 153/63, saturating 98% on one liter nasal cannula. Review of intake and output yesterday shows net positive 400 mL. Weight in the bed scale today is 72.6 kg. General: The patient is seen lying in bed, head of the bed elevated, elderly female awake, alert, oriented and in no apparent distress. Family member is present at the bedside. Extraocular muscles are intact. Tongue is moist. Neck is supple. Jugular veins are not elevated. Cardiac: Irregularly irregular, S1, S2. No edema in the legs. Lungs show diminished breath sounds with some scattered crackles on the right, but there is no accessory muscle use. No tachypnea. She seemed comfortable on nasal cannula. Abdomen is soft. There are bowel sounds. The left lower quadrant peritoneal dialysis catheter exit site is clean, dry and intact. She has peritoneal dialysate fluid in situ. The abdomen is nontender to moderate palpation. Musculoskeletal: There is no clubbing, cyanosis or edema in the legs. Neurologic: She is oriented to person, place, situation, interactive and conversational. Skin: Normal temperature and turgor. LABORATORY DATA: White count 15, hemoglobin 9.1, platelets 326, sodium 136, potassium 3.5, bicarbonate 28, lactic acid 2.5. Vancomycin random level 24. WBC in the peritoneal fluid was 5300. CT scan of the abdomen and pelvis shows enteric system is grossly unremarkable. There is sigmoid diverticulosis without diverticulitis. Right basilar lung changes possibly represent acute small pneumonia. Inpatient medications reviewed by myself. She received meropenem one gram IV times one. Primary team started her on renally dosed Zosyn. Ciprofloxacin was discontinued. Remainder of medications are unchanged from prior. PROBLEMS: 1. End-stage renal disease, on peritoneal dialysis. The patient continues on a gentle peritoneal dialysis prescription of five exchanges daily, total volume of each exchange two liters, 2.5% Dianeal. Her electrolytes and volume status are acceptable, and no change is being made to the current peritoneal dialysis (PD) prescription. We are keeping her in mild positive daily fluid balance in view of sepsis/infection/poor oral intake. 2. Peritonitis associated with peritoneal dialysis. Unfortunately, the patient's peritoneal WBC count did rise today despite intraperitoneal vancomycin and gentamicin. Likewise, her serum WBC has risen as well. She was sent for a CT scan of the abdomen, which was noncontrast and which was fairly unrevealing. I did give her one dose of meropenem. Her peritoneal cultures are still pending. We will continue to monitor a daily cell count and continue intraperitoneal antibiotics. Her vancomycin random level is therapeutic. 3. Anemia related to chronic renal failure/iron deficiency/gastrointestinal (GI) bleed. The patient was scheduled to receive Venofer infusion in the outpatient setting. I am holding off on doing this inpatient because of the ongoing infection, but we will give her a dose of Aranesp. Her baseline hemoglobin is 10. She has only received one unit of packed red blood cells on this admission and hemoglobin is suboptimal but fairly stable at 9.1. Her Eliquis that she takes for atrial fibrillation remains on hold. 4. Hypertension. The patient is acutely ill with peritonitis and possible right-sided pneumonia as well, and we have discontinued almost all of her home antihypertensives with the exception of a low dose beta andre, which she continues on in view of her atrial fibrillation history. She remains hemodynamically stable.
[2019-03-06 22:00] VITALS: BP 125/59
[2019-03-06] MEDS: SIMVASTATIN 40 MG TAB PO SCH (22:11)
[2019-03-06] MEDS: GABAPENTIN 100 MG CAP PO SCH (22:12)
[2019-03-06] MEDS: GENTAMICIN SULF INJ 80MG/2ML VIAL (J1580) IP SCH (22:12)
[2019-03-07] MEDS: PIPERACILLIN/TAZOBACTAM SOD 2.25 GM in D5W MINI-BAG PLUS 50 ML IV SCH ×3 (01:56→18:24)
[2019-03-07 06:00] VITALS: BP 133/62
[2019-03-07 06:25] LABS: HEMATOCRIT 29.2 % (36.0-47.0); HEMOGLOBIN 8.6 g/dl (12.0-15.5); MEAN CORPUSCULAR HEMOGLOBIN 29.4 pg (27.0-33.0); MEAN CORPUSCULAR HGB CONC 29.5 g/dl (32.0-36.5); MEAN CORPUSCULAR VOLUME 99.7 fl (80.0-96.0); PLATELET COUNT, AUTOMATED 343 10^3/uL (150-450); RED BLOOD COUNT 2.93 10^6/uL (4.00-5.40); WHITE BLOOD COUNT 14.9 10^3/uL (4.0-10.0)
[2019-03-07 06:43] LABS: CALCIUM LEVEL 8.3 MG/DL (8.8-10.2); CREATININE FOR GFR 4.95 MG/DL (0.55-1.30); MAGNESIUM LEVEL 1.5 MG/DL (1.8-2.4); POTASSIUM SERUM 3.5 MEQ/L (3.5-5.1)
[2019-03-07 07:20] LABS: APPEARANCE, BODY FLUID CLOUDY (CLEAR); PERITONEAL FL COLOR COLORLESS (COLORLESS); SOURCE, BODY FLUID PERITONEAL
[2019-03-07] MEDS ORDERED: DARBEPOETIN 100 MCG/0.5 ML *NON-DIALYSIS* SYRINGE (J0881) SC SCH (09:00)
[2019-03-07] MEDS: PANTOPRAZOLE 40MG INJ (PROTONIX) (C9113) IV SCH ×2 (09:34→22:36)
[2019-03-07] MEDS: PHENAZOPYRIDINE 100 MG TAB PO SCH ×2 (09:36→22:37)
[2019-03-07] MEDS: VITAMIN D 1,000 INTERNATIONAL UNITS TABLET PO SCH (09:36)
[2019-03-07] MEDS: POTASSIUM CHLORIDE 10 MEQ SR TABLET PO SCH (09:36)
[2019-03-07] MEDS: CitaloPRAM (CeleXA) 20 MG TAB PO SCH (09:36)
[2019-03-07] MEDS: CETIRIZINE (ZyrTEC) 10 MG TAB PO SCH (09:37)
[2019-03-07] MEDS: MUPIROCIN 2% OINT 22 GM TUBE TOP SCH (09:38)
[2019-03-07] MEDS: METOPROLOL TART 25 MG TABLET PO SCH ×2 (09:38→21:00)
[2019-03-07] MEDS: NYSTATIN 100,000 UNITS/GM TOPICAL PWD 15 GM TOP SCH ×2 (09:38→22:36)
[2019-03-07] MEDS: MAGNESIUM CHLORIDE 64 MG TABCR (SLO MAG) PO SCH (09:40)
[2019-03-07] MEDS ORDERED: VANCOMYCIN 1000 MG/20 ML VIAL (J3370) IP ONE ×2 (10:45→22:00)
[2019-03-07] MEDS: MORPHINE 2 MG/ML 1ML VIAL (J2270) IV PRN ×2 (10:49→22:39)
[2019-03-07] MEDS: ONDANSETRON 4MG/2ML VIAL (J2405) IV PRN ×3 (11:11→23:14)
[2019-03-07] MEDS ORDERED: ISOVUE-370 76% 100ML VIAL (Q9967) As Ordered ONE (13:22)
--- NOTE | 2019-03-07 14:01 | REP ---
Clinical: Sepsis. Technique: Axial contrast enhanced images from the lung bases to the pubic symphysis with coronal and sagittal re-formations using 100 ml Isovue 370 intravenous contrast material. Comparison: 03/06/2019. Findings: Lung bases demonstrate stable fibroatelectatic changes. Significant atherosclerotic changes with significant amounts of mural thrombus and ulcerative plaques involving the aorta. Peritoneal dialysis catheter with peritoneal fluid and small amount of free air again noted. Liver, spleen, pancreas, and bilateral adrenal glands are normal. Gallbladder suggests small amount of layering sludge. Hepatic and splenic calcifications consistent with prior granulomas disease. Atrophic appearance the bilateral kidneys without perinephric stranding or hydronephrosis. Small and large bowel without obstruction or acute inflammatory process. Colonic diverticulosis noted without obvious diverticulitis. Pelvis demonstrates normal bladder and evidence for prior hysterectomy. No obvious adenopathy. Musculoskeletal structures demonstrate degenerative changes without acute focal abnormality. Impression: 1. No obvious acute abdominopelvic pathology appreciated. 2. Significant atherosclerotic changes to the aorta and branch vessels. 3. Diverticulosis without acute diverticulitis. 4. Possible cholelithiasis. 5. Pleuroparenchymal changes at the right base remain stable. Electronically Signed by Yaya Garzon MD 03/07/2019 01:53 P
--- NOTE | 2019-03-07 16:21 | IPNPDOC ---
Text Note Date of Service The patient was seen on 03/07/19. NOTE Subjective: Patient states that she feels better. She still does not have florence etite. Patient denies fever, chills, nausea, shortness of breath, palpitations, vomiting, diarrhea Objectives: not in apparent distress HEENT: Normocephalic, atraumatic. Mucous members moist and pink CARDIOVASCULAR: Irregularly irregular rhythm, S1S2 LUNGS: Diminished lung sounds bl ABDOMEN: Bowel sounds are hypoactive. Abdomen is soft, nontender, moderately distended MUSCULOSKELETAL: Range of motion is intact in all 4 extremities NEUROLOGICAL: Cranial nerves II-12 are grossly intact. Speech is not dysarthric Assessment and plan: Patient is 78-year-old female with past medical history HTN, DM type 2, TIA in past, COPD, ESRD on peritoneal dialysis, depression, atrial fibrillation on Eliquis, chronic diastolic congestive heart failure, history of peritonitis in the past, history of recurrent ESBL E-coli urinary tract infections, recent aspiration pneumonitis, recent hospitalization for food impaction, ( EGD done in [place] - showed esophageal ulceration at distal esophagus), anemia secondary to end-stage renal disease, recent diagnosis of DVT and bilateral PE ( started on Eliquis since then), presents to [facility] after direct transfer from [facility] with GI bleed. Sepsis increased leukocytosis today to patient 14.9 Patient was diagnosed with peritonitis, she receives intraperitoneally vancomycin and gentamicin. However, patient has increased weakness and increased white blood count. Zosyn IV added On 03/06/[address] shows no definite obvious acute abdominopelvic pathology Blood culture no growth for 48 hours Peritoneal fluid culture pending Urine culture shows Escherichia coli ESBL sensitive to Zosyn Dr. Evans follows pt GIB (gastrointestinal bleeding) Most likely upper GI bleed Full liquid diet 1 unit of blood transfusion given on 03/03/19. Hemoglobin is stable Patient will need EGD in the outpatient settings Continue PPI IV UTI (urinary tract infection) According to records from previous facility patient has been treated with nitrofurantoin for 4 days due to Escherichia coli infection Ciprofloxacin discontinued due to resistance, IV Zosyn initiated Abdominal pain Epigastric pain resolved Suprapubic pain most likely secondary to interstitial cystitis ESRD on peritoneal dialysis Peritoneal fluid shows around 7500 leukocytes on 03/04/12 Gentamicin and vancomycin intraperitoneally Peritoneal fluid was sent for culture. Await result On 03/07/19 white blood count peritoneal fluid increased to 7668. Dr. Evans recommended CT abdomen with contrast A-fib Eliquis on hold given acute GI bleed Acute on chronic anemia The patient was scheduled to receive Venofer infusion in the outpatient setting. Hb stable Secondary to acute GI bleed superimposed with chronic anemia due to end-stage renal diseases VS,Fishbone, I+O VS, Fishbone, I+O Laboratory Tests 03/06/19 17:02 03/07/19 05:33 Vital Signs Date Time Temp Pulse Resp B/P (MAP) Pulse Ox O2 Delivery O2 Flow Rate FiO2 03/07/19 10:59 18 03/07/19 09:38 80 134/73 03/07/19 06:00 97.9 96 Room Air 03/06/19 22:00 1.0 I&O- Last 24 Hours up to 6 AM 03/07/19 06:00 Intake Total 01067 ml Output Total 9900 ml Balance 550 ml GORGE PALACIOS DO Mar 07, 2019 16:21
[2019-03-07] MEDS: FLUCONAZOLE 100 MG TAB PO SCH (16:37)
--- NOTE | 2019-03-07 20:10 | IPN ---
DATE: 03/07/2019 SUBJECTIVE: Yuki is seen and examined this morning at the bedside. Her daughter is present. She complains of abdominal discomfort and pain, poor appetite, nausea, vomiting. Her peritoneal cell count continues to rise despite intraperitoneal antibiotics. A noncontrast CT of the abdomen and pelvis yesterday did not show any acute abdominopelvic pathology. She remains afebrile and blood cultures are negative thus far. Peritoneal cultures are pending. Temperature 97.9, pulse 82, respiratory rate 20, blood pressure 133/62, saturating 96% on room air. Intake yesterday and output yesterday shows equivalent fluid balance. The patient is having minimal oral intake. Weight in the bed scale today was not recorded. GENERAL: The patient is seen lying in bed, head of the bed elevated, elderly female appears fatigued and generally tired but in no apparent distress. Extraocular muscles are intact. Tongue is dry. Neck is supple. Jugular veins are not elevated. CARDIAC: Irregularly irregular, S1, S2. No edema in the legs. Lungs show diminished breath sounds at the bases with faint crackle on the right but there is no accessory muscle use and no tachypnea. The abdomen is soft. She grimaces to moderate palpation. There are bowel sounds. The left lower quadrant peritoneal dialysis catheter exit site is clean, dry and intact. MUSCULOSKELETAL: There is no clubbing, cyanosis or edema in the legs. There are healed scars on both knees. NEUROLOGIC: She is oriented times three, interactive and conversational. SKIN: Normal temperature and turgor. LABORATORY DATA: White count 14.9, hemoglobin 8.6, platelets 343. Sodium 135, potassium 3.5, bicarbonate 27, lactic acid 2.8. WBC peritoneal fluid is 7668 which is increased from prior. Blood cultures show no growth for 48 hours. Repeat blood cultures were sent today and pending. Urine culture grew E-coli ESBL. Peritoneal cultures are still pending. CT of the abdomen and pelvis yesterday did not show any acute abdominopelvic pathology. INPATIENT MEDICATIONS: She is on renally dosed Zosyn. She received a dose of Aranesp today. She continues on intraperitoneal vancomycin and gentamicin with therapeutic vancomycin random level. Remainder of medications are unchanged from prior. PROBLEMS: 1. End-stage renal disease on peritoneal dialysis. The patient continues on a gentle peritoneal dialysis prescription of five exchanges daily, total volume of each exchange two liters 2.5% Dianeal. Electrolytes and volume status are acceptable. No changes are being made to the current peritoneal dialysis prescription. She is in mild positive daily fluid balance in view of sepsis/infection/poor oral intake. 2. Peritonitis associated with peritoneal dialysis. I suspect that there may be some other underlying abdominal process in view of her rising peritoneal white blood cell (WBC) count despite intraperitoneal vancomycin and gentamicin and she is also receiving intravenous Zosyn. She had a noncontrast CT scan of the abdomen yesterday which failed to reveal anything of significance and I will send her for a contrast CT scan today. Her peritoneal cultures are still pending. We will continue to monitor daily cell count and continue intraperitoneal antibiotics. Her vancomycin random level is therapeutic. Given her recurrent antibiotic use and recurrent hospitalizations, I am also going to add an antifungal agent (although fungal peritonitis is less likely). 3. Anemia related to chronic renal failure, iron deficiency and gastrointestinal (GI) bleed. The patient was receiving Venofer in the outpatient setting. It is being held at present inpatient because of ongoing infection and she received a dose of Aranesp today. Her hemoglobin is stable. She only received one unit of packed red blood cell on this admission. The Eliquis that she takes for atrial fibrillation remains on hold. 4. Extended-spectrum beta-lactamase (ESBL) Escherichia (E) coli urinary tract infection (UTI). She is covered for the same and is receiving intravenous Zosyn.
[2019-03-07 21:00] VITALS: BP 95/61
[2019-03-07 22:00] VITALS: BP 95/61
[2019-03-07] MEDS: GENTAMICIN SULF INJ 80MG/2ML VIAL (J1580) IP SCH (22:36)
[2019-03-07] MEDS: GABAPENTIN 100 MG CAP PO SCH (22:37)
[2019-03-07] MEDS: SIMVASTATIN 40 MG TAB PO SCH (22:37)
[2019-03-08] MEDS: PIPERACILLIN/TAZOBACTAM SOD 2.25 GM in D5W MINI-BAG PLUS 50 ML IV SCH ×2 (02:01→10:05)
[2019-03-08 06:00] VITALS: BP 104/66
[2019-03-08 06:52] LABS: APPEARANCE, BODY FLUID CLOUDY (CLEAR); PERITONEAL FL COLOR YELLOW (COLORLESS); SOURCE, BODY FLUID PERITONEAL
[2019-03-08 06:58] LABS: HEMATOCRIT 27.5 % (36.0-47.0); HEMOGLOBIN 8.5 g/dl (12.0-15.5); MEAN CORPUSCULAR HEMOGLOBIN 30.4 pg (27.0-33.0); MEAN CORPUSCULAR HGB CONC 30.9 g/dl (32.0-36.5); MEAN CORPUSCULAR VOLUME 98.2 fl (80.0-96.0); PLATELET COUNT, AUTOMATED 369 10^3/uL (150-450)
[2019-03-08 07:18] LABS: ALBUMIN 1.2 GM/DL (3.2-5.2); BILIRUBIN,TOTAL 0.3 MG/DL (0.2-1.0); CALCIUM LEVEL 7.9 MG/DL (8.8-10.2); CREATININE FOR GFR 5.17 MG/DL (0.55-1.30); GLOMERULAR FILTRATION RATE 8.5 (>32); MAGNESIUM LEVEL 1.6 MG/DL (1.8-2.4); POTASSIUM SERUM 3.4 MEQ/L (3.5-5.1); TOTAL PROTEIN 5.7 GM/DL (6.4-8.2); VANCOMYCIN RANDOM 31.1 UG/ML
[2019-03-08] MEDS: METOPROLOL TART 25 MG TABLET PO SCH (09:00)
[2019-03-08] MEDS ORDERED: POTASSIUM CHLORIDE 10 MEQ SR TABLET PO SCH (09:00)
[2019-03-08] MEDS: NYSTATIN 100,000 UNITS/GM TOPICAL PWD 15 GM TOP SCH (09:00)
[2019-03-08] MEDS: PANTOPRAZOLE 40MG INJ (PROTONIX) (C9113) IV SCH (10:05)
[2019-03-08] MEDS: MAGNESIUM CHLORIDE 64 MG TABCR (SLO MAG) PO SCH ×2 (10:05→10:08)
[2019-03-08] MEDS: CitaloPRAM (CeleXA) 20 MG TAB PO SCH (10:06)
[2019-03-08] MEDS: PHENAZOPYRIDINE 100 MG TAB PO SCH (10:07)
[2019-03-08] MEDS: VITAMIN D 1,000 INTERNATIONAL UNITS TABLET PO SCH (10:07)
[2019-03-08] MEDS: FLUCONAZOLE 100 MG TAB PO SCH (10:08)
[2019-03-08] MEDS: CETIRIZINE (ZyrTEC) 10 MG TAB PO SCH (10:08)
[2019-03-08] MEDS: MUPIROCIN 2% OINT 22 GM TUBE TOP SCH (10:09)
[2019-03-08] MEDS ORDERED: LORazepam 2 MG/ML VIAL (J2060) IV PRN (10:45)
[2019-03-08] MEDS ORDERED: SCOPOLAMINE 1MG TRANSDERMAL PATCH TOP PRN (10:45)
[2019-03-08] MEDS ORDERED: FLEET ENEMA PR PRN (10:45)
[2019-03-08] MEDS ORDERED: ATROPINE SULFATE 1% OP SOLN 2 ML BTL SL PRN (10:45)
[2019-03-08] MEDS ORDERED: HYOSCYAMINE SULFATE 0.125 MG SUBL TABLET PO PRN (10:45)
--- NOTE | 2019-03-08 10:57 | IPNPDOC ---
Text Note Date of Service The patient was seen on 03/08/19. NOTE Subjective: Patient is very lethargic today, barely responsive to commands. Objectives: Somnolent ill looking female HEENT: Normocephalic, atraumatic. Mucous members moist and pink CARDIOVASCULAR: Irregularly irregular rhythm, S1S2 LUNGS: Diminished lung sounds bl ABDOMEN: Bowel sounds are hypoactive. Abdomen is soft, nontender, moderately distended MUSCULOSKELETAL: Range of motion is intact in all 4 extremities NEUROLOGICAL: Cranial nerves II-12 are grossly intact. Assessment and plan: Patient is 78-year-old female with past medical history HTN, DM type 2, TIA in past, COPD, ESRD on peritoneal dialysis, depression, atrial fibrillation on Eliquis, chronic diastolic congestive heart failure, history of peritonitis in the past, history of recurrent ESBL E-coli urinary tract infections, recent aspiration pneumonitis, recent hospitalization for food impaction, ( EGD done in [place] - showed esophageal ulceration at distal esophagus), anemia secondary to end-stage renal disease, recent diagnosis of DVT and bilateral PE ( started on Eliquis since then), presents to [facility] after direct transfer from [facility] with GI bleed. During hospital stay patient was diagnosed with sepsis secondary to peritonitis. Also patient was found to have gastrointestinal bleeding with urinary tract infection positive for ESBL. Patient received treatment with broad-spectrum antibiotics, peritoneal dialysis resolved positive dynamics. After discussion with her daughter who is a power of patent prosecution attorney and according to her wishes patient was transferred to [facility] VS,[facility], I+O VS, [facility], I+O Laboratory Tests 03/08/19 05:42 Vital Signs Date Time Temp Pulse Resp B/P (MAP) Pulse Ox O2 Delivery O2 Flow Rate FiO2 03/08/19 06:00 97.2 78 18 104/66 (79) 91 Nasal Cannula 1.0 I&O- Last 24 Hours up to 6 AM 03/08/19 06:00 Intake Total 02544 ml Output Total 83140 ml Balance 450 ml GORGE PALACIOS DO Mar 08, 2019 10:57
[2019-03-08] MEDS: MORPHINE 10MG/0.5ML ORAL CONCENTRATE SOLUTION U/D SL PRN ×2 (13:18→18:34)
[2019-03-08] MEDS: ONDANSETRON 4MG/2ML VIAL (J2405) IV PRN ×2 (14:09→18:22)
--- NOTE | 2019-03-08 14:38 | IPN ---
DATE OF VISIT: 03/08/2019 Mrs. Lange is seen this morning on her bedside. Her daughter is present in the room. The patient was admitted with abdominal pain and severe anemia. She was found to have peritonitis once again. She most likely had peritonitis going on for few days even prior to admission. She has been treated with broad-spectrum antibiotics pending cultures. However, peritoneal fluid cell count has not improved significantly so far. On March 03, the day of admission, peritoneal fluid cell count was 24,792 which improved to 7578 on March 04. Since then it has been fluctuating between 5000 and 7000 and today came down only 4411. She is not eating and continues to vomit when she tries to eat. She has abdominal pain which is not improving. PHYSICAL EXAMINATION: Temperature 97.2 degrees Fahrenheit, heart rate 78 per minute and respiratory rate 18 per minute. Blood pressure 104/66 mmHg and oxygen saturation 91%. Her head is atraumatic. At present she is resting comfortably after she took the pain medication. Heart sounds are regular and lungs with diminished breath sounds at bases. Abdomen has generalized tenderness and bowel sounds are hypoactive. Peritoneal dialysis fluid is cloudy and catheter site is clean. Extremities have no cyanosis or clubbing. Today's labs show WBC count in the CBC up to 19,000, hemoglobin 8.5 and hematocrit 27.5. Platelets 369. Sodium is 133, potassium 3.4, BUN 34 and creatinine 5.17. Glucose 100 and calcium 7.9. Peritoneal fluid cell count showed 4411 WBCs with 96.8% neutrophils. Peritoneal fluid culture is still pending. She did have a urine culture positive for E. coli. PROBLEMS: 1. End-stage renal disease. The patient has been on peritoneal dialysis and we will continue with the same as long as she wants to continue with dialysis. 2. Peritonitis. The patient has history of recurrent peritonitis and this one does not seem to be responding to treatment so far. The patient has been on broad-spectrum and including vancomycin and gentamicin intraperitoneally and Zosyn intravenously. She is also receiving fluconazole 100 mg daily. So far her peritonitis has not responded very well. Unfortunately, she is not a suitable candidate for hemodialysis as she lives far away from the dialysis unit. I have discussed with the patient's daughter who is present in the room. She tells me that the patient has already expressed her wishes to be comfortable. They have already discussed about her affairs and the patient's daughter wishes to keep her comfortable at this point. I feel this is appropriate and we will stop all acute care and convert her to comfort measures only. I have also discussed this with the hospitalist service. 3. Urinary tract infection. She has history of recurrent UTI with E. coli. She was treated with Zosyn which is also now being stopped as the patient will be on [employer]. Dictation to
[2019-03-08] MEDS: PROMETHAZINE INJ 25 MG/ML VIAL (J2550) IV PRN (21:04)
[2019-03-09] MEDS: MORPHINE 10MG/0.5ML ORAL CONCENTRATE SOLUTION U/D SL PRN ×2 (04:35→09:28)
[2019-03-09] MEDS: PROMETHAZINE INJ 25 MG/ML VIAL (J2550) IV PRN (10:20)
--- NOTE | 2019-03-09 17:47 | IPNPDOC ---
Text Note Date of Service The patient was seen on 03/09/19. NOTE Subjective: Patient continues to be lethargic today, no any acute events overnight Objectives: Somnolent ill looking female HEENT: Normocephalic, atraumatic. Mucous members moist and pink CARDIOVASCULAR: Irregularly irregular rhythm, S1S2 LUNGS: Diminished lung sounds bl ABDOMEN: Bowel sounds are hypoactive. Abdomen is soft, nontender, moderately distended MUSCULOSKELETAL: Range of motion is intact in all 4 extremities NEUROLOGICAL: Cranial nerves II-12 are grossly intact. Assessment and plan: Patient is 78-year-old female with past medical history HTN, DM type 2, TIA in past, COPD, ESRD on peritoneal dialysis, depression, atrial fibrillation on Eliquis, chronic diastolic congestive heart failure, history of peritonitis in the past, history of recurrent ESBL E-coli urinary tract infections, recent aspiration pneumonitis, recent hospitalization for food impaction, ( EGD done in [place] - showed esophageal ulceration at distal esophagus), anemia secondary to end-stage renal disease, recent diagnosis of DVT and bilateral PE ( started on Eliquis since then), presents to [facility] after direct transfer from [facility] with GI bleed. During hospital stay patient was diagnosed with sepsis secondary to peritonitis. Also patient was found to have gastrointestinal bleeding with urinary tract infection positive for ESBL. Patient received treatment with broad-spectrum antibiotics, peritoneal dialysis resolved positive dynamics. After discussion with her daughter who is a power of tax associate attorney and according to her wishes patient was transferred to [facility] Hospice consult placed VS,Fishbone, I+O VS, Fishbone, I+O Vital Signs Date Time Temp Pulse Resp B/P (MAP) Pulse Ox O2 Delivery O2 Flow Rate FiO2 03/09/19 11:29 1.0 03/09/19 09:28 17 03/08/19 06:00 97.2 78 104/66 (79) 91 Nasal Cannula I&O- Last 24 Hours up to 6 AM 03/09/19 06:00 Intake Total 0 ml Output Total 1800 ml Balance -1800 ml GORGE PALACIOS DO Mar 09, 2019 17:47
[2019-03-10] MEDS: MORPHINE 2 MG/ML 1ML VIAL (J2270) IV PRN ×2 (10:32→15:11)
[2019-03-10] MEDS: PROMETHAZINE INJ 25 MG/ML VIAL (J2550) IV PRN (15:11)
--- NOTE | 2019-03-10 16:33 | IPNPDOC ---
Text Note Date of Service The patient was seen on 03/10/19. NOTE Subjective: Patient continues to be somnolent today, no any acute events overnight. Patient denies any pain Objectives: Somnolent ill looking female HEENT: Normocephalic, atraumatic. Mucous members moist and pink CARDIOVASCULAR: Irregularly irregular rhythm, S1S2 LUNGS: Diminished lung sounds bl ABDOMEN: Bowel sounds are hypoactive. Abdomen is soft, nontender, moderately distended MUSCULOSKELETAL: Range of motion is intact in all 4 extremities NEUROLOGICAL: Cranial nerves II-12 are grossly intact. Assessment and plan: Patient is 78-year-old female with past medical history HTN, DM type 2, TIA in past, COPD, ESRD on peritoneal dialysis, depression, atrial fibrillation on Eliquis, chronic diastolic congestive heart failure, history of peritonitis in the past, history of recurrent ESBL E-coli urinary tract infections, recent aspiration pneumonitis, recent hospitalization for food impaction, ( EGD done in [place] - showed esophageal ulceration at distal esophagus), anemia secondary to end-stage renal disease, recent diagnosis of DVT and bilateral PE ( started on Eliquis since then), presents to [facility] after direct transfer from [facility] with GI bleed. During hospital stay patient was diagnosed with sepsis secondary to peritonitis. Also patient was found to have gastrointestinal bleeding with urinary tract infection positive for ESBL. Patient received treatment with broad-spectrum antibiotics, peritoneal dialysis resolved positive dynamics. After discussion with her daughter who is a power of asbestos pipe supervisor and according to her wishes patient was transferred to [facility], I+O , [facility], I+O Vital Signs Date Time Temp Pulse Resp B/P (MAP) Pulse Ox O2 Delivery O2 Flow Rate FiO2 03/10/19 09:00 1.0 03/09/19 09:28 17 03/08/19 06:00 97.2 78 104/66 (79) 91 Nasal Cannula I&O- Last 24 Hours up to 6 AM 03/10/19 06:00 Intake Total 0 ml Output Total 0 ml Balance 0 ml GORGE PALACIOS DO Mar 10, 2019 16:33
[2019-03-11] MEDS: MORPHINE 2 MG/ML 1ML VIAL (J2270) IV PRN (09:54)
[2019-03-11] MEDS: MORPHINE 10MG/0.5ML ORAL CONCENTRATE SOLUTION U/D SL PRN ×2 (10:07→13:27)
[2019-03-11] MEDS: ACETAMINOPHEN TAB 650MG DOSE (2X325MG) PO PRN (11:46)
--- NOTE | 2019-03-11 12:37 | IPNPDOC ---
Text Note Date of Service The patient was seen on 03/11/19. NOTE Subjective: -Awake, alert, visiting with family, reports feeling comfortable Objective: HEENT: Normocephalic, atraumatic. 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, recent aspiration pneumonitis, recent hospitalization for food impaction, ( EGD done in Dec 2018 - showed esophageal ulceration at distal esophagus), anemia secondary to end-stage renal disease, recent diagnosis of DVT and bilateral PE ( and therefore started on eliquis sin ce then), who presented to [facility] and her course was c/b sepsis secondary to peritonitis, urinary tract infection positive for ESBLand now transitioned to 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 Plan: -morphine 1Q1H SL PRN for moderate to severe pain -Family requested to stop all IV meds at this time -tylenol 650 Q6H PRN for mild pain -has atropine and levsin ordered for secretions PRN but has not required -Has IV morphine and ativan ordered that she has not required -pending hospice consult VS,Fishbone, I+O VS, Fishbone, I+O Vital Signs Date Time Temp Pulse Resp B/P (MAP) Pulse Ox O2 Delivery O2 Flow Rate FiO2 03/11/19 10:37 16 Nasal Cannula 1.0 03/08/19 06:00 97.2 78 104/66 (79) 91 I&O- Last 24 Hours up to 6 AM 03/11/19 06:00 Intake Total 240 ml Output Total 0 ml Balance 240 ml RONAL MEMBRENO MD Mar 11, 2019 12:37
[2019-03-12] MEDS: MORPHINE 10MG/0.5ML ORAL CONCENTRATE SOLUTION U/D SL PRN ×2 (01:53→15:46)
--- NOTE | 2019-03-12 16:06 | IPNPDOC ---
Text Note Date of Service The patient was seen on 03/12/19. NOTE Subjective: -Awake, alert, visiting with family, reports feeling comfortable this morning. -Family reporting that they are awaiting a conversation with the hospice in home sales representative to decide if they will take her home vs. facility Objective: HEENT: Normocephalic, atraumatic. 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, recent aspiration pneumonitis, recent hospitalization for food impaction, ( EGD done in Dec 2018 - showed esophageal ulceration at distal esophagus), anemia secondary to end-stage renal disease, recent diagnosis of DVT and bilateral PE ( and therefore started on eliquis since then), who presented to [facility] as a direct transfer from [facility] with GI bleed and her course was c/b sepsis secondary to peritonitis, urinary tract infection positive for ESBLand now transitioned to ELECTRIC METER TESTER after discussions with her family with ongoing symptom management pending consultation with hospice. Plan: -morphine 1Q1H SL PRN for moderate to severe pain -Family requested to stop all IV meds at this time -tylenol 650 Q6H PRN for mild pain -has atropine and levsin ordered for secretions PRN but has not required -Has IV morphine and ativan ordered that she has not required -pending hospice consult VS,Fishbone, I+O VS, Fishbone, I+O Vital Signs Date Time Temp Pulse Resp B/P (MAP) Pulse Ox O2 Delivery O2 Flow Rate FiO2 03/12/19 15:46 16 Nasal Cannula 1.0 03/08/19 06:00 97.2 78 104/66 (79) 91 I&O- Last 24 Hours up to 6 AM 03/12/19 06:00 Intake Total 240 ml Output Total 0 ml Balance 240 ml RONAL MEMBRENO MD Mar 12, 2019 16:06
[2019-03-13] MEDS: MORPHINE 10MG/0.5ML ORAL CONCENTRATE SOLUTION U/D SL PRN ×2 (08:48→12:55)
[2019-03-13] MEDS ORDERED: LORA0.5T11 PO (10:23)
[2019-03-13] MEDS ORDERED: HYOS125TA PO (10:23)
[2019-03-13] MEDS ORDERED: MORP20SO3 PO (10:23)
--- NOTE | 2019-03-13 11:01 | DS.PDOC ---
Discharge Summary General Date of Admission Mar 03, 2019 at 17:23 Date of Discharge 03/13/2019 Attending Physician: RONAL MEMBRENO MD Specialist/Consultants Involve: MARÍA GTZ MD Specialist/Consultants Involve Dr. Evans (nephrology) Discharge Summary PROCEDURES PERFORMED DURING STAY: None ADMITTING DIAGNOSES: Upper GIB DISCHARGE DIAGNOSES: Upper GIB HTN DM type 2 COPD ESRD depression atrial fibrillation chronic diastolic congestive heart failure peritonitis ESBL E-coli urinary tract infections anemia secondary to end-stage renal disease recent diagnosis of DVT and bilateral PE COMPLICATIONS/CHIEF COMPLAINT: Gi Bleed. HISTORY OF PRESENT ILLNESS: 78-year-old female with past medical history HTN, DM type 2, TIA in past, COPD, ESRD on peritoneal dialysis, depression, atrial fibrillation on Eliquis, chronic diastolic congestive heart failure, history of peritonitis in the past, history of recurrent ESBL E-coli urinary tract infections, recent aspiration pneumonitis, recent hospitalization for food impaction, (EGD done in Dec 2018 - showed esophageal ulceration at distal esoph shannen), anemia secondary to end-stage renal disease, recent diagnosis of DVT and bilateral PE (started on Eliquis since then), who presented to [facility] as a direct transfer from [facility] for GIB after FOBT+ stool with a hemoglobin of 8.4 while complaining of suprapubic abdominal pain and epigastric pain, without fever, nausea, vomiting, shortness of breath, palpitations, dysuria. 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 DISCHARGE MEDICATIONS: Please see below. ALLERGIES: Please see below. PHYSICAL EXAMINATION ON DISCHARGE: VITAL SIGNS: Please see below. HEENT: Normocephalic, atraumatic. MMM CARDIOVASCULAR: Irregularly irregular rhythm, S1S2 LUNGS: Diminished lung sounds bl ABDOMEN: Bowel sounds are normoactive, abdomen is soft, nontender, moderately distended MUSCULOSKELETAL: Range of motion is intact in all 4 extremities NEUROLOGICAL: Cranial nerves II-12 are grossly intact and is moving all extremities spontaneously LABORATORY DATA: Please see below. IMAGIN/[address]: 1. Subtle "tree in bud" infiltrate to the right upper lobe may reflect an acute early pneumonia. 2. Small consolidation and fibroatelectatic changes to the right base may reflect chronic changes and partial resolution to the previously noted right lower lobe consolidation on 01/28/2019 versus acute atelectasis. 3. Stable changes to the thoracic aorta. 4. Upper abdominal findings suggesting a peritoneal dialysis. 03/06 CT A/P: 1. Peritoneal fluid and pneumoperitoneum likely related to peritoneal dialysis with peritoneal dialysis catheter in the pelvis. 2. Right basilar lung changes may represent chronic change with superimposed acute small pneumonia / atelectasis. 3. No definite obvious acute abdominopelvic pathology identified. 4. Diverticulosis. 5. Atherosclerotic disease and stable infrarenal aortic aneurysm measuring up to approximately 3.5 cm diameter. 03/06: Chest CT 1. Lung [place] demonstrate no significant change with chronic findings and suspected superimposed subtle elements of the infiltrate involving the right lung including small area of consolidation with air bronchograms at the right base. These findings appear slightly less pronounced when compared through 01/28/2019 examination and should be correlated clinically. No new acute process is appreciated. 2. Mild distension to the esophagus which may be secondary to extrinsic mechanical compression at the mid/distal esophagus due to the adjacent aorta. 3. Atherosclerotic changes to the coronary arteries and thoracic aorta with elements of aneurysmal dilatation remains stable. Cardiomegaly remains stable. 03/07: CT A/P 1. No obvious acute abdominopelvic pathology appreciated. 2. Significant atherosclerotic changes to the aorta and branch vessels. 3. Diverticulosis without acute diverticulitis. 4. Possible cholelithiasis. 5. Pleuroparenchymal changes at the right base remain stable. PROGNOSIS: Poor ACTIVITY: As tolerated DIET: regular, as tolerated DISCHARGE PLAN: Home with home hospice DISPOSITION: Home with hospice DISCHARGE INSTRUCTIONS: 1. Comfort measures with hospice titration of comfort medications ITEMS TO FOLLOWUP ON ON OUTPATIENT: 1. Hospice care DISCHARGE CONDITION: Stable TIME SPENT ON DISCHARGE: 52 minutes. Vital Signs/I&Os Vital Signs Date Time Temp Pulse Resp B/P (MAP) Pulse Ox O2 Delivery O2 Flow Rate FiO2 03/13/19 08:48 16 03/12/19 21:00 1.0 03/12/19 15:46 Nasal Cannula 03/08/19 06:00 97.2 78 104/66 (79) 91 I&O- Last 24 Hours up to 6 AM 03/13/19 06:00 Intake Total 240 ml Balance 240 ml Microbiology Microbiology 03/07/19 Blood Culture - Final, Complete NO GROWTH AFTER 5 DAYS 03/07/19 Fungal Smear, Received Pending 03/07/19 Fungal Culture, Received Pending 03/05/19 Blood Culture - Final, Complete NO GROWTH AFTER 5 DAYS 03/04/19 Urine Culture - Final, Complete E.coli Esbl 03/04/19 Body Fluid Culture - Final, Complete E.coli Esbl Klebsiella Oxytoca Discharge Medications Scheduled Apixaban (Eliquis) 2.5 Mg Tablet, 2.5 MG PO BID, (Reported) Aspirin/Dipyridamole (Aspirin-Dipyridam ER 25-200 mg) 1 Each Cpmp.12hr, 1 CAP PO BID, (Reported) Biotin (Biotin) 1 Mg Capsule, 1 MG PO DAILY, (Reported) Cetirizine HCl (Cetirizine HCl) 10 Mg Tablet, 10 MG PO DAILY, (Reported) Chlorthalidone (Chlorthalidone) 25 Mg Tablet, 25 MG PO DAILY, (Reported) Citalopram Hydrobromide (Celexa) 20 Mg Tablet, 20 MG PO DAILY, (Reported) Gabapentin (Gabapentin) 100 Mg Capsule, 100 MG PO QHS, (Reported) Irbesartan (Irbesartan) 300 Mg Tablet, 300 MG PO DAILY, (Reported) Isosorbide Dinitrate (Isosorbide Dinitrate) 5 Mg Tablet, 5 MG PO AC, (Reported) Metoprolol Tartrate (Metoprolol Tartrate) 25 Mg Tablet, 25 MG PO BID, (Reported) Multivit-Mins No.11/Folic Acid (Dialyvite 5000 Tablet) 1 Tab Tab, 1 TAB PO DAILY, (Reported) Pantoprazole Sodium (Protonix) 40 Mg Tablet.dr, 40 MG PO DAILY, (Reported) Potassium Chloride (Potassium Chloride) 10 Meq Tablet.er, 20 MEQ PO DAILY, (Reported) Salmeterol/Fluticasone (Advair 250-50 Diskus) 1 Each Blst.w.dev, 1 PUFF INH BID, (Reported) Simvastatin (Zocor) 40 Mg Tab, 40 MG PO QHS, (Reported) Vitamin D (Vitamin D3) 1,000 Unit Tablet, 1,000 UNITS PO DAILY, (Reported) Vitamin E (Vitamin E) 400 Unit Capsule, 400 UNIT PO DAILY, (Reported) Scheduled PRN Albuterol Sulfate (Proair Hfa) 8.5 Gm Hfa.aer.ad, 1 PUFF INH Q4H PRN for SHORTNESS OF BREATH, (Reported) Calcium Carbonate (Tums) 500 Mg Chw, 500 MG PO Q4H PRN for HEARTBURN/INDIGESTION, (Reported) Hyoscyamine Sulfate (Hyoscyamine Sulfate) 0.125 Mg Tab.subl, 0.125 MG PO Q4HP PRN for TERMINAL SECRETIONS Use sublingually if unable to swallow Ipratropium/Albuterol Sulfate (Iprat-Albut 0.5-3(2.5) mg/3 ml) 1 Shara Shara, 3 ML NEB Q6H PRN for SHORTNESS OF BREATH, (Reported) Ondansetron HCl (Zofran) 4 Mg Tablet, 4 MG PO Q6H PRN for NAUSEA, (Reported) Sodium Chloride ([place]) 104 Ml [place], 2 SPRAY NA QID PRN for NASAL DRYNESS, (Reported) EACH NOSTRIL Tramadol HCl (Tramadol HCl) 50 Mg Tablet, 50 MG PO Q8H PRN for PAIN, (Reported) Allergies Coded Allergies: latex (Verified Allergy, Intermediate, RASH, 12/21/18) pseudoephedrine (Verified Allergy, Intermediate, RASH, 12/21/18) carbamide peroxide (Verified Allergy, Unknown, 12/21/18) ibuprofen (Verified Adverse Reaction, Intermediate, BLOODY STOOLS, 12/21/18) RONAL MEMBRENO MD Mar 13, 2019 10:58
--- NOTE | 2019-03-13 11:03 | IPNPDOC ---
Text Note Date of Service The patient was seen on 03/13/19. NOTE Subjective: -Awake, alert, reports feeling comfortable this morning, no pain complaints at this time. Objective: HEENT: Normocephalic, atraumatic. MMM CARDIOVASCULAR: Irregularly irregular rhythm, S1S2 LUNGS: Diminished lung sounds bl ABDOMEN: Bowel sounds are normoactive, abdomen is soft, nontender, moderately distended MUSCULOSKELETAL: Range of motion is intact in all 4 extremities EXt: cool feet, otherwise with palpable pulses NEUROLOGICAL: Cranial nerves II-12 are grossly intact and is moving all extremit ies spontaneously Labs: none Assessment and plan: 78-year-old W with HTN, DM type 2, hx of TIA, COPD, ESRD previously on PD, d epression, atrial fibrillation previously on eliquis, chronic diastolic congestive heart failure, history of peritonitis, history of recurrent ESBL E- coli urinary tract infections, recent aspiration pneumonitis, recent hospitalization for food impaction, ( EGD done in Dec 2018 - showed esophageal ulceration at distal esophagus), anemia secondary to end-stage renal disease, recent diagnosis of DVT and bilateral PE ( and therefore started on eliquis since then), who presented to [facility] as a direct transfer from 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 Plan: -Discharge home with hospice care and pain and symptom management medications VS,Fishbone, I+O VS, Fishbone, I+O Vital Signs Date Time Temp Pulse Resp B/P (MAP) Pulse Ox O2 Delivery O2 Flow Rate FiO2 03/12/19 21:00 1.0 03/12/19 15:46 16 Nasal Cannula 03/08/19 06:00 97.2 78 104/66 (79 91 I&O- Last 24 Hours up to 6 AM 03/13/19 06:00 Intake Total 240 ml Balance 240 ml RONAL MEMBRENO MD Mar 13, 2019 07:28
[2019-03-13] MEDS ORDERED: ONDA4TAB5 PO (13:08)
== END 2019-03-13 13:33 | disposition hospice, home (50) | DRG 919 ==
LOC: M MSPAV 17:23
PROVIDERS: ADMIT Internal Medicine; ATTEND Internal Medicine
PROC: 30233N1 Transfusion of Nonautologous Red Blood Cells into Peripheral Vein, Percutaneous Approach (ICD-10-PCS; principal; 2019-03-03)
DX: T85.71XA Infection and inflammatory reaction due to peritoneal dialysis catheter, initial encounter (principal); K65.9 Peritonitis, unspecified; A41.9 Sepsis, unspecified organism; I26.99 Other pulmonary embolism without acute cor pulmonale; J18.9 Pneumonia, unspecified organism; N18.6 End stage renal disease; K92.2 Gastrointestinal hemorrhage, unspecified; I13.2 Hypertensive heart and chronic kidney disease with heart failure and with stage 5 chronic kidney disease, or end stage renal disease; N39.0 Urinary tract infection, site not specified; D62 Acute posthemorrhagic anemia; I50.32 Chronic diastolic (congestive) heart failure; I82.409 Acute embolism and thrombosis of unspecified deep veins of unspecified lower extremity; B96.20 Unspecified Escherichia coli [E. coli] as the cause of diseases classified elsewhere; Z99.2 Dependence on renal dialysis; I48.91 Unspecified atrial fibrillation; E11.22 Type 2 diabetes mellitus with diabetic chronic kidney disease; Z86.73 Personal history of transient ischemic attack (TIA), and cerebral infarction without residual deficits; J44.9 Chronic obstructive pulmonary disease, unspecified; F32.9 Major depressive disorder, single episode, unspecified; Z79.01 Long term (current) use of anticoagulants; Z51.5 Encounter for palliative care; E87.6 Hypokalemia; E83.42 Hypomagnesemia; Z79.899 Other long term (current) drug therapy; Z79.82 Long term (current) use of aspirin; Z91.040 Latex allergy status; Z88.8 Allergy status to other drugs, medicaments and biological substances